=== PATIENT | male | born 1950 | race Caucasian/White ===

== ENCOUNTER 2018-10-25 11:17 | Emergency (ER) | payer MEDICARE ==
[~2018-10-25] VITALS: Ht 188 cm; Wt 120.5 kg
[~2018-10-25 11:17] MED LIST: DOXY100C43 PO; PRED10TA23 PO
[2018-10-25] MEDS ORDERED: methylPREDNISolone sod succ 125mg/2ml vial IV ONE (12:30)
[2018-10-25] MEDS ORDERED: ipratropium/albuterol 3ml nebule NEB ONE (12:30)
[2018-10-25 12:59] LABS: BASOPHILS % (AUTO) 0.4 % (0-1); EOSINOPHILS # (AUTO) 0.1 X10'3 (0-0.9); EOSINOPHILS % (AUTO) 1.4 % (0-6); HEMATOCRIT 40.5 % (42.0-52.0); HEMOGLOBIN 13.5 g/dl (14.0-17.9); LYMPHOCYTES # (AUTO) 1.9 X10'3 (1.1-4.8); LYMPHOCYTES % (AUTO) 21.5 % (21-51); MEAN CORPUSCULAR HGB CONC 33.3 g/dL (33.0-36.5); MEAN CORPUSCULAR VOLUME 81.2 FL (78-98); MEAN PLATELET VOLUME 8.5 FL (7.4-10.4); MONOCYTES % (AUTO) 11.2 % (2-12); NEUTROPHILS # (AUTO) 5.7 X10'3 (1.8-7.7); NEUTROPHILS % (AUTO) 65.5 % (42-75); PLATELET COUNT 175 X10'3 (140-440); RED BLOOD COUNT 4.99 X10'6 (4.70-6.10); WHITE BLOOD COUNT 8.6 X10'3 (4.5-11.0)
[2018-10-25 13:15] VITALS: BP 151/93
[2018-10-25 13:16] LABS: ALANINE AMINOTRANSFERASE 18 U/L (12-78); ALKALINE PHOSPHATASE 113 IU/L (46-116); ANION GAP 9 (8-16); ASPARTATE AMINO TRANSFERASE 10 U/L (10-37); BILIRUBIN,TOTAL 0.3 MG/DL (0.1-1.0); BLOOD UREA NITROGEN 15 MG/DL (7-18); BUN/CREATININE RATIO 15.3 (5.4-32.0); CALCIUM 8.5 MG/DL (8.5-10.1); CHLORIDE 108 MMOL/L (99-107); CREATININE 0.98 MG/DL (0.60-1.10); GLUCOSE 85 MG/DL (70-104); POTASSIUM 3.6 MMOL/L (3.5-5.1); SODIUM 147 MMOL/L (135-145); TOTAL CARBON DIOXIDE 30.3 MMOL/L (24-32); TOTAL PROTEIN 6.1 G/DL (6.4-8.2); eGFR 76 ML/MIN
== END 2018-10-25 13:37 | disposition home or self-care (01) ==
LOC: ER 11:17
DX: J44.1 Chronic obstructive pulmonary disease with (acute) exacerbation (principal); I25.10 Atherosclerotic heart disease of native coronary artery without angina pectoris; F17.200 Nicotine dependence, unspecified, uncomplicated; Z79.899 Other long term (current) drug therapy; Z59.0 Homelessness
CPT/HCPCS: 36415; 71045; 80053; 84484; 85025; 93005; 94640; 94760; 96374; 99284; J2930

== ENCOUNTER 2018-10-28 08:55 | Emergency (ER) | payer MEDICARE ==
[~2018-10-28] VITALS: Ht 188 cm; Wt 126.0 kg
[2018-10-28] MEDS ORDERED: ipratropium/albuterol 3ml nebule NEB ONE (09:00)
[2018-10-28] MEDS ORDERED: methylPREDNISolone sod succ 125mg/2ml vial IV ONE (09:00)
[2018-10-28 09:22] LABS: BASOPHILS # (AUTO) 0.1 X10'3 (0-0.2); BASOPHILS % (AUTO) 0.6 % (0-1); EOSINOPHILS # (AUTO) 0.2 X10'3 (0-0.9); EOSINOPHILS % (AUTO) 1.6 % (0-6); HEMATOCRIT 45.6 % (42.0-52.0); HEMOGLOBIN 14.8 g/dl (14.0-17.9); LYMPHOCYTES # (AUTO) 2.1 X10'3 (1.1-4.8); LYMPHOCYTES % (AUTO) 20.9 % (21-51); MEAN CORPUSCULAR HEMOGLOBIN 26.6 PG (27.0-31.0); MEAN CORPUSCULAR HGB CONC 32.4 g/dL (33.0-36.5); MEAN CORPUSCULAR VOLUME 82.1 FL (78-98); MEAN PLATELET VOLUME 8.6 FL (7.4-10.4); MONOCYTES % (AUTO) 10.1 % (2-12); NEUTROPHILS # (AUTO) 6.6 X10'3 (1.8-7.7); NEUTROPHILS % (AUTO) 66.8 % (42-75); PLATELET COUNT 167 X10'3 (140-440); RED BLOOD COUNT 5.55 X10'6 (4.70-6.10); RED CELL DISTRIBUTION WIDTH 18.4 % (11.5-14.5); WHITE BLOOD COUNT 9.8 X10'3 (4.5-11.0)
[2018-10-28 09:38] LABS: ALANINE AMINOTRANSFERASE 21 U/L (12-78); ALBUMIN 3.2 G/DL (3.4-5.0); ALBUMIN/GLOBULIN RATIO 0.9 (1.1-1.5); ALKALINE PHOSPHATASE 114 IU/L (46-116); ANION GAP 6 (8-16); ASPARTATE AMINO TRANSFERASE 16 U/L (10-37); BILIRUBIN,TOTAL 0.4 MG/DL (0.1-1.0); BLOOD UREA NITROGEN 16 MG/DL (7-18); BUN/CREATININE RATIO 16.7 (5.4-32.0); CALCIUM 8.5 MG/DL (8.5-10.1); CHLORIDE 106 MMOL/L (99-107); CREATININE 0.96 MG/DL (0.60-1.10); GLUCOSE 123 MG/DL (70-104); POTASSIUM 3.6 MMOL/L (3.5-5.1); SODIUM 143 MMOL/L (135-145); TOTAL CARBON DIOXIDE 31.3 MMOL/L (24-32); TOTAL PROTEIN 6.6 G/DL (6.4-8.2); eGFR 78 ML/MIN
[2018-10-28 09:48] LABS: INR 1.1 INR; PARTIAL THROMBOPLASTIN TIME 25 SECONDS (22-32)
[2018-10-28] MEDS ORDERED: ALBU8.5H8 IH (10:26)
[2018-10-28] MEDS ORDERED: PRED20TA PO (10:26)
[2018-10-28 10:42] VITALS: BP 183/88
== END 2018-10-28 10:44 | disposition home or self-care (01) ==
LOC: ER 08:56
DX: J44.1 Chronic obstructive pulmonary disease with (acute) exacerbation (principal); I25.10 Atherosclerotic heart disease of native coronary artery without angina pectoris; F17.200 Nicotine dependence, unspecified, uncomplicated; Z98.890 Other specified postprocedural states; Z79.2 Long term (current) use of antibiotics; Z79.899 Other long term (current) drug therapy; Z59.0 Homelessness
CPT/HCPCS: 36415; 71045; 80053; 83880; 84484; 85025; 85610; 85730; 93005; 94640; 94760; 96374; 99284; J2930

== ENCOUNTER 2018-10-28 23:49 | Emergency (ER) | payer MEDICARE ==
[~2018-10-28] VITALS: Ht 188 cm; Wt 120.0 kg
[~2018-10-28 23:49] MED LIST changes: +ALBU8.5H8 IH; +PRED20TA PO
[2018-10-29] MEDS ORDERED: ipratropium/albuterol 3ml nebule NEB ONE (00:55)
[2018-10-29 02:39] VITALS: BP 129/78
== END 2018-10-29 02:43 | disposition home or self-care (01) ==
LOC: ER 23:49
DX: J44.1 Chronic obstructive pulmonary disease with (acute) exacerbation (principal); I25.10 Atherosclerotic heart disease of native coronary artery without angina pectoris; Z95.1 Presence of aortocoronary bypass graft; Z56.0 Unemployment, unspecified; Z59.0 Homelessness
CPT/HCPCS: 93005; 94640; 94760; 99283

== ENCOUNTER 2018-11-21 03:04 | Emergency (ER) | payer MEDICARE ==
[~2018-11-21] VITALS: Ht 190.5 cm; Wt 122.7 kg
[~2018-11-21 03:04] MED LIST changes: -DOXY100C43 PO; -PRED20TA PO
--- NOTE | 2018-11-21 03:18 | NUR ---
Patient BIB EMS with complaints of SOB [id number].
[2018-11-21] MEDS ORDERED: dexamethasone 4mg tablet PO ONE (03:25)
[2018-11-21] MEDS ORDERED: nitroGLYCERIN 0.4mg/hour patch TD ONE (03:25)
[2018-11-21] MEDS ORDERED: aspirin 81mg tab.chew PO ONE (03:25)
[2018-11-21] MEDS ORDERED: ipratropium/albuterol 3ml nebule NEB ONE (03:25)
[2018-11-21] MEDS ORDERED: furosemide 40mg/4ml inj IV ONE (03:25)
[2018-11-21] MEDS ORDERED: carVEDilol 12.5mg tablet PO SCH (03:35)
[2018-11-21] MEDS ORDERED: carVEDilol 12.5mg tablet PO ONE (03:35)
[2018-11-21 03:45] LABS: BASOPHILS % (AUTO) 0.6 % (0-1); EOSINOPHILS # (AUTO) 0.2 X10'3 (0-0.9); EOSINOPHILS % (AUTO) 1.9 % (0-6); HEMATOCRIT 49.1 % (42.0-52.0); HEMOGLOBIN 16.1 g/dl (14.0-17.9); LYMPHOCYTES # (AUTO) 2.8 X10'3 (1.1-4.8); LYMPHOCYTES % (AUTO) 33.8 % (21-51); MEAN CORPUSCULAR HEMOGLOBIN 27.5 PG (27.0-31.0); MEAN CORPUSCULAR HGB CONC 32.9 g/dL (33.0-36.5); MEAN CORPUSCULAR VOLUME 83.7 FL (78-98); MEAN PLATELET VOLUME 8.6 FL (7.4-10.4); MONOCYTES # (AUTO) 0.8 X10'3 (0-0.9); MONOCYTES % (AUTO) 9.7 % (2-12); NEUTROPHILS # (AUTO) 4.5 X10'3 (1.8-7.7); PLATELET COUNT 185 X10'3 (140-440); RED BLOOD COUNT 5.87 X10'6 (4.70-6.10); RED CELL DISTRIBUTION WIDTH 19.5 % (11.5-14.5); WHITE BLOOD COUNT 8.2 X10'3 (4.5-11.0)
[2018-11-21 03:53] LABS: ALANINE AMINOTRANSFERASE 19 U/L (12-78); ALBUMIN 3.7 G/DL (3.4-5.0); ALBUMIN/GLOBULIN RATIO 0.9 (1.1-1.5); ALKALINE PHOSPHATASE 120 IU/L (46-116); ANION GAP 9 (8-16); ASPARTATE AMINO TRANSFERASE 12 U/L (10-37); BILIRUBIN,TOTAL 0.6 MG/DL (0.1-1.0); BLOOD UREA NITROGEN 14 MG/DL (7-18); BUN/CREATININE RATIO 15.7 (5.4-32.0); CALCIUM 9.1 MG/DL (8.5-10.1); CHLORIDE 105 MMOL/L (99-107); CREATININE 0.89 MG/DL (0.60-1.10); GLUCOSE 77 MG/DL (70-104); PARTIAL THROMBOPLASTIN TIME 27 SECONDS (22-32); POTASSIUM 3.8 MMOL/L (3.5-5.1); SODIUM 142 MMOL/L (135-145); TOTAL CARBON DIOXIDE 28.1 MMOL/L (24-32); TOTAL PROTEIN 7.6 G/DL (6.4-8.2); eGFR 85 ML/MIN
[2018-11-21 03:59] LABS: MAGNESIUM 1.8 MG/DL (1.5-2.4)
[2018-11-21] MEDS ORDERED: CARV-50 PO (04:15)
[2018-11-21] MEDS ORDERED: FURO-150 PO (04:15)
[2018-11-21] MEDS ORDERED: PRED20TA PO (04:15)
[2018-11-21] MEDS ORDERED: ALBU6.7H INH (04:15)
[2018-11-21 05:02] VITALS: BP 161/85
== END 2018-11-21 04:25 | disposition home or self-care (01) ==
LOC: ER 03:05
DX: J44.1 Chronic obstructive pulmonary disease with (acute) exacerbation (principal); I10 Essential (primary) hypertension; Z91.14 Patient's other noncompliance with medication regimen; I25.10 Atherosclerotic heart disease of native coronary artery without angina pectoris; Z59.0 Homelessness; Z56.0 Unemployment, unspecified; Z95.1 Presence of aortocoronary bypass graft
CPT/HCPCS: 36415; 71045; 80053; 83735; 83880; 84484; 85025; 85610; 85730; 93005; 94640; 94760; 96374; 99284; J1940; J8540

== ENCOUNTER 2018-12-08 08:36 | Emergency (ER) | payer MEDICARE ==
[~2018-12-08] VITALS: Ht 190.5 cm; Wt 122.0 kg
[~2018-12-08 08:36] MED LIST changes: +ALBU6.7H INH; -ALBU8.5H8 IH; +CARV-50 PO; +FURO-150 PO; -PRED10TA23 PO; +PRED20TA PO
[2018-12-08] MEDS ORDERED: dexamethasone 4mg/ml inj PO STA (08:57)
[2018-12-08] MEDS ORDERED: ipratropium/albuterol 3ml nebule NEB ONE (09:00)
[2018-12-08] MEDS ORDERED: dexamethasone 4mg tablet PO ONE (09:15)
[2018-12-08 09:42] LABS: BASOPHILS % (AUTO) 0.3 % (0-1); EOSINOPHILS # (AUTO) 0.1 X10'3 (0-0.9); EOSINOPHILS % (AUTO) 1.5 % (0-6); HEMOGLOBIN 15.1 g/dl (14.0-17.9); LYMPHOCYTES # (AUTO) 1.9 X10'3 (1.1-4.8); LYMPHOCYTES % (AUTO) 25.8 % (21-51); MEAN CORPUSCULAR HEMOGLOBIN 28.4 PG (27.0-31.0); MEAN CORPUSCULAR HGB CONC 32.9 g/dL (33.0-36.5); MEAN CORPUSCULAR VOLUME 86.2 FL (78-98); MEAN PLATELET VOLUME 9.1 FL (7.4-10.4); MONOCYTES # (AUTO) 0.6 X10'3 (0-0.9); MONOCYTES % (AUTO) 8.1 % (2-12); NEUTROPHILS # (AUTO) 4.7 X10'3 (1.8-7.7); NEUTROPHILS % (AUTO) 64.3 % (42-75); PLATELET COUNT 165 X10'3 (140-440); RED BLOOD COUNT 5.33 X10'6 (4.70-6.10); RED CELL DISTRIBUTION WIDTH 17.6 % (11.5-14.5); WHITE BLOOD COUNT 7.4 X10'3 (4.5-11.0)
[2018-12-08 10:06] LABS: ALANINE AMINOTRANSFERASE 14 U/L (12-78); ALBUMIN 2.8 G/DL (3.4-5.0); ALBUMIN/GLOBULIN RATIO 0.9 (1.1-1.5); ALKALINE PHOSPHATASE 89 IU/L (46-116); ANION GAP 4 (8-16); BILIRUBIN,TOTAL 0.8 MG/DL (0.1-1.0); BLOOD UREA NITROGEN 15 MG/DL (7-18); BUN/CREATININE RATIO 17.2 (5.4-32.0); CALCIUM 8.5 MG/DL (8.5-10.1); CHLORIDE 106 MMOL/L (99-107); CREATININE 0.87 MG/DL (0.60-1.10); GLUCOSE 125 MG/DL (70-104); POTASSIUM 3.9 MMOL/L (3.5-5.1); SODIUM 139 MMOL/L (135-145); TOTAL CARBON DIOXIDE 28.9 MMOL/L (24-32); TOTAL PROTEIN 5.8 G/DL (6.4-8.2); eGFR 88 ML/MIN
[2018-12-08 11:21] VITALS: BP 138/67
[2018-12-08 12:00] LABS: ASPARTATE AMINO TRANSFERASE 14 U/L (10-37)
[2018-12-12] MEDS ORDERED: ALBU8HFA PO (14:48)
== END 2018-12-08 12:28 | disposition home or self-care (01) ==
LOC: ER 08:36
DX: J44.1 Chronic obstructive pulmonary disease with (acute) exacerbation (principal); I25.10 Atherosclerotic heart disease of native coronary artery without angina pectoris; I10 Essential (primary) hypertension; F17.200 Nicotine dependence, unspecified, uncomplicated; Z95.1 Presence of aortocoronary bypass graft; Z59.0 Homelessness; Z56.0 Unemployment, unspecified; Z79.899 Other long term (current) drug therapy
CPT/HCPCS: 36415; 71045; 80053; 83880; 84484; 85025; 85610; 93005; 94640; 94760; 99284; J1100; J8540

== ENCOUNTER 2019-04-12 09:06 | Emergency (ER) | payer MEDICARE ==
[~2019-04-12] VITALS: Ht 190.5 cm; Wt 131.4 kg
[~2019-04-12 09:06] MED LIST changes: -ALBU6.7H INH; +ALBU6.7H9 INH; -PRED20TA PO
[2019-04-12 09:48] LABS: BASOPHILS # (AUTO) 0.1 X10'3 (0-0.2); BASOPHILS % (AUTO) 0.5 % (0-1); EOSINOPHILS # (AUTO) 0.2 X10'3 (0-0.9); HEMATOCRIT 51.7 % (42.0-52.0); HEMOGLOBIN 17.7 g/dl (14.0-17.9); LYMPHOCYTES # (AUTO) 2.5 X10'3 (1.1-4.8); LYMPHOCYTES % (AUTO) 22.2 % (21-51); MEAN CORPUSCULAR HEMOGLOBIN 31.2 PG (27.0-31.0); MEAN CORPUSCULAR HGB CONC 34.3 g/dL (33.0-36.5); MEAN CORPUSCULAR VOLUME 90.9 FL (78-98); MONOCYTES # (AUTO) 1.3 X10'3 (0-0.9); MONOCYTES % (AUTO) 11.3 % (2-12); NEUTROPHILS # (AUTO) 7.2 X10'3 (1.8-7.7); PLATELET COUNT 204 X10'3 (140-440); RED BLOOD COUNT 5.68 X10'6 (4.70-6.10); RED CELL DISTRIBUTION WIDTH 12.5 % (11.5-14.5); WHITE BLOOD COUNT 11.2 X10'3 (4.5-11.0)
[2019-04-12 10:02] LABS: PARTIAL THROMBOPLASTIN TIME 26 SECONDS (22-32)
[2019-04-12 10:05] LABS: ALANINE AMINOTRANSFERASE 12 U/L (12-78); ALBUMIN 3.7 G/DL (3.4-5.0); ALKALINE PHOSPHATASE 133 IU/L (46-116); ANION GAP 10 (8-16); ASPARTATE AMINO TRANSFERASE 16 U/L (10-37); BILIRUBIN,TOTAL 0.5 MG/DL (0.1-1.0); BLOOD UREA NITROGEN 13 MG/DL (7-18); BUN/CREATININE RATIO 14.1 (5.4-32.0); CALCIUM 9.5 MG/DL (8.5-10.1); CHLORIDE 102 MMOL/L (99-107); CREATININE 0.92 MG/DL (0.60-1.10); GLUCOSE 105 MG/DL (70-104); SODIUM 139 MMOL/L (135-145); TOTAL CARBON DIOXIDE 27.1 MMOL/L (24-32); TOTAL PROTEIN 7.4 G/DL (6.4-8.2); eGFR 82 ML/MIN
[2019-04-12] MEDS ORDERED: INHA1INH2 (10:18)
[2019-04-12] MEDS ORDERED: ipratropium/albuterol 3ml nebule NEB ONE (10:20)
[2019-04-12] MEDS ORDERED: ipratropium/albuterol 3ml nebule ONE (10:32)
[2019-04-12] MEDS ORDERED: LORazepam 1 MG tablet PO ONE (11:15)
[2019-04-12 11:29] VITALS: BP 117/65
== END 2019-04-12 11:30 | disposition home or self-care (01) ==
LOC: ER 09:07
DX: J44.1 Chronic obstructive pulmonary disease with (acute) exacerbation (principal); F41.9 Anxiety disorder, unspecified; I25.10 Atherosclerotic heart disease of native coronary artery without angina pectoris; I10 Essential (primary) hypertension; F17.200 Nicotine dependence, unspecified, uncomplicated; Z95.1 Presence of aortocoronary bypass graft; Z59.0 Homelessness; Z56.0 Unemployment, unspecified; Z79.899 Other long term (current) drug therapy
CPT/HCPCS: 36415; 71045; 80053; 84484; 85025; 85610; 85730; 93005; 94640; 94760; 99284

== ENCOUNTER 2019-05-14 10:17 | Emergency (ER) | payer MEDICARE ==
[~2019-05-14] VITALS: Ht 190.5 cm; Wt 131.4 kg
[~2019-05-14 10:17] MED LIST changes: +INHA1INH2
[2019-05-14 11:07] LABS: BASOPHILS # (AUTO) 0.1 X10'3 (0-0.2); BASOPHILS % (AUTO) 0.8 % (0-1); EOSINOPHILS # (AUTO) 0.1 X10'3 (0-0.9); EOSINOPHILS % (AUTO) 1.4 % (0-6); HEMOGLOBIN 16.6 g/dl (14.0-17.9); LYMPHOCYTES # (AUTO) 2.4 X10'3 (1.1-4.8); LYMPHOCYTES % (AUTO) 24.3 % (21-51); MEAN CORPUSCULAR HGB CONC 34.6 g/dL (33.0-36.5); MEAN CORPUSCULAR VOLUME 89.7 FL (78-98); MEAN PLATELET VOLUME 9.2 FL (7.4-10.4); MONOCYTES # (AUTO) 0.7 X10'3 (0-0.9); MONOCYTES % (AUTO) 6.9 % (2-12); NEUTROPHILS # (AUTO) 6.6 X10'3 (1.8-7.7); NEUTROPHILS % (AUTO) 66.6 % (42-75); PLATELET COUNT 175 X10'3 (140-440); RED BLOOD COUNT 5.35 X10'6 (4.70-6.10); RED CELL DISTRIBUTION WIDTH 13.2 % (11.5-14.5); WHITE BLOOD COUNT 9.9 X10'3 (4.5-11.0)
[2019-05-14 11:22] LABS: ALANINE AMINOTRANSFERASE 21 U/L (12-78); ALBUMIN 3.2 G/DL (3.4-5.0); ALKALINE PHOSPHATASE 111 IU/L (46-116); ANION GAP 5 (8-16); ASPARTATE AMINO TRANSFERASE 14 U/L (10-37); BILIRUBIN,TOTAL 0.3 MG/DL (0.1-1.0); BLOOD UREA NITROGEN 17 MG/DL (7-18); BUN/CREATININE RATIO 18.9 (5.4-32.0); CALCIUM 9.2 MG/DL (8.5-10.1); CHLORIDE 104 MMOL/L (99-107); GLUCOSE 119 MG/DL (70-104); POTASSIUM 4.4 MMOL/L (3.5-5.1); SODIUM 139 MMOL/L (135-145); TOTAL CARBON DIOXIDE 29.7 MMOL/L (24-32); TOTAL PROTEIN 6.4 G/DL (6.4-8.2); eGFR 84 ML/MIN
[2019-05-14] MEDS ORDERED: ipratropium/albuterol 3ml nebule NEB ONE (11:25)
[2019-05-14] MEDS ORDERED: LORazepam 1 MG tablet PO ONE (11:25)
[2019-05-14] MEDS ORDERED: prednisone 10mg tablet PO STA (12:15)
[2019-05-14] MEDS ORDERED: predniSONE 20 mg tablet PO STA (12:25)
--- NOTE | 2019-05-14 14:53 | NUR ---
Repeat troponin level collected by this nurse and sent to the lab with copy of order for 3 hour troponin.
[2019-05-14] MEDS ORDERED: PRED20TA PO (16:06)
[2019-05-14] MEDS ORDERED: AZIT250T83 PO (16:06)
[2019-05-14] MEDS ORDERED: azithromycin 250mg tablet PO ONE (16:20)
[2019-05-14 16:30] VITALS: BP 144/71
== END 2019-05-14 16:33 | disposition home or self-care (01) ==
LOC: ER 10:18
DX: J44.1 Chronic obstructive pulmonary disease with (acute) exacerbation (principal); F41.9 Anxiety disorder, unspecified; I25.10 Atherosclerotic heart disease of native coronary artery without angina pectoris; I50.9 Heart failure, unspecified; I11.0 Hypertensive heart disease with heart failure; F32.9 Major depressive disorder, single episode, unspecified; F17.200 Nicotine dependence, unspecified, uncomplicated; Z79.899 Other long term (current) drug therapy; Z79.2 Long term (current) use of antibiotics; Z95.1 Presence of aortocoronary bypass graft; Z59.0 Homelessness; Z56.0 Unemployment, unspecified
CPT/HCPCS: 36415; 71045; 80053; 83880; 84484; 85025; 93005; 94640; 94760; 99284; J7512

== ENCOUNTER 2019-06-09 11:41 | Inpatient (IN) | payer MEDICARE ==
[~2019-06-09] VITALS: Ht 182.9 cm; Wt 135.8 kg
[2019-06-09 12:46] LABS: BASOPHILS % (AUTO) 0.5 % (0-1); EOSINOPHILS # (AUTO) 0.1 X10'3 (0-0.9); EOSINOPHILS % (AUTO) 1.4 % (0-6); HEMATOCRIT 49.5 % (42.0-52.0); HEMOGLOBIN 17.1 g/dl (14.0-17.9); LYMPHOCYTES # (AUTO) 1.3 X10'3 (1.1-4.8); MEAN CORPUSCULAR HEMOGLOBIN 31.4 PG (27.0-31.0); MEAN CORPUSCULAR HGB CONC 34.5 g/dL (33.0-36.5); MEAN PLATELET VOLUME 9.2 FL (7.4-10.4); MONOCYTES # (AUTO) 0.9 X10'3 (0-0.9); MONOCYTES % (AUTO) 11.1 % (2-12); NEUTROPHILS # (AUTO) 5.7 X10'3 (1.8-7.7); PLATELET COUNT 169 X10'3 (140-440); RED BLOOD COUNT 5.45 X10'6 (4.70-6.10); RED CELL DISTRIBUTION WIDTH 14.3 % (11.5-14.5)
[2019-06-09 13:05] LABS: ALANINE AMINOTRANSFERASE 39 U/L (12-78); ALBUMIN 3.7 G/DL (3.4-5.0); ALBUMIN/GLOBULIN RATIO 1.1 (1.1-1.5); ALKALINE PHOSPHATASE 121 IU/L (46-116); ANION GAP 4 (8-16); ASPARTATE AMINO TRANSFERASE 23 U/L (10-37); BILIRUBIN,TOTAL 0.5 MG/DL (0.1-1.0); BLOOD UREA NITROGEN 19 MG/DL (7-18); CHLORIDE 103 MMOL/L (99-107); GLUCOSE 127 MG/DL (70-104); POTASSIUM 4.4 MMOL/L (3.5-5.1); SODIUM 140 MMOL/L (135-145); TOTAL CARBON DIOXIDE 32.8 MMOL/L (24-32); TOTAL PROTEIN 7.1 G/DL (6.4-8.2); eGFR 75 ML/MIN
[2019-06-09] MEDS ORDERED: ipratropium/albuterol 3ml nebule NEB ONE (13:10)
[2019-06-09] MEDS ORDERED: methylPREDNISolone sod succ 125mg/2ml vial IV ONE ×2 (13:10→15:15)
[2019-06-09] MEDS ORDERED: ATOR40TA71 PO (14:15)
[2019-06-09] MEDS ORDERED: FURO40TA4 PO (14:15)
[2019-06-09] MEDS ORDERED: TIOT18CA3 IH (14:15)
[2019-06-09] MEDS ORDERED: METO-395 PO (14:15)
[2019-06-09] MEDS ORDERED: FLUT1AER PO (14:15)
[2019-06-09] MEDS ORDERED: ASPI-611 PO (14:15)
[2019-06-09] MEDS ORDERED: ALBU8.5H8 INH (14:15)
[2019-06-09] MEDS ORDERED: LISI-604 PO (14:15)
--- NOTE | 2019-06-09 14:18 | NUR ---
DR FERNANDEZ AT BEDSIDE
[2019-06-09 14:21] LABS: ABG BASE EXCESS 2.5 mmol/L (-2.0-3.0); ABG HCO3 26.7 mmol/L (22.0-26.0); ABG OXYGEN SATURATION 94.2 % (95-98); ABG PCO2 (T) 39.8 mmHg (35.0-45.0); ABG PH (T) 7.444 (7.350-7.450); ABG PO2 (T) 68.4 mmHg (83-108); ALLEN'S TEST Positive; FCOHb 2.6 % (0.5-1.5); FLOW 2 L/min; FMetHb 0.2 % (0.3-1.12); FO2Hb 91.6 % (94-100); TOTAL HEMOGLOBIN 17.1 G/dl (14.0-17.9)
[2019-06-09] MEDS ORDERED: normal saline 1000ml 1,000 ML IV SCH (15:11)
[2019-06-09] MEDS ORDERED: potassium CL 10mEq/100ml bag 100 ML IV PRN ×2 (15:15)
[2019-06-09] MEDS ORDERED: morphine 2 MG/ML inj. syringe IV PRN (15:15)
[2019-06-09] MEDS ORDERED: magnesium Cl slow-release 64mg tablet PO PRN (15:15)
[2019-06-09] MEDS ORDERED: acetaminophen 325mg tablet PO PRN ×2 (15:15)
[2019-06-09] MEDS ORDERED: nicotine 14mg patch - 24hr TD SCH (15:15)
[2019-06-09] MEDS ORDERED: magnesium 2GM in 50ml NS 50 ML IV PRN (15:15)
[2019-06-09] MEDS ORDERED: CefTRIAXone 2gm/D5W 50ml 50 ML IV ONE (15:15)
[2019-06-09] MEDS ORDERED: potassium Cl 20 mEq SR tablet PO PRN ×2 (15:15)
[2019-06-09] MEDS ORDERED: magnesium 4gm in 100ml NS 100 ML IV PRN (15:15)
[2019-06-09] MEDS ORDERED: ondansetron/PF 4mg/2ml inj IV PRN (15:15)
[2019-06-09] MEDS: ipratropium 0.5 MG/2.5ML nebule IH SCH ×2 (16:07→19:45)
[2019-06-09] MEDS: albuterol 2.5 MG/3 ML nebule NEB SCH ×3 (16:07→23:54)
--- NOTE | 2019-06-09 17:19 | NUR ---
PATIENT STILL UNABLE TO VOID LAYING ON RIGHT SIDE
[2019-06-09 18:00] VITALS: BP 143/72
--- NOTE | 2019-06-09 18:26 | NUR ---
PATIENT REFUSED TO ATTEMPT TO URINATE FOR URINE COLLECTION
--- NOTE | 2019-06-09 18:33 | NUR ---
ATTEMPTED TO CALL REPORT, TIKI ENGLAND NOT ABLE TO BE FOUND
--- NOTE | 2019-06-09 18:45 | NUR ---
Patient in room PCU 3010. I have received report from ED RN and had the opportunity to ask questions and assume patient care.
--- NOTE | 2019-06-09 19:00 | NUR ---
Pt arrived via fr/ED in no acute distress. Amb to bed w/stand by assist. Gait is steady. Oriented to bed, room, surroundings, and POC. Exertional SOB noted.
[2019-06-09] MEDS: K and/or MAG REPLACEMENT MC SCH (20:00)
[2019-06-09] MEDS: docusate sod 100mg capsule PO SCH (20:00)
[2019-06-09] MEDS: metoprolol succinate 25mg (24-HOUR) SR. Tablet PO SCH (21:26)
[2019-06-09] MEDS: heparin, porcine 5000 units/ml vial SQ SCH (21:28)
[2019-06-09 22:00] VITALS: BP_SYST 129; BP_SYST 137; BP_SYST 97; BP_DIAS 48; BP_DIAS 71; BP_DIAS 77
[2019-06-09 22:11] LABS: URINE AMPHETAMINE SCREEN NEGATIVE (Neg); URINE BARBITUATE SCREEN NEGATIVE (Neg); URINE BENZODIAZEPINES SCREEN NEGATIVE (Neg); URINE CANNABINOID SCREEN NEGATIVE (Neg); URINE COCAINE SCREEN NEGATIVE (Neg); URINE METHADONE SCREEN NEGATIVE (Neg); URINE OPIATE SCREEN NEGATIVE (Neg); URINE PHENCYCLIDINE SCREEN NEGATIVE (Neg)
[2019-06-09] MEDS: HYDROcodone/acetaminophen 5mg/325mg tablet PO PRN (23:10)
[2019-06-10] VITALS (8 sets, daily range): BP systolic 106–157; BP diastolic 47–76
[2019-06-10] MEDS: ipratropium 0.5 MG/2.5ML nebule IH SCH ×5 (03:10→19:54)
[2019-06-10] MEDS: albuterol 2.5 MG/3 ML nebule NEB SCH ×5 (03:10→19:54)
[2019-06-10 05:37] LABS: BASOPHILS % (AUTO) 0 % (0-1); EOSINOPHILS % (AUTO) 0 % (0-6); HEMATOCRIT 47.8 % (42.0-52.0); HEMOGLOBIN 16.3 g/dl (14.0-17.9); LYMPHOCYTES # (AUTO) 0.8 X10'3 (1.1-4.8); LYMPHOCYTES % (AUTO) 9.2 % (21-51); MEAN CORPUSCULAR HEMOGLOBIN 31.2 PG (27.0-31.0); MEAN CORPUSCULAR VOLUME 91.9 FL (78-98); MEAN PLATELET VOLUME 9.3 FL (7.4-10.4); MONOCYTES # (AUTO) 0.3 X10'3 (0-0.9); MONOCYTES % (AUTO) 3.7 % (2-12); NEUTROPHILS # (AUTO) 7.3 X10'3 (1.8-7.7); NEUTROPHILS % (AUTO) 87.1 % (42-75); PLATELET COUNT 166 X10'3 (140-440); RED CELL DISTRIBUTION WIDTH 14.5 % (11.5-14.5); WHITE BLOOD COUNT 8.3 X10'3 (4.5-11.0)
[2019-06-10 06:01] LABS: ALANINE AMINOTRANSFERASE 34 U/L (12-78); ALBUMIN 3.2 G/DL (3.4-5.0); ALBUMIN/GLOBULIN RATIO 0.9 (1.1-1.5); ALKALINE PHOSPHATASE 107 IU/L (46-116); ANION GAP 8 (8-16); ASPARTATE AMINO TRANSFERASE 16 U/L (10-37); BILIRUBIN,TOTAL 0.4 MG/DL (0.1-1.0); BLOOD UREA NITROGEN 20 MG/DL (7-18); BUN/CREATININE RATIO 25.3 (5.4-32.0); CALCIUM 8.7 MG/DL (8.5-10.1); CHLORIDE 106 MMOL/L (99-107); CHOL/HDL RATIO 2.2 (0.00-4.99); CHOLESTEROL 124 MG/DL (0-200); CREATININE 0.79 MG/DL (0.60-1.10); GLUCOSE 149 MG/DL (70-104); HDL CHOLESTEROL 57 MG/DL (35-60); LDL CHOLESTEROL 59 MG/DL (50-100); MAGNESIUM 1.9 MG/DL (1.5-2.4); POTASSIUM 4.4 MMOL/L (3.5-5.1); SODIUM 140 MMOL/L (135-145); TOTAL CARBON DIOXIDE 26.5 MMOL/L (24-32); TOTAL PROTEIN 6.7 G/DL (6.4-8.2); TRIGLYCERIDES 33 MG/DL (20-135); eGFR > 90 ML/MIN
--- NOTE | 2019-06-10 06:55 | NUR ---
Patient in room PCU 3010. I have received report from Bella ENGLAND and had the opportunity to ask questions and assume patient care.
--- NOTE | 2019-06-10 07:35 | NUR ---
Problems reprioritized. Patient report given, questions answered & plan of care reviewed with Ronald ENGLAND.
[2019-06-10] MEDS: K and/or MAG REPLACEMENT MC SCH ×2 (08:00→20:00)
[2019-06-10] MEDS: lisinopril 5mg tablet PO SCH (08:13)
[2019-06-10] MEDS: docusate sod 100mg capsule PO SCH ×2 (08:13→20:18)
[2019-06-10] MEDS: aspirin 81mg tablet.DR PO SCH (08:13)
[2019-06-10] MEDS: metoprolol succinate 25mg (24-HOUR) SR. Tablet PO SCH ×2 (08:13→20:17)
[2019-06-10] MEDS: heparin, porcine 5000 units/ml vial SQ SCH ×2 (08:13→20:17)
[2019-06-10] MEDS: atorvastatin 20mg tablet PO SCH (08:13)
[2019-06-10] MEDS ORDERED: nicotine 14mg patch - 24hr TD SCH (16:00)
[2019-06-10] MEDS: LORazepam 0.5 MG tablet PO PRN ×2 (17:39→23:52)
--- NOTE | 2019-06-10 18:42 | NUR ---
Problems reprioritized. Patient report given, questions answered & plan of care reviewed with Bella ENGLAND.
--- NOTE | 2019-06-10 18:46 | NUR ---
Patient in room PCU 3010. I have received report from Ronald ENGLAND and had the opportunity to ask questions and assume patient care.
[2019-06-10] MEDS: HYDROcodone/acetaminophen 5mg/325mg tablet PO PRN (20:18)
--- NOTE | 2019-06-10 21:00 | NUR ---
Pt. noted to have and increase in exertional SOB w/mild SOB at rest. Appears anxious, O2/NC at 1L. O2 sat 97%. notified of change in resp status. BiPap ord and applied. Resp treatment admin.
[2019-06-10] MEDS: ipratropium/albuterol 3ml nebule NEB SCH (23:26)
[2019-06-10] MEDS: salt irrigation nasal spray 45 ML SPRAY NS PRN (23:30)
[2019-06-11 02:00] VITALS: BP 125/53
[2019-06-11] MEDS: ipratropium/albuterol 3ml nebule NEB SCH ×3 (03:00→11:46)
--- NOTE | 2019-06-11 06:10 | NUR ---
Patient in room PCU 3010. I have received report from SAMANTA Blanco and had the opportunity to ask questions and assume patient care.
--- NOTE | 2019-06-11 06:32 | NUR ---
Problems reprioritized. Patient report given, questions answered & plan of care reviewed with Grecia ENGLAND.
[2019-06-11 06:44] LABS: BASOPHILS % (AUTO) 0.4 % (0-1); EOSINOPHILS # (AUTO) 0.2 X10'3 (0-0.9); HEMATOCRIT 44.5 % (42.0-52.0); HEMOGLOBIN 15.2 g/dl (14.0-17.9); LYMPHOCYTES # (AUTO) 2.7 X10'3 (1.1-4.8); LYMPHOCYTES % (AUTO) 32.9 % (21-51); MEAN CORPUSCULAR HEMOGLOBIN 31.4 PG (27.0-31.0); MEAN CORPUSCULAR HGB CONC 34.1 g/dL (33.0-36.5); MEAN CORPUSCULAR VOLUME 92.3 FL (78-98); MEAN PLATELET VOLUME 9.4 FL (7.4-10.4); MONOCYTES # (AUTO) 0.9 X10'3 (0-0.9); MONOCYTES % (AUTO) 11.1 % (2-12); NEUTROPHILS # (AUTO) 4.4 X10'3 (1.8-7.7); NEUTROPHILS % (AUTO) 53.6 % (42-75); PLATELET COUNT 147 X10'3 (140-440); RED BLOOD COUNT 4.83 X10'6 (4.70-6.10); RED CELL DISTRIBUTION WIDTH 14.5 % (11.5-14.5); WHITE BLOOD COUNT 8.2 X10'3 (4.5-11.0)
[2019-06-11] MEDS: salt irrigation nasal spray 45 ML SPRAY NS PRN (06:46)
[2019-06-11 06:59] LABS: ALANINE AMINOTRANSFERASE 34 U/L (12-78); ALBUMIN 3.1 G/DL (3.4-5.0); ALBUMIN/GLOBULIN RATIO 1.1 (1.1-1.5); ALKALINE PHOSPHATASE 100 IU/L (46-116); ANION GAP 4 (8-16); ASPARTATE AMINO TRANSFERASE 21 U/L (10-37); BILIRUBIN,TOTAL 0.4 MG/DL (0.1-1.0); BLOOD UREA NITROGEN 25 MG/DL (7-18); BUN/CREATININE RATIO 29.8 (5.4-32.0); CALCIUM 8.6 MG/DL (8.5-10.1); CHLORIDE 106 MMOL/L (99-107); CREATININE 0.84 MG/DL (0.60-1.10); GLUCOSE 105 MG/DL (70-104); MAGNESIUM 1.9 MG/DL (1.5-2.4); POTASSIUM 4.4 MMOL/L (3.5-5.1); SODIUM 141 MMOL/L (135-145); eGFR > 90 ML/MIN
[2019-06-11 07:00] VITALS: BP 125/53
--- NOTE | 2019-06-11 07:48 | NUR ---
Page sent to Dr. Jaramillo regarding run of v tach. PAGER ID: [phone] MESSAGE: RE [phone] Sergey Nur: OSVALDO-Pt had 6 beat run of V-Tach this morning. Thanks, Grecia Mendez [phone]
[2019-06-11] MEDS: K and/or MAG REPLACEMENT MC SCH (08:00)
[2019-06-11] MEDS ORDERED: furosemide 40mg/4ml inj IV SCH (08:00)
[2019-06-11] MEDS ORDERED: methylPREDNISolone sod succ 125mg/2ml vial IV SCH (08:00)
[2019-06-11] MEDS: docusate sod 100mg capsule PO SCH (08:22)
[2019-06-11] MEDS: heparin, porcine 5000 units/ml vial SQ SCH (08:22)
[2019-06-11] MEDS: atorvastatin 20mg tablet PO SCH (08:22)
[2019-06-11] MEDS: lisinopril 5mg tablet PO SCH (08:22)
[2019-06-11] MEDS: aspirin 81mg tablet.DR PO SCH (08:22)
[2019-06-11] MEDS: metoprolol succinate 25mg (24-HOUR) SR. Tablet PO SCH (08:23)
--- NOTE | 2019-06-11 08:41 | NUR ---
Pt requests double portions; double proteins TIDWM sent as adequate correction given pt wt. Addendum: 06/11/19 at [address] Amended: Links added.
[2019-06-11] MEDS ORDERED: pneumococcal 23-VAL P-sac vacc 25 mcg/0.5ml vial IMVAC ONE (10:00)
[2019-06-11] MEDS ORDERED: PRED10TA23 PO (10:25)
--- NOTE | 2019-06-11 12:12 | NUR ---
Patient stable for discharge per MD. Patient given discharge instructions and education. New prescriptions called into [facility]. Tele monitor removed and returned to director television. PIV d/c'd, catheter intact. [employer] called for patient to be transported to [facility]. Patient transported off unit via wheelchair to [facility] to await cab ride.
[2019-07-11] MEDS ORDERED: APIX5TAB3 PO (16:21)
== END 2019-06-11 12:16 | disposition short-term general hospital (02) | DRG 192 ==
LOC: ER 11:41 → ED HOLD 15:21 → PCU 3S 19:25
PROVIDERS: ADMIT Internal Medicine; ATTEND Internal Medicine
PROC: 5A09357 Assistance with Respiratory Ventilation, Less than 24 Consecutive Hours, Continuous Positive Airway Pressure (ICD-10-PCS; principal; 2019-06-10)
PROC: 3E0234Z Introduction of Serum, Toxoid and Vaccine into Muscle, Percutaneous Approach (ICD-10-PCS; 2019-06-11)
DX: J44.1 Chronic obstructive pulmonary disease with (acute) exacerbation (principal); F17.210 Nicotine dependence, cigarettes, uncomplicated; F31.9 Bipolar disorder, unspecified; I11.0 Hypertensive heart disease with heart failure; R07.89 Other chest pain; I25.10 Atherosclerotic heart disease of native coronary artery without angina pectoris; I50.9 Heart failure, unspecified; Z59.9 Problem related to housing and economic circumstances, unspecified; Z95.1 Presence of aortocoronary bypass graft; Z59.0 Homelessness; Z23 Encounter for immunization; Z71.6 Tobacco abuse counseling
CPT/HCPCS: 36415; 36600; 70450; 71045; 80053; 80061; 80305; 82803; 83605; 83735; 83880; 84484; 85018; 85025; 87040; 87081; 87502; 87503; 90732; 93005; 93306; 94640; 94660; 94760; 96374; 97116; 97161; 99285; G0378; J0696; J1644; J1940; J2930

== ENCOUNTER 2019-06-13 13:02 | Inpatient (IN) | payer MEDICARE, OTHER ==
[~2019-06-13] VITALS: Ht 190.5 cm; Wt 180.0 kg
[~2019-06-13 13:02] MED LIST changes: -ALBU6.7H9 INH; +ALBU8.5H8 INH; +ASPI-611 PO; +ATOR40TA71 PO; -CARV-50 PO; +FLUT1AER PO; -FURO-150 PO; +FURO40TA4 PO; -INHA1INH2; +LISI-604 PO; +METO-395 PO; +PRED10TA23 PO; +TIOT18CA3 IH
[2019-06-13] MEDS ORDERED: ipratropium/albuterol 3ml nebule NEB ONE (13:25)
[2019-06-13] MEDS ORDERED: CefTRIAXone 2gm/D5W 50ml 50 ML IV ONE (13:25)
[2019-06-13] MEDS ORDERED: normal saline 1000ML IV soln IV ONE (13:25)
[2019-06-13] MEDS ORDERED: azithromycin/NS 500mg/250ml 250 ML IV ONE (13:25)
--- NOTE | 2019-06-13 13:33 | NUR ---
PT CAME IN FOR INCREASING SOB WAS IN ER FOR PNA ABOUT 2 DAYS AGO WAS GIVEN RX BUT UNABLE TO FILL IT WITH THE INCREASING SOB HE CAME BACK IN TO THE ER
[2019-06-13 14:02] LABS: EOSINOPHILS # (AUTO) 0.1 X10'3 (0-0.9); RED BLOOD COUNT 5.69 X10'6 (4.70-6.10); WHITE BLOOD COUNT 10.5 X10'3 (4.5-11.0)
[2019-06-13 14:04] LABS: BASOPHILS # (AUTO) 0.1 X10'3 (0-0.2); BASOPHILS % (AUTO) 0.6 % (0-1); EOSINOPHILS % (AUTO) 0.9 % (0-6); HEMATOCRIT 52.1 % (42.0-52.0); HEMOGLOBIN 17.9 g/dl (14.0-17.9); LYMPHOCYTES # (AUTO) 2.6 X10'3 (1.1-4.8); LYMPHOCYTES % (AUTO) 24.5 % (21-51); MEAN CORPUSCULAR HEMOGLOBIN 31.5 PG (27.0-31.0); MEAN CORPUSCULAR HGB CONC 34.3 g/dL (33.0-36.5); MEAN CORPUSCULAR VOLUME 91.7 FL (78-98); MEAN PLATELET VOLUME 9.2 FL (7.4-10.4); MONOCYTES # (AUTO) 0.8 X10'3 (0-0.9); MONOCYTES % (AUTO) 7.4 % (2-12); NEUTROPHILS % (AUTO) 66.6 % (42-75); PLATELET COUNT 200 X10'3 (140-440); RED CELL DISTRIBUTION WIDTH 14.6 % (11.5-14.5)
[2019-06-13 14:10] LABS: ALANINE AMINOTRANSFERASE 49 U/L (12-78); ALBUMIN 3.7 G/DL (3.4-5.0); ALKALINE PHOSPHATASE 115 IU/L (46-116); ANION GAP 6 (8-16); ASPARTATE AMINO TRANSFERASE 21 U/L (10-37); BILIRUBIN,TOTAL 0.6 MG/DL (0.1-1.0); BLOOD UREA NITROGEN 19 MG/DL (7-18); BUN/CREATININE RATIO 19.4 (5.4-32.0); CALCIUM 8.8 MG/DL (8.5-10.1); CHLORIDE 100 MMOL/L (99-107); CREATININE 0.98 MG/DL (0.60-1.10); GLUCOSE 183 MG/DL (70-104); SODIUM 138 MMOL/L (135-145); TOTAL CARBON DIOXIDE 32.2 MMOL/L (24-32); TOTAL PROTEIN 7.4 G/DL (6.4-8.2); eGFR 76 ML/MIN
--- NOTE | 2019-06-13 14:22 | NUR ---
STOPPED PT NS FLUID BOLUS PER VERBAL ORDER FROM VIVIENNE ALICEA, PT RECEIVED APPROX 600ML NS BOLUS, STARTED PT SECOND ABX PER ORDERS.
[2019-06-13 14:36] LABS: ABG BASE EXCESS 0.5 mmol/L (-2.0-3.0); ABG HCO3 24.3 mmol/L (22.0-26.0); ABG OXYGEN SATURATION 91.6 % (95-98); ABG PH (T) 7.435 (7.350-7.450); ABG PO2 (T) 62.4 mmHg (83-108); ALLEN'S TEST Positive; FCOHb 2.5 % (0.5-1.5); FMetHb 0.2 % (0.3-1.12); FO2Hb 89.1 % (94-100); RESPIRATORY RATE (OBSERVED) 26 b/min; TOTAL HEMOGLOBIN 17.3 G/dl (14.0-17.9)
[2019-06-13] MEDS ORDERED: aspirin 81mg tab.chew PO ONE (15:10)
[2019-06-13] MEDS ORDERED: enoxaparin 100mg/ml syringe SUBCUT ONE (15:10)
[2019-06-13] MEDS ORDERED: nitroGLYCERIN 0.4mg SUBLingual tab SL PRN (15:10)
[2019-06-13] MEDS ORDERED: iohexol 350MG/ML 100ml bottle IV ONE (15:26)
[2019-06-13] MEDS ORDERED: acetaminophen 325mg tablet PO PRN (15:50)
[2019-06-13] MEDS ORDERED: magnesium hydroxide 30ml (MOM) UD suspension PO PRN (15:50)
[2019-06-13] MEDS ORDERED: mag hydrox/Alum hydrox/simeth 30ml oral suspension PO PRN (15:50)
[2019-06-13] MEDS ORDERED: ondansetron/PF 4mg/2ml inj IV PRN (15:50)
[2019-06-13] MEDS ORDERED: morphine 2 MG/ML inj. syringe IV PRN (15:50)
--- NOTE | 2019-06-13 17:05 | NUR ---
Patient arrived on unit via wheel chair, ambulated to bed with assist with cane. Patient alert and oriented, able to communicate needs, cooperative with care. Will continue to monitor.
[2019-06-13 18:00] VITALS: BP 126/73
--- NOTE | 2019-06-13 18:29 | NUR ---
Problems reprioritized. Patient report given, questions answered & plan of care reviewed with SAMANTA Sosa.
--- NOTE | 2019-06-13 18:29 | NUR ---
Patient in room PCU 3028. I have received report from SAMANTA Paige and had the opportunity to ask questions and assume patient care.
[2019-06-13] MEDS: carVEDilol 3.125mg tablet PO SCH (19:33)
[2019-06-13] MEDS: ipratropium/albuterol 3ml nebule NEB SCH ×2 (19:34→23:24)
[2019-06-13] MEDS: methylPREDNISolone sod succ 125mg/2ml vial IV SCH (19:34)
--- NOTE | 2019-06-13 21:36 | NUR ---
Sergey Nur Room # 9158-B would like to have the CPAP machine now, please. Thank you MESSAGE ACCEPTED! The message has been submitted for processing.
[2019-06-13] MEDS: nicotine 14mg patch - 24hr TD SCH (21:54)
[2019-06-13] MEDS: morphine 2 MG/ML inj. syringe IV PRN (21:54)
[2019-06-13 22:00] VITALS: BP 139/66
[2019-06-14 02:00] VITALS: BP 136/59
[2019-06-14] MEDS: methylPREDNISolone sod succ 125mg/2ml vial IV SCH ×3 (02:15→22:53)
[2019-06-14 02:54] LABS: BASOPHILS % (AUTO) 0.2 % (0-1); EOSINOPHILS % (AUTO) 0.1 % (0-6); HEMATOCRIT 48.4 % (42.0-52.0); HEMOGLOBIN 16.7 g/dl (14.0-17.9); LYMPHOCYTES # (AUTO) 1.3 X10'3 (1.1-4.8); LYMPHOCYTES % (AUTO) 16.2 % (21-51); MEAN CORPUSCULAR HEMOGLOBIN 31.2 PG (27.0-31.0); MEAN CORPUSCULAR HGB CONC 34.4 g/dL (33.0-36.5); MEAN CORPUSCULAR VOLUME 90.6 FL (78-98); MEAN PLATELET VOLUME 8.7 FL (7.4-10.4); MONOCYTES # (AUTO) 0.1 X10'3 (0-0.9); MONOCYTES % (AUTO) 0.9 % (2-12); NEUTROPHILS # (AUTO) 6.8 X10'3 (1.8-7.7); NEUTROPHILS % (AUTO) 82.6 % (42-75); PLATELET COUNT 171 X10'3 (140-440); RED BLOOD COUNT 5.34 X10'6 (4.70-6.10); RED CELL DISTRIBUTION WIDTH 14.1 % (11.5-14.5); WHITE BLOOD COUNT 8.3 X10'3 (4.5-11.0)
[2019-06-14 03:08] LABS: ALBUMIN 3.1 G/DL (3.4-5.0); ANION GAP 6 (8-16); BLOOD UREA NITROGEN 19 MG/DL (7-18); BUN/CREATININE RATIO 22.4 (5.4-32.0); CALCIUM 8.7 MG/DL (8.5-10.1); CHLORIDE 104 MMOL/L (99-107); CREATININE 0.85 MG/DL (0.60-1.10); GLUCOSE 187 MG/DL (70-104); POTASSIUM 4.6 MMOL/L (3.5-5.1); SODIUM 138 MMOL/L (135-145); TOTAL CARBON DIOXIDE 28.4 MMOL/L (24-32); eGFR 90 ML/MIN
[2019-06-14] MEDS: ipratropium/albuterol 3ml nebule NEB SCH ×6 (03:28→23:14)
[2019-06-14 06:00] VITALS: BP 157/95
--- NOTE | 2019-06-14 06:29 | NUR ---
Problems reprioritized. Patient report given, questions answered & plan of care reviewed with SAMANTA Frederick. Patient stable at shift change
--- NOTE | 2019-06-14 06:31 | NUR ---
Patient in room PCU 3028. I have received report from Ian. SAMANTA and had the opportunity to ask questions and assume patient care.
[2019-06-14] MEDS ORDERED: atorvastatin 20mg tablet PO SCH (08:00)
[2019-06-14] MEDS: aspirin 81mg tablet.DR PO SCH (08:52)
[2019-06-14] MEDS: carVEDilol 3.125mg tablet PO SCH (08:52)
[2019-06-14] MEDS: nicotine 14mg patch - 24hr TD SCH (08:53)
[2019-06-14 11:00] VITALS: BP 121/44
[2019-06-14] MEDS: levoFLOXACIN 500mg tablet PO SCH (11:25)
[2019-06-14] MEDS ORDERED: albuterol 2.5 MG/3 ML nebule NEB PRN (14:35)
[2019-06-14 15:00] VITALS: BP 131/56
[2019-06-14 18:00] VITALS: BP 127/64
--- NOTE | 2019-06-14 18:00 | NUR ---
Problems reprioritized. Patient report given, questions answered & plan of care reviewed with Ian ENGLAND. Patient stable at time of transfer of care.
[2019-06-14] MEDS: albuterol 2.5 MG/3 ML nebule NEB SCH (19:17)
[2019-06-14 22:00] VITALS: BP 124/65
[2019-06-14] MEDS: lactobacillus rhamnosus 10,000 MMU CELLS/CAPSULE PO SCH (22:52)
[2019-06-14] MEDS: furosemide 40mg tablet PO SCH (22:52)
[2019-06-14] MEDS: morphine 2 MG/ML inj. syringe IV PRN (23:05)
[2019-06-15 02:00] VITALS: BP 122/68
[2019-06-15] MEDS: albuterol 2.5 MG/3 ML nebule NEB SCH ×2 (02:00→07:26)
[2019-06-15] MEDS: ipratropium/albuterol 3ml nebule NEB SCH (03:26)
[2019-06-15 05:26] LABS: ALBUMIN 3.1 G/DL (3.4-5.0); ANION GAP 2 (8-16); BLOOD UREA NITROGEN 25 MG/DL (7-18); BUN/CREATININE RATIO 27.2 (5.4-32.0); CALCIUM 8.7 MG/DL (8.5-10.1); CHLORIDE 105 MMOL/L (99-107); CREATININE 0.92 MG/DL (0.60-1.10); GLUCOSE 195 MG/DL (70-104); POTASSIUM 4.5 MMOL/L (3.5-5.1); SODIUM 137 MMOL/L (135-145); TOTAL CARBON DIOXIDE 29.7 MMOL/L (24-32); eGFR 82 ML/MIN
[2019-06-15 05:33] LABS: BASOPHILS % (AUTO) 0.1 % (0-1); EOSINOPHILS % (AUTO) 0 % (0-6); HEMATOCRIT 46.2 % (42.0-52.0); HEMOGLOBIN 15.8 g/dl (14.0-17.9); LYMPHOCYTES # (AUTO) 0.9 X10'3 (1.1-4.8); LYMPHOCYTES % (AUTO) 6.5 % (21-51); MEAN CORPUSCULAR HEMOGLOBIN 31.4 PG (27.0-31.0); MEAN CORPUSCULAR HGB CONC 34.2 g/dL (33.0-36.5); MEAN CORPUSCULAR VOLUME 91.7 FL (78-98); MONOCYTES # (AUTO) 0.3 X10'3 (0-0.9); MONOCYTES % (AUTO) 2.1 % (2-12); NEUTROPHILS # (AUTO) 13.2 X10'3 (1.8-7.7); NEUTROPHILS % (AUTO) 91.3 % (42-75); PLATELET COUNT 172 X10'3 (140-440); RED BLOOD COUNT 5.04 X10'6 (4.70-6.10); RED CELL DISTRIBUTION WIDTH 14.2 % (11.5-14.5); WHITE BLOOD COUNT 14.5 X10'3 (4.5-11.0)
[2019-06-15 06:00] VITALS: BP 127/68
--- NOTE | 2019-06-15 06:23 | NUR ---
Patient in room PCU 3028. I have received report from Ian ENGLAND and had the opportunity to ask questions and assume patient care.
[2019-06-15] MEDS ORDERED: non-formulary drug (Tiotropium Bromide (Spiriva) 1 CAP) IH SCH (08:00)
[2019-06-15] MEDS ORDERED: non-formulary drug (Aspirin (Aspir 81) 1 TAB) PO SCH (08:00)
[2019-06-15] MEDS ORDERED: atorvastatin 20mg tablet PO SCH (08:00)
[2019-06-15] MEDS ORDERED: budesonide 0.5mg/2ml UD nebule IH SCH (08:00)
[2019-06-15] MEDS ORDERED: metoprolol succinate 25mg (24-HOUR) SR. Tablet PO SCH (08:00)
[2019-06-15] MEDS ORDERED: lisinopril 5mg tablet PO SCH (08:00)
[2019-06-15] MEDS: nicotine 14mg patch - 24hr TD SCH (08:26)
[2019-06-15] MEDS: lactobacillus rhamnosus 10,000 MMU CELLS/CAPSULE PO SCH (08:26)
[2019-06-15] MEDS: furosemide 40mg tablet PO SCH (08:27)
[2019-06-15] MEDS: aspirin 81mg tablet.DR PO SCH (08:27)
[2019-06-15] MEDS: methylPREDNISolone sod succ 125mg/2ml vial IV SCH (08:27)
--- NOTE | 2019-06-15 09:34 | NUR ---
Page Dr. Antony PAGER ID: [phone] MESSAGE: Room 3028B Sergey Nur: Patient is up walking and feeling better. He does request consult with case management. I also noticed his WBC went up from 8.3 to 14.5, do you want to do anything regarding that? Thank you, Yeni ext [phone].
[2019-06-15 11:00] VITALS: BP 156/72
[2019-06-15] MEDS ORDERED: PRED20TA PO (11:32)
[2019-06-15] MEDS ORDERED: LEVO500T2 PO (11:32)
[2019-06-15] MEDS: levoFLOXACIN 500mg tablet PO SCH (11:43)
--- NOTE | 2019-06-15 14:30 | NUR ---
Patient stable for discharge per MD orders. All discharge instructions reviewed with patient and all questions answered. PIV and monitoring tech discontinued. New prescriptions called into patient's preferred pharmacy. All belongings collected and sent with patient. Patient left in [employer] cab. Patient wheeled down to lobby by PCT aide.
== END 2019-06-15 14:30 | disposition home or self-care (01) | DRG 280 ==
LOC: ER 13:03 → ED HOLD 15:49 → PCU 3S 17:03
PROVIDERS: ADMIT Family Medicine; ATTEND Family Medicine
PROC: 5A09357 Assistance with Respiratory Ventilation, Less than 24 Consecutive Hours, Continuous Positive Airway Pressure (ICD-10-PCS; principal; 2019-06-13)
PROC: 5A09357 Assistance with Respiratory Ventilation, Less than 24 Consecutive Hours, Continuous Positive Airway Pressure (ICD-10-PCS; 2019-06-14)
PROC: 5A09357 Assistance with Respiratory Ventilation, Less than 24 Consecutive Hours, Continuous Positive Airway Pressure (ICD-10-PCS; 2019-06-15)
DX: I21.A1 Myocardial infarction type 2 (principal); J96.21 Acute and chronic respiratory failure with hypoxia; J44.1 Chronic obstructive pulmonary disease with (acute) exacerbation; F17.210 Nicotine dependence, cigarettes, uncomplicated; G47.30 Sleep apnea, unspecified; I11.0 Hypertensive heart disease with heart failure; F32.9 Major depressive disorder, single episode, unspecified; I25.10 Atherosclerotic heart disease of native coronary artery without angina pectoris; I50.9 Heart failure, unspecified; Z95.1 Presence of aortocoronary bypass graft; Z79.899 Other long term (current) drug therapy; Z59.0 Homelessness
CPT/HCPCS: 36415; 36600; 71045; 71275; 80048; 80053; 82803; 83605; 83880; 84145; 84484; 85018; 85025; 87040; 87081; 87502; 87503; 93005; 93308; 94640; 94660; 94760; 96365; 96368; 99285; G0378; J0456; J0696; J1650; J2270; J2930; J7626; Q9967

== ENCOUNTER 2019-06-24 02:52 | Emergency (ER) | payer MEDICARE ==
[~2019-06-24] VITALS: Ht 190.5 cm; Wt 131.0 kg
[~2019-06-24 02:52] MED LIST changes: -PRED10TA23 PO; +PRED20TA PO
[2019-06-24 02:55] VITALS: BP 188/86
[2019-06-24] MEDS ORDERED: ipratropium/albuterol 3ml nebule NEB ONE (03:15)
[2019-06-24 03:28] LABS: BASOPHILS % (AUTO) 0.5 % (0-1); EOSINOPHILS # (AUTO) 0.2 X10'3 (0-0.9); EOSINOPHILS % (AUTO) 1.9 % (0-6); HEMATOCRIT 45.1 % (42.0-52.0); HEMOGLOBIN 15.5 g/dl (14.0-17.9); LYMPHOCYTES # (AUTO) 2.5 X10'3 (1.1-4.8); LYMPHOCYTES % (AUTO) 24.7 % (21-51); MEAN CORPUSCULAR HEMOGLOBIN 31.2 PG (27.0-31.0); MEAN CORPUSCULAR HGB CONC 34.4 g/dL (33.0-36.5); MEAN CORPUSCULAR VOLUME 90.7 FL (78-98); MEAN PLATELET VOLUME 8.6 FL (7.4-10.4); MONOCYTES # (AUTO) 0.8 X10'3 (0-0.9); MONOCYTES % (AUTO) 8.4 % (2-12); NEUTROPHILS # (AUTO) 6.5 X10'3 (1.8-7.7); NEUTROPHILS % (AUTO) 64.5 % (42-75); PLATELET COUNT 148 X10'3 (140-440); RED BLOOD COUNT 4.97 X10'6 (4.70-6.10); RED CELL DISTRIBUTION WIDTH 14.3 % (11.5-14.5)
--- NOTE | 2019-06-24 03:34 | NUR ---
Patient states mild to moderate relief after DuoNeb treatment. Patient also states that he concurrently smokes on a daily basis knowing that he has COPD and congestive heart failure.
[2019-06-24] MEDS ORDERED: furosemide 10 MG/1 ML 10ml inj IV ONE (03:45)
[2019-06-24 03:47] LABS: ALANINE AMINOTRANSFERASE 31 U/L (12-78); ALKALINE PHOSPHATASE 84 IU/L (46-116); ANION GAP 8 (8-16); ASPARTATE AMINO TRANSFERASE 14 U/L (10-37); BILIRUBIN,TOTAL 0.2 MG/DL (0.1-1.0); BLOOD UREA NITROGEN 18 MG/DL (7-18); BUN/CREATININE RATIO 21.7 (5.4-32.0); CALCIUM 8.8 MG/DL (8.5-10.1); CHLORIDE 108 MMOL/L (99-107); CREATININE 0.83 MG/DL (0.60-1.10); GLUCOSE 136 MG/DL (70-104); POTASSIUM 4.4 MMOL/L (3.5-5.1); SODIUM 143 MMOL/L (135-145); TOTAL CARBON DIOXIDE 26.9 MMOL/L (24-32); TOTAL PROTEIN 6.1 G/DL (6.4-8.2); eGFR > 90 ML/MIN
[2019-06-24 03:54] LABS: TROPONIN I < 0.04 NG/ML (0.0-0.05)
[2019-06-24] MEDS ORDERED: azithromycin 250mg tablet PO ONE (04:05)
[2019-06-24] MEDS ORDERED: methylPREDNISolone sod succ 125mg/2ml vial IV ONE (04:05)
[2019-06-24] MEDS ORDERED: albuterol 2.5 MG/3 ML nebule NEB ONE (04:10)
[2019-06-24] MEDS ORDERED: AZIT-63 PO (04:11)
[2019-06-24] MEDS ORDERED: PRED20TA PO (04:11)
== END 2019-06-24 04:34 | disposition home or self-care (01) ==
LOC: ER 02:53
DX: J44.1 Chronic obstructive pulmonary disease with (acute) exacerbation (principal); I11.0 Hypertensive heart disease with heart failure; I50.9 Heart failure, unspecified; I25.10 Atherosclerotic heart disease of native coronary artery without angina pectoris; Z95.1 Presence of aortocoronary bypass graft; Z59.0 Homelessness; Z56.0 Unemployment, unspecified; Z79.82 Long term (current) use of aspirin; Z79.899 Other long term (current) drug therapy
CPT/HCPCS: 36415; 71045; 80053; 83880; 84484; 85025; 87040; 93005; 94640; 96374; 96375; 99284; J1940; J2930; 94760

== ENCOUNTER 2019-07-01 01:40 | Emergency (ER) | payer MEDICARE ==
[~2019-07-01] VITALS: Ht 190.5 cm; Wt 131.4 kg
[~2019-07-01 01:40] MED LIST changes: +AZIT-63 PO
[2019-07-01] MEDS ORDERED: HYDROcodone/acetaminophen 10/325mg tab PO ONE (01:50)
[2019-07-01] MEDS ORDERED: ipratropium/albuterol 3ml nebule NEB ONE (01:50)
[2019-07-01 03:35] VITALS: BP 140/67
[2019-07-01] MEDS ORDERED: HYDR-3965 PO (03:40)
== END 2019-07-01 03:37 | disposition home or self-care (01) ==
LOC: ER 01:41
DX: R07.89 Other chest pain (principal); J44.9 Chronic obstructive pulmonary disease, unspecified; I48.91 Unspecified atrial fibrillation; I25.10 Atherosclerotic heart disease of native coronary artery without angina pectoris; I11.0 Hypertensive heart disease with heart failure; I50.9 Heart failure, unspecified; F17.200 Nicotine dependence, unspecified, uncomplicated; Z95.1 Presence of aortocoronary bypass graft; Z59.0 Homelessness; Z56.0 Unemployment, unspecified; Z79.82 Long term (current) use of aspirin; Z79.899 Other long term (current) drug therapy; Z79.2 Long term (current) use of antibiotics
CPT/HCPCS: 71045; 93005; 94640; 94760; 99283

== ENCOUNTER 2019-08-04 05:03 | Inpatient (IN) | payer MEDICARE, OTHER ==
[~2019-08-04] VITALS: Ht 190.5 cm; Wt 138.0 kg
[~2019-08-04 05:03] MED LIST changes: +APIX5TAB3 PO; -AZIT-63 PO; -PRED20TA PO
[2019-08-04] MEDS ORDERED: methylPREDNISolone sod succ 125mg/2ml vial IV ONE (05:10)
[2019-08-04] MEDS: albuterol 2.5 MG/3 ML nebule CONTNEB PRN ×2 (05:23→05:31)
[2019-08-04 06:13] LABS: BASOPHILS # (AUTO) 0.1 X10'3 (0-0.2); BASOPHILS % (AUTO) 0.6 % (0-1); EOSINOPHILS # (AUTO) 0.1 X10'3 (0-0.9); EOSINOPHILS % (AUTO) 0.7 % (0-6); HEMATOCRIT 46.1 % (42.0-52.0); HEMOGLOBIN 16.2 g/dl (14.0-17.9); LYMPHOCYTES % (AUTO) 17.4 % (21-51); MEAN CORPUSCULAR HEMOGLOBIN 32.6 PG (27.0-31.0); MEAN CORPUSCULAR HGB CONC 35.1 g/dL (33.0-36.5); MEAN CORPUSCULAR VOLUME 92.8 FL (78-98); MEAN PLATELET VOLUME 8.9 FL (7.4-10.4); MONOCYTES # (AUTO) 0.8 X10'3 (0-0.9); MONOCYTES % (AUTO) 6.9 % (2-12); NEUTROPHILS # (AUTO) 8.5 X10'3 (1.8-7.7); NEUTROPHILS % (AUTO) 74.4 % (42-75); PLATELET COUNT 158 X10'3 (140-440); RED BLOOD COUNT 4.97 X10'6 (4.70-6.10); RED CELL DISTRIBUTION WIDTH 12.9 % (11.5-14.5); WHITE BLOOD COUNT 11.4 X10'3 (4.5-11.0)
[2019-08-04 06:23] LABS: PARTIAL THROMBOPLASTIN TIME 27 SECONDS (22-32)
[2019-08-04 06:34] LABS: ALANINE AMINOTRANSFERASE 52 U/L (12-78); ALBUMIN 3.5 G/DL (3.4-5.0); ALBUMIN/GLOBULIN RATIO 1.1 (1.1-1.5); ALKALINE PHOSPHATASE 126 IU/L (46-116); ANION GAP 5 (8-16); ASPARTATE AMINO TRANSFERASE 30 U/L (10-37); BILIRUBIN,TOTAL 0.8 MG/DL (0.1-1.0); BLOOD UREA NITROGEN 10 MG/DL (7-18); BUN/CREATININE RATIO 11.5 (5.4-32.0); CALCIUM 8.6 MG/DL (8.5-10.1); CHLORIDE 104 MMOL/L (99-107); CREATININE 0.87 MG/DL (0.60-1.10); GLUCOSE 134 MG/DL (70-104); POTASSIUM 4.1 MMOL/L (3.5-5.1); SODIUM 141 MMOL/L (135-145); TOTAL CARBON DIOXIDE 31.9 MMOL/L (24-32); TOTAL PROTEIN 6.7 G/DL (6.4-8.2); eGFR 88 ML/MIN
[2019-08-04] MEDS ORDERED: albuterol 2.5 MG/3 ML nebule NEB ONE (07:15)
[2019-08-04] MEDS ORDERED: magnesium hydroxide 30ml (MOM) UD suspension PO PRN (07:50)
[2019-08-04] MEDS ORDERED: HYDROcodone/acetaminophen 5mg/325mg tablet PO PRN (07:50)
[2019-08-04] MEDS ORDERED: mag hydrox/Alum hydrox/simeth 30ml oral suspension PO PRN (07:50)
[2019-08-04] MEDS ORDERED: acetaminophen 325mg tablet PO PRN ×2 (07:50)
[2019-08-04] MEDS ORDERED: ondansetron/PF 4mg/2ml inj IV PRN (07:50)
[2019-08-04] MEDS ORDERED: morphine 2 MG/ML inj. syringe IV PRN (07:50)
[2019-08-04] MEDS ORDERED: metoprolol succinate 25mg (24-HOUR) SR. Tablet PO SCH (08:00)
[2019-08-04] MEDS ORDERED: lisinopril 10 MG tablet PO SCH (08:00)
[2019-08-04] MEDS ORDERED: albuterol 2.5 MG/3 ML nebule NEB PRN (08:10)
[2019-08-04] MEDS ORDERED: ipratropium 0.5 MG/2.5ML nebule IH SCH (08:40)
[2019-08-04] MEDS: atorvastatin 20mg tablet PO SCH (09:49)
[2019-08-04] MEDS: aspirin 81mg tablet.DR PO SCH (09:50)
[2019-08-04] MEDS: furosemide 40mg/4ml inj IV SCH ×2 (09:51→20:09)
[2019-08-04] MEDS: apixaban 5mg tablet PO SCH ×2 (10:04→20:10)
--- NOTE | 2019-08-04 10:40 | NUR ---
Received report from SAMANTA Boateng, patient arrived on unit, was able to ambulate to bed from [facility] using cane, some SOB observed. hooked back up to 1.5L NC, vital signs obtained, VSS except BP 177/101, will contact MD regarding BP. BLL, call light in reach, oriented patient to room, Will continue to monitor.
[2019-08-04 11:00] VITALS: BP 127/72
[2019-08-04] MEDS ORDERED: albuterol 2.5 MG/3 ML nebule NEB SCH (14:00)
[2019-08-04 15:00] VITALS: BP 158/58
[2019-08-04] MEDS: ipratropium/albuterol 3ml nebule IH SCH ×2 (15:41→20:56)
--- NOTE | 2019-08-04 15:46 | NUR ---
PAGER ID: [phone] MESSAGE: SAMANTA Lester, ext [phone], [phone], Liudmila, patient uses bipap at home to sleep, can I put in an order for one?
[2019-08-04] MEDS: levoFLOXACIN-Levaquin 750MG/D5 150 ML IV SCH (17:58)
[2019-08-04 18:00] VITALS: BP 114/78
--- NOTE | 2019-08-04 18:04 | NUR ---
Problems reprioritized. Patient report given, questions answered & plan of care reviewed with SAMANTA Blanco. Patient stable at shift change
--- NOTE | 2019-08-04 18:16 | NUR ---
Patient in room PCU 3018. I have received report from Tayler ENGLAND and had the opportunity to ask questions and assume patient care.
[2019-08-04] MEDS: HYDROcodone/acetaminophen 10/325mg tab PO PRN (20:10)
[2019-08-04] MEDS: metoprolol succinate 25mg (24-HOUR) SR. Tablet PO SCH (20:10)
[2019-08-04] MEDS: budesonide 0.5mg/2ml UD nebule IH SCH (20:56)
[2019-08-04] MEDS ORDERED: temazepam 15mg capsule PO PRN (21:30)
[2019-08-04 22:00] VITALS: BP 131/77
[2019-08-04] MEDS: morphine 2 MG/ML inj. syringe IV PRN (23:09)
[2019-08-04] MEDS: nystatin 15 GM powder TP SCH (23:21)
[2019-08-05 02:00] VITALS: BP 157/85
[2019-08-05] MEDS: ipratropium/albuterol 3ml nebule IH SCH ×4 (03:32→20:44)
[2019-08-05 06:00] VITALS: BP 148/89
--- NOTE | 2019-08-05 06:43 | NUR ---
Problems reprioritized. Patient report given, questions answered & plan of care reviewed with Luz RN.
--- NOTE | 2019-08-05 06:48 | NUR ---
Patient in room PCU 3018. I have received report from SAMANTA Blanco and had the opportunity to ask questions and assume patient care.
[2019-08-05 07:32] LABS: BASOPHILS # (AUTO) 0.1 X10'3 (0-0.2); BASOPHILS % (AUTO) 0.5 % (0-1); EOSINOPHILS % (AUTO) 0 % (0-6); HEMATOCRIT 47.5 % (42.0-52.0); HEMOGLOBIN 16.3 g/dl (14.0-17.9); LYMPHOCYTES # (AUTO) 2.2 X10'3 (1.1-4.8); LYMPHOCYTES % (AUTO) 11.8 % (21-51); MEAN CORPUSCULAR HGB CONC 34.2 g/dL (33.0-36.5); MEAN CORPUSCULAR VOLUME 93.6 FL (78-98); MEAN PLATELET VOLUME 9.2 FL (7.4-10.4); MONOCYTES # (AUTO) 1.4 X10'3 (0-0.9); MONOCYTES % (AUTO) 7.4 % (2-12); NEUTROPHILS # (AUTO) 15.1 X10'3 (1.8-7.7); NEUTROPHILS % (AUTO) 80.3 % (42-75); PLATELET COUNT 200 X10'3 (140-440); RED BLOOD COUNT 5.08 X10'6 (4.70-6.10); RED CELL DISTRIBUTION WIDTH 13.1 % (11.5-14.5); WHITE BLOOD COUNT 18.8 X10'3 (4.5-11.0)
[2019-08-05 07:38] LABS: ALBUMIN 3.4 G/DL (3.4-5.0); ANION GAP 2 (8-16); BLOOD UREA NITROGEN 20 MG/DL (7-18); BUN/CREATININE RATIO 22.2 (5.4-32.0); CALCIUM 8.7 MG/DL (8.5-10.1); CHLORIDE 100 MMOL/L (99-107); GLUCOSE 128 MG/DL (70-104); POTASSIUM 4.3 MMOL/L (3.5-5.1); SODIUM 137 MMOL/L (135-145); TOTAL CARBON DIOXIDE 35.3 MMOL/L (24-32); eGFR 84 ML/MIN
[2019-08-05] MEDS: levoFLOXACIN-Levaquin 750MG/D5 150 ML IV SCH (07:52)
[2019-08-05] MEDS: furosemide 40mg/4ml inj IV SCH ×2 (07:52→20:00)
[2019-08-05] MEDS: apixaban 5mg tablet PO SCH ×2 (07:52→20:02)
[2019-08-05] MEDS: atorvastatin 20mg tablet PO SCH (07:52)
[2019-08-05] MEDS: lisinopril 5mg tablet PO SCH (07:53)
[2019-08-05] MEDS: aspirin 81mg tablet.DR PO SCH (07:53)
[2019-08-05] MEDS: nystatin 15 GM powder TP SCH ×3 (07:53→21:00)
[2019-08-05] MEDS: metoprolol succinate 25mg (24-HOUR) SR. Tablet PO SCH ×2 (07:53→20:02)
[2019-08-05] MEDS: budesonide 0.5mg/2ml UD nebule IH SCH ×2 (08:40→20:44)
[2019-08-05 09:22] LABS: ALBUMIN 3.6 G/DL (3.4-5.0); BLOOD UREA NITROGEN 21 MG/DL (7-18); BUN/CREATININE RATIO 20.4 (5.4-32.0); CALCIUM 9.1 MG/DL (8.5-10.1); CHLORIDE 100 MMOL/L (99-107); CREATININE 1.03 MG/DL (0.60-1.10); GLUCOSE 274 MG/DL (70-104); TOTAL CARBON DIOXIDE 29.1 MMOL/L (24-32); eGFR 72 ML/MIN
[2019-08-05 09:25] LABS: ANION GAP 8 (8-16); POTASSIUM 4.2 MMOL/L (3.5-5.1); SODIUM 137 MMOL/L (135-145)
[2019-08-05 11:00] VITALS: BP 127/65
[2019-08-05] MEDS ORDERED: temazepam 15mg capsule PO PRN (11:35)
--- NOTE | 2019-08-05 12:40 | NUR ---
Sent to Dr Harley PAGER ID: [phone] MESSAGE: RE: Sergey Nur [id number]. Pt requesting double trays. HH diet. Please advise. -Luz [phone]
--- NOTE | 2019-08-05 15:23 | NUR ---
Patient in room PCU 3018. I have received report from SAMANTA Escobar and had the opportunity to ask questions and assume patient care. Patient stable at transfer of care.
--- NOTE | 2019-08-05 15:26 | NUR ---
Problems reprioritized. Patient report given, questions answered & plan of care reviewed with SAMANTA Watson.
[2019-08-05 18:00] VITALS: BP 118/57
--- NOTE | 2019-08-05 18:33 | NUR ---
Problems reprioritized. Patient report given, questions answered & plan of care reviewed with SAMANTA Blanco. Patient stable at transfer of care.
--- NOTE | 2019-08-05 18:50 | NUR ---
Patient in room PCU 3018. I have received report from Shirley ENGLAND and had the opportunity to ask questions and assume patient care.
[2019-08-05] MEDS: HYDROcodone/acetaminophen 10/325mg tab PO PRN (20:03)
[2019-08-05 22:00] VITALS: BP 114/77
[2019-08-05] MEDS: morphine 2 MG/ML inj. syringe IV PRN (23:33)
[2019-08-06] VITALS (7 sets, daily range): BP systolic 107–166; BP diastolic 59–88
[2019-08-06] MEDS: ipratropium/albuterol 3ml nebule IH SCH ×4 (03:37→20:24)
--- NOTE | 2019-08-06 06:31 | NUR ---
Problems reprioritized. Patient report given, questions answered & plan of care reviewed with Tayler ENGLAND.
--- NOTE | 2019-08-06 06:50 | NUR ---
Patient in room PCU 3018. I have received report from SAMANTA Blanco and had the opportunity to ask questions and assume patient care. Patient currently sleeping in bed, visible rise and fall of chest, bed locked and low, call light in reach, no acute distress, will continue to monitor.
[2019-08-06] MEDS: atorvastatin 20mg tablet PO SCH (07:32)
[2019-08-06] MEDS: apixaban 5mg tablet PO SCH ×2 (07:32→19:18)
[2019-08-06] MEDS: furosemide 40mg/4ml inj IV SCH ×2 (07:32→19:15)
[2019-08-06] MEDS: aspirin 81mg tablet.DR PO SCH (07:33)
[2019-08-06] MEDS: lisinopril 5mg tablet PO SCH (07:33)
[2019-08-06] MEDS: metoprolol succinate 25mg (24-HOUR) SR. Tablet PO SCH ×2 (07:33→19:18)
[2019-08-06] MEDS: levoFLOXACIN-Levaquin 750MG/D5 150 ML IV SCH (07:33)
[2019-08-06] MEDS: nystatin 15 GM powder TP SCH ×3 (07:33→20:22)
[2019-08-06] MEDS: budesonide 0.5mg/2ml UD nebule IH SCH ×2 (08:09→20:24)
[2019-08-06 08:26] LABS: BASOPHILS % (AUTO) 0.3 % (0-1); EOSINOPHILS # (AUTO) 0.2 X10'3 (0-0.9); EOSINOPHILS % (AUTO) 1.5 % (0-6); HEMATOCRIT 48.4 % (42.0-52.0); HEMOGLOBIN 16.4 g/dl (14.0-17.9); LYMPHOCYTES # (AUTO) 3.4 X10'3 (1.1-4.8); LYMPHOCYTES % (AUTO) 29.3 % (21-51); MEAN CORPUSCULAR HEMOGLOBIN 31.6 PG (27.0-31.0); MEAN CORPUSCULAR HGB CONC 33.9 g/dL (33.0-36.5); MEAN CORPUSCULAR VOLUME 93.2 FL (78-98); MEAN PLATELET VOLUME 9.4 FL (7.4-10.4); MONOCYTES # (AUTO) 0.9 X10'3 (0-0.9); MONOCYTES % (AUTO) 7.3 % (2-12); NEUTROPHILS # (AUTO) 7.2 X10'3 (1.8-7.7); NEUTROPHILS % (AUTO) 61.6 % (42-75); PLATELET COUNT 172 X10'3 (140-440); RED CELL DISTRIBUTION WIDTH 13.2 % (11.5-14.5); WHITE BLOOD COUNT 11.7 X10'3 (4.5-11.0)
[2019-08-06 08:41] LABS: ALBUMIN 3.2 G/DL (3.4-5.0); ANION GAP 6 (8-16); BLOOD UREA NITROGEN 24 MG/DL (7-18); BUN/CREATININE RATIO 27.6 (5.4-32.0); CALCIUM 8.5 MG/DL (8.5-10.1); CHLORIDE 103 MMOL/L (99-107); CREATININE 0.87 MG/DL (0.60-1.10); GLUCOSE 122 MG/DL (70-104); POTASSIUM 4.2 MMOL/L (3.5-5.1); SODIUM 139 MMOL/L (135-145); TOTAL CARBON DIOXIDE 30.5 MMOL/L (24-32); eGFR 88 ML/MIN
[2019-08-06] MEDS: magnesium hydroxide 30ml (MOM) UD suspension PO SCH ×2 (13:46→19:16)
--- NOTE | 2019-08-06 13:58 | NUR ---
PAGER ID: [phone] MESSAGE: SAMANTA Lester ,ext [phone], [phone], Liudmila, patient complaining he does not get enough food with meals, constantly asking for more milk and additional trays, can I order him double portions?
--- NOTE | 2019-08-06 14:39 | NUR ---
Patient frequently requesting milk and has had an excessive amount of water today as well, almost 4L. Educated patient on fluids, CHF and using lasix, patient verbalized understanding and says he will slow down his fluid intake. Patient also requesting double portions for his meals, paged Dr. Harley to request a change in diet order to allow for double portions.
--- NOTE | 2019-08-06 18:08 | NUR ---
Problems reprioritized. Patient report given, questions answered & plan of care reviewed with SAMANTA Vega.
--- NOTE | 2019-08-06 18:20 | NUR ---
Patient in room PCU 3018. I have received report from Tayler ENGLAND and had the opportunity to ask questions and assume patient care.
--- NOTE | 2019-08-06 18:43 | NUR ---
Patient refused vitals at this time.
--- NOTE | 2019-08-06 19:10 | NUR ---
Patient agreeable to getting his vitals taken at this time so that he can get his blood pressure medications.
[2019-08-06] MEDS: docusate sod 100mg capsule PO SCH (19:17)
[2019-08-06] MEDS: HYDROcodone/acetaminophen 10/325mg tab PO PRN (19:23)
[2019-08-06] MEDS ORDERED: Melatonin 3mg tablet PO PRN (20:05)
[2019-08-06] MEDS: morphine 2 MG/ML inj. syringe IV PRN (20:31)
[2019-08-06] MEDS ORDERED: mirtazapine 15mg tablet PO SCH (21:00)
[2019-08-07 02:00] VITALS: BP 136/77
[2019-08-07] MEDS: ipratropium/albuterol 3ml nebule IH SCH ×2 (03:25→08:28)
[2019-08-07 06:00] VITALS: BP_SYST 125; BP_SYST 156; BP_DIAS 74; BP_DIAS 85
--- NOTE | 2019-08-07 06:07 | NUR ---
Problems reprioritized. Patient report given, questions answered & plan of care reviewed with Tayler ENGLAND.
[2019-08-07 06:32] LABS: BASOPHILS % (AUTO) 0.4 % (0-1); EOSINOPHILS # (AUTO) 0.3 X10'3 (0-0.9); EOSINOPHILS % (AUTO) 3.1 % (0-6); HEMATOCRIT 45.1 % (42.0-52.0); HEMOGLOBIN 15.5 g/dl (14.0-17.9); LYMPHOCYTES # (AUTO) 3.1 X10'3 (1.1-4.8); LYMPHOCYTES % (AUTO) 34.3 % (21-51); MEAN CORPUSCULAR HEMOGLOBIN 32.3 PG (27.0-31.0); MEAN CORPUSCULAR HGB CONC 34.4 g/dL (33.0-36.5); MEAN CORPUSCULAR VOLUME 94.1 FL (78-98); MEAN PLATELET VOLUME 9.1 FL (7.4-10.4); MONOCYTES # (AUTO) 0.8 X10'3 (0-0.9); NEUTROPHILS # (AUTO) 4.9 X10'3 (1.8-7.7); NEUTROPHILS % (AUTO) 53.2 % (42-75); PLATELET COUNT 158 X10'3 (140-440); RED CELL DISTRIBUTION WIDTH 13.1 % (11.5-14.5); WHITE BLOOD COUNT 9.1 X10'3 (4.5-11.0)
[2019-08-07 06:49] LABS: ALBUMIN 2.9 G/DL (3.4-5.0); ANION GAP 3 (8-16); BLOOD UREA NITROGEN 24 MG/DL (7-18); BUN/CREATININE RATIO 26.4 (5.4-32.0); CALCIUM 8.9 MG/DL (8.5-10.1); CHLORIDE 106 MMOL/L (99-107); CREATININE 0.91 MG/DL (0.60-1.10); GLUCOSE 118 MG/DL (70-104); POTASSIUM 4.3 MMOL/L (3.5-5.1); SODIUM 142 MMOL/L (135-145); TOTAL CARBON DIOXIDE 33.2 MMOL/L (24-32); eGFR 83 ML/MIN
--- NOTE | 2019-08-07 06:53 | NUR ---
Patient in room PCU 3018. I have received report from SAMANTA Vega and had the opportunity to ask questions and assume patient care.
[2019-08-07 08:00] VITALS: BP_SYST 125; BP_SYST 156; BP_SYST 157; BP_DIAS 74; BP_DIAS 84; BP_DIAS 85
[2019-08-07] MEDS: magnesium hydroxide 30ml (MOM) UD suspension PO SCH (08:00)
[2019-08-07] MEDS: budesonide 0.5mg/2ml UD nebule IH SCH (08:27)
[2019-08-07] MEDS: levoFLOXACIN-Levaquin 750MG/D5 150 ML IV SCH (08:44)
[2019-08-07] MEDS: atorvastatin 20mg tablet PO SCH (08:44)
[2019-08-07] MEDS: aspirin 81mg tablet.DR PO SCH (08:44)
[2019-08-07] MEDS: docusate sod 100mg capsule PO SCH (08:45)
[2019-08-07] MEDS: nystatin 15 GM powder TP SCH (08:45)
[2019-08-07] MEDS: furosemide 40mg/4ml inj IV SCH (08:45)
[2019-08-07] MEDS: apixaban 5mg tablet PO SCH (08:45)
[2019-08-07] MEDS: metoprolol succinate 25mg (24-HOUR) SR. Tablet PO SCH (08:45)
[2019-08-07] MEDS: lisinopril 5mg tablet PO SCH (08:45)
[2019-08-07 15:00] VITALS: BP 123/75
--- NOTE | 2019-08-07 15:35 | NUR ---
Patient stable for discharge per MD orders. All discharge instructions were reviewed with patient, all questions were answered. PIV discontinued, cannula intact. Tele monitor discontinued, telephone sales agent notified. All belongings were collected and sent with patient. Cab was called, wheeled to the lobby via RN. Addendum: 08/07/19 at 1606 by Tayler Polk RN Patient's home medications were retrieved from pharmacy and handed to the patient before discharge.
[2019-08-09] MEDS ORDERED: ACET-1008 PO (17:07)
== END 2019-08-07 15:35 | disposition home or self-care (01) | DRG 292 ==
LOC: ER 05:03 → ED HOLD 07:50 → PCU 3S 10:20
PROVIDERS: ADMIT Internal Medicine; ATTEND Internal Medicine
PROC: 5A09357 Assistance with Respiratory Ventilation, Less than 24 Consecutive Hours, Continuous Positive Airway Pressure (ICD-10-PCS; principal; 2019-08-04)
PROC: 5A09357 Assistance with Respiratory Ventilation, Less than 24 Consecutive Hours, Continuous Positive Airway Pressure (ICD-10-PCS; 2019-08-05)
PROC: 5A09357 Assistance with Respiratory Ventilation, Less than 24 Consecutive Hours, Continuous Positive Airway Pressure (ICD-10-PCS; 2019-08-06)
PROC: 5A09357 Assistance with Respiratory Ventilation, Less than 24 Consecutive Hours, Continuous Positive Airway Pressure (ICD-10-PCS; 2019-08-07)
DX: I11.0 Hypertensive heart disease with heart failure (principal); J96.11 Chronic respiratory failure with hypoxia; L03.119 Cellulitis of unspecified part of limb; J44.1 Chronic obstructive pulmonary disease with (acute) exacerbation; J20.9 Acute bronchitis, unspecified; I50.813 Acute on chronic right heart failure; I27.81 Cor pulmonale (chronic); E78.5 Hyperlipidemia, unspecified; G47.30 Sleep apnea, unspecified; I48.0 Paroxysmal atrial fibrillation; G62.9 Polyneuropathy, unspecified; I25.10 Atherosclerotic heart disease of native coronary artery without angina pectoris; I25.2 Old myocardial infarction; Z79.01 Long term (current) use of anticoagulants; Z79.82 Long term (current) use of aspirin; Z79.899 Other long term (current) drug therapy; Z87.891 Personal history of nicotine dependence; Z95.1 Presence of aortocoronary bypass graft; Z99.81 Dependence on supplemental oxygen
CPT/HCPCS: 36415; 71045; 80048; 80053; 83880; 84484; 85025; 85610; 85730; 87081; 93005; 94640; 94660; 94760; 96374; 97116; 97161; 97530; 99285; G0378; J1940; J1956; J2270; J2930; J7626

== ENCOUNTER 2019-08-14 20:23 | Emergency (ER) | payer MEDICARE ==
[~2019-08-14] VITALS: Ht 190.5 cm; Wt 138.2 kg
[~2019-08-14 20:23] MED LIST changes: +ACET-1008 PO; +LEVO500T2 PO; +NITR0.4T51 SL
[2019-08-14 21:16] LABS: BASOPHILS # (AUTO) 0.1 X10'3 (0-0.2); EOSINOPHILS # (AUTO) 0.2 X10'3 (0-0.9); HEMATOCRIT 45.3 % (42.0-52.0); MONOCYTES # (AUTO) 0.5 X10'3 (0-0.9); NEUTROPHILS # (AUTO) 4.7 X10'3 (1.8-7.7); WHITE BLOOD COUNT 8.5 X10'3 (4.5-11.0)
[2019-08-14 21:18] LABS: BASOPHILS % (AUTO) 1.2 % (0-1); LYMPHOCYTES % (AUTO) 35.2 % (21-51); MEAN CORPUSCULAR HEMOGLOBIN 32.9 PG (27.0-31.0); MEAN CORPUSCULAR HGB CONC 35.3 g/dL (33.0-36.5); MEAN CORPUSCULAR VOLUME 93.2 FL (78-98); MEAN PLATELET VOLUME 8.2 FL (7.4-10.4); MONOCYTES % (AUTO) 5.9 % (2-12); NEUTROPHILS % (AUTO) 55.7 % (42-75); PLATELET COUNT 175 X10'3 (140-440); RED BLOOD COUNT 4.86 X10'6 (4.70-6.10); RED CELL DISTRIBUTION WIDTH 12.9 % (11.5-14.5)
[2019-08-14 21:24] LABS: PARTIAL THROMBOPLASTIN TIME 26 SECONDS (22-32)
[2019-08-14 21:27] LABS: ALANINE AMINOTRANSFERASE 82 U/L (12-78); ALBUMIN 3.4 G/DL (3.4-5.0); ALKALINE PHOSPHATASE 98 IU/L (46-116); ANION GAP 8 (8-16); ASPARTATE AMINO TRANSFERASE 34 U/L (10-37); BILIRUBIN,TOTAL 0.4 MG/DL (0.1-1.0); BLOOD UREA NITROGEN 9 MG/DL (7-18); CALCIUM 8.7 MG/DL (8.5-10.1); CHLORIDE 106 MMOL/L (99-107); CREATININE 0.69 MG/DL (0.60-1.10); GLUCOSE 135 MG/DL (70-104); POTASSIUM 4.3 MMOL/L (3.5-5.1); SODIUM 141 MMOL/L (135-145); TOTAL CARBON DIOXIDE 27.4 MMOL/L (24-32); TOTAL PROTEIN 6.7 G/DL (6.4-8.2); eGFR > 90 ML/MIN
[2019-08-14 23:13] VITALS: BP 140/90
[2019-08-14] MEDS ORDERED: furosemide 10 MG/1 ML 10ml inj IV ONE (23:25)
[2019-08-14] MEDS ORDERED: ipratropium/albuterol 3ml nebule NEB ONE (23:30)
[2019-08-15] MEDS ORDERED: methylPREDNISolone sod succ 125mg/2ml vial IV ONE (00:15)
[2019-08-15] MEDS ORDERED: PRED20TA PO (00:33)
[2019-08-15] MEDS ORDERED: ONDA4TAB12 PO (00:34)
[2019-08-15] MEDS ORDERED: ipratropium/albuterol 3ml nebule NEB ONE (01:45)
== END 2019-08-15 02:19 | disposition home or self-care (01) ==
LOC: ER 20:23
DX: J44.1 Chronic obstructive pulmonary disease with (acute) exacerbation (principal); I48.91 Unspecified atrial fibrillation; I25.10 Atherosclerotic heart disease of native coronary artery without angina pectoris; I11.0 Hypertensive heart disease with heart failure; I50.9 Heart failure, unspecified; F17.210 Nicotine dependence, cigarettes, uncomplicated; F31.9 Bipolar disorder, unspecified; Z95.1 Presence of aortocoronary bypass graft; Z59.0 Homelessness; Z56.0 Unemployment, unspecified; Z79.899 Other long term (current) drug therapy
CPT/HCPCS: 36415; 71045; 80053; 83880; 84484; 85025; 85610; 85730; 87502; 87503; 93005; 94640; 96374; 96375; 99285; J1940; J2930; 94760; 99284

== ENCOUNTER 2019-08-23 06:41 | Emergency (ER) | payer MEDICARE ==
[~2019-08-23] VITALS: Ht 190.5 cm; Wt 145.0 kg
[~2019-08-23 06:41] MED LIST changes: -LEVO500T2 PO; +ONDA4TAB12 PO; +PRED20TA PO
[2019-08-23] MEDS ORDERED: furosemide 10 MG/1 ML 10ml inj IV ONE (07:25)
[2019-08-23 08:15] LABS: BASOPHILS % (AUTO) 0.3 % (0-1); EOSINOPHILS # (AUTO) 0.1 X10'3 (0-0.9); EOSINOPHILS % (AUTO) 1.6 % (0-6); HEMATOCRIT 44.4 % (42.0-52.0); HEMOGLOBIN 15.1 g/dl (14.0-17.9); LYMPHOCYTES # (AUTO) 1.7 X10'3 (1.1-4.8); LYMPHOCYTES % (AUTO) 18.6 % (21-51); MEAN CORPUSCULAR HEMOGLOBIN 32.2 PG (27.0-31.0); MEAN CORPUSCULAR VOLUME 94.8 FL (78-98); MEAN PLATELET VOLUME 8.6 FL (7.4-10.4); MONOCYTES # (AUTO) 0.6 X10'3 (0-0.9); MONOCYTES % (AUTO) 6.3 % (2-12); NEUTROPHILS # (AUTO) 6.7 X10'3 (1.8-7.7); NEUTROPHILS % (AUTO) 73.2 % (42-75); PLATELET COUNT 175 X10'3 (140-440); RED BLOOD COUNT 4.68 X10'6 (4.70-6.10); RED CELL DISTRIBUTION WIDTH 13.1 % (11.5-14.5); WHITE BLOOD COUNT 9.1 X10'3 (4.5-11.0)
[2019-08-23 08:44] LABS: ALANINE AMINOTRANSFERASE 28 U/L (12-78); ALBUMIN 3.1 G/DL (3.4-5.0); ALKALINE PHOSPHATASE 90 IU/L (46-116); ANION GAP 6 (8-16); ASPARTATE AMINO TRANSFERASE 16 U/L (10-37); BILIRUBIN,TOTAL 0.6 MG/DL (0.1-1.0); BLOOD UREA NITROGEN 7 MG/DL (7-18); BUN/CREATININE RATIO 8.6 (5.4-32.0); CALCIUM 8.9 MG/DL (8.5-10.1); CHLORIDE 106 MMOL/L (99-107); CREATININE 0.81 MG/DL (0.60-1.10); GLUCOSE 108 MG/DL (70-104); POTASSIUM 4.3 MMOL/L (3.5-5.1); SODIUM 141 MMOL/L (135-145); TOTAL CARBON DIOXIDE 28.7 MMOL/L (24-32); TOTAL PROTEIN 6.2 G/DL (6.4-8.2); eGFR > 90 ML/MIN
[2019-08-23] MEDS ORDERED: ZOLP10TA PO (12:54)
--- NOTE | 2019-08-23 13:45 | NUR ---
pt states that the issue that he is having with his medications is a ride to pick them up and someone to pay for them, he was offered a cab ride to pharmacy, but states that he has no cruz, he states that he has enough medication to make it throught the week and will picker box operator his medications then, when he has money for meds, he was given a cab ride home, dc'd PIV, cannula intact,, ambulated out of ed with steady gait
[2019-08-23 13:49] VITALS: BP 185/97
== END 2019-08-23 13:52 | disposition home or self-care (01) ==
LOC: ER 06:41
DX: R07.89 Other chest pain (principal); G47.00 Insomnia, unspecified; I48.91 Unspecified atrial fibrillation; I25.10 Atherosclerotic heart disease of native coronary artery without angina pectoris; I50.9 Heart failure, unspecified; I11.0 Hypertensive heart disease with heart failure; J44.9 Chronic obstructive pulmonary disease, unspecified; F31.9 Bipolar disorder, unspecified; Z95.1 Presence of aortocoronary bypass graft; Z59.0 Homelessness; Z56.0 Unemployment, unspecified; Z79.82 Long term (current) use of aspirin; Z79.01 Long term (current) use of anticoagulants; Z79.899 Other long term (current) drug therapy
CPT/HCPCS: 36415; 71045; 80053; 83880; 84484; 85025; 93005; 96374; 99285; J1940

== ENCOUNTER 2019-08-28 17:46 | Emergency (ER) | payer MEDICARE ==
[~2019-08-28] VITALS: Ht 190.5 cm; Wt 127.3 kg
[~2019-08-28 17:46] MED LIST changes: +ZOLP10TA PO
[2019-08-28] MEDS ORDERED: normal saline 1000ML IV soln IVB ONE (19:10)
[2019-08-28 20:04] LABS: BASOPHILS # (AUTO) 0.1 X10'3 (0-0.2); BASOPHILS % (AUTO) 0.9 % (0-1); EOSINOPHILS # (AUTO) 0.1 X10'3 (0-0.9); EOSINOPHILS % (AUTO) 1.2 % (0-6); HEMATOCRIT 43.2 % (42.0-52.0); HEMOGLOBIN 14.9 g/dl (14.0-17.9); LYMPHOCYTES # (AUTO) 2.8 X10'3 (1.1-4.8); LYMPHOCYTES % (AUTO) 29.6 % (21-51); MEAN CORPUSCULAR HEMOGLOBIN 32.3 PG (27.0-31.0); MEAN CORPUSCULAR HGB CONC 34.4 g/dL (33.0-36.5); MEAN CORPUSCULAR VOLUME 93.8 FL (78-98); MEAN PLATELET VOLUME 8.5 FL (7.4-10.4); MONOCYTES # (AUTO) 0.8 X10'3 (0-0.9); MONOCYTES % (AUTO) 8.8 % (2-12); NEUTROPHILS # (AUTO) 5.7 X10'3 (1.8-7.7); NEUTROPHILS % (AUTO) 59.5 % (42-75); PLATELET COUNT 197 X10'3 (140-440); RED BLOOD COUNT 4.61 X10'6 (4.70-6.10); RED CELL DISTRIBUTION WIDTH 12.9 % (11.5-14.5); WHITE BLOOD COUNT 9.6 X10'3 (4.5-11.0)
[2019-08-28 20:13] LABS: PARTIAL THROMBOPLASTIN TIME 27 SECONDS (22-32)
[2019-08-28 20:14] LABS: ALANINE AMINOTRANSFERASE 19 U/L (12-78); ALBUMIN 3.2 G/DL (3.4-5.0); ALKALINE PHOSPHATASE 92 IU/L (46-116); ANION GAP 8 (8-16); ASPARTATE AMINO TRANSFERASE 34 U/L (10-37); BILIRUBIN,TOTAL 0.6 MG/DL (0.1-1.0); BLOOD UREA NITROGEN 14 MG/DL (7-18); BUN/CREATININE RATIO 10.9 (5.4-32.0); CALCIUM 8.9 MG/DL (8.5-10.1); CHLORIDE 104 MMOL/L (99-107); CREATININE 1.28 MG/DL (0.60-1.10); GLUCOSE 97 MG/DL (70-104); POTASSIUM 3.5 MMOL/L (3.5-5.1); SODIUM 139 MMOL/L (135-145); TOTAL CARBON DIOXIDE 26.6 MMOL/L (24-32); TOTAL PROTEIN 6.3 G/DL (6.4-8.2); eGFR 56 ML/MIN
[2019-08-28 20:16] LABS: AMMONIA < 10 UMOL/L (11-32)
[2019-08-28 20:18] LABS: LACTIC SEPSIS 2.5 MMOL/L (0.4-2.0); TROPONIN I 0.05 NG/ML (0.0-0.05)
[2019-08-28 20:53] LABS: CLARITY,URINE CLEAR (Clear); COLOR,URINE YELLOW (Yellow); GLUCOSE, URINE NEGATIVE (Neg); KETONES,URINE NEGATIVE (Neg); LEUKOCYTE ESTERASE ,URINE NEGATIVE (Neg); NITRITES, URINE NEGATIVE (Neg); OCCULT BLOOD,URINE NEGATIVE (Neg); PH,URINE 5.5 (4.8-8.0); PROTEIN,URINE NEGATIVE (Neg); UROBILINOGEN,URINE 0.2 E.U/dL (0.2-1.0)
[2019-08-28 20:54] LABS: UA COLLECTION TYPE URINAL
[2019-08-28 21:04] LABS: URINE AMPHETAMINE SCREEN NEGATIVE (Neg); URINE BARBITUATE SCREEN NEGATIVE (Neg); URINE BENZODIAZEPINES SCREEN NEGATIVE (Neg); URINE CANNABINOID SCREEN NEGATIVE (Neg); URINE COCAINE SCREEN NEGATIVE (Neg); URINE METHADONE SCREEN NEGATIVE (Neg); URINE OPIATE SCREEN NEGATIVE (Neg); URINE PHENCYCLIDINE SCREEN NEGATIVE (Neg)
[2019-08-28 21:17] VITALS: BP 132/69
== END 2019-08-28 21:20 | disposition home or self-care (01) ==
LOC: ER 17:47
DX: S40.022A Contusion of left upper arm, initial encounter (principal); R53.1 Weakness; I48.91 Unspecified atrial fibrillation; Z91.81 History of falling; I25.10 Atherosclerotic heart disease of native coronary artery without angina pectoris; I50.9 Heart failure, unspecified; I11.0 Hypertensive heart disease with heart failure; J44.9 Chronic obstructive pulmonary disease, unspecified; F31.9 Bipolar disorder, unspecified; Z95.1 Presence of aortocoronary bypass graft; Z59.0 Homelessness; Z56.0 Unemployment, unspecified; Z79.01 Long term (current) use of anticoagulants; Z79.82 Long term (current) use of aspirin; Z79.899 Other long term (current) drug therapy; W19.XXXA Unspecified fall, initial encounter; Y93.E1 Activity, personal bathing and showering; Y92.89 Other specified places as the place of occurrence of the external cause; Y99.8 Other external cause status
CPT/HCPCS: 36415; 70450; 71045; 73090; 80053; 80305; 80320; 81003; 82140; 83605; 84484; 85025; 85610; 85730; 87040; 93005; 99285; J7030

== ENCOUNTER 2020-01-03 15:15 | Emergency (ER) | payer MEDICARE ==
[~2020-01-03] VITALS: Ht 190.5 cm; Wt 124.0 kg
[~2020-01-03 15:15] MED LIST changes: -NITR0.4T51 SL; -PRED20TA PO
[2020-01-03 15:44] VITALS: BP 143/72
== END 2020-01-03 16:49 | disposition home or self-care (01) ==
LOC: ER 15:15
DX: Z13.9 Encounter for screening, unspecified (principal); R21 Rash and other nonspecific skin eruption; I48.91 Unspecified atrial fibrillation; I25.10 Atherosclerotic heart disease of native coronary artery without angina pectoris; I11.0 Hypertensive heart disease with heart failure; I50.9 Heart failure, unspecified; J44.9 Chronic obstructive pulmonary disease, unspecified; F31.9 Bipolar disorder, unspecified; Z98.890 Other specified postprocedural states; Z56.0 Unemployment, unspecified; Z59.0 Homelessness; Z79.82 Long term (current) use of aspirin; Z79.899 Other long term (current) drug therapy
CPT/HCPCS: 99284

== ENCOUNTER 2020-02-16 14:35 | Observation (INO) | payer MEDICARE ==
[~2020-02-16] VITALS: Ht 190.5 cm; Wt 128.5 kg
[~2020-02-16 14:35] MED LIST changes: -ACET-1008 PO; -ALBU8.5H8 INH; +AMIO200T61 PO; -ASPI-611 PO; +ATOR20TA66 PO; -ATOR40TA71 PO; -FLUT1AER PO; +GABA300C PO; +LISI-600 PO; -LISI-604 PO; -METO-395 PO; -ONDA4TAB12 PO; -TIOT18CA3 IH; -ZOLP10TA PO
[2020-02-16 15:20] LABS: BASOPHILS % (AUTO) 0.7 % (0-1); EOSINOPHILS # (AUTO) 0.1 X10'3 (0-0.9); HEMATOCRIT 43.6 % (42.0-52.0); HEMOGLOBIN 14.7 g/dl (14.0-17.9); LYMPHOCYTES # (AUTO) 1.6 X10'3 (1.1-4.8); LYMPHOCYTES % (AUTO) 24.6 % (21-51); MEAN CORPUSCULAR HEMOGLOBIN 33.1 PG (27.0-31.0); MEAN CORPUSCULAR HGB CONC 33.7 g/dL (33.0-36.5); MEAN CORPUSCULAR VOLUME 98.1 FL (78-98); MEAN PLATELET VOLUME 8.8 FL (7.4-10.4); MONOCYTES # (AUTO) 0.6 X10'3 (0-0.9); MONOCYTES % (AUTO) 8.5 % (2-12); NEUTROPHILS # (AUTO) 4.3 X10'3 (1.8-7.7); NEUTROPHILS % (AUTO) 65.2 % (42-75); PLATELET COUNT 146 X10'3 (140-440); RED BLOOD COUNT 4.44 X10'6 (4.70-6.10); RED CELL DISTRIBUTION WIDTH 12.5 % (11.5-14.5); WHITE BLOOD COUNT 6.6 X10'3 (4.5-11.0)
[2020-02-16 15:35] LABS: ALANINE AMINOTRANSFERASE 15 U/L (12-78); ALBUMIN 3.6 G/DL (3.4-5.0); ALBUMIN/GLOBULIN RATIO 1.2 (1.1-1.5); ALKALINE PHOSPHATASE 68 IU/L (46-116); ANION GAP 6 (8-16); ASPARTATE AMINO TRANSFERASE 13 U/L (10-37); BILIRUBIN,TOTAL 0.5 MG/DL (0.1-1.0); BLOOD UREA NITROGEN 12 MG/DL (7-18); BUN/CREATININE RATIO 11.7 (5.4-32.0); CALCIUM 8.9 MG/DL (8.5-10.1); CHLORIDE 104 MMOL/L (99-107); CREATININE 1.03 MG/DL (0.60-1.10); GLUCOSE 81 MG/DL (70-104); POTASSIUM 4.3 MMOL/L (3.5-5.1); SODIUM 140 MMOL/L (135-145); TOTAL CARBON DIOXIDE 29.6 MMOL/L (24-32); TOTAL PROTEIN 6.7 G/DL (6.4-8.2); eGFR 72 ML/MIN
--- NOTE | 2020-02-16 16:22 | NUR ---
Dr. Gallo at bedside.
[2020-02-16 16:56] LABS: CLARITY,URINE CLEAR (Clear); COLOR,URINE STRAW (Yellow); GLUCOSE, URINE NEGATIVE (Neg); KETONES,URINE NEGATIVE (Neg); LEUKOCYTE ESTERASE ,URINE NEGATIVE (Neg); NITRITES, URINE NEGATIVE (Neg); OCCULT BLOOD,URINE NEGATIVE (Neg); PROTEIN,URINE NEGATIVE (Neg)
[2020-02-16 16:57] LABS: UA COLLECTION TYPE CLN CATCH MIDSTREAM
--- NOTE | 2020-02-16 17:47 | NUR ---
WHEN PT STOOD FOR GAIT CHRISTY HE REPORTED HE FELT DIZZY AND UNABLE TO WALK AT THIS TIME. HR 57. DR SHAY NOTIFIED.
[2020-02-16] MEDS ORDERED: LISI10TA4 PO (17:54)
[2020-02-16] MEDS ORDERED: ACET-1008 PO (17:54)
[2020-02-16] MEDS ORDERED: TIOT18CA3 IH (17:54)
[2020-02-16] MEDS ORDERED: FLUT1AER IH (17:54)
[2020-02-16] MEDS ORDERED: NITR0.4T51 SL (17:54)
[2020-02-16] MEDS ORDERED: CHLO25CA10 PO (17:54)
[2020-02-16] MEDS ORDERED: AMIO200T62 PO (17:54)
[2020-02-16] MEDS ORDERED: QUET200T30 PO (17:54)
[2020-02-16] MEDS ORDERED: BUDE0.256 NEB (17:54)
[2020-02-16] MEDS ORDERED: ASPI-611 PO (17:54)
[2020-02-16] MEDS ORDERED: ATOR40TA PO (17:54)
[2020-02-16] MEDS ORDERED: IPRA4AER IH (17:54)
[2020-02-16] MEDS ORDERED: APIX5TAB3 PO (17:54)
[2020-02-16] MEDS ORDERED: HYDR-3686 PO (17:54)
[2020-02-16] MEDS ORDERED: TIOT4MIS3 IH (17:54)
[2020-02-16] MEDS ORDERED: FURO40TA4 PO (17:54)
[2020-02-16] MEDS ORDERED: CLON0.2T37 PO (17:54)
[2020-02-16] MEDS ORDERED: GABA-530 PO (17:54)
[2020-02-16] MEDS ORDERED: KETO120S5 TP (17:54)
[2020-02-16] MEDS ORDERED: ALBU8.5H8 IH (17:54)
[2020-02-16] MEDS ORDERED: ACAM333T8 PO (17:54)
[2020-02-16] MEDS ORDERED: FURO-150 PO (17:54)
[2020-02-16] MEDS ORDERED: potassium Cl 20 mEq SR tablet PO PRN ×2 (18:10)
[2020-02-16] MEDS ORDERED: potassium CL 10mEq/100ml bag 100 ML IV PRN ×2 (18:10)
[2020-02-16] MEDS ORDERED: magnesium 2GM in 50ml NS 50 ML IV PRN (18:10)
[2020-02-16] MEDS ORDERED: magnesium Cl slow-release 64mg tablet PO PRN (18:10)
[2020-02-16] MEDS ORDERED: magnesium 4gm in 100ml NS 100 ML IV PRN (18:10)
[2020-02-16 19:30] VITALS: BP 129/40
--- NOTE | 2020-02-16 19:30 | NUR ---
Patient in room PCU 3023. I have received report from Elke ENGLAND by telephone from ER and had the opportunity to ask questions and assume patient care. Patient came up to unit, mild dizziness but able to transfer from wheel chair to bed with no issues with cane.
[2020-02-16 20:00] VITALS: BP_SYST 146; BP_SYST 155; BP_SYST 163; BP_DIAS 61; BP_DIAS 66; BP_DIAS 68
[2020-02-16] MEDS: K and/or MAG REPLACEMENT MC SCH (20:00)
[2020-02-16] MEDS ORDERED: quetiapine 100mg tablet PO SCH (21:00)
[2020-02-16] MEDS ORDERED: cloNIDine 0.1 mg tablet PO PRN (21:40)
[2020-02-16] MEDS ORDERED: albuterol 2.5 MG/3 ML nebule NEB PRN (21:40)
[2020-02-16] MEDS ORDERED: nitroGLYCERIN 0.4mg SUBLingual tab SL PRN (21:40)
[2020-02-16] MEDS ORDERED: non-formulary drug (Ipratropium/Albuterol Sulfate (Combivent Respimat Inhal Spray) 2 PUFFS IH PRN (21:40)
[2020-02-16] MEDS ORDERED: acetaminophen 325mg tablet PO PRN (21:40)
[2020-02-16 22:00] VITALS: BP 146/68
--- NOTE | 2020-02-16 22:55 | NUR ---
Patient able to ambulated with cane independently. Patient was able to walk across the room and enter the bathroom and use its facilities by himself without much dizziness. Also was able to walk back to bed, however only started to feel dizzy while standing still as the blood pressure was being taken. Will continue to monitor patient.
[2020-02-17 02:00] VITALS: BP 106/55
[2020-02-17] MEDS: ipratropium/albuterol 3ml nebule IH SCH ×3 (02:24→16:12)
--- NOTE | 2020-02-17 03:00 | NUR ---
Noncompliance patient has refused EKGs tonight. Patient refused to be poked for lab draws. Patient is waiting to be discharged.
[2020-02-17 03:12] LABS: BASOPHILS # (AUTO) 0.1 X10'3 (0-0.2); EOSINOPHILS # (AUTO) 0.1 X10'3 (0-0.9); HEMATOCRIT 42.4 % (42.0-52.0); HEMOGLOBIN 14.3 g/dl (14.0-17.9); LYMPHOCYTES # (AUTO) 2.3 X10'3 (1.1-4.8); LYMPHOCYTES % (AUTO) 39.7 % (21-51); MEAN CORPUSCULAR HEMOGLOBIN 33.1 PG (27.0-31.0); MEAN CORPUSCULAR HGB CONC 33.8 g/dL (33.0-36.5); MEAN PLATELET VOLUME 8.7 FL (7.4-10.4); MONOCYTES # (AUTO) 0.5 X10'3 (0-0.9); MONOCYTES % (AUTO) 8.9 % (2-12); NEUTROPHILS # (AUTO) 2.8 X10'3 (1.8-7.7); NEUTROPHILS % (AUTO) 48.4 % (42-75); PLATELET COUNT 137 X10'3 (140-440); RED BLOOD COUNT 4.33 X10'6 (4.70-6.10); RED CELL DISTRIBUTION WIDTH 12.4 % (11.5-14.5); WHITE BLOOD COUNT 5.8 X10'3 (4.5-11.0)
[2020-02-17 03:30] LABS: ALBUMIN 2.9 G/DL (3.4-5.0); ANION GAP 5 (8-16); BLOOD UREA NITROGEN 18 MG/DL (7-18); BUN/CREATININE RATIO 16.2 (5.4-32.0); CALCIUM 8.7 MG/DL (8.5-10.1); CHLORIDE 107 MMOL/L (99-107); CREATININE 1.11 MG/DL (0.60-1.10); GLUCOSE 107 MG/DL (70-104); MAGNESIUM 1.9 MG/DL (1.5-2.4); POTASSIUM 4.1 MMOL/L (3.5-5.1); SODIUM 142 MMOL/L (135-145); TOTAL CARBON DIOXIDE 29.8 MMOL/L (24-32); eGFR 66 ML/MIN
[2020-02-17 06:00] VITALS: BP 118/53
--- NOTE | 2020-02-17 06:00 | NUR ---
Patient in room PCU 3023. I have received report from Erika ENGLAND and had the opportunity to ask questions and assume patient care.
--- NOTE | 2020-02-17 06:37 | NUR ---
Problems reprioritized. Patient report given, questions answered & plan of care reviewed with Gt ENGLAND.
[2020-02-17 08:00] VITALS: BP_SYST 109; BP_SYST 121; BP_SYST 136; BP_DIAS 61; BP_DIAS 63; BP_DIAS 90
[2020-02-17] MEDS ORDERED: gabapentin 300mg capsule PO SCH (08:00)
[2020-02-17] MEDS ORDERED: apixaban 5mg tablet PO SCH (08:00)
[2020-02-17] MEDS ORDERED: lisinopril 10 MG tablet PO SCH (08:00)
[2020-02-17] MEDS ORDERED: ketoconazole (Nizoral) shampoo TP SCH (08:00)
[2020-02-17] MEDS ORDERED: atorvastatin 20mg tablet PO SCH (08:00)
[2020-02-17] MEDS: K and/or MAG REPLACEMENT MC SCH (08:00)
[2020-02-17] MEDS ORDERED: furosemide 40mg tablet PO SCH (08:00)
[2020-02-17] MEDS ORDERED: non-formulary drug (Fluticasone/Vilanterol (Breo Ellipta 100-25 Mcg INH) 1 PUFF) IH SCH (08:00)
[2020-02-17] MEDS ORDERED: chlordiazePOXIDE 25mg capsule PO SCH (08:00)
[2020-02-17] MEDS ORDERED: acamprosate DR 333mg Tablet PO SCH (08:00)
[2020-02-17] MEDS ORDERED: non-formulary drug (Tiotropium Br/Olodaterol HCl (Stiolto Respimat Inhal Spray) 2 PUFFS) IH SCH (08:00)
[2020-02-17] MEDS ORDERED: budesonide 0.5mg/2ml UD nebule IH SCH (08:00)
[2020-02-17] MEDS ORDERED: non-formulary drug (Tiotropium Bromide (Spiriva) 1 CAP) IH SCH (08:00)
[2020-02-17] MEDS ORDERED: aspirin 81mg tab.chew PO SCH (08:30)
[2020-02-17 11:00] VITALS: BP 121/63
--- NOTE | 2020-02-17 14:35 | NUR ---
PAGER ID: [phone] MESSAGE: [id number] Tommy Nur MRI has resulted. No acute infarct. Correlation with mastoiditis. US carotid preliminary result only. Just FYI. Rivera [phone]
--- NOTE | 2020-02-17 16:52 | NUR ---
PAGER ID: [phone] MESSAGE: PLEASE CALL JOSSELIN HEBERT REGARDING D/C OF [id number] TOM. THANKS #[phone]
--- NOTE | 2020-02-17 17:41 | NUR ---
Per MD orders patient stable for discharge home. No new prescriptions to call in to pharmacy. Discharge instructions reviewed with patient at bedside. All questions answered to patient satisfaction. PIV discontinued, cannula intact. Tele monitoring discontinued. All belongings sent with patient. Transferred to tax via wheelchair accompanied by aide.
== END 2020-02-17 17:32 | disposition home or self-care (01) ==
LOC: ER 14:36 → ED HOLD 18:06 → PCU 3S 19:37
PROVIDERS: ADMIT Internal Medicine; ATTEND Internal Medicine
DX: R42 Dizziness and giddiness (principal); R06.02 Shortness of breath; I48.91 Unspecified atrial fibrillation; J44.9 Chronic obstructive pulmonary disease, unspecified; I11.0 Hypertensive heart disease with heart failure; I50.9 Heart failure, unspecified; E78.5 Hyperlipidemia, unspecified; I25.10 Atherosclerotic heart disease of native coronary artery without angina pectoris; F31.9 Bipolar disorder, unspecified; R00.1 Bradycardia, unspecified; R26.81 Unsteadiness on feet; Z95.1 Presence of aortocoronary bypass graft; Z79.82 Long term (current) use of aspirin; Z79.01 Long term (current) use of anticoagulants; Z79.51 Long term (current) use of inhaled steroids; Z79.899 Other long term (current) drug therapy
CPT/HCPCS: 36415; 70551; 71045; 80048; 80053; 81003; 82948; 83735; 83880; 84484; 85025; 87081; 93005; 93880; 94640; 94760; 97112; 97162; 97530; 99285; G0378; J7626

== ENCOUNTER 2020-07-15 17:07 | Inpatient (IN) | payer MEDICARE ==
[~2020-07-15] VITALS: Ht 190.5 cm; Wt 132.0 kg
[~2020-07-15 17:07] MED LIST changes: +ACAM333T8 PO; +ACET-1008 PO; +ALBU8.5H8 IH; -AMIO200T61 PO; +AMIO200T62 PO; +ASPI-611 PO; -ATOR20TA66 PO; +ATOR40TA PO; +BUDE0.256 NEB; +FLUT1AER IH; +FURO-150 PO; +GABA-530 PO; -GABA300C PO; +IPRA4AER IH; +KETO120S5 TP; -LISI-600 PO; +LISI10TA4 PO; +NITR0.4T51 SL; +QUET200T30 PO; +TIOT18CA3 IH; +TIOT4MIS3 IH
[2020-07-15 17:59] LABS: BASOPHILS # (AUTO) 0.1 X10'3 (0-0.2); BASOPHILS % (AUTO) 0.7 % (0-1); EOSINOPHILS # (AUTO) 0.2 X10'3 (0-0.9); EOSINOPHILS % (AUTO) 2.4 % (0-6); HEMATOCRIT 45.7 % (42.0-52.0); HEMOGLOBIN 15.6 g/dl (14.0-17.9); LYMPHOCYTES # (AUTO) 2.1 X10'3 (1.1-4.8); MEAN CORPUSCULAR HEMOGLOBIN 33.3 PG (27.0-31.0); MEAN CORPUSCULAR VOLUME 97.8 FL (78-98); MEAN PLATELET VOLUME 8.6 FL (7.4-10.4); MONOCYTES # (AUTO) 0.7 X10'3 (0-0.9); MONOCYTES % (AUTO) 8.4 % (2-12); NEUTROPHILS # (AUTO) 5.6 X10'3 (1.8-7.7); NEUTROPHILS % (AUTO) 64.5 % (42-75); PLATELET COUNT 191 X10'3 (140-440); RED BLOOD COUNT 4.67 X10'6 (4.70-6.10); RED CELL DISTRIBUTION WIDTH 13.5 % (11.5-14.5); WHITE BLOOD COUNT 8.7 X10'3 (4.5-11.0)
[2020-07-15 18:01] LABS: ALANINE AMINOTRANSFERASE 19 U/L (12-78); ALBUMIN 3.7 G/DL (3.4-5.0); ALBUMIN/GLOBULIN RATIO 1.1 (1.1-1.5); ALKALINE PHOSPHATASE 88 IU/L (46-116); ANION GAP 5 (8-16); ASPARTATE AMINO TRANSFERASE 10 U/L (10-37); BILIRUBIN,TOTAL 0.3 MG/DL (0.1-1.0); BLOOD UREA NITROGEN 14 MG/DL (7-18); BUN/CREATININE RATIO 15.6 (5.4-32.0); CALCIUM 9.1 MG/DL (8.5-10.1); CHLORIDE 107 MMOL/L (99-107); GLUCOSE 86 MG/DL (70-104); POTASSIUM 4.1 MMOL/L (3.5-5.1); SODIUM 142 MMOL/L (135-145); TOTAL CARBON DIOXIDE 30.1 MMOL/L (24-32); TOTAL PROTEIN 7.1 G/DL (6.4-8.2); eGFR 84 ML/MIN
[2020-07-15] MEDS ORDERED: HYDROcodone/acetaminophen 5mg/325mg tablet PO PRN (19:45)
[2020-07-15] MEDS ORDERED: HYDROcodone/acetaminophen 10/325mg tab PO PRN (19:45)
[2020-07-15] MEDS ORDERED: magnesium Cl slow-release 64mg tablet PO PRN (19:45)
[2020-07-15] MEDS ORDERED: bisacodyl 10mg suppository rectal RC PRN (19:45)
[2020-07-15] MEDS ORDERED: potassium Cl 20 mEq SR tablet PO PRN ×2 (19:45)
[2020-07-15] MEDS ORDERED: potassium Cl 40MEQ/1/2NS 520ml 520 ML IV PRN ×2 (19:45)
[2020-07-15] MEDS ORDERED: normal saline 1000ml 1,000 ML IV SCH (19:45)
[2020-07-15] MEDS ORDERED: ondansetron/PF 4mg/2ml inj IV PRN (19:45)
[2020-07-15] MEDS ORDERED: mag hydrox/Alum hydrox/simeth 30ml oral suspension PO PRN (19:45)
[2020-07-15] MEDS ORDERED: magnesium hydroxide 30ml (MOM) UD suspension PO PRN (19:45)
[2020-07-15] MEDS ORDERED: aminophylline 250mg/10ml inj. IV PRN (19:45)
[2020-07-15] MEDS ORDERED: acetaminophen 325mg tablet PO PRN ×2 (19:45)
[2020-07-15] MEDS ORDERED: metoprolol tartrate 1mg/ml inj IV PRN (19:45)
[2020-07-15] MEDS ORDERED: magnesium 4gm in 100ml NS 100 ML IV PRN (19:45)
[2020-07-15] MEDS ORDERED: morphine 2 MG/ML inj. syringe IV PRN ×2 (19:45)
[2020-07-15] MEDS ORDERED: magnesium 2GM in 50ml NS 50 ML IV PRN (19:45)
[2020-07-15] MEDS ORDERED: nitroGLYCERIN 0.4mg SUBLingual tab SL PRN (19:45)
[2020-07-15] MEDS ORDERED: regadenoson 0.4mg/5ml syringe IV PRN (19:50)
[2020-07-15] MEDS: K and/or MAG REPLACEMENT MC SCH (20:00)
[2020-07-15] MEDS ORDERED: ALBUTEROL INHALER 1 PUFF/90 MCG INHALER IH PRN (20:00)
[2020-07-15] MEDS ORDERED: ipratropium/albuterol 3ml nebule NEB PRN (20:00)
[2020-07-15] MEDS ORDERED: albuterol 2.5 MG/3 ML nebule NEB PRN (20:22)
[2020-07-15] MEDS: apixaban 5mg tablet PO SCH (20:27)
[2020-07-15] MEDS: lisinopril 10 MG tablet PO SCH (20:28)
[2020-07-15] MEDS: quetiapine 100mg tablet PO SCH (20:30)
[2020-07-15] MEDS: ipratropium/albuterol 3ml nebule NEB SCH (21:00)
[2020-07-15] MEDS ORDERED: temazepam 15mg capsule PO PRN (21:00)
--- NOTE | 2020-07-15 22:23 | NUR ---
GAVE PT SANDWICH, JUICE AND ICE CREAM. PT RESTING COMFORTABLY
[2020-07-16] VITALS (15 sets, daily range): BP systolic 88–189; BP diastolic 44–65
--- NOTE | 2020-07-16 | NUR ---
PT REFUSES TO TAKE OFF CLOTHES SO 2 RN SKIN CHECK WAS NOT DONE.
[2020-07-16] MEDS: ipratropium/albuterol 3ml nebule NEB SCH ×4 (02:55→20:12)
--- NOTE | 2020-07-16 06:31 | NUR ---
Problems reprioritized. Patient report given, questions answered & plan of care reviewed with Jenna. Addendum: 07/16/20 at 0632 by Dean Young RN Amended: Links added.
--- NOTE | 2020-07-16 06:33 | NUR ---
Patient in room PCU 3012. I have received report from robert woodall and had the opportunity to ask questions and assume patient care.
[2020-07-16 07:56] LABS: BASOPHILS # (AUTO) 0.1 X10'3 (0-0.2); BASOPHILS % (AUTO) 0.8 % (0-1); EOSINOPHILS # (AUTO) 0.3 X10'3 (0-0.9); EOSINOPHILS % (AUTO) 3.3 % (0-6); HEMATOCRIT 43.2 % (42.0-52.0); HEMOGLOBIN 14.7 g/dl (14.0-17.9); LYMPHOCYTES # (AUTO) 2.3 X10'3 (1.1-4.8); LYMPHOCYTES % (AUTO) 25.3 % (21-51); MEAN CORPUSCULAR HEMOGLOBIN 33.6 PG (27.0-31.0); MEAN CORPUSCULAR HGB CONC 34.1 g/dL (33.0-36.5); MEAN CORPUSCULAR VOLUME 98.4 FL (78-98); MEAN PLATELET VOLUME 8.9 FL (7.4-10.4); MONOCYTES # (AUTO) 0.9 X10'3 (0-0.9); MONOCYTES % (AUTO) 10.6 % (2-12); NEUTROPHILS # (AUTO) 5.3 X10'3 (1.8-7.7); PLATELET COUNT 164 X10'3 (140-440); RED BLOOD COUNT 4.39 X10'6 (4.70-6.10); RED CELL DISTRIBUTION WIDTH 13.6 % (11.5-14.5); WHITE BLOOD COUNT 8.9 X10'3 (4.5-11.0)
[2020-07-16] MEDS: amiodarone 200mg tablet PO SCH (08:00)
[2020-07-16] MEDS: gabapentin 300mg capsule PO SCH (08:00)
[2020-07-16] MEDS: furosemide 40mg/4ml inj IV SCH ×2 (08:00→20:00)
[2020-07-16] MEDS: atorvastatin 20mg tablet PO SCH (08:00)
[2020-07-16] MEDS: K and/or MAG REPLACEMENT MC SCH ×2 (08:00→20:00)
[2020-07-16] MEDS ORDERED: non-formulary drug (Tiotropium Bromide (Spiriva) 1 CAP) IH SCH (08:00)
[2020-07-16] MEDS: apixaban 5mg tablet PO SCH ×2 (08:00→20:17)
[2020-07-16] MEDS: lisinopril 10 MG tablet PO SCH ×2 (08:00→20:28)
[2020-07-16] MEDS: aspirin 81mg tab.chew PO SCH (08:00)
[2020-07-16] MEDS: budesonide 0.5mg/2ml UD nebule IH SCH ×2 (08:01→20:11)
[2020-07-16 08:13] LABS: ALANINE AMINOTRANSFERASE 17 U/L (12-78); ALKALINE PHOSPHATASE 73 IU/L (46-116); ANION GAP 5 (8-16); ASPARTATE AMINO TRANSFERASE 17 U/L (10-37); BILIRUBIN,TOTAL 0.4 MG/DL (0.1-1.0); BLOOD UREA NITROGEN 12 MG/DL (7-18); BUN/CREATININE RATIO 13.6 (5.4-32.0); CALCIUM 8.6 MG/DL (8.5-10.1); CHLORIDE 109 MMOL/L (99-107); CHOL/HDL RATIO 2.4 (0.00-4.99); CHOLESTEROL 135 MG/DL (0-200); CREATININE 0.88 MG/DL (0.60-1.10); GLUCOSE 88 MG/DL (70-104); HDL CHOLESTEROL 56 MG/DL (35-60); LDL CHOLESTEROL 76 MG/DL (50-100); SODIUM 144 MMOL/L (135-145); TOTAL CARBON DIOXIDE 29.6 MMOL/L (24-32); TOTAL PROTEIN 5.9 G/DL (6.4-8.2); TRIGLYCERIDES 58 MG/DL (20-135); eGFR 86 ML/MIN
[2020-07-16] MEDS ORDERED: ondansetron 4mg rapidly disintigrating tab PO PRN (12:00)
--- NOTE | 2020-07-16 16:01 | NUR ---
PAGED DR GRAY RE: PAGER ID: [phone] MESSAGE: MELINA SANTOS. CXR FROM ER- Subtle posterior and lateral right 5th rib fracture, acute versus chronic correlate clinically. JUST WANT YOU TO BE AWARE THAT PT HAS POSS RIB FX. PCU DAMIAN 6028
--- NOTE | 2020-07-16 18:34 | NUR ---
Problems reprioritized. Patient report given, questions answered & plan of care reviewed with SANTANA ENGLAND.
--- NOTE | 2020-07-16 18:35 | NUR ---
Patient in room [place] [id number]. I have received report from Twyla and had the opportunity to ask questions and assume patient care. Addendum: 07/16/20 at 1836 by Reena Puga RN Patient in room [place] [address]. I have received report from SAMANTA West and had the opportunity to ask questions and assume patient care.
[2020-07-16] MEDS: quetiapine 100mg tablet PO SCH (20:17)
[2020-07-17] MEDS: ipratropium/albuterol 3ml nebule NEB SCH (02:49)
[2020-07-17 06:19] LABS: BASOPHILS % (AUTO) 0.3 % (0-1); EOSINOPHILS # (AUTO) 0.2 X10'3 (0-0.9); EOSINOPHILS % (AUTO) 2.5 % (0-6); HEMATOCRIT 42.2 % (42.0-52.0); HEMOGLOBIN 14.4 g/dl (14.0-17.9); LYMPHOCYTES # (AUTO) 1.7 X10'3 (1.1-4.8); LYMPHOCYTES % (AUTO) 21.7 % (21-51); MEAN CORPUSCULAR HEMOGLOBIN 33.2 PG (27.0-31.0); MEAN CORPUSCULAR VOLUME 97.5 FL (78-98); MEAN PLATELET VOLUME 8.8 FL (7.4-10.4); MONOCYTES # (AUTO) 0.8 X10'3 (0-0.9); MONOCYTES % (AUTO) 9.9 % (2-12); NEUTROPHILS # (AUTO) 5.3 X10'3 (1.8-7.7); NEUTROPHILS % (AUTO) 65.6 % (42-75); PLATELET COUNT 162 X10'3 (140-440); RED BLOOD COUNT 4.32 X10'6 (4.70-6.10); RED CELL DISTRIBUTION WIDTH 13.4 % (11.5-14.5)
--- NOTE | 2020-07-17 06:32 | NUR ---
Problems reprioritized. Patient report given, questions answered & plan of care reviewed with SAMANTA Olvera.
[2020-07-17 06:48] LABS: ALANINE AMINOTRANSFERASE 16 U/L (12-78); ALBUMIN 2.9 G/DL (3.4-5.0); ALKALINE PHOSPHATASE 73 IU/L (46-116); ANION GAP 7 (8-16); ASPARTATE AMINO TRANSFERASE 7 U/L (10-37); BILIRUBIN,TOTAL 0.3 MG/DL (0.1-1.0); BLOOD UREA NITROGEN 19 MG/DL (7-18); BUN/CREATININE RATIO 21.1 (5.4-32.0); CALCIUM 8.7 MG/DL (8.5-10.1); CHLORIDE 108 MMOL/L (99-107); GLUCOSE 106 MG/DL (70-104); POTASSIUM 4.3 MMOL/L (3.5-5.1); SODIUM 142 MMOL/L (135-145); TOTAL CARBON DIOXIDE 26.6 MMOL/L (24-32); TOTAL PROTEIN 5.9 G/DL (6.4-8.2); eGFR 84 ML/MIN
[2020-07-17 07:00] VITALS: BP 143/64
--- NOTE | 2020-07-17 07:03 | NUR ---
Patient in room PCU 3012. I have received report from Reena ENGLAND and had the opportunity to ask questions and assume patient care.
[2020-07-17] MEDS: budesonide 0.5mg/2ml UD nebule IH SCH (07:27)
[2020-07-17] MEDS: K and/or MAG REPLACEMENT MC SCH (08:00)
[2020-07-17] MEDS: apixaban 5mg tablet PO SCH (08:36)
[2020-07-17] MEDS: amiodarone 200mg tablet PO SCH (08:36)
[2020-07-17] MEDS: furosemide 40mg/4ml inj IV SCH (08:36)
[2020-07-17] MEDS: atorvastatin 20mg tablet PO SCH (08:36)
[2020-07-17] MEDS: aspirin 81mg tab.chew PO SCH (08:36)
[2020-07-17] MEDS: gabapentin 300mg capsule PO SCH (08:37)
[2020-07-17] MEDS: lisinopril 10 MG tablet PO SCH (08:38)
--- NOTE | 2020-07-17 08:42 | NUR ---
Received TC from patient requesting double portions. Pt currently on a heart healthy diet documented with 100% PO intake. D/w dietary to send double eggs WB and double meat BIDLD for satiety. Will continue to follow. Addendum: 07/17/20 at [address] Amended: Links added.
[2020-07-17 11:00] VITALS: BP 170/65
[2020-07-17] MEDS ORDERED: nystatin 15 GM powder TP SCH (13:00)
[2020-07-17] MEDS ORDERED: PANT-47 PO (14:01)
[2020-07-17] MEDS ORDERED: NITR0.4T51 SL (14:04)
--- NOTE | 2020-07-17 14:27 | NUR ---
Patient discharge instructions reviewed with patient by Resource RN Grecia. Patient verbalized understanding. Resource nurse DC'd patients IV and Tele monitor. Patient was taken to vehicle where uncle Humberto was here to pick him up. Patient stated he had all his belongings.
[2020-07-18] MEDS ORDERED: pantoprazole 40mg Tablet.DR PO SCH (11:00)
== END 2020-07-17 15:31 | disposition home or self-care (01) | DRG 302 ==
LOC: ER 17:08 → ED HOLD 19:41 → PCU 3S 23:40 → OBSVTOIN 07-17 09:25
PROVIDERS: ADMIT Family Medicine; ATTEND Family Medicine
PROC: 4A02XM4 Measurement of Cardiac Total Activity, External Approach (ICD-10-PCS; principal; 2020-07-16)
PROC: 3E073KZ Introduction of Other Diagnostic Substance into Coronary Artery, Percutaneous Approach (ICD-10-PCS; 2020-07-16)
PROC: 5A09357 Assistance with Respiratory Ventilation, Less than 24 Consecutive Hours, Continuous Positive Airway Pressure (ICD-10-PCS; 2020-07-17)
DX: I25.119 Atherosclerotic heart disease of native coronary artery with unspecified angina pectoris (principal); I50.43 Acute on chronic combined systolic (congestive) and diastolic (congestive) heart failure; M84.48XA Pathological fracture, other site, initial encounter for fracture; E78.5 Hyperlipidemia, unspecified; F31.9 Bipolar disorder, unspecified; G47.33 Obstructive sleep apnea (adult) (pediatric); F17.210 Nicotine dependence, cigarettes, uncomplicated; I11.0 Hypertensive heart disease with heart failure; I48.91 Unspecified atrial fibrillation; R14.0 Abdominal distension (gaseous); R55 Syncope and collapse; J44.9 Chronic obstructive pulmonary disease, unspecified; Z79.01 Long term (current) use of anticoagulants; Z79.51 Long term (current) use of inhaled steroids; Z79.82 Long term (current) use of aspirin; Z79.899 Other long term (current) drug therapy; Z95.1 Presence of aortocoronary bypass graft; Z59.0 Homelessness; Z71.6 Tobacco abuse counseling
CPT/HCPCS: 36415; 71045; 76700; 78452; 80053; 80061; 83735; 83880; 84484; 85025; 87081; 93005; 93017; 93306; 94640; 94660; 94760; A9500; G0378; J0280; J1940; J2785; J7626

== ENCOUNTER 2020-08-20 17:48 | Emergency (ER) | payer MEDICARE ==
[~2020-08-20] VITALS: Ht 190.5 cm; Wt 128.0 kg
[~2020-08-20 17:48] MED LIST changes: -ACAM333T8 PO; -KETO120S5 TP; +LISI10TA27 PO; -LISI10TA4 PO; -NITR0.4T51 SL; +PANT-47 PO
[2020-08-20] MEDS ORDERED: furosemide 10 MG/1 ML 10ml inj IV ONE (18:00)
[2020-08-20 18:15] LABS: BASOPHILS # (AUTO) 0.1 X10'3 (0-0.2); BASOPHILS % (AUTO) 0.8 % (0-1); EOSINOPHILS # (AUTO) 0.1 X10'3 (0-0.9); EOSINOPHILS % (AUTO) 1.5 % (0-6); HEMATOCRIT 44.4 % (42.0-52.0); HEMOGLOBIN 15.1 g/dl (14.0-17.9); LYMPHOCYTES # (AUTO) 2.2 X10'3 (1.1-4.8); LYMPHOCYTES % (AUTO) 25.5 % (21-51); MEAN CORPUSCULAR HEMOGLOBIN 33.1 PG (27.0-31.0); MEAN CORPUSCULAR VOLUME 97.4 FL (78-98); MEAN PLATELET VOLUME 8.5 FL (7.4-10.4); MONOCYTES # (AUTO) 0.6 X10'3 (0-0.9); MONOCYTES % (AUTO) 7.1 % (2-12); NEUTROPHILS # (AUTO) 5.6 X10'3 (1.8-7.7); NEUTROPHILS % (AUTO) 65.1 % (42-75); PLATELET COUNT 184 X10'3 (140-440); RED BLOOD COUNT 4.55 X10'6 (4.70-6.10); RED CELL DISTRIBUTION WIDTH 12.6 % (11.5-14.5); WHITE BLOOD COUNT 8.6 X10'3 (4.5-11.0)
[2020-08-20 18:31] LABS: ALANINE AMINOTRANSFERASE 16 U/L (12-78); ALBUMIN 3.6 G/DL (3.4-5.0); ALBUMIN/GLOBULIN RATIO 1.1 (1.1-1.5); ALKALINE PHOSPHATASE 100 IU/L (46-116); ANION GAP 7 (8-16); ASPARTATE AMINO TRANSFERASE 10 U/L (10-37); BILIRUBIN,TOTAL 0.4 MG/DL (0.1-1.0); BLOOD UREA NITROGEN 14 MG/DL (7-18); CALCIUM 9.1 MG/DL (8.5-10.1); CHLORIDE 104 MMOL/L (99-107); GLUCOSE 127 MG/DL (70-104); POTASSIUM 3.8 MMOL/L (3.5-5.1); SODIUM 138 MMOL/L (135-145); TOTAL CARBON DIOXIDE 26.8 MMOL/L (24-32); TOTAL PROTEIN 6.9 G/DL (6.4-8.2); eGFR 74 ML/MIN
[2020-08-20 18:37] LABS: MAGNESIUM 1.8 MG/DL (1.5-2.4)
[2020-08-20] MEDS ORDERED: ipratropium/albuterol 3ml nebule NEB ONE (20:30)
--- NOTE | 2020-08-20 20:53 | NUR ---
RT at bedside for svn tx as ordered.
[2020-08-20] MEDS ORDERED: PRED20TA PO (20:55)
[2020-08-20 21:06] VITALS: BP 124/72
== END 2020-08-20 21:08 | disposition home or self-care (01) ==
LOC: ER 17:49
DX: J44.1 Chronic obstructive pulmonary disease with (acute) exacerbation (principal); R07.89 Other chest pain; R06.00 Dyspnea, unspecified; R06.02 Shortness of breath; I48.91 Unspecified atrial fibrillation; I25.10 Atherosclerotic heart disease of native coronary artery without angina pectoris; I11.0 Hypertensive heart disease with heart failure; I50.9 Heart failure, unspecified; F31.9 Bipolar disorder, unspecified; Z98.890 Other specified postprocedural states; Z59.0 Homelessness; Z56.0 Unemployment, unspecified; Z79.82 Long term (current) use of aspirin; Z79.899 Other long term (current) drug therapy
CPT/HCPCS: 36415; 71045; 80053; 83735; 83880; 84484; 85025; 93005; 94640; 96374; 99285; J1940

== ENCOUNTER 2020-09-10 16:46 | Emergency (ER) | payer MEDICARE ==
[~2020-09-10] VITALS: Ht 190.5 cm; Wt 125.0 kg
[2020-09-10 17:28] LABS: BASOPHILS # (AUTO) 0.1 X10'3 (0-0.2); BASOPHILS % (AUTO) 0.7 % (0-1); EOSINOPHILS # (AUTO) 0.1 X10'3 (0-0.9); EOSINOPHILS % (AUTO) 1.3 % (0-6); HEMATOCRIT 47.7 % (42.0-52.0); HEMOGLOBIN 16.1 g/dl (14.0-17.9); LYMPHOCYTES # (AUTO) 1.5 X10'3 (1.1-4.8); MEAN CORPUSCULAR HEMOGLOBIN 33.2 PG (27.0-31.0); MEAN CORPUSCULAR HGB CONC 33.7 g/dL (33.0-36.5); MEAN CORPUSCULAR VOLUME 98.4 FL (78-98); MEAN PLATELET VOLUME 8.8 FL (7.4-10.4); MONOCYTES # (AUTO) 0.7 X10'3 (0-0.9); MONOCYTES % (AUTO) 7.9 % (2-12); NEUTROPHILS # (AUTO) 6.6 X10'3 (1.8-7.7); NEUTROPHILS % (AUTO) 73.1 % (42-75); PLATELET COUNT 184 X10'3 (140-440); RED BLOOD COUNT 4.85 X10'6 (4.70-6.10); RED CELL DISTRIBUTION WIDTH 12.7 % (11.5-14.5)
[2020-09-10 17:36] LABS: ALANINE AMINOTRANSFERASE 17 U/L (12-78); ALBUMIN 3.7 G/DL (3.4-5.0); ALKALINE PHOSPHATASE 108 IU/L (46-116); ANION GAP 9 (8-16); ASPARTATE AMINO TRANSFERASE 8 U/L (10-37); BILIRUBIN,TOTAL 0.4 MG/DL (0.1-1.0); BLOOD UREA NITROGEN 12 MG/DL (7-18); BUN/CREATININE RATIO 13.2 (5.4-32.0); CALCIUM 9.4 MG/DL (8.5-10.1); CHLORIDE 106 MMOL/L (99-107); CREATININE 0.91 MG/DL (0.60-1.10); GLUCOSE 95 MG/DL (70-104); POTASSIUM 3.9 MMOL/L (3.5-5.1); SODIUM 142 MMOL/L (135-145); TOTAL CARBON DIOXIDE 26.9 MMOL/L (24-32); TOTAL PROTEIN 7.3 G/DL (6.4-8.2); eGFR 83 ML/MIN
--- NOTE | 2020-09-10 18:28 | NUR ---
Pt resting in bed, no cp at this time, states slight sob. Dr. Schreiber advised no admission criteria met currently. To ambulate to tolerance and possible discharge.
--- NOTE | 2020-09-10 19:11 | NUR ---
Pt gait tested by radha Drake. Pt states he is unable to ambulate due to weakness at this time. Pt also states numbness and pain on left arm and radiating down to hand that comes and goes over last month.
[2020-09-10 20:06] VITALS: BP 179/93
== END 2020-09-10 20:10 | disposition home or self-care (01) ==
LOC: ER 16:47
DX: I10 Essential (primary) hypertension (principal); R42 Dizziness and giddiness; R06.02 Shortness of breath; R07.89 Other chest pain; I48.91 Unspecified atrial fibrillation; I25.10 Atherosclerotic heart disease of native coronary artery without angina pectoris; I11.0 Hypertensive heart disease with heart failure; I50.9 Heart failure, unspecified; J44.9 Chronic obstructive pulmonary disease, unspecified; F31.9 Bipolar disorder, unspecified; Z98.890 Other specified postprocedural states; Z56.0 Unemployment, unspecified; Z59.0 Homelessness; Z79.82 Long term (current) use of aspirin; Z79.899 Other long term (current) drug therapy
CPT/HCPCS: 36415; 71045; 80053; 83880; 84484; 85025; 93005; 99285

== ENCOUNTER 2020-10-29 20:06 | Emergency (ER) | payer MEDICARE ==
[~2020-10-29] VITALS: Ht 190.5 cm; Wt 113.6 kg
[2020-10-29 20:35] LABS: ALANINE AMINOTRANSFERASE 15 U/L (12-78); ALBUMIN 3.6 G/DL (3.4-5.0); ALBUMIN/GLOBULIN RATIO 1.2 (1.1-1.5); ALKALINE PHOSPHATASE 92 IU/L (46-116); ANION GAP 9 (8-16); ASPARTATE AMINO TRANSFERASE 18 U/L (10-37); BILIRUBIN,TOTAL 0.4 MG/DL (0.1-1.0); BLOOD UREA NITROGEN 20 MG/DL (7-18); BUN/CREATININE RATIO 21.5 (5.4-32.0); CALCIUM 8.9 MG/DL (8.5-10.1); CHLORIDE 108 MMOL/L (99-107); CREATININE 0.93 MG/DL (0.60-1.10); GLUCOSE 105 MG/DL (70-104); POTASSIUM 3.9 MMOL/L (3.5-5.1); SODIUM 144 MMOL/L (135-145); TOTAL CARBON DIOXIDE 26.8 MMOL/L (24-32); TOTAL PROTEIN 6.6 G/DL (6.4-8.2); eGFR 81 ML/MIN
--- NOTE | 2020-10-29 20:37 | NUR ---
pt to room, assumed care
[2020-10-29 20:39] LABS: BASOPHILS # (AUTO) 0.1 X10'3 (0-0.2); BASOPHILS % (AUTO) 0.6 % (0-1); EOSINOPHILS # (AUTO) 0.1 X10'3 (0-0.9); EOSINOPHILS % (AUTO) 1.2 % (0-6); HEMATOCRIT 45.3 % (42.0-52.0); HEMOGLOBIN 15.5 g/dl (14.0-17.9); LYMPHOCYTES # (AUTO) 2.5 X10'3 (1.1-4.8); LYMPHOCYTES % (AUTO) 23.8 % (21-51); MEAN CORPUSCULAR HEMOGLOBIN 33.3 PG (27.0-31.0); MEAN CORPUSCULAR HGB CONC 34.2 g/dL (33.0-36.5); MEAN CORPUSCULAR VOLUME 97.3 FL (78-98); MONOCYTES # (AUTO) 0.9 X10'3 (0-0.9); NEUTROPHILS # (AUTO) 6.7 X10'3 (1.8-7.7); NEUTROPHILS % (AUTO) 65.4 % (42-75); PLATELET COUNT 176 X10'3 (140-440); RED BLOOD COUNT 4.66 X10'6 (4.70-6.10); RED CELL DISTRIBUTION WIDTH 12.9 % (11.5-14.5); WHITE BLOOD COUNT 10.3 X10'3 (4.5-11.0)
[2020-10-30 00:10] VITALS: BP 133/68
== END 2020-10-30 00:12 | disposition home or self-care (01) ==
LOC: ER 20:07
DX: R07.89 Other chest pain (principal); R06.02 Shortness of breath; R42 Dizziness and giddiness; I48.91 Unspecified atrial fibrillation; I25.10 Atherosclerotic heart disease of native coronary artery without angina pectoris; I11.0 Hypertensive heart disease with heart failure; I50.9 Heart failure, unspecified; J44.9 Chronic obstructive pulmonary disease, unspecified; F31.9 Bipolar disorder, unspecified; Z98.890 Other specified postprocedural states; Z56.0 Unemployment, unspecified; Z59.0 Homelessness; Z79.82 Long term (current) use of aspirin; Z79.899 Other long term (current) drug therapy
CPT/HCPCS: 36415; 71045; 80053; 83880; 84484; 85025; 93005; 99285

== ENCOUNTER 2020-11-02 19:54 | Emergency (ER) | payer MEDICARE ==
[~2020-11-02] VITALS: Ht 190.5 cm; Wt 118.0 kg
[2020-11-02 20:43] LABS: BASOPHILS % (AUTO) 0.4 % (0-1); EOSINOPHILS # (AUTO) 0.2 X10'3 (0-0.9); EOSINOPHILS % (AUTO) 2.3 % (0-6); HEMATOCRIT 43.8 % (42.0-52.0); HEMOGLOBIN 15.2 g/dl (14.0-17.9); LYMPHOCYTES % (AUTO) 20.6 % (21-51); MEAN CORPUSCULAR HEMOGLOBIN 33.7 PG (27.0-31.0); MEAN CORPUSCULAR HGB CONC 34.8 g/dL (33.0-36.5); MEAN PLATELET VOLUME 8.9 FL (7.4-10.4); MONOCYTES # (AUTO) 0.9 X10'3 (0-0.9); MONOCYTES % (AUTO) 9.3 % (2-12); NEUTROPHILS # (AUTO) 6.4 X10'3 (1.8-7.7); NEUTROPHILS % (AUTO) 67.4 % (42-75); PLATELET COUNT 163 X10'3 (140-440); RED BLOOD COUNT 4.52 X10'6 (4.70-6.10); RED CELL DISTRIBUTION WIDTH 12.7 % (11.5-14.5); WHITE BLOOD COUNT 9.5 X10'3 (4.5-11.0)
[2020-11-02 20:58] LABS: ALANINE AMINOTRANSFERASE 17 U/L (12-78); ALBUMIN 3.4 G/DL (3.4-5.0); ALBUMIN/GLOBULIN RATIO 1.1 (1.1-1.5); ALKALINE PHOSPHATASE 98 IU/L (46-116); ANION GAP 6 (8-16); ASPARTATE AMINO TRANSFERASE 10 U/L (10-37); BILIRUBIN,TOTAL 0.4 MG/DL (0.1-1.0); BLOOD UREA NITROGEN 15 MG/DL (7-18); CALCIUM 8.8 MG/DL (8.5-10.1); CHLORIDE 107 MMOL/L (99-107); CREATININE 0.88 MG/DL (0.60-1.10); GLUCOSE 138 MG/DL (70-104); POTASSIUM 3.6 MMOL/L (3.5-5.1); SODIUM 140 MMOL/L (135-145); TOTAL CARBON DIOXIDE 26.9 MMOL/L (24-32); TOTAL PROTEIN 6.5 G/DL (6.4-8.2); eGFR 86 ML/MIN
--- NOTE | 2020-11-02 21:00 | NUR ---
PT IS RESTING QUIETLY ON GURTERRY, NAD
[2020-11-02] MEDS ORDERED: ketorolac trometh. 30mg/ml inj. IV ONE (21:30)
--- NOTE | 2020-11-02 21:43 | NUR ---
PT AMB WITH STEADY GAIT TO RESTROOM, NO DIZZINESS/LIGHTHEADEDNESS
[2020-11-02 22:03] VITALS: BP 150/78
== END 2020-11-02 22:06 | disposition home or self-care (01) ==
LOC: ER 19:55
DX: I11.0 Hypertensive heart disease with heart failure (principal); I50.9 Heart failure, unspecified; R07.89 Other chest pain; I25.10 Atherosclerotic heart disease of native coronary artery without angina pectoris; F31.9 Bipolar disorder, unspecified; F17.210 Nicotine dependence, cigarettes, uncomplicated; I48.91 Unspecified atrial fibrillation; Z95.1 Presence of aortocoronary bypass graft; Z59.0 Homelessness; Z56.0 Unemployment, unspecified; Z79.899 Other long term (current) drug therapy
CPT/HCPCS: 36415; 71045; 80053; 83880; 84484; 85025; 93005; 96374; 99285; J1885

== ENCOUNTER 2020-11-18 19:39 | Emergency (ER) | payer MEDICARE ==
[~2020-11-18] VITALS: Ht 190.5 cm; Wt 118.0 kg
[2020-11-18 20:00] LABS: BASOPHILS # (AUTO) 0.1 X10'3 (0-0.2); BASOPHILS % (AUTO) 1.1 % (0-1); EOSINOPHILS # (AUTO) 0.3 X10'3 (0-0.9); EOSINOPHILS % (AUTO) 3.3 % (0-6); HEMATOCRIT 41.5 % (42.0-52.0); HEMOGLOBIN 14.1 g/dl (14.0-17.9); LYMPHOCYTES # (AUTO) 1.9 X10'3 (1.1-4.8); LYMPHOCYTES % (AUTO) 22.7 % (21-51); MEAN CORPUSCULAR HEMOGLOBIN 33.2 PG (27.0-31.0); MEAN CORPUSCULAR VOLUME 97.6 FL (78-98); MEAN PLATELET VOLUME 8.6 FL (7.4-10.4); MONOCYTES # (AUTO) 0.8 X10'3 (0-0.9); MONOCYTES % (AUTO) 9.1 % (2-12); NEUTROPHILS # (AUTO) 5.4 X10'3 (1.8-7.7); NEUTROPHILS % (AUTO) 63.8 % (42-75); PLATELET COUNT 212 X10'3 (140-440); RED BLOOD COUNT 4.25 X10'6 (4.70-6.10); RED CELL DISTRIBUTION WIDTH 12.6 % (11.5-14.5); WHITE BLOOD COUNT 8.5 X10'3 (4.5-11.0)
[2020-11-18 20:17] LABS: ALANINE AMINOTRANSFERASE 23 U/L (12-78); ALBUMIN 3.1 G/DL (3.4-5.0); ALBUMIN/GLOBULIN RATIO 0.9 (1.1-1.5); ALKALINE PHOSPHATASE 80 IU/L (46-116); ANION GAP 8 (8-16); ASPARTATE AMINO TRANSFERASE 12 U/L (10-37); BILIRUBIN,TOTAL 0.4 MG/DL (0.1-1.0); BLOOD UREA NITROGEN 15 MG/DL (7-18); CHLORIDE 109 MMOL/L (99-107); CREATININE 0.94 MG/DL (0.60-1.10); GLUCOSE 102 MG/DL (70-104); POTASSIUM 3.8 MMOL/L (3.5-5.1); SODIUM 146 MMOL/L (135-145); TOTAL CARBON DIOXIDE 28.8 MMOL/L (24-32); TOTAL PROTEIN 6.6 G/DL (6.4-8.2); eGFR 80 ML/MIN
[2020-11-18 21:42] VITALS: BP 167/70
== END 2020-11-18 22:00 | disposition home or self-care (01) ==
LOC: ER 19:40
DX: R07.89 Other chest pain (principal); I25.10 Atherosclerotic heart disease of native coronary artery without angina pectoris; I48.91 Unspecified atrial fibrillation; I50.9 Heart failure, unspecified; I11.0 Hypertensive heart disease with heart failure; J44.9 Chronic obstructive pulmonary disease, unspecified; F17.200 Nicotine dependence, unspecified, uncomplicated; Z56.0 Unemployment, unspecified; Z59.0 Homelessness; Z79.82 Long term (current) use of aspirin; Z79.899 Other long term (current) drug therapy
CPT/HCPCS: 36415; 71045; 80053; 83880; 84484; 85025; 93005; 99285

== ENCOUNTER 2020-11-23 20:30 | Emergency (ER) | payer MEDICARE ==
[~2020-11-23] VITALS: Ht 190.5 cm; Wt 145.0 kg
[2020-11-23] MEDS ORDERED: aspirin 81mg tab.chew PO ONE (20:45)
[2020-11-23 21:21] LABS: BASOPHILS # (AUTO) 0.1 X10'3 (0-0.2); BASOPHILS % (AUTO) 0.6 % (0-1); EOSINOPHILS # (AUTO) 0.2 X10'3 (0-0.9); EOSINOPHILS % (AUTO) 2.8 % (0-6); HEMATOCRIT 43.3 % (42.0-52.0); HEMOGLOBIN 14.6 g/dl (14.0-17.9); LYMPHOCYTES # (AUTO) 1.8 X10'3 (1.1-4.8); LYMPHOCYTES % (AUTO) 21.4 % (21-51); MEAN CORPUSCULAR HEMOGLOBIN 32.6 PG (27.0-31.0); MEAN CORPUSCULAR HGB CONC 33.8 g/dL (33.0-36.5); MEAN CORPUSCULAR VOLUME 96.6 FL (78-98); MEAN PLATELET VOLUME 9.5 FL (7.4-10.4); MONOCYTES # (AUTO) 0.7 X10'3 (0-0.9); MONOCYTES % (AUTO) 9.1 % (2-12); NEUTROPHILS # (AUTO) 5.4 X10'3 (1.8-7.7); NEUTROPHILS % (AUTO) 66.1 % (42-75); PLATELET COUNT 196 X10'3 (140-440); RED BLOOD COUNT 4.49 X10'6 (4.70-6.10); RED CELL DISTRIBUTION WIDTH 12.7 % (11.5-14.5); WHITE BLOOD COUNT 8.2 X10'3 (4.5-11.0)
[2020-11-23 21:30] LABS: ALANINE AMINOTRANSFERASE 21 U/L (12-78); ALBUMIN 3.2 G/DL (3.4-5.0); ALBUMIN/GLOBULIN RATIO 1.1 (1.1-1.5); ALKALINE PHOSPHATASE 79 IU/L (46-116); ANION GAP 6 (8-16); ASPARTATE AMINO TRANSFERASE 9 U/L (10-37); BILIRUBIN,TOTAL 0.2 MG/DL (0.1-1.0); BLOOD UREA NITROGEN 17 MG/DL (7-18); BUN/CREATININE RATIO 17.2 (5.4-32.0); CALCIUM 8.9 MG/DL (8.5-10.1); CHLORIDE 110 MMOL/L (99-107); CREATININE 0.99 MG/DL (0.60-1.10); GLUCOSE 135 MG/DL (70-104); POTASSIUM 3.8 MMOL/L (3.5-5.1); SODIUM 145 MMOL/L (135-145); TOTAL PROTEIN 6.2 G/DL (6.4-8.2); eGFR 75 ML/MIN
[2020-11-23] MEDS ORDERED: nitroGLYCERIN 0.4mg SUBLingual tab SL PRN (21:30)
[2020-11-23 21:38] LABS: MAGNESIUM 2.1 MG/DL (1.5-2.4)
[2020-11-24 01:54] VITALS: BP 180/93
== END 2020-11-24 01:55 | disposition home or self-care (01) ==
LOC: ER 20:31
DX: R07.89 Other chest pain (principal); R61 Generalized hyperhidrosis; R05 Cough; I50.9 Heart failure, unspecified; I11.0 Hypertensive heart disease with heart failure; J44.9 Chronic obstructive pulmonary disease, unspecified; I48.91 Unspecified atrial fibrillation; I25.10 Atherosclerotic heart disease of native coronary artery without angina pectoris; I25.2 Old myocardial infarction; F17.200 Nicotine dependence, unspecified, uncomplicated; Z95.1 Presence of aortocoronary bypass graft; Z56.0 Unemployment, unspecified; Z59.0 Homelessness; Z79.01 Long term (current) use of anticoagulants
CPT/HCPCS: 36415; 71045; 80053; 83735; 83880; 84484; 85025; 93005; 99285

== ENCOUNTER 2020-11-24 16:40 | Emergency (ER) | payer MEDICARE ==
[~2020-11-24] VITALS: Ht 190.5 cm; Wt 122.7 kg
[2020-11-24 16:45] VITALS: BP 171/79
[2020-11-24 17:36] LABS: BASOPHILS % (AUTO) 0.4 % (0-1); EOSINOPHILS # (AUTO) 0.2 X10'3 (0-0.9); EOSINOPHILS % (AUTO) 2.2 % (0-6); HEMATOCRIT 42.5 % (42.0-52.0); HEMOGLOBIN 14.2 g/dl (14.0-17.9); LYMPHOCYTES # (AUTO) 1.5 X10'3 (1.1-4.8); LYMPHOCYTES % (AUTO) 19.8 % (21-51); MEAN CORPUSCULAR HEMOGLOBIN 32.7 PG (27.0-31.0); MEAN CORPUSCULAR HGB CONC 33.5 g/dL (33.0-36.5); MEAN CORPUSCULAR VOLUME 97.5 FL (78-98); MEAN PLATELET VOLUME 8.8 FL (7.4-10.4); MONOCYTES # (AUTO) 0.6 X10'3 (0-0.9); MONOCYTES % (AUTO) 7.4 % (2-12); NEUTROPHILS # (AUTO) 5.5 X10'3 (1.8-7.7); NEUTROPHILS % (AUTO) 70.2 % (42-75); PLATELET COUNT 173 X10'3 (140-440); RED BLOOD COUNT 4.36 X10'6 (4.70-6.10); RED CELL DISTRIBUTION WIDTH 12.6 % (11.5-14.5); WHITE BLOOD COUNT 7.8 X10'3 (4.5-11.0)
[2020-11-24 17:50] LABS: ALANINE AMINOTRANSFERASE 20 U/L (12-78); ALBUMIN 3.2 G/DL (3.4-5.0); ALBUMIN/GLOBULIN RATIO 1.1 (1.1-1.5); ALKALINE PHOSPHATASE 77 IU/L (46-116); ANION GAP 6 (8-16); ASPARTATE AMINO TRANSFERASE 12 U/L (10-37); BILIRUBIN,TOTAL 0.3 MG/DL (0.1-1.0); BLOOD UREA NITROGEN 14 MG/DL (7-18); BUN/CREATININE RATIO 14.6 (5.4-32.0); CALCIUM 8.2 MG/DL (8.5-10.1); CHLORIDE 107 MMOL/L (99-107); CREATININE 0.96 MG/DL (0.60-1.10); GLUCOSE 92 MG/DL (70-104); POTASSIUM 3.5 MMOL/L (3.5-5.1); SODIUM 142 MMOL/L (135-145); TOTAL PROTEIN 6.2 G/DL (6.4-8.2); eGFR 78 ML/MIN
== END 2020-11-24 18:52 | disposition home or self-care (01) ==
LOC: ER 16:40
DX: R07.89 Other chest pain (principal); I25.2 Old myocardial infarction; I11.0 Hypertensive heart disease with heart failure; I50.9 Heart failure, unspecified; F17.200 Nicotine dependence, unspecified, uncomplicated; I48.91 Unspecified atrial fibrillation; I25.10 Atherosclerotic heart disease of native coronary artery without angina pectoris; J44.9 Chronic obstructive pulmonary disease, unspecified; Z95.1 Presence of aortocoronary bypass graft; Z79.01 Long term (current) use of anticoagulants; Z79.82 Long term (current) use of aspirin; Z79.899 Other long term (current) drug therapy; Z56.0 Unemployment, unspecified; Z59.0 Homelessness
CPT/HCPCS: 36415; 71045; 80053; 83880; 84484; 85025; 93005; 99285

== ENCOUNTER 2020-11-26 17:46 | Emergency (ER) | payer MEDICARE ==
[~2020-11-26] VITALS: Ht 190.5 cm; Wt 122.7 kg
[2020-11-26 18:24] LABS: BASOPHILS % (AUTO) 0.4 % (0-1); EOSINOPHILS # (AUTO) 0.3 X10'3 (0-0.9); EOSINOPHILS % (AUTO) 3.2 % (0-6); HEMATOCRIT 44.5 % (42.0-52.0); LYMPHOCYTES # (AUTO) 1.6 X10'3 (1.1-4.8); LYMPHOCYTES % (AUTO) 16.9 % (21-51); MEAN CORPUSCULAR HEMOGLOBIN 32.7 PG (27.0-31.0); MEAN CORPUSCULAR HGB CONC 33.6 g/dL (33.0-36.5); MEAN CORPUSCULAR VOLUME 97.4 FL (78-98); MEAN PLATELET VOLUME 8.7 FL (7.4-10.4); MONOCYTES # (AUTO) 0.7 X10'3 (0-0.9); MONOCYTES % (AUTO) 6.8 % (2-12); NEUTROPHILS % (AUTO) 72.7 % (42-75); PLATELET COUNT 190 X10'3 (140-440); RED BLOOD COUNT 4.57 X10'6 (4.70-6.10); RED CELL DISTRIBUTION WIDTH 12.7 % (11.5-14.5); WHITE BLOOD COUNT 9.7 X10'3 (4.5-11.0)
[2020-11-26 18:39] LABS: ALANINE AMINOTRANSFERASE 19 U/L (12-78); ALBUMIN 3.2 G/DL (3.4-5.0); ALKALINE PHOSPHATASE 81 IU/L (46-116); ANION GAP 7 (8-16); ASPARTATE AMINO TRANSFERASE 13 U/L (10-37); BILIRUBIN,TOTAL 0.5 MG/DL (0.1-1.0); BLOOD UREA NITROGEN 17 MG/DL (7-18); BUN/CREATININE RATIO 16.7 (5.4-32.0); CALCIUM 8.7 MG/DL (8.5-10.1); CHLORIDE 106 MMOL/L (99-107); CREATININE 1.02 MG/DL (0.60-1.10); GLUCOSE 125 MG/DL (70-104); SODIUM 143 MMOL/L (135-145); TOTAL CARBON DIOXIDE 29.6 MMOL/L (24-32); TOTAL PROTEIN 6.3 G/DL (6.4-8.2); eGFR 72 ML/MIN
[2020-11-26 19:29] VITALS: BP 119/56
[2020-11-30] MEDS ORDERED: THIA50TA10 PO (13:02)
== END 2020-11-26 19:30 | disposition home or self-care (01) ==
LOC: ER 17:46
DX: G89.29 Other chronic pain (principal); R07.89 Other chest pain; I25.10 Atherosclerotic heart disease of native coronary artery without angina pectoris; I50.9 Heart failure, unspecified; I11.0 Hypertensive heart disease with heart failure; I25.2 Old myocardial infarction; J44.9 Chronic obstructive pulmonary disease, unspecified; F17.200 Nicotine dependence, unspecified, uncomplicated; Z95.1 Presence of aortocoronary bypass graft; Z79.82 Long term (current) use of aspirin; Z79.899 Other long term (current) drug therapy; Z56.0 Unemployment, unspecified; Z59.0 Homelessness
CPT/HCPCS: 36415; 80053; 83880; 84484; 85025; 93005; 99284

== ENCOUNTER 2020-12-06 12:57 | Emergency (ER) | payer MEDICARE ==
[~2020-12-06] VITALS: Ht 190.5 cm; Wt 122.7 kg
[~2020-12-06 12:57] MED LIST changes: -ACET-1008 PO; -BUDE0.256 NEB; +BUDE10.22 INH; +CEFD300C3 PO; -FLUT1AER IH; -FURO-150 PO; -IPRA4AER IH; +ISOS30TA84 PO; +LACT1CAP26 PO; -PANT-47 PO; +PRED10TA23 PO; -QUET200T30 PO; +THIA50TA10 PO; -TIOT18CA3 IH; -TIOT4MIS3 IH
[2020-12-06 13:55] LABS: BASOPHILS % (AUTO) 0.3 % (0-1); EOSINOPHILS # (AUTO) 0.2 X10'3 (0-0.9); EOSINOPHILS % (AUTO) 1.4 % (0-6); HEMATOCRIT 43.7 % (42.0-52.0); LYMPHOCYTES # (AUTO) 2.2 X10'3 (1.1-4.8); MEAN CORPUSCULAR HEMOGLOBIN 32.8 PG (27.0-31.0); MEAN CORPUSCULAR HGB CONC 34.4 g/dL (33.0-36.5); MEAN CORPUSCULAR VOLUME 95.4 FL (78-98); MONOCYTES # (AUTO) 1.4 X10'3 (0-0.9); NEUTROPHILS # (AUTO) 9.9 X10'3 (1.8-7.7); NEUTROPHILS % (AUTO) 72.3 % (42-75); PLATELET COUNT 195 X10'3 (140-440); RED BLOOD COUNT 4.58 X10'6 (4.70-6.10); WHITE BLOOD COUNT 13.7 X10'3 (4.5-11.0)
[2020-12-06 14:11] LABS: ALANINE AMINOTRANSFERASE 47 U/L (12-78); ALBUMIN/GLOBULIN RATIO 0.9 (1.1-1.5); ALKALINE PHOSPHATASE 76 IU/L (46-116); ANION GAP 8 (8-16); ASPARTATE AMINO TRANSFERASE 18 U/L (10-37); BILIRUBIN,TOTAL 0.6 MG/DL (0.1-1.0); BLOOD UREA NITROGEN 25 MG/DL (7-18); BUN/CREATININE RATIO 25.3 (5.4-32.0); CALCIUM 8.3 MG/DL (8.5-10.1); CHLORIDE 101 MMOL/L (99-107); CREATININE 0.99 MG/DL (0.60-1.10); GLUCOSE 123 MG/DL (70-104); POTASSIUM 3.8 MMOL/L (3.5-5.1); SODIUM 137 MMOL/L (135-145); TOTAL CARBON DIOXIDE 27.6 MMOL/L (24-32); TOTAL PROTEIN 6.2 G/DL (6.4-8.2); eGFR 75 ML/MIN
[2020-12-06] MEDS ORDERED: METH4TAB81 PO (14:38)
[2020-12-06] MEDS ORDERED: AMOX-580 PO (14:38)
[2020-12-06 17:42] VITALS: BP 134/73
== END 2020-12-06 17:44 | disposition home or self-care (01) ==
LOC: ER 12:57
DX: J44.1 Chronic obstructive pulmonary disease with (acute) exacerbation (principal); R07.89 Other chest pain; R05 Cough; I48.91 Unspecified atrial fibrillation; I11.0 Hypertensive heart disease with heart failure; I50.9 Heart failure, unspecified; I25.10 Atherosclerotic heart disease of native coronary artery without angina pectoris; I25.2 Old myocardial infarction; F31.9 Bipolar disorder, unspecified; Z98.890 Other specified postprocedural states; Z56.0 Unemployment, unspecified; Z59.0 Homelessness; Z79.2 Long term (current) use of antibiotics; Z79.899 Other long term (current) drug therapy
CPT/HCPCS: 36415; 71045; 80053; 83880; 84484; 85025; 93005; 99285

== ENCOUNTER 2020-12-08 10:56 | Inpatient (IN) | payer MEDICARE ==
[~2020-12-08] VITALS: Ht 190.5 cm; Wt 122.7 kg
[~2020-12-08 10:56] MED LIST changes: +AMOX-580 PO; +METH4TAB81 PO
[2020-12-08 14:13] LABS: TROPONIN I < 0.04 NG/ML (0.0-0.05)
[2020-12-08 15:20] LABS: BASOPHILS % (AUTO) 0.3 % (0-1); EOSINOPHILS # (AUTO) 0.3 X10'3 (0-0.9); EOSINOPHILS % (AUTO) 1.8 % (0-6); HEMATOCRIT 43.4 % (42.0-52.0); HEMOGLOBIN 14.7 g/dl (14.0-17.9); LYMPHOCYTES # (AUTO) 2.9 X10'3 (1.1-4.8); LYMPHOCYTES % (AUTO) 19.4 % (21-51); MEAN CORPUSCULAR HEMOGLOBIN 32.6 PG (27.0-31.0); MEAN CORPUSCULAR HGB CONC 33.9 g/dL (33.0-36.5); MEAN CORPUSCULAR VOLUME 96.2 FL (78-98); MEAN PLATELET VOLUME 9.1 FL (7.4-10.4); MONOCYTES # (AUTO) 1.5 X10'3 (0-0.9); MONOCYTES % (AUTO) 9.8 % (2-12); NEUTROPHILS # (AUTO) 10.3 X10'3 (1.8-7.7); NEUTROPHILS % (AUTO) 68.7 % (42-75); PLATELET COUNT 201 X10'3 (140-440); RED BLOOD COUNT 4.51 X10'6 (4.70-6.10); RED CELL DISTRIBUTION WIDTH 13.2 % (11.5-14.5)
[2020-12-08 15:38] LABS: ALANINE AMINOTRANSFERASE 41 U/L (12-78); ALBUMIN/GLOBULIN RATIO 0.9 (1.1-1.5); ALKALINE PHOSPHATASE 72 IU/L (46-116); ANION GAP 9 (8-16); ASPARTATE AMINO TRANSFERASE 18 U/L (10-37); BILIRUBIN,TOTAL 0.4 MG/DL (0.1-1.0); BLOOD UREA NITROGEN 18 MG/DL (7-18); BUN/CREATININE RATIO 19.1 (5.4-32.0); CALCIUM 8.1 MG/DL (8.5-10.1); CHLORIDE 105 MMOL/L (99-107); CREATININE 0.94 MG/DL (0.60-1.10); GLUCOSE 100 MG/DL (70-104); MAGNESIUM 1.9 MG/DL (1.5-2.4); POTASSIUM 3.9 MMOL/L (3.5-5.1); SODIUM 139 MMOL/L (135-145); TOTAL CARBON DIOXIDE 24.8 MMOL/L (24-32); TOTAL PROTEIN 6.3 G/DL (6.4-8.2); eGFR 80 ML/MIN
[2020-12-08] MEDS ORDERED: HYDROcodone/acetaminophen 10/325mg tab PO PRN (16:45)
[2020-12-08] MEDS ORDERED: magnesium hydroxide 30ml (MOM) UD suspension PO PRN (16:45)
[2020-12-08] MEDS ORDERED: ondansetron/PF 4mg/2ml inj IV PRN (16:45)
[2020-12-08] MEDS ORDERED: morphine 2 MG/ML inj. syringe IV PRN ×2 (16:45)
[2020-12-08] MEDS ORDERED: nitroGLYCERIN 0.4mg SUBLingual tab SL PRN (16:45)
[2020-12-08] MEDS ORDERED: mag hydrox/Alum hydrox/simeth 30ml oral suspension PO PRN (16:45)
[2020-12-08] MEDS ORDERED: acetaminophen 325mg tablet PO PRN ×2 (16:45)
[2020-12-08] MEDS ORDERED: HYDROcodone/acetaminophen 5mg/325mg tablet PO PRN (16:45)
--- NOTE | 2020-12-08 16:50 | NUR ---
NIXON ROSADO IN ROOM EXPLAINING TO PATIENT THAT HE IS GOING TO BE HOSPITALIZED AND THAT HE CAN NOT EAT OR DRINK AT THIS TIME
[2020-12-08] MEDS ORDERED: BUDE10.22 INH (17:12)
[2020-12-08] MEDS ORDERED: FURO20TA4 PO (17:12)
[2020-12-08] MEDS ORDERED: albuterol 2.5 MG/3 ML nebule NEB PRN (18:00)
--- NOTE | 2020-12-08 19:13 | NUR ---
Pt received his dinner meal. Denies pain post iv morphine
[2020-12-08 19:48] VITALS: BP 119/55
[2020-12-08] MEDS: amiodarone 200mg tablet PO SCH (20:28)
[2020-12-08] MEDS: furosemide 20MG tablet PO SCH (20:28)
[2020-12-08] MEDS: gabapentin 300mg capsule PO SCH (20:28)
[2020-12-08] MEDS: lisinopril 10 MG tablet PO SCH (20:29)
[2020-12-08 22:00] VITALS: BP 110/70
[2020-12-09 02:00] VITALS: BP 144/87
[2020-12-09 06:00] VITALS: BP 121/60
--- NOTE | 2020-12-09 06:00 | NUR ---
Problems reprioritized. Patient report given, questions answered & plan of care reviewed with EMRE ENGLAND.
--- NOTE | 2020-12-09 06:20 | NUR ---
Patient in room MED 307. I have received report from talisha dixon and had the opportunity to ask questions and assume patient care.
[2020-12-09] MEDS ORDERED: atorvastatin 20mg tablet PO SCH (08:00)
[2020-12-09] MEDS: amiodarone 200mg tablet PO SCH ×2 (09:32→20:46)
[2020-12-09] MEDS: thiamine 100mg tablet PO SCH (09:32)
[2020-12-09] MEDS: furosemide 40mg tablet PO SCH (09:33)
[2020-12-09] MEDS: aspirin 81mg tablet.DR PO SCH (09:33)
[2020-12-09] MEDS: gabapentin 300mg capsule PO SCH ×2 (09:34→20:45)
[2020-12-09] MEDS: lisinopril 10 MG tablet PO SCH ×2 (09:34→20:45)
[2020-12-09 11:00] VITALS: BP 105/57
[2020-12-09] MEDS ORDERED: isosorbide mononitrate 30mg tab.SR.24H PO ONE (12:30)
[2020-12-09] MEDS ORDERED: ondansetron 4mg rapidly disintigrating tab PO PRN (14:35)
[2020-12-09 15:00] VITALS: BP 129/66
[2020-12-09 18:00] VITALS: BP 129/59
--- NOTE | 2020-12-09 18:00 | NUR ---
Problems reprioritized. Patient report given, questions answered & plan of care reviewed with diegorn.
--- NOTE | 2020-12-09 18:53 | NUR ---
Patient in room MED 307. I have received report from Anitra ENGLAND and had the opportunity to ask questions and assume patient care.
[2020-12-09] MEDS: furosemide 20MG tablet PO SCH (20:45)
[2020-12-09 22:00] VITALS: BP 115/54
[2020-12-10] MEDS ORDERED: temazepam 15mg capsule PO ONE (01:50)
--- NOTE | 2020-12-10 01:50 | NUR ---
notified dr guerra and asked for something for sleep for pt. ordered temazepam 15 mg
[2020-12-10 02:00] VITALS: BP 111/51
[2020-12-10 06:00] VITALS: BP 136/67
--- NOTE | 2020-12-10 06:08 | NUR ---
Problems reprioritized. Patient report given, questions answered & plan of care reviewed with Anitra ENGLAND.
--- NOTE | 2020-12-10 06:20 | NUR ---
Patient in room MED 307. I have received report from talisha cortez and had the opportunity to ask questions and assume patient care.
[2020-12-10] MEDS ORDERED: isosorbide mononitrate 30mg tab.SR.24H PO SCH (08:55)
[2020-12-10] MEDS: lisinopril 10 MG tablet PO SCH (09:25)
[2020-12-10] MEDS: furosemide 40mg tablet PO SCH (09:25)
[2020-12-10] MEDS: aspirin 81mg tablet.DR PO SCH (09:26)
[2020-12-10] MEDS: thiamine 100mg tablet PO SCH (09:26)
[2020-12-10] MEDS ORDERED: ISOS30TA84 PO (09:43)
[2020-12-10] MEDS: amiodarone 200mg tablet PO SCH (09:45)
[2020-12-10] MEDS: gabapentin 300mg capsule PO SCH (09:47)
[2020-12-10 11:00] VITALS: BP 128/79
--- NOTE | 2020-12-10 16:00 | NUR ---
reviewed all discharge instructions , provided pt meds stored in pharmacy, sl dc'd from [facility], site clear. Contacted uncle kamala , unable to picker operator, arranged for hospital paid cab ride with [facility] cab back to [facility] pt insisited on being taken down to lobby to wait for cab, security systems integrator aware, pt dc'd with all belongings,uncle kamala aware of prescription to be picked up.
[2020-12-11] MEDS ORDERED: amiodarone 200mg tablet PO SCH (08:00)
== END 2020-12-10 16:00 | disposition home or self-care (01) | DRG 303 ==
LOC: ER 10:57 → ED HOLD 16:44 → MED 3N 19:40 → OBSVTOIN 12-09 11:00
PROVIDERS: ADMIT Internal Medicine; ATTEND Internal Medicine
DX: I25.119 Atherosclerotic heart disease of native coronary artery with unspecified angina pectoris (principal); E78.5 Hyperlipidemia, unspecified; F17.210 Nicotine dependence, cigarettes, uncomplicated; F31.9 Bipolar disorder, unspecified; F41.9 Anxiety disorder, unspecified; G47.33 Obstructive sleep apnea (adult) (pediatric); I11.0 Hypertensive heart disease with heart failure; I48.0 Paroxysmal atrial fibrillation; I50.9 Heart failure, unspecified; R19.7 Diarrhea, unspecified; J44.9 Chronic obstructive pulmonary disease, unspecified; K21.9 Gastro-esophageal reflux disease without esophagitis; I25.2 Old myocardial infarction; Z79.01 Long term (current) use of anticoagulants; Z79.82 Long term (current) use of aspirin; Z79.899 Other long term (current) drug therapy; Z91.19 Patient's noncompliance with other medical treatment and regimen; Z95.1 Presence of aortocoronary bypass graft; Z59.0 Homelessness
CPT/HCPCS: 36415; 71045; 80053; 83735; 83880; 84484; 85025; 87081; 93005; 94760; 99285; G0378; J2270

== ENCOUNTER 2020-12-13 12:28 | Emergency (ER) | payer MEDICARE ==
[~2020-12-13] VITALS: Ht 182.9 cm; Wt 122.7 kg
[~2020-12-13 12:28] MED LIST changes: -AMOX-580 PO; -CEFD300C3 PO; +FURO20TA4 PO; -LACT1CAP26 PO; -METH4TAB81 PO; -PRED10TA23 PO
[2020-12-13 12:55] LABS: BASOPHILS # (AUTO) 0.1 X10'3 (0-0.2); BASOPHILS % (AUTO) 0.4 % (0-1); EOSINOPHILS # (AUTO) 0.1 X10'3 (0-0.9); EOSINOPHILS % (AUTO) 0.3 % (0-6); HEMATOCRIT 41.6 % (42.0-52.0); HEMOGLOBIN 14.2 g/dl (14.0-17.9); LYMPHOCYTES # (AUTO) 1.9 X10'3 (1.1-4.8); LYMPHOCYTES % (AUTO) 10.8 % (21-51); MEAN CORPUSCULAR HEMOGLOBIN 32.8 PG (27.0-31.0); MEAN CORPUSCULAR HGB CONC 34.1 g/dL (33.0-36.5); MEAN PLATELET VOLUME 8.2 FL (7.4-10.4); MONOCYTES # (AUTO) 1.1 X10'3 (0-0.9); MONOCYTES % (AUTO) 6.4 % (2-12); NEUTROPHILS # (AUTO) 14.4 X10'3 (1.8-7.7); NEUTROPHILS % (AUTO) 82.1 % (42-75); PLATELET COUNT 197 X10'3 (140-440); RED BLOOD COUNT 4.33 X10'6 (4.70-6.10); RED CELL DISTRIBUTION WIDTH 13.1 % (11.5-14.5); WHITE BLOOD COUNT 17.5 X10'3 (4.5-11.0)
[2020-12-13 13:07] LABS: ALANINE AMINOTRANSFERASE 26 U/L (12-78); ALKALINE PHOSPHATASE 69 IU/L (46-116); ANION GAP 4 (8-16); ASPARTATE AMINO TRANSFERASE 14 U/L (10-37); BILIRUBIN,TOTAL 0.5 MG/DL (0.1-1.0); BLOOD UREA NITROGEN 23 MG/DL (7-18); BUN/CREATININE RATIO 21.3 (5.4-32.0); CALCIUM 8.1 MG/DL (8.5-10.1); CHLORIDE 99 MMOL/L (99-107); CREATININE 1.08 MG/DL (0.60-1.10); GLUCOSE 178 MG/DL (70-104); POTASSIUM 3.7 MMOL/L (3.5-5.1); SODIUM 133 MMOL/L (135-145); TOTAL CARBON DIOXIDE 29.6 MMOL/L (24-32); TOTAL PROTEIN 5.9 G/DL (6.4-8.2); eGFR 68 ML/MIN
[2020-12-13 14:07] VITALS: BP 107/75
== END 2020-12-13 16:32 | disposition home or self-care (01) ==
LOC: ER 12:28
DX: R07.89 Other chest pain (principal); R10.10 Upper abdominal pain, unspecified; I25.10 Atherosclerotic heart disease of native coronary artery without angina pectoris; I11.0 Hypertensive heart disease with heart failure; I50.9 Heart failure, unspecified; I48.91 Unspecified atrial fibrillation; I25.2 Old myocardial infarction; J44.9 Chronic obstructive pulmonary disease, unspecified; F31.9 Bipolar disorder, unspecified; Z95.1 Presence of aortocoronary bypass graft; Z98.61 Coronary angioplasty status; Z59.0 Homelessness; Z56.0 Unemployment, unspecified; Z79.82 Long term (current) use of aspirin; Z79.01 Long term (current) use of anticoagulants; Z79.899 Other long term (current) drug therapy
CPT/HCPCS: 36415; 71045; 74176; 80053; 83880; 84145; 84484; 85025; 93005; 99285

== ENCOUNTER 2020-12-14 11:58 | Emergency (ER) | payer MEDICARE ==
[~2020-12-14] VITALS: Ht 165.1 cm; Wt 120.5 kg
[2020-12-14 12:02] VITALS: BP 136/64
[2020-12-14] MEDS ORDERED: ketorolac trometh. 30mg/ml inj. IM ONE (12:35)
[2020-12-14] MEDS ORDERED: acetaminophen 325mg tablet PO ONE (12:35)
--- NOTE | 2020-12-14 13:12 | NUR ---
provider at bedside to talk with pt, pt has been given milk, juliana crackers and bus ticket to go home, pt is refusing to leave, he would also like lunch and taxi ride, charge nurse aware
--- NOTE | 2020-12-14 13:19 | NUR ---
pt was able to contact friend for a ride home
== END 2020-12-14 13:24 | disposition home or self-care (01) ==
LOC: ER 11:58
DX: G89.29 Other chronic pain (principal); R07.89 Other chest pain; R20.0 Anesthesia of skin; I48.91 Unspecified atrial fibrillation; I25.10 Atherosclerotic heart disease of native coronary artery without angina pectoris; I50.9 Heart failure, unspecified; I11.0 Hypertensive heart disease with heart failure; I25.2 Old myocardial infarction; J44.9 Chronic obstructive pulmonary disease, unspecified; Z95.1 Presence of aortocoronary bypass graft; Z56.0 Unemployment, unspecified; Z59.0 Homelessness; Z79.82 Long term (current) use of aspirin; Z79.899 Other long term (current) drug therapy
CPT/HCPCS: 96372; 99283; J1885; 93005

== ENCOUNTER 2020-12-16 15:45 | Emergency (ER) | payer MEDICARE ==
[~2020-12-16] VITALS: Ht 190.5 cm; Wt 120.5 kg
[2020-12-16 16:20] VITALS: BP 134/65
[2020-12-16 16:45] LABS: BASOPHILS # (AUTO) 0.1 X10'3 (0-0.2); BASOPHILS % (AUTO) 0.6 % (0-1); EOSINOPHILS # (AUTO) 0.1 X10'3 (0-0.9); EOSINOPHILS % (AUTO) 0.6 % (0-6); HEMATOCRIT 42.9 % (42.0-52.0); HEMOGLOBIN 14.7 g/dl (14.0-17.9); LYMPHOCYTES # (AUTO) 1.8 X10'3 (1.1-4.8); LYMPHOCYTES % (AUTO) 15.2 % (21-51); MEAN CORPUSCULAR HEMOGLOBIN 32.7 PG (27.0-31.0); MEAN CORPUSCULAR HGB CONC 34.4 g/dL (33.0-36.5); MEAN CORPUSCULAR VOLUME 95.1 FL (78-98); MEAN PLATELET VOLUME 8.1 FL (7.4-10.4); MONOCYTES % (AUTO) 8.3 % (2-12); NEUTROPHILS # (AUTO) 8.9 X10'3 (1.8-7.7); NEUTROPHILS % (AUTO) 75.3 % (42-75); PLATELET COUNT 196 X10'3 (140-440); RED BLOOD COUNT 4.51 X10'6 (4.70-6.10); RED CELL DISTRIBUTION WIDTH 12.8 % (11.5-14.5); WHITE BLOOD COUNT 11.7 X10'3 (4.5-11.0)
[2020-12-16 17:00] LABS: ALANINE AMINOTRANSFERASE 26 U/L (12-78); ALBUMIN 3.3 G/DL (3.4-5.0); ALKALINE PHOSPHATASE 79 IU/L (46-116); ANION GAP 8 (8-16); ASPARTATE AMINO TRANSFERASE 12 U/L (10-37); BILIRUBIN,TOTAL 0.8 MG/DL (0.1-1.0); BLOOD UREA NITROGEN 13 MG/DL (7-18); BUN/CREATININE RATIO 13.7 (5.4-32.0); CALCIUM 8.4 MG/DL (8.5-10.1); CHLORIDE 99 MMOL/L (99-107); CREATININE 0.95 MG/DL (0.60-1.10); GLUCOSE 159 MG/DL (70-104); POTASSIUM 3.2 MMOL/L (3.5-5.1); SODIUM 135 MMOL/L (135-145); TOTAL CARBON DIOXIDE 28.3 MMOL/L (24-32); TOTAL PROTEIN 6.5 G/DL (6.4-8.2); eGFR 79 ML/MIN
[2020-12-16] MEDS ORDERED: ibuprofen tablet 400 MG TABLET PO ONE (18:45)
== END 2020-12-16 19:31 | disposition home or self-care (01) ==
LOC: ER 15:46
DX: R07.89 Other chest pain (principal); R06.02 Shortness of breath; I48.91 Unspecified atrial fibrillation; I25.10 Atherosclerotic heart disease of native coronary artery without angina pectoris; I50.9 Heart failure, unspecified; I11.0 Hypertensive heart disease with heart failure; I25.2 Old myocardial infarction; J44.9 Chronic obstructive pulmonary disease, unspecified; Z95.1 Presence of aortocoronary bypass graft; F17.210 Nicotine dependence, cigarettes, uncomplicated; Z56.0 Unemployment, unspecified; Z59.0 Homelessness; Z79.82 Long term (current) use of aspirin; Z79.899 Other long term (current) drug therapy
CPT/HCPCS: 36415; 71045; 80053; 83880; 84484; 85025; 93005; 99285

== ENCOUNTER 2020-12-30 17:22 | Emergency (ER) | payer MEDICARE ==
[~2020-12-30] VITALS: Ht 190.5 cm; Wt 120.5 kg
[2020-12-30 18:56] LABS: ALANINE AMINOTRANSFERASE 25 U/L (12-78); ALBUMIN 3.3 G/DL (3.4-5.0); ALBUMIN/GLOBULIN RATIO 0.9 (1.1-1.5); ALKALINE PHOSPHATASE 78 IU/L (46-116); ANION GAP 9 (8-16); ASPARTATE AMINO TRANSFERASE 12 U/L (10-37); BILIRUBIN,TOTAL 0.5 MG/DL (0.1-1.0); BLOOD UREA NITROGEN 21 MG/DL (7-18); BUN/CREATININE RATIO 20.8 (5.4-32.0); CALCIUM 8.6 MG/DL (8.5-10.1); CHLORIDE 104 MMOL/L (99-107); CREATININE 1.01 MG/DL (0.60-1.10); GLUCOSE 90 MG/DL (70-104); POTASSIUM 3.9 MMOL/L (3.5-5.1); SODIUM 140 MMOL/L (135-145); TOTAL CARBON DIOXIDE 27.1 MMOL/L (24-32); TOTAL PROTEIN 6.9 G/DL (6.4-8.2); eGFR 73 ML/MIN
[2020-12-30 19:02] LABS: BASOPHILS % (AUTO) 0.5 % (0-1); EOSINOPHILS # (AUTO) 0.3 X10'3 (0-0.9); EOSINOPHILS % (AUTO) 4.2 % (0-6); HEMATOCRIT 40.9 % (42.0-52.0); LYMPHOCYTES # (AUTO) 1.7 X10'3 (1.1-4.8); LYMPHOCYTES % (AUTO) 20.5 % (21-51); MEAN CORPUSCULAR HEMOGLOBIN 32.5 PG (27.0-31.0); MEAN CORPUSCULAR HGB CONC 34.2 g/dL (33.0-36.5); MEAN CORPUSCULAR VOLUME 94.9 FL (78-98); MEAN PLATELET VOLUME 8.3 FL (7.4-10.4); MONOCYTES # (AUTO) 0.7 X10'3 (0-0.9); MONOCYTES % (AUTO) 8.2 % (2-12); NEUTROPHILS # (AUTO) 5.6 X10'3 (1.8-7.7); NEUTROPHILS % (AUTO) 66.6 % (42-75); PLATELET COUNT 246 X10'3 (140-440); RED BLOOD COUNT 4.31 X10'6 (4.70-6.10); WHITE BLOOD COUNT 8.4 X10'3 (4.5-11.0)
[2020-12-30 21:40] LABS: ETHANOL < 0.010 GM/DL (0.0-0.010)
[2020-12-30] MEDS ORDERED: ISOS30TA84 PO (21:53)
[2020-12-30] MEDS ORDERED: CARV3.12 PO (22:04)
[2020-12-30] MEDS ORDERED: CLOP75TA15 PO (22:04)
[2020-12-30] MEDS ORDERED: AMLO2.5T21 PO (22:04)
[2020-12-30] MEDS ORDERED: albuterol 2.5 MG/3 ML nebule NEB PRN (22:20)
--- NOTE | 2020-12-30 22:38 | NUR ---
The patient moved to bed 27. He that he feels suicidal with a plan to get hit by a care or jump off a bridge "or whatever" He reports that 6 months [place] and is currently unhappy about his current living situation. He states that he lives at a board and care called "[facility]" He also reports he has a payee. His son and daughter live in the [facility]. He reports decreased sleep and increased anxiety. He reports he is having command auditory hallucinations telling him to kill himself. He is irritable. He also reports his moods are unstable. He reports increased anxiety. He is somewhat rude and entitled. He has been having frequent ER visits. He is currently on a 1799 for being a danger to himself
[2020-12-30] MEDS ORDERED: olanzapine 10mg tablet PO ONE (23:00)
--- NOTE | 2020-12-30 23:53 | NUR ---
The patient is sitting on the side of his bed making frequent requests. He is rude and condescending.
--- NOTE | 2020-12-31 02:54 | NUR ---
The patient appears to be sleeping
--- NOTE | 2020-12-31 03:29 | NUR ---
The patient appears to be sleeping
--- NOTE | 2020-12-31 05:02 | NUR ---
The patient appears to be sleeping
[2020-12-31 06:40] LABS: URINE AMPHETAMINE SCREEN NEGATIVE (Neg); URINE BARBITUATE SCREEN NEGATIVE (Neg); URINE BENZODIAZEPINES SCREEN NEGATIVE (Neg); URINE CANNABINOID SCREEN NEGATIVE (Neg); URINE COCAINE SCREEN NEGATIVE (Neg); URINE METHADONE SCREEN NEGATIVE (Neg); URINE OPIATE SCREEN NEGATIVE (Neg); URINE PHENCYCLIDINE SCREEN NEGATIVE (Neg)
--- NOTE | 2020-12-31 07:00 | NUR ---
Received pt asleep in bed. Pt resting peacefully without complaints.
[2020-12-31] MEDS: amLODIPine 2.5mg tablet PO SCH (08:00)
--- NOTE | 2020-12-31 08:31 | NUR ---
PACKET FAXED TO [facility]
[2020-12-31] MEDS: thiamine 100mg tablet PO SCH (08:59)
[2020-12-31] MEDS: lisinopril 10 MG tablet PO SCH ×2 (08:59→20:23)
[2020-12-31] MEDS: aspirin 81mg tablet.DR PO SCH (08:59)
[2020-12-31] MEDS: amiodarone 200mg tablet PO SCH ×2 (09:00→20:17)
[2020-12-31] MEDS: clopidogrel 75mg tablet PO SCH (09:00)
[2020-12-31] MEDS: apixaban 5mg tablet PO SCH ×2 (09:00→20:18)
[2020-12-31] MEDS: atorvastatin 20mg tablet PO SCH (09:00)
[2020-12-31] MEDS: furosemide 40mg tablet PO SCH (09:00)
[2020-12-31] MEDS: carVEDilol 3.125mg tablet PO SCH ×2 (09:00→20:25)
[2020-12-31] MEDS: gabapentin 300mg capsule PO SCH ×2 (09:00→20:17)
--- NOTE | 2020-12-31 09:00 | NUR ---
Pt remained asleep right up until now when this RN awoke pt to take his medications. Pt cooperative.
[2020-12-31] MEDS: isosorbide mononitrate 30mg tab.SR.24H PO SCH (09:04)
[2020-12-31] MEDS: budesonide 0.5mg/2ml UD nebule IH SCH ×2 (09:10→21:42)
[2020-12-31] MEDS: albuterol 2.5 MG/3 ML nebule NEB SCH ×4 (09:10→21:42)
--- NOTE | 2020-12-31 11:00 | NUR ---
Pt cooperative with [facility] assessment and he is being placed on a 5150. Pt is cranky and hesitant to change into hospital scrubs.
--- NOTE | 2020-12-31 13:00 | NUR ---
Pt finally changed into hospital scrubs just now awaiting his lunch. Pt seems to push the limits and be generally negative and uncooperative.
--- NOTE | 2020-12-31 15:00 | NUR ---
After lunch, pt has been more compliant. Pt has been sleeping for the past hour without complaints.
--- NOTE | 2020-12-31 17:00 | NUR ---
Pt sleeping without complaints or signs of distress.
--- NOTE | 2020-12-31 18:59 | NUR ---
Patient sitting on the side of his bed finishing his tray. Says he's doing fine, no problems. Denies being suicidal.
[2020-12-31] MEDS ORDERED: OLANZapine 5mg rapidly disint. tablet PO ONE (20:40)
--- NOTE | 2020-12-31 20:44 | NUR ---
Patient sitting on the side of his bed. He was cooperative with HS medications. Denies needs.
[2020-12-31] MEDS ORDERED: furosemide 20MG tablet PO SCH (21:00)
--- NOTE | 2020-12-31 21:59 | NUR ---
Patient just completed breathing tx. Preparing for sleep. No distress noted.
--- NOTE | 2020-12-31 23:22 | NUR ---
Patient appears to be sleeping. Breathing is even and unlabored. No s/s of distress.
--- NOTE | 2021-01-01 01:17 | NUR ---
The patient is currentl sleeping. He can be heard snoring. Breathing is even.
[2021-01-01] MEDS: albuterol 2.5 MG/3 ML nebule NEB SCH ×2 (03:00→09:02)
--- NOTE | 2021-01-01 03:35 | NUR ---
Patient appears to be asleep. Resp. equal and unkabored. No signs of distress.
--- NOTE | 2021-01-01 04:53 | NUR ---
Patient asleep in the supine position. resp. equal and unlabored. No s/s of distress.
[2021-01-01 06:01] VITALS: BP 131/81
[2021-01-01] MEDS: isosorbide mononitrate 30mg tab.SR.24H PO SCH (08:23)
[2021-01-01] MEDS: amiodarone 200mg tablet PO SCH (08:23)
[2021-01-01] MEDS: atorvastatin 20mg tablet PO SCH (08:23)
[2021-01-01] MEDS: carVEDilol 3.125mg tablet PO SCH (08:24)
[2021-01-01] MEDS: furosemide 40mg tablet PO SCH (08:24)
[2021-01-01] MEDS: gabapentin 300mg capsule PO SCH (08:24)
[2021-01-01] MEDS: apixaban 5mg tablet PO SCH (08:24)
[2021-01-01] MEDS: lisinopril 10 MG tablet PO SCH (08:25)
[2021-01-01] MEDS: thiamine 100mg tablet PO SCH (08:26)
[2021-01-01] MEDS: clopidogrel 75mg tablet PO SCH (08:26)
[2021-01-01] MEDS: amLODIPine 2.5mg tablet PO SCH (08:27)
[2021-01-01] MEDS: aspirin 81mg tablet.DR PO SCH (08:35)
[2021-01-01] MEDS: budesonide 0.5mg/2ml UD nebule IH SCH (09:02)
== END 2021-01-01 11:01 ==
LOC: ER 17:23
DX: R07.89 Other chest pain (principal); R06.02 Shortness of breath; R53.1 Weakness; R45.851 Suicidal ideations; I48.91 Unspecified atrial fibrillation; I25.10 Atherosclerotic heart disease of native coronary artery without angina pectoris; I11.0 Hypertensive heart disease with heart failure; I50.9 Heart failure, unspecified; F31.9 Bipolar disorder, unspecified; I25.2 Old myocardial infarction; J44.9 Chronic obstructive pulmonary disease, unspecified; F41.9 Anxiety disorder, unspecified; Z79.82 Long term (current) use of aspirin; Z79.899 Other long term (current) drug therapy; Z95.5 Presence of coronary angioplasty implant and graft; Z56.0 Unemployment, unspecified; Z59.0 Homelessness
CPT/HCPCS: 36415; 71045; 80053; 80305; 80320; 83880; 84484; 85025; 87635; 93005; 94640; 94760; 99285; C9803; J7626

== ENCOUNTER 2020-12-31 14:32 | Inpatient (IN) | payer MEDICARE ==
[~2020-12-31] VITALS: Ht 190.5 cm; Wt 132.5 kg
[~2020-12-31 14:32] MED LIST changes: +ALBU8.5H17 IH; -ALBU8.5H8 IH; +AMLO2.5T21 PO; +CARV3.12 PO; +CLOP75TA15 PO
[2021-01-01] MEDS ORDERED: acetaminophen 325mg tablet PO PRN (11:40)
[2021-01-01] MEDS ORDERED: mag hydrox/Alum hydrox/simeth 30ml oral suspension PO PRN (11:40)
[2021-01-01] MEDS ORDERED: traZODone 50mg tablet PO PRN (11:40)
[2021-01-01] MEDS ORDERED: magnesium hydroxide 30ml (MOM) UD suspension PO PRN (11:40)
[2021-01-01] MEDS ORDERED: LORazepam 1 MG tablet PO PRN (11:40)
[2021-01-01] MEDS ORDERED: loperamide 2mg capsule PO PRN (11:40)
[2021-01-01 11:43] VITALS: BP 133/66
[2021-01-01] MEDS: acetaminophen 325mg tablet PO PRN (12:11)
[2021-01-01] MEDS ORDERED: albuterol 2.5 MG/3 ML nebule NEB PRN (12:20)
[2021-01-01] MEDS ORDERED: NICOTINE POLACRILEX 2 MG LOZENGE BC PRN (13:20)
--- NOTE | 2021-01-01 15:16 | NUR ---
Admission Note: Pt. admitted to the unit at 1100 in a w/c from ER Overflow accompanied by Ask Ziggy and security. Safety check completed and belongings inventoried by Vitaliy Bo. Pt. was admitted on a 5150 for DTS. He was originally brought to the ER by EMS with c/o chest pain. Pt. has a hx of longstanding atypical chest pain with an extensive cardiac history. He also reported SOB and weakness, and uses a cane at home. Pt. was given a walker to use while in the hospital for safety precautions. Pt. had an EKG completed and ordered Troponins were negative. Pt. is followed by the title search manager Dr. Aranda. While at the hospital, pt. reported S/I with a plan to jump in front of a car or off a bridge. He also endorsed a previous S/A in [place] several years ago. When questioned by this commercial real estate underwriter regarding the cause for his current S/I, pt. was unable to articulate this, but did admit that he does not have a good support system and lack of resources. Pt. is currently living at a fpc called [facility], but he reports he does not like it there. Pt. also admits to command A/V/AMEZCUA at times which tell him to hurt himself. Pt. is a high suicide risk according to the [place] Suicide Risk Assessment, however he is able to contract for safety on the unit. This was endorsed to Dr. Aranda who ordered 15min safety checks. Pt. reports he uses a Cpap at home, but did not bring it in with him. Dr. Aranda gave orders for Cpap at with 5cm of pressure. Pt. ambulates independently with FWW, fall precautions are in place. PRN Tylenol administered for generalized pain and Ativan for anxiety with effectiveness.
[2021-01-01 17:00] VITALS: BP 143/72
[2021-01-01] MEDS: furosemide 20MG tablet PO SCH (17:07)
[2021-01-01 20:00] VITALS: BP 138/58
[2021-01-01] MEDS: budesonide 0.5mg/2ml UD nebule IH SCH (20:26)
[2021-01-01] MEDS: albuterol 2.5 MG/3 ML nebule NEB SCH (20:26)
[2021-01-01] MEDS ORDERED: furosemide 20MG tablet PO SCH (21:00)
[2021-01-01] MEDS: gabapentin 300mg capsule PO SCH (21:29)
[2021-01-01] MEDS: amiodarone 200mg tablet PO SCH (21:30)
[2021-01-01] MEDS: lisinopril 10 MG tablet PO SCH (21:30)
[2021-01-01] MEDS: zolpidem 5mg tablet PO PRN (21:30)
[2021-01-01] MEDS: carVEDilol 3.125mg tablet PO SCH (21:31)
[2021-01-01] MEDS: apixaban 5mg tablet PO SCH (21:31)
[2021-01-01] MEDS: nystatin 15 GM powder TP SCH (21:31)
[2021-01-02] MEDS: albuterol 2.5 MG/3 ML nebule NEB SCH ×4 (01:59→20:00)
--- NOTE | 2021-01-02 04:06 | NUR ---
Nursing Progress Note: Legal hold: Involuntary, DTS, 5150 Report received from SAMANTA Ralph with use of SBAR: Why are they here: Pt. transferred to [facility] from [facility] escorted on unit with security and unit staff. Pt. refused to allow staff to assess his penis. Pt. reportedly ripped out his urinary catheter while at [facility] and c/o pain and injury to meatus as well as some pink coloration at start of urinary stream. During interview, when this RN asked about the reason for his admission pt. stated, I dont know. Pt. then eventually began to answer this RNs questions, stating, Why do you need to know this. Pt. states, What it says on the 5150 is not true, Im here because I was cutting my arm and my care worker was concerned about me. I was at the gas station because I took some meth and was just running. Pt. states, I was just so angry. I just had the knife I dont understand anything. Its hard for me because I have autism. Cant pay bills, I can read. I dont understand anything about this world. I was also treating my older sister really bad, so I feel bad about that. She was trying to prevent me from doing meth and that made me mad. 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 Meth just helps me get my minds off my problem and how corrupt our society is. Pt. reports SA at 23 by hanging because he felt alone. Pt. reports it was only to get attention. Denies SI/HI, AV/H. Pt. reports he lives at a jail. Assessment What has happened this shift: Patient is observed watching television with peers following shift change. Patient ate dinner and partook of snacks. Patient is well oriented, he speaks in a quiet voice. Patient tells this health underwriter he is depressed, he feels he can't pay his bills, had S/I without a plan earlier, he denies same this shift. Patient states he has command hallucinations, "it's a male voice that comes and goes, the voice tells me to hurt myself." The patient is focused on food. He presents as linear. Patient speaks of growing up in [place], he discussed many people he knew and places around [place]. Patient tells this health underwriter that "I feel suicidal in a round about way." Patient is cooperative. Ambien was given for sleep. S/I, H/I: Endorses S/I, "In a round a bout sort of way." No plan. A/VH: Denies any visual. Patient states occasional command hallucinations to hurt himself. Sleep: Will tally at 0500 hours. ADL's: Independent, uses a walker. Group attendance: No group on police shift commander. Were meds taken: Yes, patient is medication compliant. Any med S/E: None observed or reported. Mental Status Exam Appearance: Clean and well dressed. Eye contact: Good. Behavior: Anxious but cooperative. Speech: Clear, regular rate, rhythm, and tone. Mood: Depressed but cooperative. Affect: Congruent with mood. Thought process: Linear. Thought Content: Depressed about his life, no money to pay bills. Cognition: Alert and oriented X4. Insight: Poor. Judgment: Poor.. Interventions PRN's used: Ambien. Therapeutic interventions: 1:1 assessment, therapeutic conversation, active listening, medication administration/education/monitoring, provided a safe and therapeutic environment, behavior monitoring and intervention as needed; provided reassurance and positive reinforcement, Q 15 minute safety checks. Restraints/seclusion/emergency medication: N/A Justification of Continued Inpatient Treatment: Patient does not have a good safety plan for discharge at this time. We are still titrating medications to an effective dose while maintaining a therapeutic environment to prevent decompensation and readmission.
[2021-01-02] MEDS: nicotine 7mg patch - 24hr TD SCH (07:56)
[2021-01-02] MEDS: carVEDilol 3.125mg tablet PO SCH ×2 (08:00→21:02)
[2021-01-02] MEDS: budesonide 0.5mg/2ml UD nebule IH SCH ×2 (08:00→20:00)
[2021-01-02] MEDS ORDERED: clopidogrel 75mg tablet PO SCH (08:00)
[2021-01-02] MEDS: furosemide 40mg tablet PO SCH (08:00)
[2021-01-02] MEDS: amLODIPine 2.5mg tablet PO SCH (08:00)
[2021-01-02] MEDS: nystatin 15 GM powder TP SCH ×3 (08:00→21:07)
[2021-01-02] MEDS: lisinopril 10 MG tablet PO SCH ×2 (08:00→21:05)
[2021-01-02 08:03] LABS: CHOL/HDL RATIO 2.3 (0.00-4.99); CHOLESTEROL 125 MG/DL (0-200); HDL CHOLESTEROL 54 MG/DL (35-60); LDL CHOLESTEROL 60 MG/DL (50-100); TRIGLYCERIDES 49 MG/DL (20-135)
[2021-01-02 08:20] VITALS: BP 93/60
[2021-01-02] MEDS: thiamine 100mg tablet PO SCH (08:28)
[2021-01-02] MEDS: gabapentin 300mg capsule PO SCH ×2 (08:29→21:12)
[2021-01-02] MEDS: ESCITALOPRAM OXALATE 5 MG TABLET PO SCH (08:29)
[2021-01-02] MEDS: aspirin 81mg tablet.DR PO SCH (08:29)
[2021-01-02] MEDS: atorvastatin 20mg tablet PO SCH (08:29)
[2021-01-02] MEDS: apixaban 5mg tablet PO SCH ×2 (08:29→21:07)
[2021-01-02] MEDS: acetaminophen 325mg tablet PO PRN (08:30)
[2021-01-02] MEDS: amiodarone 200mg tablet PO SCH ×2 (08:30→21:03)
--- NOTE | 2021-01-02 11:29 | NUR ---
Tatiana Chris (ph# [phone]), fish housekeeper at [facility] where Sergey resides, called to provide information. She reported Sergey can return to [facility]. She reported he will be in a new room when he returns. She reported he was dissatisfied with his previous room prior to admission. She reported Sergey had very poor hygiene recently. She reported he has a probate conservator, Siddharth Nur (ph# [phone]). KYLE Barry
--- NOTE | 2021-01-02 14:54 | NUR ---
Pt. attended group today. We talked about Boundaries and talked about our [place] of Trust, who we let in and who we keep out. Pt. did not engage in the discussion but stayed in the group and listened to his peers. MAISHA SteinW
--- NOTE | 2021-01-02 14:57 | NUR ---
PSYCHOSOCIAL ASSESSMENT Pt. is a 70 year old single white male who reported that he moved back to [place] from [place], [place] two years ago. Pt was brought to the ER for chest pain. While there he was placed on a 1799 after reporting that he wanted to jump off a bridge or in front of a car and a 5150 was written for DTS. Today, he reported he was tricked into coming back to [place] by his uncle who reported he would help care for him. His uncle, Humberto Nur is his conservator in Probate court. Pt reported he is unhappy with this arrangement now as he is not happy with his current living situation with [facility]. He alleged that his uncle may be using his funds for himself. He also reported that he would like to contest the conservatorship now. He expressed awareness that he knows he needs to go to court himself to get this changed but gave many excuses for why he cant get to the court. Pt continued to endorse depression, feeling sad with thoughts of worthlessness most days and reported that he doesnt want to live in this situation where he has no control over his life. He stated, I want control over my own well-being. He talked about wanting to go back to [place] but doesnt see how that will ever be possible now. This Sewing Inspector spoke with Tatiana, his hospital housekeeper who reported that he struggles with hygiene, he wont change clothes or take showers for days at a time. He struggles with ADLs and tends to want others to things for him. She recounted how they took him to the store to buy new clothes and he got overcome with emotion while shopping and started crying when he couldnt find appropriate clothing to wear. Then he took the money and bought everyone at the [facility] gifts instead of buying what he needed for himself. She reported he has poor decision making capacity as well. Pt refused to give the phone number for Humberto, his Conservator reporting he does not want him to be contacted. DISCHARGE PLAN: The plan is for him to go back to the [facility] once he has been medically cleared. He appears to be open to this since his room will be moved. He also talks about wanting to go back to [place], [place]. Debbi Pate LCSW
--- NOTE | 2021-01-02 15:00 | NUR ---
Nursing Progress Note: Legal hold: 5150 Client on involuntary status for DTS Report received from nurse Gwen ENGLAND with use of SBAR Why are they here: Pt. was admitted on a 5150 for DTS. He was originally brought to the ER by EMS with c/o chest pain. Pt. has a hx of longstanding atypical chest pain with an extensive cardiac history. He also reported SOB and weakness, and uses a cane at home. Pt. was given a walker to use while in the hospital for safety precautions. Pt. had an EKG completed and ordered Troponins were negative. Pt. is followed by the call center supervisor Dr. Aranda. While at the hospital, pt. reported S/I with a plan to jump in front of a car or off a bridge. He also endorsed a previous S/A in [place] several years ago. When questioned by this telegraphic typewriter operator regarding the cause for his current S/I, pt. was unable to articulate this, but did admit that he does not have a good support system and lack of resources. Pt. is currently living at a [facility]cf[facility] called [facility], but he reports he does not like it there. Pt. also admits to command A/V/AMEZCUA at times which tell him to hurt himself. Assessment What has happened this shift: Pt was up before breakfast watching TV in the Rec room. Pt wished to wait and take his medications after breakfast. Pt was cooperative with meds after breakfast. Held Coreg, Lasix, Norvasc, and Lisinopril for decreased BP of 93/60. Pt was started on Lexapro. Pt was given PRN Tylenol 650 mg at 0830 for c/o 6/10 general pain with good effect. Pt is still depressed. When asked about SI, pt stated, "always." Pt states he has lots of plans but will not elaborate on them. When asked about voices, pt replied that he has several, states they tell him to kill himself. Pt contracts for safety here. Pt denies HI and VH. Pt requests extra food and spends most of his time in the rec room watching TV. Pt ambulates steadily with FWW, no unsafe behaviors noted. S/I, H/I: +SI, denies HI. A/VH: +CAH, denies VH. Sleep: Pt slept 7.5 hours last night per noc shift report. ADL's: Independent, ambulates with FWW. Group attendance: Yes Were meds taken: Yes Any med S/E; None noted or reported Mental Status Exam Appearance: Tall, heavy set older gentleman with greying brown hair dressed in black pants and a green scrub top. Eye contact: Good Behavior: Cooperative, watches TV in the rec room. Speech: clear, audible, normal rate & rhythm. Mood: Depressed Affect: Blunted Thought process: Linear Thought Content: Hopeless Cognition: A/O X 4 Insight: Fair Judgment: Fair Interventions PRN's used: Tylenol Therapeutic interventions: 1:1 assessment, establishment of rapport, therapeutic communication, active listening, medication administration/education/monitoring, encouragement to attend groups, behavior monitoring and intervention as needed; distraction, redirection ,provided encouragement and positive reinforcement, Q 15 minute safety checks. Restraints/seclusion/emergency medication: None Justification of Continued Inpatient Treatment: Pt needs crisis interruption with medication adjustment and monitoring in a safe and therapeutic environment to prevent harm to self until stable.
[2021-01-02] MEDS: furosemide 20MG tablet PO SCH (15:16)
[2021-01-02 20:24] VITALS: BP 156/59
[2021-01-02] MEDS: zolpidem 5mg tablet PO PRN (21:02)
--- NOTE | 2021-01-03 01:19 | NUR ---
Nursing Progress Note: Legal hold: Involuntary, DTS, 5150 Report received from Bipin RN, with use of SBAR: Why are they here: Pt. transferred to [facility] from [facility] escorted on unit with security and unit staff. Pt. refused to allow staff to assess his penis. Pt. reportedly ripped out his urinary catheter while at [facility] and c/o pain and injury to meatus as well as some pink coloration at start of urinary stream. During interview, when this RN asked about the reason for his admission pt. stated, I dont know. Pt. then eventually began to answer this RNs questions, stating, Why do you need to know this. Pt. states, What it says on the 5150 is not true, Im here because I was cutting my arm and my care worker was concerned about me. I was at the gas station because I took some meth and was just running. Pt. states, I was just so angry. I just had the knife I dont understand anything. Its hard for me because I have autism. Cant pay bills, I can read. I dont understand anything about this world. I was also treating my older sister really bad, so I feel bad about that. She was trying to prevent me from doing meth and that made me mad. 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 Meth just helps me get my minds off my problem and how corrupt our society is. Pt. reports SA at 23 by hanging because he felt alone. Pt. reports it was only to get attention. Denies SI/HI, AV/H. Pt. reports he lives at a long-term. Assessment What has happened this shift: Patient was out of room following shift change. He socialized with peers and seemed to enjoy watching television throughout the evening. Patient ate dinner and partook of snacks. Patient states he still hers voices telling him to hurt himself. Patient requested a medication review prior to taking night medications. This was done to patient satisfaction, he then complied with medication consumption. S/I, H/I: Endorses S/I, no plan. A/VH: Command hallucinations to hurt himself. Sleep: Will tally at 0500 hours. ADL's: Independent, uses a walker. Group attendance: No group on construction technician. Were meds taken: Yes, patient is medication compliant. Any med S/E: None observed or reported. Mental Status Exam Appearance: Clean and well dressed. Eye contact: Good. Behavior: Anxious but cooperative. Speech: Clear, regular rate, rhythm, and tone. Mood: Depressed but cooperative. Affect: Congruent with mood. Thought process: Linear. Thought Content: Depressed about his life, no money to pay bills. Cognition: Alert and oriented X4. Insight: Poor. Judgment: Poor.. Interventions PRN's used: Harveyien. Therapeutic interventions: 1:1 assessment, therapeutic conversation, active listening, medication administration/education/monitoring, provided a safe and therapeutic environment, behavior monitoring and intervention as needed; provided reassurance and positive reinforcement, Q 15 minute safety checks. Restraints/seclusion/emergency medication: N/A Justification of Continued Inpatient Treatment: Patient does not have a good safety plan for discharge at this time. We are still titrating medications to an effective dose while maintaining a therapeutic environment to prevent decompensation and readmission.
[2021-01-03] MEDS: albuterol 2.5 MG/3 ML nebule NEB SCH ×4 (01:40→21:15)
[2021-01-03 08:00] VITALS: BP 144/73
[2021-01-03] MEDS: lisinopril 10 MG tablet PO SCH ×2 (08:13→21:49)
[2021-01-03] MEDS: amiodarone 200mg tablet PO SCH ×2 (08:13→21:46)
[2021-01-03] MEDS: gabapentin 300mg capsule PO SCH ×2 (08:13→21:46)
[2021-01-03] MEDS: furosemide 40mg tablet PO SCH (08:13)
[2021-01-03] MEDS: ESCITALOPRAM OXALATE 5 MG TABLET PO SCH (08:13)
[2021-01-03] MEDS: carVEDilol 3.125mg tablet PO SCH ×2 (08:13→20:00)
[2021-01-03] MEDS: apixaban 5mg tablet PO SCH ×2 (08:13→21:46)
[2021-01-03] MEDS: aspirin 81mg tablet.DR PO SCH (08:13)
[2021-01-03] MEDS: amLODIPine 2.5mg tablet PO SCH (08:13)
[2021-01-03] MEDS: thiamine 100mg tablet PO SCH (08:13)
[2021-01-03] MEDS: atorvastatin 20mg tablet PO SCH (08:14)
[2021-01-03] MEDS: acetaminophen 325mg tablet PO PRN (08:15)
[2021-01-03] MEDS: nicotine 7mg patch - 24hr TD SCH (08:22)
[2021-01-03] MEDS: nystatin 15 GM powder TP SCH ×3 (08:32→21:50)
[2021-01-03] MEDS: budesonide 0.5mg/2ml UD nebule IH SCH ×2 (08:56→21:15)
--- NOTE | 2021-01-03 13:39 | NUR ---
Nursing Progress Note: Legal hold: 5150 Client on involuntary status for DTS Report received from nurse Haile ENGLAND with use of SBAR Why are they here: Pt. was admitted on a 5150 for DTS. He was originally brought to the ER by EMS with c/o chest pain. Pt. has a hx of longstanding atypical chest pain with an extensive cardiac history. He also reported SOB and weakness, and uses a cane at home. Pt. was given a walker to use while in the hospital for safety precautions. Pt. had an EKG completed and ordered Troponins were negative. Pt. is followed by the [facility] ascp consultant Dr. Aranda. While at the hospital, pt. reported S/I with a plan to jump in front of a car or off a bridge. He also endorsed a previous S/A in [place] several years ago. When questioned by this documentation writer regarding the cause for his current S/I, pt. was unable to articulate this, but did admit that he does not have a good support system and lack of resources. Pt. is currently living at a m[facility] called [facility], but he reports he does not like it there. Pt. also admits to command A/V/AMEZCUA at times which tell him to hurt himself. Assessment What has happened this shift: Pt was up before breakfast watching TV in the rec room. Pt was cooperative with his meds after breakfast. Pt reports that he is "so so" and about the same as yesterday. Pt continues to c/o depression and endorse SI with no stated specific plan. When asked if pt was hearing voices he replied,"Oh yeah" with some emphasis. Pt reports that voices tell him to kill himself. No unsafe behaviors noted. Candice CHAVEZ just reported that the subcontracts manager from [facility] called and notified us that the patient had bed bugs in his room there. EVS has been notified. S/I, H/I: +SI, denies HI. A/VH: +CAH, denies VH. Sleep: Pt slept 7 hours last night per noc shift report. ADL's: Independent, ambulates with FWW. Group attendance: No Were meds taken: Yes Any med S/E; None noted or reported Mental Status Exam Appearance: Tall, heavy set older gentleman with greying brown hair dressed in black pants, a green scrub top. Eye contact: Good Behavior: Cooperative, watches TV in the rec room. Speech: clear, audible, normal rate & rhythm. Mood: Depressed Affect: Blunted Thought process: Linear Thought Content: Hopeless Cognition: A/O X 4 Insight: Fair Judgment: Fair Interventions PRN's used: Tylenol Therapeutic interventions: 1:1 assessment, establishment of rapport, therapeutic communication, active listening, medication administration/education/monitoring, encouragement to attend groups, behavior monitoring and intervention as needed; distraction, redirection ,provided encouragement and positive reinforcement, Q 15 minute safety checks. Restraints/seclusion/emergency medication: None Justification of Continued Inpatient Treatment: Pt needs crisis interruption with medication adjustment and monitoring in a safe and therapeutic environment to prevent harm to self until stable.
--- NOTE | 2021-01-03 13:44 | NUR ---
DISCHARGE PLANNING NOTE: This Lead Injection Mold Technician spoke with Tatiana, Pts warehouseman at the [facility]. She reported that she will be moving Pt. (per his request) to a different room and this new room will be ready for him WednesdayJanuary 06. If he wishes to come back they are happy to have him come back there. Debbi Pate LCSW
[2021-01-03] MEDS: furosemide 20MG tablet PO SCH (16:19)
[2021-01-03 19:38] VITALS: BP 139/56
[2021-01-03] MEDS: zolpidem 5mg tablet PO PRN (21:47)
--- NOTE | 2021-01-04 02:20 | NUR ---
Nursing Progress Note: Legal hold: 5150 Client on involuntary status for DTS Report received from nurse Haile ENGLAND with use of SBAR Why are they here: Pt. was admitted on a 5150 for DTS. He was originally brought to the ER by EMS with c/o chest pain. Pt. has a hx of longstanding atypical chest pain with an extensive cardiac history. He also reported SOB and weakness, and uses a cane at home. Pt. was given a walker to use while in the hospital for safety precautions. Pt. had an EKG completed and ordered Troponins were negative. Pt. is followed by the miter sawyer Dr. Aranda. While at the hospital, pt. reported S/I with a plan to jump in front of a car or off a bridge. He also endorsed a previous S/A in [place] several years ago. When questioned by this newspaper writer regarding the cause for his current S/I, pt. was unable to articulate this, but did admit that he does not have a good support system and lack of resources. Pt. is currently living at a long-term called [facility], but he reports he does not like it there. Pt. also admits to command A/V/AMEZCUA at times which tell him to hurt himself. Assessment What has happened this shift: Pt was up before breakfast watching TV in the rec room. Patient is observed watching television following shift change. Patient gets argumentative with tech staff over where his belongings are, etc. He is demanding at times. Patient presented with needy behavior. When asking for things that were not immediately available, such as laundry that is still in the dryer, the patient engages in staff splitting, asking someone else the same request. This newspaper writer interviewed the patient in his room. He complains of multiple things he thinks he should have right away. The patient tells this newspaper writer that he is feeling suicidal at times, he does not have a plan. He describes command audible hallucinations, "but now they are just in the background." Gradually the patient went to sleep and rested. S/I, H/I: +SI, denies HI. A/VH: Audible, no visual. See above note. Sleep: Pt slept 7 hours last night per noc shift report. ADL's: Independent, ambulates with FWW. Group attendance: No group on nights. Were meds taken: Yes, medication compliant. Any med S/E; None noted or reported. Mental Status Exam Appearance: Angry looking older male. Eye contact: Good. Behavior: Defiant, labile, staff splitting behavior. Speech: WNL. Mood: Depressed Affect: Blunted Thought process: Linear. Thought Content: Meeting ones own needs. Cognition: A/O X 4. Insight: Fair. Judgment: Fair. Interventions PRN's used: Joshua Therapeutic interventions: 1:1 assessment, establishment of rapport, therapeutic communication, active listening, medication administration/education/monitoring, encouragement to attend groups, behavior monitoring and intervention as needed; distraction, redirection ,provided encouragement and positive reinforcement, Q 15 minute safety checks. Restraints/seclusion/emergency medication: None Justification of Continued Inpatient Treatment: Pt needs crisis interruption with medication adjustment and monitoring in a safe and therapeutic environment to prevent harm to self until stable.
[2021-01-04] MEDS: albuterol 2.5 MG/3 ML nebule NEB SCH ×4 (03:10→20:55)
[2021-01-04] MEDS: gabapentin 300mg capsule PO SCH ×2 (07:57→20:43)
[2021-01-04] MEDS: aspirin 81mg tablet.DR PO SCH (07:57)
[2021-01-04] MEDS: atorvastatin 20mg tablet PO SCH (07:57)
[2021-01-04] MEDS: ESCITALOPRAM OXALATE 5 MG TABLET PO SCH (07:58)
[2021-01-04] MEDS: thiamine 100mg tablet PO SCH (07:58)
[2021-01-04] MEDS: furosemide 40mg tablet PO SCH (07:59)
[2021-01-04] MEDS: apixaban 5mg tablet PO SCH ×2 (07:59→20:43)
[2021-01-04] MEDS: carVEDilol 3.125mg tablet PO SCH ×2 (08:00→20:43)
[2021-01-04] MEDS: lisinopril 10 MG tablet PO SCH ×2 (08:00→20:44)
--- NOTE | 2021-01-04 08:00 | NUR ---
Pt HR today 58, when rechecked was 52 manually. HR has consistently been 60 the past few days. Coreg held this am per paramenter protocol for HR. MD Jack notified.
[2021-01-04] MEDS: amLODIPine 2.5mg tablet PO SCH (08:01)
[2021-01-04] MEDS: amiodarone 200mg tablet PO SCH ×2 (08:01→20:42)
[2021-01-04] MEDS: nicotine 7mg patch - 24hr TD SCH (08:05)
[2021-01-04] MEDS: nystatin 15 GM powder TP SCH ×3 (08:35→21:58)
[2021-01-04] MEDS: budesonide 0.5mg/2ml UD nebule IH SCH ×2 (09:29→20:55)
[2021-01-04] MEDS ORDERED: risperiDONE 0.5mg tablet PO ONE (11:20)
[2021-01-04] MEDS ORDERED: sertraline 50mg tablet PO ONE (11:20)
[2021-01-04] MEDS ORDERED: sertraline 25mg tablet PO SCH (11:34)
[2021-01-04] MEDS: furosemide 20MG tablet PO SCH (16:10)
--- NOTE | 2021-01-04 17:17 | NUR ---
Nursing Progress Note: Legal hold: 5150 Client on involuntary status for DTS Report received from SAMANTA Leone with use of SBAR Why are they here: Pt. was admitted on a 5150 for DTS. He was originally brought to the ER by EMS with c/o chest pain. Pt. has a hx of longstanding atypical chest pain with an extensive cardiac history. He also reported SOB and weakness, and uses a cane at home. Pt. was given a walker to use while in the hospital for safety precautions. Pt. had an EKG completed and ordered Troponins were negative. Pt. is followed by the staff educator Dr. Aranda. While at the hospital, pt. reported S/I with a plan to jump in front of a car or off a bridge. He also endorsed a previous S/A in [place] several years ago. When questioned by this sign writer letterer or painter regarding the cause for his current S/I, pt. was unable to articulate this, but did admit that he does not have a good support system and lack of resources. Pt. is currently living at a detention called [facility], but he reports he does not like it there. Pt. also admits to command A/V/AMEZCUA at times which tell him to hurt himself. Assessment What has happened this shift: Pt attended breakfast and took medications. He was fixated on wanting his clothes and belongings back and this is the only thing he would talk about when RN tried assessment. He states These things are expensive and you will owe me if I dont get them back. RN tried reassurance and therapeutic listening but he would then ask someone else the same thing. He sat in the TV room most of the day. He took medications and was quiet. S/I, H/I: Pt did not respond to question. A/VH: Pt did not respond to question. Sleep: No naps today ADL's: Independent, needs encouragement. Ambulates with walker Group attendance: No group Were meds taken: Yes Any med S/E; None noted Mental Status Exam Appearance: Wearing dirty unit scrubs. Disheveled. Eye contact: Direct Behavior: Irritable, withdrawn. Speech: WNL. Mood: Guarded Affect: Blunted Thought process: Circumstantial Thought Content: His clothes and belongings. Finances. Cognition: Alert Insight: Fair. Judgment: Fair. Interventions PRN's used: None Therapeutic interventions: 1:1 assessment, establishment of rapport, therapeutic communication, active listening, medication administration/education/monitoring, encouragement to attend groups, behavior monitoring and intervention as needed; distraction, redirection ,provided encouragement and positive reinforcement, Q 15 minute safety checks. Restraints/seclusion/emergency medication: None Justification of Continued Inpatient Treatment: Pt needs crisis interruption with medication adjustment and monitoring in a safe and therapeutic environment to prevent harm to self until stable.
[2021-01-04 19:18] VITALS: BP 121/64
[2021-01-04] MEDS: risperiDONE 0.5mg tablet PO SCH (20:43)
[2021-01-04] MEDS: zolpidem 5mg tablet PO PRN (20:54)
--- NOTE | 2021-01-05 01:59 | NUR ---
Nursing Progress Note: Legal hold: 5150 Client on involuntary status for DTS Report received from SAMANTA Voss with use of SBAR Why are they here: Pt. was admitted on a 5150 for DTS. He was originally brought to the ER by EMS with c/o chest pain. Pt. has a hx of longstanding atypical chest pain with an extensive cardiac history. He also reported SOB and weakness, and uses a cane at home. Pt. was given a walker to use while in the hospital for safety precautions. Pt. had an EKG completed and ordered Troponins were negative. Pt. is followed by the draw string knotter Dr. Aranda. While at the hospital, pt. reported S/I with a plan to jump in front of a car or off a bridge. He also endorsed a previous S/A in [place] several years ago. When questioned by this contract writer regarding the cause for his current S/I, pt. was unable to articulate this, but did admit that he does not have a good support system and lack of resources. Pt. is currently living at a [facility] called [facility], but he reports he does not like it there. Pt. also admits to command A/V/AMEZCUA at times which tell him to hurt himself. Assessment What has happened this shift: Pt in Rec room watching TV at start of shift. Pt is irritable immediately asked about clothing. Dayshift had left the clothes on Pt's bed. Pt reports "lots of bad thoughts in my head." Did not provide details. He Reports SI when asked about plans he would only say "I have lots of plans" Pt up on unit watched TV came to group room for snack. Not observed interacting with other pts. Minimal interaction with staff. RT gave pt nebulizer treatments and set up BiPap. Pt assisted at HS to put BiPap on. S/I, H/I: Pt reports SI reports "I have lots of plans" A/VH: denies Sleep: asleep at this time ADL's: Independent, needs encouragement. Ambulates with walker Group attendance: No group Were meds taken: Yes Any med S/E; None noted Mental Status Exam Appearance: Wearing unit scrubs. Eye contact: Direct Behavior: Irritable, withdrawn. Speech: WNL. Mood: Guarded Affect: Blunted Thought process: Circumstantial Thought Content: His clothes and belongings. Finances. Cognition: Alert Insight: Fair. Judgment: Fair. Interventions PRN's used: None Therapeutic interventions: 1:1 assessment, establishment of rapport, therapeutic communication, active listening, medication administration/education/monitoring, encouragement to attend groups, behavior monitoring and intervention as needed; distraction, redirection ,provided encouragement and positive reinforcement, Q 15 minute safety checks. Restraints/seclusion/emergency medication: None Justification of Continued Inpatient Treatment: Pt needs crisis interruption with medication adjustment and monitoring in a safe and therapeutic environment to prevent harm to self until stable.
[2021-01-05] MEDS: albuterol 2.5 MG/3 ML nebule NEB SCH ×4 (03:24→21:13)
[2021-01-05 07:27] VITALS: BP 119/65
[2021-01-05] MEDS: aspirin 81mg tablet.DR PO SCH (08:17)
[2021-01-05] MEDS: thiamine 100mg tablet PO SCH (08:17)
[2021-01-05] MEDS: sertraline 25mg tablet PO SCH (08:17)
[2021-01-05] MEDS: risperiDONE 0.5mg tablet PO SCH ×2 (08:17→20:25)
[2021-01-05] MEDS: amiodarone 200mg tablet PO SCH ×2 (08:18→20:29)
[2021-01-05] MEDS: atorvastatin 20mg tablet PO SCH (08:18)
[2021-01-05] MEDS: furosemide 40mg tablet PO SCH (08:18)
[2021-01-05] MEDS: gabapentin 300mg capsule PO SCH ×2 (08:19→20:26)
[2021-01-05] MEDS: amLODIPine 2.5mg tablet PO SCH (08:19)
[2021-01-05] MEDS: apixaban 5mg tablet PO SCH ×2 (08:19→20:26)
[2021-01-05] MEDS: carVEDilol 3.125mg tablet PO SCH ×2 (08:20→20:26)
[2021-01-05] MEDS: lisinopril 10 MG tablet PO SCH ×2 (08:20→20:28)
[2021-01-05] MEDS: nicotine 7mg patch - 24hr TD SCH (08:21)
[2021-01-05] MEDS: nystatin 15 GM powder TP SCH ×3 (08:32→21:00)
--- NOTE | 2021-01-05 09:12 | NUR ---
Initial: Pt admit DX SI and AH per MD note. PO 100% avg regular diet meeting needs. LBM 12/31; RD d/w RN regarding routine bowel care if MD agreeable given 5 days constipation. Will continue to monitor. Rec: 1. continue regular diet 2. routine bowel care; 5 days constipation 3. weekly wts Addendum: 01/05/21 at [address] Amended: Links added.
[2021-01-05] MEDS: budesonide 0.5mg/2ml UD nebule IH SCH ×2 (10:13→21:13)
[2021-01-05 16:23] VITALS: BP 118/52
[2021-01-05] MEDS: furosemide 20MG tablet PO SCH (16:31)
--- NOTE | 2021-01-05 17:13 | NUR ---
Nursing Progress Note: TIFFANIE Legal hold: Voluntary for DTS Report received from TRINIDAD Leone with use of SBAR Why are they here: Pt. was admitted on a 5150 for DTS. He was originally brought to the ER by EMS with c/o chest pain. Pt. has a hx of longstanding atypical chest pain with an extensive cardiac history. He also reported SOB and weakness, and uses a cane at home. Pt. was given a walker to use while in the hospital for safety precautions. Pt. had an EKG completed and ordered Troponin were negative. Pt. is followed by the student education specialist Dr. Aranda. While at the hospital, pt. reported S/I with a plan to jump in front of a car or off a bridge. He also endorsed a previous S/A in [place] several years ago. When questioned by this fiction and nonfiction writer prose regarding the cause for his current S/I, pt. was unable to articulate this, but did admit that he does not have a good support system and lack of resources. Pt. is currently living at a alf called [facility], but he reports he does not like it there. Pt. also admits to command A/V/AMEZCUA at times which tell him to hurt himself. Assessment What has happened this shift: Received patient sleeping at shift change, no distress noted. Pt woke on his own and came to breakfast. Pt was compliant with medications and care. Pt endorses suicidal thoughts I want to end my life. There is nothing to live for. Molder Pipe Covering asked if he had control pt stated I dont know any more if I do or not. Pt reports AH sometimes. Pt kept to himself most of the day watching T.V. Pt showered. No behaviors or delusional statements made. S/I, H/I: See note above. A/VH: AH sometimes. Sleep: 7.25 hours per sleep assessment. No naps today ADL's: Independent. Showered. Ambulates with FWW Group attendance: No scheduled group. Were meds taken: Yes, without issue. Any med S/E; None reported or observed. Mental Status Exam Appearance: Disheveled until shower. Dressed in green unit scrubs. Eye contact: Good Behavior: Quiet and withdrawn. Speech: Audible, soft. Mood: Guarded/depressed Affect: Blunted Thought process: Circumstantial Thought Content: Cognition: Alert Insight: Fair. Judgment: Fair. Interventions PRN's used: None Therapeutic interventions: 1:1 assessment, establishment of rapport, therapeutic communication, active listening, medication administration/education/monitoring, encouragement to attend groups, behavior monitoring and intervention as needed; distraction, redirection , provided encouragement and positive reinforcement, Q 15 minute safety checks. Restraints/seclusion/emergency medication: None Justification of Continued Inpatient Treatment: Pt needs crisis interruption with medication adjustment and monitoring in a safe and therapeutic environment to prevent harm to self until stable.
[2021-01-05 19:25] VITALS: BP 111/50
[2021-01-05] MEDS: zolpidem 5mg tablet PO PRN (20:26)
--- NOTE | 2021-01-06 00:55 | NUR ---
Nursing Progress Note: Legal hold: 5150 Client on involuntary status for DTS Report received from SAMANTA Voss with use of SBAR Why are they here: Pt. was admitted on a 5150 for DTS. He was originally brought to the ER by EMS with c/o chest pain. Pt. has a hx of longstanding atypical chest pain with an extensive cardiac history. He also reported SOB and weakness, and uses a cane at home. Pt. was given a walker to use while in the hospital for safety precautions. Pt. had an EKG completed and ordered Troponins were negative. Pt. is followed by the frontend engineer Dr. Aranda. While at the hospital, pt. reported S/I with a plan to jump in front of a car or off a bridge. He also endorsed a previous S/A in [place] several years ago. When questioned by this health underwriter regarding the cause for his current S/I, pt. was unable to articulate this, but did admit that he does not have a good support system and lack of resources. Pt. is currently living at a [facility] called [facility], but he reports he does not like it there. Pt. also admits to command A/V/AMEZCUA at times which tell him to hurt himself. Assessment What has happened this shift: Pt in Rec room watching TV at start of shift. Pt pleasant and cooperative. Pt states his suicidal thoughts are increasing. Pt still only will say "I have lots of plans" when asked if he has a suicide plan. Pt up on unit watched TV came to group room for snack. Not observed interacting with other pts. Minimal interaction with staff. RT gave pt nebulizer treatments and set up BiPap. S/I, H/I: Pt reports SI reports "I have lots of plans" A/VH: denies Sleep: asleep at this time ADL's: Independent, needs encouragement. Ambulates with walker Group attendance: No group Were meds taken: Yes Any med S/E; None noted Mental Status Exam Appearance: Wearing unit scrubs. Eye contact: Direct Behavior: Irritable, withdrawn. Speech: WNL. Mood: Guarded Affect: Blunted Thought process: Circumstantial Thought Content: His clothes and belongings. Finances. Cognition: Alert Insight: Fair. Judgment: Fair. Interventions PRN's used: None Therapeutic interventions: 1:1 assessment, establishment of rapport, therapeutic communication, active listening, medication administration/education/monitoring, encouragement to attend groups, behavior monitoring and intervention as needed; distraction, redirection ,provided encouragement and positive reinforcement, Q 15 minute safety checks. Restraints/seclusion/emergency medication: None Justification of Continued Inpatient Treatment: Pt needs crisis interruption with medication adjustment and monitoring in a safe and therapeutic environment to prevent harm to self until stable.
[2021-01-06] MEDS: albuterol 2.5 MG/3 ML nebule NEB SCH ×4 (02:27→20:22)
[2021-01-06] MEDS: nystatin 15 GM powder TP SCH ×3 (07:20→21:30)
[2021-01-06] MEDS: nicotine 7mg patch - 24hr TD SCH (07:20)
[2021-01-06] MEDS: gabapentin 300mg capsule PO SCH ×2 (07:27→20:24)
[2021-01-06] MEDS: risperiDONE 0.5mg tablet PO SCH (07:27)
[2021-01-06] MEDS: atorvastatin 20mg tablet PO SCH (07:27)
[2021-01-06] MEDS: sertraline 25mg tablet PO SCH (07:27)
[2021-01-06] MEDS: apixaban 5mg tablet PO SCH ×2 (07:27→20:24)
[2021-01-06] MEDS: thiamine 100mg tablet PO SCH (07:27)
[2021-01-06] MEDS: aspirin 81mg tablet.DR PO SCH (07:27)
[2021-01-06] MEDS: amiodarone 200mg tablet PO SCH ×2 (07:28→20:24)
[2021-01-06] MEDS: lisinopril 10 MG tablet PO SCH ×2 (07:29→20:23)
[2021-01-06] MEDS: furosemide 40mg tablet PO SCH (07:29)
[2021-01-06 07:30] VITALS: BP 104/58
[2021-01-06] MEDS: carVEDilol 3.125mg tablet PO SCH ×2 (07:33→20:23)
[2021-01-06] MEDS: amLODIPine 2.5mg tablet PO SCH (07:34)
[2021-01-06 08:00] VITALS: BP 106/55
[2021-01-06] MEDS: budesonide 0.5mg/2ml UD nebule IH SCH ×2 (08:56→20:22)
--- NOTE | 2021-01-06 14:32 | NUR ---
Nursing Progress Note: TIFFANIE Legal hold: Voluntary for DTS Report received from SAMANTA Ha with use of SBAR Why are they here: Pt. was admitted on a 5150 for DTS. He was originally brought to the ER by EMS with c/o chest pain. Pt. has a hx of longstanding atypical chest pain with an extensive cardiac history. He also reported SOB and weakness, and uses a cane at home. Pt. was given a walker to use while in the hospital for safety precautions. Pt. had an EKG completed and ordered Troponins were negative. Pt. is followed by the film recordist Dr. Aranda. While at the hospital, pt. reported S/I with a plan to jump in front of a car or off a bridge. He also endorsed a previous S/A in [place] several years ago. When questioned by this advertising copy writer regarding the cause for his current S/I, pt. was unable to articulate this, but did admit that he does not have a good support system and lack of resources. Pt. is currently living at a [facility] called [facility], but he reports he does not like it there. Pt. also admits to command A/V/AMEZCUA at times which tell him to hurt himself. Assessment What has happened this shift: Received patient sleeping at shift change, no distress noted. Pt woke on his own and came to breakfast. Pt was compliant with medications and care. Pt continues to endorse suicidal thoughts with no specific plan I have several plans. Pt sits in the T.V room and presents as depressed r/t I am still having bad suicidal thoughts. Reports anhedonia nothing to live for. When asked about children pt said he doesnt talk to them much. Pt attended group, but didnt talk much about it, but observed talking to a peer later in the day. Held pts Norvasc and Cardivolol r/t low pulse and BP. S/I, H/I: See note above. A/VH: AH sometimes. Sleep: 6.25 hours per sleep assessment. No naps today ADL's: Independent. Ambulates with FWW. Nystatin powder applied. Group attendance: Yes. Were meds taken: Yes, without issue. Held Norvasc and Cardivolol r/t low pulse and BP. Any med S/E; None reported or observed. Mental Status Exam Appearance: Disheveled, clean Dressed in green unit scrubs and rubber soled shoes. Scruffy gilbert. Eye contact: Good Behavior: Quiet and withdrawn. Speech: Audible, soft. Mood: Guarded/depressed Affect: Blunted Thought process: Depressed. Thought Content: Cognition: Alert Insight: Fair. Judgment: Fair. Interventions PRN's used: None Therapeutic interventions: 1:1 assessment, establishment of rapport, therapeutic communication, active listening, medication administration/education/monitoring, encouragement to attend groups, behavior monitoring and intervention as needed; distraction, redirection , provided encouragement and positive reinforcement, Q 15 minute safety checks. Restraints/seclusion/emergency medication: None Justification of Continued Inpatient Treatment: Patient is tolerating medications, but continues to report sadness, depression, SI and audio hallucination. Patients medications will be titrated to effective dose and requires a safe and therapeutic milieu. Addendum: 01/06/21 at 1532 by Alyse Cruz RN Pt opened up to pt and began talking about wanting to back to [place]. Pt states he used to be at a [employer] that "took care" of him. 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 Pt said his "social security and stimulus checks were taken away" when he moved to [place], but unable to give detail. Store Standards Associate found out that pt has a trust that handles his finances.
--- NOTE | 2021-01-06 14:47 | NUR ---
Pt. attended group today. Todays group was about the difference between Growth Mindset vs. Fixed Mindset. We learned about the differences and then discussed what aspect of developing a growth mindset they wanted to work on. Pt. was alert and oriented X 4. His thought content and thought process were WNL. His mood appears depressive with a congruent affect. He doesn't volunteer much in the group unless asked a direct question. He has a calm and compliant demeanor and appears to enjoy listening to his peers. He did report that he struggles with having a grown mindset and isn't sure how to develop one at this point. Debbi Pate, BEER MAKER
[2021-01-06 16:10] VITALS: BP 114/48
[2021-01-06] MEDS: furosemide 20MG tablet PO SCH (16:15)
[2021-01-06 19:52] VITALS: BP 126/50
[2021-01-06] MEDS: risperiDONE 2mg tablet PO SCH (20:23)
[2021-01-06] MEDS: LORazepam 1 MG tablet PO PRN (21:28)
[2021-01-06] MEDS: zolpidem 5mg tablet PO PRN (21:29)
--- NOTE | 2021-01-07 00:35 | NUR ---
Nursing Progress Note: Legal hold: 5150 Client on involuntary status for DTS Report received from SAMANTA Phillips with use of SBAR Why are they here: Pt. was admitted on a 5150 for DTS. He was originally brought to the ER by EMS with c/o chest pain. Pt. has a hx of longstanding atypical chest pain with an extensive cardiac history. He also reported SOB and weakness, and uses a cane at home. Pt. was given a walker to use while in the hospital for safety precautions. Pt. had an EKG completed and ordered Troponins were negative. Pt. is followed by the cardroom attendant Dr. Aranda. While at the hospital, pt. reported S/I with a plan to jump in front of a car or off a bridge. He also endorsed a previous S/A in [place] several years ago. When questioned by this manual writer regarding the cause for his current S/I, pt. was unable to articulate this, but did admit that he does not have a good support system and lack of resources. Pt. is currently living at a correction called [facility], but he reports he does not like it there. Pt. also admits to command A/V/AMEZCUA at times which tell him to hurt himself. Assessment What has happened this shift: Pt in Rec room watching TV at start of shift. Pt pleasant and cooperative. Pt states his suicidal thoughts remain. Pt still only will say "I have lots of plans" when asked if he has a suicide plan. Pt has multiple repeated minor requests. For example he asked at least three times starting at 6:30 to have the television station changed at 7. At 7 he declined to have itt changed and wanted it done at 8. Pt up on unit watched TV came to group room for snack. Not observed interacting with other pts. Minimal interaction with staff. RT gave pt nebulizer treatments and set up BiPap. Pt very concerned about Discharge plan. He repeated several times he will not go back to the facility he came from. He shared a brochure about an independent living facility he might possibly go to. He also mentioned he might get a bus ticket back to [place] where he has a place he could stay. S/I, H/I: Pt reports SI reports "I have lots of plans" A/VH: denies Sleep: asleep at this time ADL's: Independent, needs encouragement. Ambulates with walker Group attendance: No group Were meds taken: Yes Any med S/E; None noted Mental Status Exam Appearance: Wearing unit scrubs. Eye contact: Direct Behavior: Irritable, withdrawn. Speech: WNL. Mood: Guarded Affect: Blunted Thought process: Circumstantial Thought Content: His clothes and belongings. Finances. Cognition: Alert Insight: Fair. Judgment: Fair. Interventions PRN's used: None Therapeutic interventions: 1:1 assessment, establishment of rapport, therapeutic communication, active listening, medication administration/education/monitoring, encouragement to attend groups, behavior monitoring and intervention as needed; distraction, redirection ,provided encouragement and positive reinforcement, Q 15 minute safety checks. Restraints/seclusion/emergency medication: None Justification of Continued Inpatient Treatment: Pt needs crisis interruption with medication adjustment and monitoring in a safe and therapeutic environment to prevent harm to self until stable.
[2021-01-07] MEDS: albuterol 2.5 MG/3 ML nebule NEB SCH ×4 (01:52→20:23)
[2021-01-07] MEDS: thiamine 100mg tablet PO SCH (07:57)
[2021-01-07] MEDS: furosemide 40mg tablet PO SCH (07:57)
[2021-01-07 07:59] VITALS: BP 116/54
[2021-01-07] MEDS: apixaban 5mg tablet PO SCH ×2 (07:59→20:43)
[2021-01-07] MEDS: amiodarone 200mg tablet PO SCH ×2 (07:59→20:41)
[2021-01-07] MEDS: carVEDilol 3.125mg tablet PO SCH ×2 (08:00→20:43)
[2021-01-07] MEDS: lisinopril 10 MG tablet PO SCH ×2 (08:00→20:42)
[2021-01-07] MEDS: amLODIPine 2.5mg tablet PO SCH (08:01)
[2021-01-07] MEDS: atorvastatin 20mg tablet PO SCH (08:02)
[2021-01-07] MEDS: gabapentin 300mg capsule PO SCH ×2 (08:02→20:41)
[2021-01-07] MEDS: sertraline 25mg tablet PO SCH (08:02)
[2021-01-07] MEDS: risperiDONE 0.5mg tablet PO SCH (08:03)
[2021-01-07] MEDS: aspirin 81mg tablet.DR PO SCH (08:03)
[2021-01-07] MEDS: nystatin 15 GM powder TP SCH ×3 (08:04→21:08)
[2021-01-07] MEDS: nicotine 7mg patch - 24hr TD SCH (08:08)
[2021-01-07] MEDS: budesonide 0.5mg/2ml UD nebule IH SCH ×2 (08:37→20:23)
--- NOTE | 2021-01-07 13:45 | NUR ---
Nursing Progress Note: Legal hold: Voluntary for DTS Report received from SAMANTA Hidalgo with use of SBAR Why are they here: Pt. was admitted on a 5150 for DTS. He was originally brought to the ER by EMS with c/o chest pain. Pt. has a hx of longstanding atypical chest pain with an extensive cardiac history. He also reported SOB and weakness, and uses a cane at home. Pt. was given a walker to use while in the hospital for safety precautions. Pt. had an EKG completed and ordered Troponins were negative. Pt. is followed by the head of human resources Dr. Aranda. While at the hospital, pt. reported S/I with a plan to jump in front of a car or off a bridge. He also endorsed a previous S/A in [place] several years ago. When questioned by this sba underwriter regarding the cause for his current S/I, pt. was unable to articulate this, but did admit that he does not have a good support system and lack of resources. Pt. is currently living at a care home called [facility], but he reports he does not like it there. Pt. also admits to command A/V/AMEZCUA at times which tell him to hurt himself. Assessment What has happened this shift: Patient sleeping at change of shift and up for breakfast. If patient isn't eating, he is in the Rec Room watching T.V. Patient takes his medication as prescribed. RN spoke with patient in the Rec Room when he was in there by himself. RN asked patient if he was still suicidal. "Of course I'm suicidal. I want to kill my self! RN asked about a plan. Patient said I'm going to run into traffic or jump off a bridge. Then immediately after he told RN his plan, RN asked patient what is he going to do when he gets discharged from here. "I'm moving to [place]. RN asked patient how he was going to get there and does he have the money to buy a ticket for himself. Patient stated "someone does." Patient appeared agitated RN asked patient these questions. Patient told RN to go talk to the "lady" which he means the social work job titles. Patient has been on a regular diet and Dr. Chaudhary gave an ordered for double protein. Patient had no problems today and does not appear to be in any distress. Held pts Carvedilol due to pulse of 60 and gave the Norvasc. S/I, H/I: See note above. A/VH: AH sometimes Sleep: No naps during the day although RN observed patient falling asleep while watching T.V. ADL's: Independent. Ambulates with FWW Group attendance: No Were meds taken: Yes Any med S/E; None reported or observed Mental Status Exam Appearance: Disheveled, wearing green unit scrubs. Jauregui is scruffy looking. Eye contact: Good Behavior: Isolates/watches T.V. Speech: Normal Mood: Guarded Affect: Flat Thought process: Linear Thought Content: Having needs met and moving to [place] Cognition: Alert Insight: Fair. Judgment: Fair. Interventions PRN's used: None Therapeutic interventions: 1:1 assessment, establishment of rapport, therapeutic communication, active listening, medication administration/education/monitoring, encouragement to attend groups, behavior monitoring and intervention as needed; distraction, redirection , provided encouragement and positive reinforcement, Q 15 minute safety checks. Restraints/seclusion/emergency medication: None Justification of Continued Inpatient Treatment: Patient is tolerating medications, but continues to report sadness, depression, SI and audio hallucination. Patients medications will be titrated to effective dose and requires a safe and therapeutic milieu.
--- NOTE | 2021-01-07 14:21 | NUR ---
Pt. attended group today. The topic today was identifying the triggers, signs and symptoms of an upcoming episode/event so that Pts. can learn to apply coping skills before they get to a bad place with their symptoms. We also discussed what they were hoping for in the future. Pt. engaged in the discussion when asked. His thought content was WNL and appropriate to the topic at hand. His mood was depressive with a flat affect. He appeared to listen to his peers. When it came to what he was hopeful for he reported he was hopeful he could go back to [place]. His demeanor is calm and compliant but he tends to fixate on his desire to get back to [place]. Debbi Pate, LAND TITLE EXAMINER
--- NOTE | 2021-01-07 14:25 | NUR ---
CASE MANAGEMENT Spoke with Tatiana at [facility]. She reported that his room will be available for him starting tomorrow. She had to heat treat the room he is going into because of bed bugs. Pt. is unsure if he wants to return there and has agreed to meet with Rere Perry tomorrow at 11am to discuss other housing options in [place] as well. He does understand that he may have to go back to his current housing while he and Rere work on getting him somewhere else to live. Debbi Pate, INDUSTRIAL BOILERMAKER
[2021-01-07] MEDS: furosemide 20MG tablet PO SCH (16:45)
[2021-01-07 19:14] VITALS: BP 127/59
[2021-01-07] MEDS: LORazepam 1 MG tablet PO PRN (20:41)
[2021-01-07] MEDS: risperiDONE 2mg tablet PO SCH (20:41)
[2021-01-07] MEDS: zolpidem 5mg tablet PO PRN (20:43)
[2021-01-08] MEDS: albuterol 2.5 MG/3 ML nebule NEB SCH ×4 (02:56→21:13)
--- NOTE | 2021-01-08 04:47 | NUR ---
Nursing Progress Note: Legal hold: Voluntary for DTS Report received from SAMANTA Hidalgo with use of SBAR Why are they here: Pt. was admitted on a 5150 for DTS. He was originally brought to the ER by EMS with c/o chest pain. Pt. has a hx of longstanding atypical chest pain with an extensive cardiac history. He also reported SOB and weakness, and uses a cane at home. Pt. was given a walker to use while in the hospital for safety precautions. Pt. had an EKG completed and ordered Troponins were negative. Pt. is followed by the braille and talking books clerk Dr. Aranda. While at the hospital, pt. reported S/I with a plan to jump in front of a car or off a bridge. He also endorsed a previous S/A in [place] several years ago. When questioned by this journalists and other writers regarding the cause for his current S/I, pt. was unable to articulate this, but did admit that he does not have a good support system and lack of resources. Pt. is currently living at a jail called [facility], but he reports he does not like it there. Pt. also admits to command A/V/AMEZCUA at times which tell him to hurt himself. Assessment What has happened this shift: Pt was in group room at change of shift. Moved to Rec room to watch tv and sat in there during RT treatment. RT left stating she would return to do his cpap. Pt is irritable and demanding. States "what do you think when asked about SI. Pt asked multiple times for his meds while I was assisting other aptients. When it was patients turn he state "You better have something for sleep and anxiety in there." Pt then demanded that his cpap machine be placed in his room. Pts cpap was placed in his room and went to bed. Pt came out of his room because RT had not returned quick enough. Paged RT and explained to pt she had been paged. He asked to stay in the rec room while he waited and he was allowed to do this, but then stood in the hallway staring at PCT and grumbling to himself about the TV. Pt then returned to his room as RT had a arrived. S/I, H/I: passive s/i, denies h/i A/VH: AH sometimes Sleep: see sleep hours ADL's: Independent. Ambulates with FWW Group attendance: No Were meds taken: Yes Any med S/E; None reported or observed Mental Status Exam Appearance: Disheveled, wearing green unit scrubs. Jauregui is scruffy looking. Eye contact: Good Behavior: Isolates/watches T.V. Speech: Normal Mood: Guarded Affect: Flat Thought process: Linear Thought Content: Having needs met Cognition: Alert Insight: Fair. Judgment: Fair. Interventions PRN's used: giovany womack Therapeutic interventions: 1:1 assessment, establishment of rapport, therapeutic communication, active listening, medication administration/education/monitoring, encouragement to attend groups, behavior monitoring and intervention as needed; distraction, redirection , provided encouragement and positive reinforcement, Q 15 minute safety checks. Restraints/seclusion/emergency medication: None Justification of Continued Inpatient Treatment: Patient is tolerating medications, but continues to report sadness, depression, SI and audio hallucination. Patients medications will be titrated to effective dose and requires a safe and therapeutic milieu.
[2021-01-08] MEDS: LORazepam 1 MG tablet PO PRN (07:53)
[2021-01-08 07:54] VITALS: BP 90/63
[2021-01-08] MEDS: acetaminophen 325mg tablet PO PRN (07:58)
[2021-01-08] MEDS: budesonide 0.5mg/2ml UD nebule IH SCH ×2 (08:36→21:13)
[2021-01-08 09:00] VITALS: BP 120/60
[2021-01-08] MEDS: thiamine 100mg tablet PO SCH (09:06)
[2021-01-08] MEDS: amiodarone 200mg tablet PO SCH ×2 (09:06→21:30)
[2021-01-08] MEDS: sertraline 25mg tablet PO SCH (09:06)
[2021-01-08] MEDS: nicotine 7mg patch - 24hr TD SCH (09:07)
[2021-01-08] MEDS: apixaban 5mg tablet PO SCH ×2 (09:07→21:30)
[2021-01-08] MEDS: furosemide 40mg tablet PO SCH (09:08)
[2021-01-08] MEDS: gabapentin 300mg capsule PO SCH ×2 (09:08→21:31)
[2021-01-08] MEDS: aspirin 81mg tablet.DR PO SCH (09:08)
[2021-01-08] MEDS: risperiDONE 0.5mg tablet PO SCH (09:08)
[2021-01-08] MEDS: atorvastatin 20mg tablet PO SCH (09:09)
[2021-01-08] MEDS: carVEDilol 3.125mg tablet PO SCH ×2 (09:10→20:00)
[2021-01-08] MEDS: amLODIPine 2.5mg tablet PO SCH (09:10)
[2021-01-08] MEDS: lisinopril 10 MG tablet PO SCH ×2 (09:10→21:33)
[2021-01-08] MEDS: nystatin 15 GM powder TP SCH ×3 (09:12→21:00)
[2021-01-08] MEDS: furosemide 20MG tablet PO SCH (16:23)
--- NOTE | 2021-01-08 17:29 | NUR ---
Nursing Progress Note: Legal hold: Voluntary Client on voluntary for DTS Report received from nurse with use of SBAR: SAMANTA Hidalgo Why are they here: Pt. was admitted on a 5150 for DTS. He was originally brought to the ER by EMS with c/o chest pain. Pt. has a hx of longstanding atypical chest pain with an extensive cardiac history. He also reported SOB and weakness, and uses a cane at home. Pt. was given a walker to use while in the hospital for safety precautions. Pt. had an EKG completed and ordered Troponins were negative. Pt. is followed by the dev technical mgr Dr. Aranda. While at the hospital, pt. reported S/I with a plan to jump in front of a car or off a bridge. He also endorsed a previous S/A in [place] several years ago. When questioned by this typewriter aligner regarding the cause for his current S/I, pt. was unable to articulate this, but did admit that he does not have a good support system and lack of resources. Pt. is currently living at a residential called [facility], but he reports he does not like it there. Pt. also admits to command A/V/AMEZCUA at times which tell him to hurt himself. Assessment What has happened this shift: Received pt. sleeping in bed at the beginning of the shift, Cpap in place (this was later removed from room for safety precautions). Pt. awoke and attended breakfast in the Group Room, afterwards he sat up in the Recreation Room watching TV by himself. 1:1 completed, pt. presets as cooperative, anxious, and guarded. His speech is somewhat gruff and guarded at times, however given time pt. will open up and respond to questions appropriately. Pt. continues to report ongoing S/I with a plan to jump off a bridge or in front of a car. Also some H/I towards random others without any plan. When questioned regarding A/V/AMEZCUA, pt. reports command A/AMEZCUA that tell him to hurt himself. Also V/AMEZCUA of relatives. He endorses increased anxiety r/t these thoughts and PRN Ativan administered with effectiveness. Pt. also reports generalized body pain and PRN Tylenol administered, he continues to walk with use of a FWW. Pt. was able to shower independently this shift, however required assistance from staff in order to clip his finger and toe nails. Pt. remained up throughout the day watching TV in the Recreation Room, he remains somewhat withdrawn from others. S/I, H/I: Pt. reports ongoing S/I with a plan to jump off a bridge or in front of a car. Also some H/I towards random others. A/VH: Pt. reports command A/AMEZCUA that tell him to hurt himself. Also V/AMEZCUA of relatives. Sleep: Sleep hours are 7, pt. reported he slept well ADL's: Pt. reports minimal assistance to completed ADLs, uses FWW Group attendance: No Were meds taken: Yes Any med S/E None Mental Status Exam Appearance: Somewhat disheveled, however pt. did shower today Eye contact: Good Behavior: Cooperative, anxious, and guarded Speech: Somewhat gruff and guarded at times Mood: Guarded, however pleasant Affect: Constricted Thought process: Linear Thought Content: Ongoing depression and anxiety Cognition: A&O X4 Insight: Fair Judgment: Fair Interventions PRN's used: Ativan and Tylenol Therapeutic interventions: Introduced self and established rapport, maintained a safe and supportive environment, ensured contract for safety, provided clear and simple instructions, provided needed assistance with ADLs, and maintained Q 15min safety checks. Restraints/seclusion/emergency medication: N/a Justification of Continued Inpatient Treatment: Per Dr. Chaney, pt. continues to require a safe and supportive environment, and does not have a safe discharge available at this time.
[2021-01-08 19:49] VITALS: BP 110/61
[2021-01-08] MEDS: zolpidem 5mg tablet PO PRN (21:30)
[2021-01-08] MEDS: risperiDONE 2mg tablet PO SCH (21:33)
--- NOTE | 2021-01-09 00:38 | NUR ---
Nursing Progress Note: Legal hold: VOL for DTS Report received from SAMANTA Vanessa with use of SBAR Why are they here: Pt. was admitted on a 5150 for DTS. He was originally brought to the ER by EMS with c/o chest pain. Pt. has a hx of longstanding atypical chest pain with an extensive cardiac history. He also reported SOB and weakness, and uses a cane at home. Pt. was given a walker to use while in the hospital for safety precautions. Pt. had an EKG completed and ordered Troponins were negative. Pt. is followed by the braid pattern setter Dr. Aranda. While at the hospital, pt. reported S/I with a plan to jump in front of a car or off a bridge. He also endorsed a previous S/A in [place] several years ago. When questioned by this technical report writer regarding the cause for his current S/I, pt. was unable to articulate this, but did admit that he does not have a good support system and lack of resources. [place] [facility], but he reports he does not like it there. Pt. also admits to command A/V/AMEZCUA at times which tell him to hurt himself. Assessment What has happened this shift: Pt in group room most of shift, watching TV. He is not observed to be interacting with other patients. During assessment, pt endorses SI/AH/VH stating it is the same as when he was first admitted. Pt states he doesnt have any specific trigger for feeling this way; when RN inquired about his living situation and how he doesnt like it, pt stated that has nothing to do with his suicidal feelings. Pt remained fixated on TV during most of conversation. He stated everyone knows why I am here, I want to watch this movie. Pt able to apply CPAP without assistance, although machine was set up by RN and RT. S/I, H/I: + SI with plan to off bridge or in front of a car, Denies HI A/VH: + AH (command telling him to hurt himself) and +VH ( relatives) Sleep: See Sleep Assessment, Pt sleeps with CPAP ADL's: Independent, Ambulates with FWW Group attendance: N/A Were meds taken: Yes, Held Coreg due to HR at 60 Any med S/E; None reported or observed Mental Status Exam Appearance: Disheveled, wearing green unit scrubs. Eye contact: Fair Behavior: Isolates to self and watches T.V. Speech: Normal Mood: Depressed, Pt presents as guarded Affect: Flat Thought process: Linear Thought Content: Having needs met Cognition: Intact Insight: Fair Judgment: Fair Interventions PRN's used: Joshua Therapeutic interventions: 1:1 assessment, establishment of rapport, therapeutic communication, active listening, medication administration/education/monitoring, encouragement to attend groups, behavior monitoring and intervention as needed; distraction, redirection , provided encouragement and positive reinforcement, Q 15 minute safety checks. Restraints/seclusion/emergency medication: None Justification of Continued Inpatient Treatment: Patient is tolerating medications, but continues to report sadness, depression, SI and auditory/visual hallucinations. Patients medications will be titrated to effective dose and requires a safe and therapeutic milieu.
[2021-01-09] MEDS: albuterol 2.5 MG/3 ML nebule NEB SCH ×4 (02:24→21:39)
[2021-01-09 08:00] VITALS: BP 114/55
[2021-01-09] MEDS: budesonide 0.5mg/2ml UD nebule IH SCH ×2 (08:54→21:40)
[2021-01-09] MEDS: sertraline 25mg tablet PO SCH (08:57)
[2021-01-09] MEDS: gabapentin 300mg capsule PO SCH ×2 (08:57→21:24)
[2021-01-09] MEDS: thiamine 100mg tablet PO SCH (08:57)
[2021-01-09] MEDS: aspirin 81mg tablet.DR PO SCH (08:57)
[2021-01-09] MEDS: risperiDONE 0.5mg tablet PO SCH (08:57)
[2021-01-09] MEDS: amiodarone 200mg tablet PO SCH ×2 (08:58→21:24)
[2021-01-09] MEDS: apixaban 5mg tablet PO SCH ×2 (08:58→21:24)
[2021-01-09] MEDS: atorvastatin 20mg tablet PO SCH (08:58)
[2021-01-09] MEDS: carVEDilol 3.125mg tablet PO SCH ×2 (08:59→20:00)
[2021-01-09] MEDS: amLODIPine 2.5mg tablet PO SCH (08:59)
[2021-01-09 09:00] VITALS: BP 120/60
[2021-01-09] MEDS: nicotine 7mg patch - 24hr TD SCH (09:00)
[2021-01-09] MEDS: lisinopril 10 MG tablet PO SCH ×2 (09:00→20:00)
[2021-01-09] MEDS: furosemide 40mg tablet PO SCH (09:00)
[2021-01-09] MEDS: acetaminophen 325mg tablet PO PRN (09:01)
[2021-01-09] MEDS: nystatin 15 GM powder TP SCH ×3 (09:02→21:31)
[2021-01-09] MEDS: LORazepam 1 MG tablet PO PRN (09:03)
[2021-01-09] MEDS: clopidogrel 75mg tablet PO SCH (13:21)
[2021-01-09 16:50] VITALS: BP 134/60
[2021-01-09] MEDS: furosemide 20MG tablet PO SCH (16:54)
--- NOTE | 2021-01-09 17:08 | NUR ---
Nursing Progress Note: Legal hold: Voluntary Client on voluntary for DTS Report received from nurse with use of SBAR: SAMANTA Aguillon Why are they here: Pt. was admitted on a 5150 for DTS. He was originally brought to the ER by EMS with c/o chest pain. Pt. has a hx of longstanding atypical chest pain with an extensive cardiac history. He also reported SOB and weakness, and uses a cane at home. Pt. was given a walker to use while in the hospital for safety precautions. Pt. had an EKG completed and ordered Troponins were negative. Pt. is followed by the veterinary assistant Dr. Aranda. While at the hospital, pt. reported S/I with a plan to jump in front of a car or off a bridge. He also endorsed a previous S/A in [place] several years ago. When questioned by this grant writer regarding the cause for his current S/I, pt. was unable to articulate this, but did admit that he does not have a good support system and lack of resources. [place] called [facility], but he reports he does not like it there. Pt. also admits to command A/V/AMEZCUA at times which tell him to hurt himself. Assessment What has happened this shift: Received pt. sleeping in bed at the beginning of the shift, Cpap in place (this was later removed from room for safety precautions). Pt. again awoke independently and attended breakfast in the Group Room, afterwards he sat up in the Recreation Room watching TV. 1:1 completed, pt. continues to present as guarded with conversation and responds mostly to closed-ended questions, however does exhibit some brightening. He continues to report ongoing S/I with a plan to jump off a bridge or in front of a car and command A/AMEZCUA. Pt. also continues to report ongoing V/AMEZCUA of relatives. Pt. then questions this grant writer in a somewhat distressed manner, "Why am I feeling this way?" However, before this grant writer was able to discuss pt's feelings with him further, he changed the subject and began making multiple requests (ex. extra food, beverages, and having the TV channel changed). Pt. remains fixated on his desire to return to [place] where he used to live. Pt. continues to report generalized body pain and PRN Tylenol administered with effectiveness. He was also administered PRN Ativan for anxiety with effectiveness. Pt. did attend group this shift with encouragement from staff, and remained up throughout the day watching TV and interacting appropriately with others. However, pt. did continue to make multiple requests from staff during the day. Pt. appears not to have some difficulty with redirection or being given information that is not in his favor. Will continue to monitor. S/I, H/I: Pt. reports ongoing S/I with a plan to jump off a bridge or in front of a car. He denies H/I this shift. A/VH: Pt. reports command A/AMEZCUA that tell him to hurt himself. Also V/AMEZCUA of relatives. Sleep: Sleep hours are 8.3, pt. reported he slept well ADL's: Pt. reports minimal assistance to completed ADLs, uses FWW Group attendance: Yes Were meds taken: Yes Any med S/E None Mental Status Exam Appearance: Neat and appropriately dressed, shaved today Eye contact: Good Behavior: Cooperative, anxious, and guarded Speech: Somewhat gruff and guarded at times. Answers closed-ended questions only Mood: Guarded, however makes multiple requests from staff Affect: Constricted with brightening Thought process: Linear Thought Content: Ongoing depression and anxiety with a perseveration on not returning to his former living situation Cognition: A&O X4 Insight: Fair Judgment: Fair Interventions PRN's used: Ativan and Tylenol Therapeutic interventions: Maintained a safe and supportive environment, ensured contract for safety, provided clear and simple instructions, provided needed assistance with ADLs, encouraged participation on the unit, and maintained Q 15min safety checks. Restraints/seclusion/emergency medication: N/a Justification of Continued Inpatient Treatment: Per Dr. Chaney, pt. continues to require a safe and supportive environment, and does not have a safe discharge available at this time.
[2021-01-09 19:00] VITALS: BP 111/37
[2021-01-09 20:33] VITALS: BP 108/40
[2021-01-09 21:00] VITALS: BP 105/38
[2021-01-09] MEDS: risperiDONE 2mg tablet PO SCH (21:24)
[2021-01-09] MEDS: zolpidem 5mg tablet PO PRN (21:48)
[2021-01-10] MEDS: albuterol 2.5 MG/3 ML nebule NEB SCH ×4 (03:31→21:16)
--- NOTE | 2021-01-10 05:20 | NUR ---
Nursing Progress Note: Legal hold: Voluntary Client on voluntary for DTS Report received from nurse with use of SBAR: SAMANTA Be Why are they here: Pt. was admitted on a 5150 for DTS. He was originally brought to the ER by EMS with c/o chest pain. Pt. has a hx of longstanding atypical chest pain with an extensive cardiac history. He also reported SOB and weakness, and uses a cane at home. Pt. was given a walker to use while in the hospital for safety precautions. Pt. had an EKG completed and ordered Troponins were negative. Pt. is followed by the collar padder blindstitch Dr. Aranda. While at the hospital, pt. reported S/I with a plan to jump in front of a car or off a bridge. He also endorsed a previous S/A in [place] several years ago. When questioned by this typewriter ribbon winder regarding the cause for his current S/I, pt. was unable to articulate this, but did admit that he does not have a good support system and lack of resources. Pt. is currently living at a [facility] called [facility], but he reports he does not like it there. Pt. also admits to command A/V/AMEZCUA at times which tell him to hurt himself. Assessment What has happened this shift: Pt spent most of shift watching TV. He is observed to engage with one peer, because she was initiating conversation with him. He makes multiple requests and repeats requests to multiple staff even when told the answer. He continues to endorse SI, AH, VH, and depression. Pt is dismissive when discussing his mental health and turns the conversation to snacks or other requests on the unit, like having staff look for clothes for him. Pt's diastolic pressures were low this evening even with repeated checks, and review of vitals shows a sharp decrease from previous entries; systolic and HR were borderline. Hospitalist contacted via pager and phone multiple times but no call back received. Discussed effects of lisinopril and Coreg with the pharmacist who stated both, especially Coreg, have a significant effect on diastolic pressure. Both medications held this evening to err on the side of caution since unable to collaborate with . S/I, H/I: +SI with a plan to jump off a bridge or in front of a car, Denies HI A/VH: +AH (command to hurt self), + VH ( relatives) Sleep: See sleep hours ADL's: Pt. reports minimal assistance to completed ADLs, uses FWW Group attendance: N/A Were meds taken: Yes, but 2 BP meds held Any med S/E None observed nor reported Mental Status Exam Appearance: Clean wearing personal clothing Eye contact: Good Behavior: Cooperative, watching tv, and guarded regarding mh questions Speech: Clear Mood: Guarded, however makes multiple requests from staff Affect: Blunted Thought process: Linear Thought Content: Ongoing depression and AH/VH with a perseveration on not returning to his former living situation Cognition: A&O X4 Insight: Fair Judgment: Fair Interventions PRN's used: Ativan and Tylenol Therapeutic interventions: Maintained a safe and supportive environment, ensured contract for safety, provided clear and simple instructions, provided needed assistance with ADLs, encouraged participation on the unit, and maintained Q 15min safety checks. Restraints/seclusion/emergency medication: N/a Justification of Continued Inpatient Treatment: Per Dr. Chaney, pt. continues to require a safe and supportive environment, and does not have a safe discharge available at this time.
[2021-01-10 07:22] VITALS: BP 107/50
[2021-01-10] MEDS: budesonide 0.5mg/2ml UD nebule IH SCH ×2 (08:36→21:16)
[2021-01-10 09:00] VITALS: BP 120/60
[2021-01-10] MEDS: clopidogrel 75mg tablet PO SCH (09:11)
[2021-01-10] MEDS: amiodarone 200mg tablet PO SCH ×2 (09:11→21:26)
[2021-01-10] MEDS: apixaban 5mg tablet PO SCH ×2 (09:11→21:26)
[2021-01-10] MEDS: sertraline 25mg tablet PO SCH (09:12)
[2021-01-10] MEDS: furosemide 40mg tablet PO SCH (09:12)
[2021-01-10] MEDS: thiamine 100mg tablet PO SCH (09:12)
[2021-01-10] MEDS: amLODIPine 2.5mg tablet PO SCH (09:12)
[2021-01-10] MEDS: gabapentin 300mg capsule PO SCH ×2 (09:12→21:26)
[2021-01-10] MEDS: carVEDilol 3.125mg tablet PO SCH ×2 (09:12→20:00)
[2021-01-10] MEDS: atorvastatin 20mg tablet PO SCH (09:13)
[2021-01-10] MEDS: nystatin 15 GM powder TP SCH ×3 (09:13→21:34)
[2021-01-10] MEDS: lisinopril 10 MG tablet PO SCH ×2 (09:13→20:00)
[2021-01-10] MEDS: risperiDONE 0.5mg tablet PO SCH (09:13)
[2021-01-10] MEDS: nicotine 7mg patch - 24hr TD SCH (09:14)
[2021-01-10] MEDS: LORazepam 1 MG tablet PO PRN (09:17)
[2021-01-10] MEDS: acetaminophen 325mg tablet PO PRN (09:18)
--- NOTE | 2021-01-10 13:22 | NUR ---
Pt attended group today. Today we talked about the definition or resiliency, the ways to build resiliency and how to bounce back. We also discussed having Hope and where their hope levels were today. Pt. was quiet throughout most of the group. When he did speak up he was fixated upon his discharge plan and what he was going to do. He reported he doesn't want to go back to the place he is living now and perseverated on how he is not happy with his life. When asked what ways he could be powerful to take steps forward to change thing, he tended to share about at all the ways he couldn't do what was suggested by this Water Quality Control Engineer or anyone else in the group. There was no delusional content in his thought content, his thought process was linear. He appears to feel pretty powerless in his situation. He was alert and oriented X 4. His demeanor is calm. His mood is anxious/depressive with a congruent affect. Debbi Pate LCSW Addendum: 01/10/21 at 1327 by Debbi Pate This note is for yesterday's group 01/09/21.
--- NOTE | 2021-01-10 13:27 | NUR ---
Pt. attended group today. We talked about hearing voices and read an article about coping strategies. We discussed what coping strategies they had success with in the past. Pt was engaged in the group. He reported that he doesn't hear voices but listened to his peers and read along with the article. He stayed for the Namshi game. He appeared to be in less anxious mood today then yesterday. He was able to join in on the fun in the Namshi game and appeared to be enjoying himself. He was alert and oriented X 4. His thought content and thought process was WNL. Debbi Pate LCSW
--- NOTE | 2021-01-10 15:04 | NUR ---
DISCHARGE NOTE Spoke to Tatiana at [facility] today. There is a room available for him there. His CPAP is there and she is concerned that it may have bed bugs in it since it was in his room that did have bed bugs. This Chief Supply Chain Officer called the [employer] [facility] to let them know of Tatiana's concerns and in order for discharge he needs a replacement CPAP machine. They are going to send out a Barrel Plater on Wednesday to check the CPAP machine at [facility], and then figure out what they can do about it. Met with Pt. who is still reporting he does not want to go back to [facility]. We discussed that Rere Perry will continue to work with him with housing options once he discharges. At this time she has not found a suitable housing option for him. We discussed that if he doesn't want to go to [facility] he could go to a motel for awhile since he has funds but that means he has to contact his Conservator to access his monies. He was open to this plan. Let him know that these plans need to get in place by next week. This Chief Supply Chain Officer asked him to work on a plan this weekend with his Conservator. Debbi Pate LCSW
[2021-01-10] MEDS: furosemide 20MG tablet PO SCH (16:00)
[2021-01-10 16:46] VITALS: BP 95/48
--- NOTE | 2021-01-10 16:55 | NUR ---
Nursing Progress Note: Legal hold: Voluntary Client on voluntary for DTS Report received from nurse with use of SBAR: Colleen Ellsworth RN Why are they here: Pt. was admitted on a 5150 for DTS. He was originally brought to the ER by EMS with c/o chest pain. Pt. has a hx of longstanding atypical chest pain with an extensive cardiac history. He also reported SOB and weakness, and uses a cane at home. Pt. was given a walker to use while in the hospital for safety precautions. Pt. had an EKG completed and ordered Troponins were negative. Pt. is followed by the day habilitation supervisor Dr. Aranda. While at the hospital, pt. reported S/I with a plan to jump in front of a car or off a bridge. He also endorsed a previous S/A in [place] several years ago. When questioned by this fha underwriter regarding the cause for his current S/I, pt. was unable to articulate this, but did admit that he does not have a good support system and lack of resources. Pt. is currently living at a skilled nursing called [facility], but he reports he does not like it there. Pt. also admits to command A/V/AMEZCUA at times which tell him to hurt himself. Assessment What has happened this shift: Received pt. sleeping in bed at the beginning of the shift, Cpap in place (this was later removed from room for safety precautions). Pt. awoke and independently attended breakfast in the Group Room, afterwards he sat up in the Recreation Room watching TV as is his routine. 1:1 completed, pt. continues to present with guarded speech and makes multiple requests from this fha underwriter (food, channel changes, and clothes) during the interview. Pt. continues to report ongoing S/I with a plan to jump off a bridge or in front of a car, command A/AMEZCUA, and ongoing V/AMEZCUA of decreased relatives. However, he does admit his A/V/AMEZCUA have improved, and states, "It's mainly just my thoughts of S/I." PRN Ativan administered with effectiveness. Pt. continues to perseverate on his displeasure with having to return to his present living facility. During the shift, he questions a tech multiple times stating, "If I keep saying I'm having S/I and hallucinations they can't make me leave here right?" This was endorsed to Dr. Chaney and pt's director of social services. Pt. remained up throughout the day watching TV, and was observed to be interacting appropriately with others. S/I, H/I: Pt. reports ongoing S/I with a plan to jump off a bridge or in front of a car. Denies H/I this shift A/VH: Pt. reports command A/AMEZCUA that tell him to hurt himself. Also V/AMEZCUA of relatives. Sleep: Pt. reports restless sleep, however continues to use Cpap with effectiveness ADL's: Pt. reports minimal assistance to completed ADLs, uses FWW Group attendance: Yes Were meds taken: Yes Any med S/E None Mental Status Exam Appearance: Neat and appropriately dressed Eye contact: Good Behavior: Cooperative, anxious, and guarded Speech: Somewhat gruff and guarded at times Mood: Guarded and demanding at times, however pleasant Affect: Blunted Thought process: Linear Thought Content: Ongoing depression and anxiety Cognition: A&O X4 Insight: Fair Judgment: Fair Interventions PRN's used: Ativan and Tylenol Therapeutic interventions: Maintained a safe and supportive environment, ensured contract for safety, provided clear and simple instructions, provided needed assistance with ADLs, encouraged participation on the unit, and maintained Q 15min safety checks. Restraints/seclusion/emergency medication: N/a Justification of Continued Inpatient Treatment: Per Dr. Chaney, pt. continues to require a safe and supportive environment, and does not have a safe discharge available at this time. Addendum: 01/10/21 at 1715 by Rasheeda Diez RN Held pt's 1600 Lasix r/t decreased BP, endorsed to Dr. Shiv MD.
[2021-01-10 20:00] VITALS: BP 121/53
[2021-01-10] MEDS: zolpidem 5mg tablet PO PRN (21:26)
[2021-01-10] MEDS: risperiDONE 2mg tablet PO SCH (21:28)
--- NOTE | 2021-01-11 02:24 | NUR ---
Nursing Progress Note: Legal hold: Voluntary Client on voluntary for DTS Report received from nurse with use of SBAR: SAMANTA Be Why are they here: Pt. was admitted on a 5150 for DTS. He was originally brought to the ER by EMS with c/o chest pain. Pt. has a hx of longstanding atypical chest pain with an extensive cardiac history. He also reported SOB and weakness, and uses a cane at home. Pt. was given a walker to use while in the hospital for safety precautions. Pt. had an EKG completed and ordered Troponins were negative. Pt. is followed by the slab miller operator Dr. Aranda. While at the hospital, pt. reported S/I with a plan to jump in front of a car or off a bridge. He also endorsed a previous S/A in [place] several years ago. When questioned by this financial writer regarding the cause for his current S/I, pt. was unable to articulate this, but did admit that he does not have a good support system and lack of resources. Pt. is currently living at a long-term called [facility], but he reports he does not like it there. Pt. also admits to command A/V/AMEZCUA at times which tell him to hurt himself. Assessment What has happened this shift: Pt spent most of shift watching TV. He is observed to engage with one peer, because she was initiating conversation with him. Pt continues to endorse SI/AH/VH stating that they have not lessened. Pt cannot describe what the voices sound like and is very vague about describing the relatives. He states "It's the same. It's just not going away." Pt does not want to go back to [facility] and wants the to find him a different residence "She's doing that Wednesday". This does not align with the note. Pt is compliant with medications and wears a CPAP in the evening. S/I, H/I: +SI with a plan to jump off a bridge or in front of a car, Denies HI A/VH: +AH (command to hurt self), + VH ( relatives) Sleep: See sleep hours ADL's: Pt. reports minimal assistance to completed ADLs, uses FWW Group attendance: N/A Were meds taken: Yes, but BP meds held Any med S/E None observed nor reported Mental Status Exam Appearance: Clean wearing personal clothing Eye contact: Good Behavior: Cooperative, watching tv, attended snack Speech: Clear Mood: "Fine", Pt presents as guarded and dismissive about mental health questions Affect: Blunted Thought process: Linear Thought Content: Ongoing depression and AH/VH with a perseveration on not returning to his former living situation Cognition: A&O X4 Insight: Fair Judgment: Fair Interventions PRN's used: Joshua Therapeutic interventions: Maintained a safe and supportive environment, ensured contract for safety, provided clear and simple instructions, provided needed assistance with ADLs, encouraged participation on the unit, and maintained Q 15min safety checks. Restraints/seclusion/emergency medication: N/a Justification of Continued Inpatient Treatment: Per Dr. Chaney, pt. continues to require a safe and supportive environment, and does not have a safe discharge available at this time.
[2021-01-11] MEDS: albuterol 2.5 MG/3 ML nebule NEB SCH ×4 (03:11→21:03)
[2021-01-11 08:00] VITALS: BP 88/49
[2021-01-11] MEDS: nystatin 15 GM powder TP SCH ×3 (08:00→21:00)
[2021-01-11] MEDS: amiodarone 200mg tablet PO SCH ×2 (08:23→20:48)
[2021-01-11] MEDS: sertraline 50mg tablet PO SCH (08:24)
[2021-01-11] MEDS: risperiDONE 2mg tablet PO SCH ×2 (08:24→20:48)
[2021-01-11] MEDS: clopidogrel 75mg tablet PO SCH (08:24)
[2021-01-11] MEDS: apixaban 5mg tablet PO SCH ×2 (08:24→20:47)
[2021-01-11] MEDS: thiamine 100mg tablet PO SCH (08:24)
[2021-01-11] MEDS: atorvastatin 20mg tablet PO SCH (08:24)
[2021-01-11] MEDS: gabapentin 300mg capsule PO SCH ×2 (08:25→20:47)
[2021-01-11] MEDS: nicotine 7mg patch - 24hr TD SCH (08:30)
[2021-01-11] MEDS: budesonide 0.5mg/2ml UD nebule IH SCH ×2 (09:43→21:03)
[2021-01-11] MEDS: furosemide 40mg tablet PO SCH (10:47)
[2021-01-11] MEDS: amLODIPine 2.5mg tablet PO SCH (10:48)
[2021-01-11] MEDS: lisinopril 10 MG tablet PO SCH ×2 (10:48→20:49)
[2021-01-11] MEDS: carVEDilol 3.125mg tablet PO SCH ×2 (10:48→20:48)
[2021-01-11] MEDS: LORazepam 1 MG tablet PO PRN ×2 (11:19→20:48)
[2021-01-11] MEDS: acetaminophen 325mg tablet PO PRN (11:22)
[2021-01-11] MEDS: furosemide 20MG tablet PO SCH (16:09)
--- NOTE | 2021-01-11 17:21 | NUR ---
Nursing Progress Note: Legal hold: Voluntary Client on voluntary for DTS Report received from nurse with use of SBAR: Colleen Ellsworth RN Why are they here: Pt. was admitted on a 5150 for DTS. He was originally brought to the ER by EMS with c/o chest pain. Pt. has a hx of longstanding atypical chest pain with an extensive cardiac history. He also reported SOB and weakness, and uses a cane at home. Pt. was given a walker to use while in the hospital for safety precautions. Pt. had an EKG completed and ordered Troponins were negative. Pt. is followed by the proofing machine operator Dr. Aranda. While at the hospital, pt. reported S/I with a plan to jump in front of a car or off a bridge. He also endorsed a previous S/A in [place] several years ago. When questioned by this telegraphic typewriter mechanic regarding the cause for his current S/I, pt. was unable to articulate this, but did admit that he does not have a good support system and lack of resources. Pt. is currently living at a fdc called [facility], but he reports he does not like it there. Pt. also admits to command A/V/AMEZCUA at times which tell him to hurt himself. Assessment What has happened this shift: RN received pt. asleep in bed, pt. awoke for breakfast and took all medications. Pt.s BP medications initially held due to c/o of dizziness and decreased BP. At mid morning pt.s BP medications given as pt.s dizziness subsided and BP increased to 147/70 with HR of 71. Pt. stayed in community room after breakfast and watched TV. Pt. observed socializing with peers. Pt. then watched TV in Rec Room. 1:1 done in Rec Room. Pt. reports SI with plan to jump off of a bridge or jump in front of a car. Pt. given Ativan 1mg po due to anxiety. Pt. observed watching TV in Rec room most of the day and napping in his room intermittently. S/I, H/I: +SI with a plan to jump off a bridge or in front of a car, Denies HI A/VH: Denies Sleep: 6.5 hrs reported on NOC shift and pt. napped intermittently during the day. ADL's: Pt. reports minimal assistance to completed ADLs, uses FWW Group attendance: N/A Were meds taken: Yes Any med S/E: denies Mental Status Exam Appearance: Clean wearing personal clothing Eye contact: Good Behavior: Cooperative, watching tv, napping. Speech: Clear Mood: Depressed Affect: Blunted Thought process: Linear Thought Content: Circumstantial Cognition: A&O X4 Insight: Fair Judgment: Fair Interventions PRN's used: Ativan 1mg po x1 Therapeutic interventions: Maintained a safe and supportive environment, ensured contract for safety, provided clear and simple instructions, provided needed assistance with ADLs, encouraged participation on the unit, and maintained Q 15min safety checks. Restraints/seclusion/emergency medication: N/a Justification of Continued Inpatient Treatment: Per Dr. Chaney, pt. continues to require a safe and supportive environment, and does not have a safe discharge available at this time.
[2021-01-11 20:00] VITALS: BP 120/53
[2021-01-11] MEDS: zolpidem 5mg tablet PO PRN (20:47)
[2021-01-12] MEDS: albuterol 2.5 MG/3 ML nebule NEB SCH ×4 (03:01→21:04)
--- NOTE | 2021-01-12 05:09 | NUR ---
Nursing Progress Note: Legal hold: Voluntary Client on voluntary for DTS Report received from Haile Hernandez RN, with use of SBAR. Why are they here: Pt. was admitted on a 5150 for DTS. He was originally brought to the ER by EMS with c/o chest pain. Pt. has a hx of longstanding atypical chest pain with an extensive cardiac history. He also reported SOB and weakness, and uses a cane at home. Pt. was given a walker to use while in the hospital for safety precautions. Pt. had an EKG completed and ordered Troponins were negative. Pt. is followed by the computer customer support specialist Dr. Aranda. While at the hospital, pt. reported S/I with a plan to jump in front of a car or off a bridge. He also endorsed a previous S/A in [place] several years ago. When questioned by this database report writer regarding the cause for his current S/I, pt. was unable to articulate this, but did admit that he does not have a good support system and lack of resources. Pt. is currently living at a nursing home called [facility], but he reports he does not like it there. Pt. also admits to command A/V/AMEZCUA at times which tell him to hurt himself. Assessment What has happened this shift: Patient is well oriented, he is focused on watching television in the recreation room following shift. He continues to staff split. Patient continues to complain of depression and suicidal ideation. Patient denies homicidal ideation. He states he has a plan to jump off a bridge. He exhibits no motivation and is focused on meeting his own needs. Patient is somewhat demanding, eg; "I'm not going to take my medications until my CPAP is set up." S/I, H/I: Plans to jump of a bridge. Denies homicidal ideation. A/VH: Denies. Sleep: See sleep hours. ADL's: WNL. Group attendance: No group. Were meds taken: Yes, medication compliant. Any med S/E: Denies. Mental Status Exam Appearance: Eye contact: Good. Behavior: Not engaging in his care. Speech: WNL. Mood: Depressed. Affect: Flat. Thought process: Linear. Thought Content: Circumstantial. Cognition: A&O X4. Insight: Fair. Judgment: Fair. Interventions PRN's used: Ambien and Ativan. Therapeutic interventions: Maintained a safe and supportive environment, ensured contract for safety, provided clear and simple instructions, provided needed assistance with ADLs, encouraged participation on the unit, and maintained Q 15min safety checks. Restraints/seclusion/emergency medication: N/A Justification of Continued Inpatient Treatment: Per Dr. Chaney, pt. continues to require a safe and supportive environment, and does not have a safe discharge available at this time.
[2021-01-12 08:00] VITALS: BP 105/55
[2021-01-12] MEDS: risperiDONE 2mg tablet PO SCH ×2 (08:43→21:48)
[2021-01-12] MEDS: atorvastatin 20mg tablet PO SCH (08:44)
[2021-01-12] MEDS: sertraline 50mg tablet PO SCH (08:44)
[2021-01-12] MEDS: apixaban 5mg tablet PO SCH ×2 (08:44→21:50)
[2021-01-12] MEDS: nicotine 7mg patch - 24hr TD SCH (08:44)
[2021-01-12] MEDS: thiamine 100mg tablet PO SCH (08:44)
[2021-01-12] MEDS: clopidogrel 75mg tablet PO SCH (08:44)
[2021-01-12] MEDS: gabapentin 300mg capsule PO SCH ×2 (08:44→21:46)
[2021-01-12] MEDS: amLODIPine 2.5mg tablet PO SCH (08:45)
[2021-01-12] MEDS: amiodarone 200mg tablet PO SCH ×2 (08:45→21:47)
[2021-01-12] MEDS: carVEDilol 3.125mg tablet PO SCH ×2 (08:45→21:50)
[2021-01-12] MEDS: furosemide 40mg tablet PO SCH (08:46)
[2021-01-12] MEDS: nystatin 15 GM powder TP SCH ×3 (08:46→21:49)
[2021-01-12] MEDS: lisinopril 10 MG tablet PO SCH ×2 (08:46→21:49)
--- NOTE | 2021-01-12 08:55 | NUR ---
Reassessment: Pt PO ~100% avg regular diet meeting needs. LBM 01/10. No nutrition intervention at this time. Will continue to monitor. Rec: 1. continue regular diet 2. routine bowel care 3. weekly wts Addendum: 01/12/21 at [address] Amended: Links added.
[2021-01-12] MEDS: budesonide 0.5mg/2ml UD nebule IH SCH ×2 (09:35→21:04)
--- NOTE | 2021-01-12 15:07 | NUR ---
Nursing Progress Note: Legal hold: Voluntary Client on voluntary for DTS Report received from nurse with use of SBAR: Colleen Ellsworth RN Why are they here: Pt. was admitted on a 5150 for DTS. He was originally brought to the ER by EMS with c/o chest pain. Pt. has a hx of longstanding atypical chest pain with an extensive cardiac history. He also reported SOB and weakness, and uses a cane at home. Pt. was given a walker to use while in the hospital for safety precautions. Pt. had an EKG completed and ordered Troponins were negative. Pt. is followed by the dye colorist dyer Dr. Aranda. While at the hospital, pt. reported S/I with a plan to jump in front of a car or off a bridge. He also endorsed a previous S/A in [place] several years ago. When questioned by this flex o writer operator regarding the cause for his current S/I, pt. was unable to articulate this, but did admit that he does not have a good support system and lack of resources. Pt. is currently living at a skilled nursing called [facility], but he reports he does not like it there. Pt. also admits to command A/V/AMEZCUA at times which tell him to hurt himself. Assessment What has happened this shift: Received pt. sleeping in bed at the beginning of the shift, Cpap in place (this was later removed from room for safety precautions). Pt. awoke and attended breakfast in the Group Room, afterwards he sat up in the Recreation Room watching TV as is his routine. Attempted to complete 1:1, however pt. continues to present as guarded and is dismissive during conversation and makes poor eye contact (mostly focused on the TV). When this flex o writer operator attempted to question flex o writer operator regarding MH s/s, he states in a dismissive manner, "Everything is still the same." He then changes the subject and begins making requests regarding immediate things he would like to have done for him. When further questioned by this flex o writer operator regarding any plans for discharge, pt. reported bluntly that he does not know. Pt. remained up throughout the day watching TV as is his routine, and was observed to be interacting appropriately with others. S/I, H/I: Pt. reports ongoing S/I with a plan to jump off a bridge or in front of a car. Denies H/I A/VH: Pt. continues to report command A/AMEZCUA that tell him to hurt himself. Also V/AMEZCUA of relatives. Sleep: Recorded sleep hours are 5, pt. continues to use Cpap with effectiveness ADL's: Pt. reports minimal assistance to completed ADLs, uses FWW Group attendance: N/A, however pt. did go out on the patio with others Were meds taken: Yes Any med S/E None Mental Status Exam Appearance: Neat and appropriately dressed Eye contact: Poor to fair, focused on the TV Behavior: Cooperative and guarded Speech: Somewhat gruff and guarded Mood: Guarded and demanding at times, however pleasant Affect: Blunted Thought process: Linear Thought Content: S/I r/t discharge plan still having some ambiguities Cognition: A&O X4 Insight: Fair Judgment: Fair Interventions PRN's used: None Therapeutic interventions: Maintained a safe and supportive environment, ensured contract for safety, provided clear and simple instructions, encouraged participation on the unit and independent performance of ADLs, and maintained Q 15min safety checks. Restraints/seclusion/emergency medication: N/A Justification of Continued Inpatient Treatment: Per Dr. Chaney, pt. continues to require a safe and supportive environment. Addendum: 01/12/21 at 1631 by Rasheeda Diez RN In the afternoon, it was noted that pt. has swelling in left arm and hand and is c/o pain 4/10 at area. Area is somewhat warm to the touch. V/S obtained and WNL, and PRN Tylenol administered. Pt. has a hx of A-fib, CAD, CHF, HTN, and CHF. Per Dr. Chaney, there is a concern for possible blood clots. This was endorsed to Dr. Vincent who will order an ultrasound of the area.
[2021-01-12 15:55] VITALS: BP 123/60
[2021-01-12] MEDS: acetaminophen 325mg tablet PO PRN (16:05)
[2021-01-12] MEDS: furosemide 20MG tablet PO SCH (16:05)
[2021-01-12 19:58] VITALS: BP 94/64
--- NOTE | 2021-01-12 21:34 | NUR ---
Dr. Jiang came to unit said the ultrasound was negative for thrombosis.
[2021-01-12] MEDS: zolpidem 5mg tablet PO PRN (21:46)
[2021-01-12] MEDS: cephalexin 500mg capsule PO SCH (21:53)
[2021-01-13] MEDS ORDERED: cephalexin 500mg capsule PO SCH
[2021-01-13] MEDS: albuterol 2.5 MG/3 ML nebule NEB SCH ×4 (02:42→21:13)
--- NOTE | 2021-01-13 03:27 | NUR ---
Nursing Progress Note: Legal hold: Voluntary Client on voluntary for DTS Report received from nurse with use of SBAR: SAMANTA Be Why are they here: Pt. was admitted on a 5150 for DTS. He was originally brought to the ER by EMS with c/o chest pain. Pt. has a hx of longstanding atypical chest pain with an extensive cardiac history. He also reported SOB and weakness, and uses a cane at home. Pt. was given a walker to use while in the hospital for safety precautions. Pt. had an EKG completed and ordered Troponins were negative. Pt. is followed by the etl analyst developer Dr. Aranda. While at the hospital, pt. reported S/I with a plan to jump in front of a car or off a bridge. He also endorsed a previous S/A in [place] several years ago. When questioned by this grant writer regarding the cause for his current S/I, pt. was unable to articulate this, but did admit that he does not have a good support system and lack of resources. Pt. is currently living at a long-term called [facility], but he reports he does not like it there. Pt. also admits to command A/V/AMEZCUA at times which tell him to hurt himself. Assessment What has happened this shift: Pt sitting in rec room watching TV at start of shift. Pt talked about wanting to go to [facility] at discharge. He also talked about wanting to go to [place] at discharge. Pt was talkative and friendly with other pts in the Rec room. He was pleasant and cooperative with care. Pt was concerned about results of vascular ultrasound. Dr. Jiang was called and looked at the image said it was negative for thrombus. S/I, H/I: Pt. reports ongoing S/I Denies H/I A/VH: Pt. continues to report command A/AMECZUA that tell him to hurt himself. Also V/AMEZCUA of relatives. Sleep: asleep at this time ADL's: Independent ADLs, uses FWW Group attendance: N/A, Were meds taken: Yes Any med S/E None Mental Status Exam Appearance: Neat and appropriately dressed Eye contact: Good Behavior: Cooperative Speech: Somewhat gruff and guarded Mood: Pleasant but demanding at times, Affect: Appropriate Thought process: Linear Thought Content: discharge plan Cognition: A&O X4 Insight: Fair Judgment: Fair Interventions PRN's used: Joshua Therapeutic interventions: Maintained a safe and supportive environment, ensured contract for safety, provided clear and simple instructions, encouraged participation on the unit and independent performance of ADLs, and maintained Q 15min safety checks. Restraints/seclusion/emergency medication: N/A Justification of Continued Inpatient Treatment: Per Dr. Chaney, pt. continues to require a safe and supportive environment.
[2021-01-13] MEDS: budesonide 0.5mg/2ml UD nebule IH SCH ×2 (08:14→21:13)
[2021-01-13 08:35] VITALS: BP 115/52
[2021-01-13] MEDS: atorvastatin 20mg tablet PO SCH (08:49)
[2021-01-13] MEDS: furosemide 40mg tablet PO SCH (08:49)
[2021-01-13] MEDS: apixaban 5mg tablet PO SCH ×2 (08:49→21:19)
[2021-01-13] MEDS: amiodarone 200mg tablet PO SCH ×2 (08:49→21:21)
[2021-01-13] MEDS: thiamine 100mg tablet PO SCH (08:49)
[2021-01-13 08:50] VITALS: BP 105/55
[2021-01-13] MEDS: carVEDilol 3.125mg tablet PO SCH ×2 (08:50→21:20)
[2021-01-13] MEDS: gabapentin 300mg capsule PO SCH ×2 (08:50→21:22)
[2021-01-13] MEDS: risperiDONE 2mg tablet PO SCH ×2 (08:50→21:20)
[2021-01-13] MEDS: LORazepam 1 MG tablet PO PRN ×2 (08:50→21:49)
[2021-01-13] MEDS: sertraline 50mg tablet PO SCH (08:50)
[2021-01-13] MEDS: lisinopril 10 MG tablet PO SCH ×2 (08:50→21:20)
[2021-01-13] MEDS: cephalexin 500mg capsule PO SCH ×3 (08:50→21:21)
[2021-01-13] MEDS: nystatin 15 GM powder TP SCH ×3 (08:51→21:00)
[2021-01-13] MEDS: clopidogrel 75mg tablet PO SCH (08:51)
[2021-01-13] MEDS: amLODIPine 2.5mg tablet PO SCH (08:51)
[2021-01-13] MEDS: nicotine 7mg patch - 24hr TD SCH (08:51)
[2021-01-13] MEDS: acetaminophen 325mg tablet PO PRN (08:52)
--- NOTE | 2021-01-13 13:59 | NUR ---
We talked about Boundaries, the different kinds and how to communicate our boundaries to others. We read through a Personal Bill of Rights sheet, and they each discussed with rights they most identified with in order for them to develop their own bill of rights. Pt.engaged in the discussion when asked. Otherwise he was quiet but listened to his peers and this Accounts Payable Payroll Coordinator. He was alert and oriented X 4. His thought content and thought process was WNL. He reported that he resonated with "Having the right to say what he wanted". When this Accounts Payable Payroll Coordinator asked him to expand on this, he stated, "you know". This Accounts Payable Payroll Coordinator assured him that I didn't know and he reported that he wants to be able to say where he wants to go after discharge. This Write validated him that he does have the right to speak his mind. His demeanor was calm and compliant. Debbi Pate LCSW
--- NOTE | 2021-01-13 14:55 | NUR ---
Nursing Progress Note: Legal hold: Voluntary Client on voluntary for DTS Report received from nurse with use of SBAR: SAMANTA Casas Why are they here: Pt. was admitted on a 5150 for DTS. He was originally brought to the ER by EMS with c/o chest pain. Pt. has a hx of longstanding atypical chest pain with an extensive cardiac history. He also reported SOB and weakness, and uses a cane at home. Pt. was given a walker to use while in the hospital for safety precautions. Pt. had an EKG completed and ordered Troponins were negative. Pt. is followed by the cream buyer Dr. Aranda. While at the hospital, pt. reported S/I with a plan to jump in front of a car or off a bridge. He also endorsed a previous S/A in [place] several years ago. When questioned by this loan underwriter regarding the cause for his current S/I, pt. was unable to articulate this, but did admit that he does not have a good support system and lack of resources. Pt. is currently living at a intermediate called [facility], but he reports he does not like it there. Pt. also admits to command A/V/AMEZCUA at times which tell him to hurt himself. Assessment What has happened this shift: Received pt. sleeping in bed at the beginning of the shift, Cpap in place (this was later removed from room for safety precautions). Pt. awoke and attended breakfast in the Group Room, afterwards he sat up in the Recreation Room watching TV as is his routine. 1:1 completed, pt. continues to report ongoing S/I with a plan to jump off a bridge or in front of a car. He questions this loan underwriter, "Why am I still feeling this way?" PRN Ativan administered with effectiveness, and endorsed to Dr. Chaney. Pt. then changes the subject, and begins making requests regarding immediate things he would like to have done for him (coffee, shower, shaving). Pt. can be intrusive at times and will question multiple staff member hoping for different answers, redirection and boundaries were given with effectiveness. Pt. was able to shower independently and attended group, he remained up throughout the day watching TV as is his routine. Pt. continues to have minimal swelling to his left arm, however denies any pain at area and no increased redness or warmth noted. Ultrasound results show no s/s of thrombosis. Dr. Harley evaluated area and reports no concerns at this time, just continue to monitor area. No new orders obtained at this time, will endorse to Noc shift. Pt. continues on Keflex 500mg TID, and is tolerating well. S/I, H/I: Pt. reports ongoing S/I with a plan to jump off a bridge or in front of a car. Denies H/I A/VH: Pt. continues to report command A/AMEZCUA that tell him to hurt himself. Also V/AMEZCUA of relatives. Sleep: Recorded sleep hours are 6.75, pt. continues to use Cpap with effectiveness ADL's: Pt. reports minimal assistance to completed ADLs, uses FWW Group attendance: Yes Any med S/E None Mental Status Exam Appearance: Neat and appropriately dressed, pt. showered today Eye contact: Fair, remains focused on the TV Behavior: Cooperative and guarded Speech: Somewhat gruff and guarded Mood: Guarded and demanding at times, however pleasant Affect: Blunted Thought process: Linear Thought Content: S/I r/t discharge plan still having some ambiguities Cognition: A&O X4 Insight: Fair Judgment: Fair Interventions PRN's used: Ativan and Tylenol Therapeutic interventions: Maintained a safe and supportive environment, ensured contract for safety, provided clear and simple instructions, encouraged participation on the unit and independent performance of ADLs, provided redirection and boundaries as needed, and maintained Q 15min safety checks. Restraints/seclusion/emergency medication: N/A Justification of Continued Inpatient Treatment: Per Dr. Chaney, pt. continues to require a safe and supportive environment while SW is working on finding him placement.
[2021-01-13 16:20] VITALS: BP 120/60
[2021-01-13] MEDS: furosemide 20MG tablet PO SCH (16:24)
[2021-01-13 20:33] VITALS: BP 98/54
[2021-01-13] MEDS: zolpidem 5mg tablet PO PRN (21:20)
--- NOTE | 2021-01-14 01:59 | NUR ---
Nursing Progress Note: Legal hold: Voluntary Client on voluntary for DTS Report received from nurse with use of SBAR: SAMANTA Be Why are they here: Pt. was admitted on a 5150 for DTS. He was originally brought to the ER by EMS with c/o chest pain. Pt. has a hx of longstanding atypical chest pain with an extensive cardiac history. He also reported SOB and weakness, and uses a cane at home. Pt. was given a walker to use while in the hospital for safety precautions. Pt. had an EKG completed and ordered Troponins were negative. Pt. is followed by the counter clerk Dr. Aranda. While at the hospital, pt. reported S/I with a plan to jump in front of a car or off a bridge. He also endorsed a previous S/A in [place] several years ago. When questioned by this database report writer regarding the cause for his current S/I, pt. was unable to articulate this, but did admit that he does not have a good support system and lack of resources. Pt. is currently living at a retirement called [facility], but he reports he does not like it there. Pt. also admits to command A/V/AMEZCUA at times which tell him to hurt himself. Assessment What has happened this shift: Received pt. Sitting in rec room at the beginning of the shift. 1:1 completed, pt. continues to report ongoing S/I with a plan to jump off a bridge or in front of a car. Pt was med compliant . Cpap set up in pt room at bed time. S/I, H/I: Pt. reports ongoing S/I with a plan to jump off a bridge or in front of a car. Denies H/I A/VH: Pt. continues to report command A/AMEZCUA that tell him to hurt himself. Also V/AMEZCUA of relatives. Sleep: See sleep hrs. ADL's: Pt. reports minimal assistance to completed ADLs, uses FWW Group attendance: Yes Any med S/E None Mental Status Exam Appearance: Neat and appropriately dressed, pt. showered today Eye contact: Fair, remains focused on the TV Behavior: Cooperative and guarded Speech: Somewhat gruff and guarded Mood: Guarded and demanding at times, however pleasant Affect: Blunted Thought process: Linear Thought Content: S/I r/t discharge plan still having some ambiguities Cognition: A&O X4 Insight: Fair Judgment: Fair Interventions PRN's used: Ativan and Tylenol Therapeutic interventions: Maintained a safe and supportive environment, ensured contract for safety, provided clear and simple instructions, encouraged participation on the unit and independent performance of ADLs, provided redirection and boundaries as needed, and maintained Q 15min safety checks. Restraints/seclusion/emergency medication: N/A Justification of Continued Inpatient Treatment: Per Dr. Chaney, pt. continues to require a safe and supportive environment while SW is working on finding him placement.
[2021-01-14] MEDS: albuterol 2.5 MG/3 ML nebule NEB SCH ×4 (02:16→20:36)
[2021-01-14] MEDS: nicotine 7mg patch - 24hr TD SCH (08:27)
[2021-01-14] MEDS: gabapentin 300mg capsule PO SCH ×2 (08:27→21:35)
[2021-01-14] MEDS: cephalexin 500mg capsule PO SCH ×3 (08:27→21:35)
[2021-01-14] MEDS: lisinopril 10 MG tablet PO SCH ×2 (08:28→20:00)
[2021-01-14] MEDS: risperiDONE 2mg tablet PO SCH ×2 (08:28→21:35)
[2021-01-14] MEDS: amiodarone 200mg tablet PO SCH ×2 (08:28→21:36)
[2021-01-14] MEDS: clopidogrel 75mg tablet PO SCH (08:29)
[2021-01-14] MEDS: amLODIPine 2.5mg tablet PO SCH (08:29)
[2021-01-14] MEDS: furosemide 40mg tablet PO SCH (08:29)
[2021-01-14] MEDS: carVEDilol 3.125mg tablet PO SCH ×2 (08:29→20:00)
[2021-01-14] MEDS: apixaban 5mg tablet PO SCH ×2 (08:29→21:36)
[2021-01-14] MEDS: thiamine 100mg tablet PO SCH (08:29)
[2021-01-14] MEDS: atorvastatin 20mg tablet PO SCH (08:29)
[2021-01-14] MEDS: sertraline 50mg tablet PO SCH (08:29)
[2021-01-14 08:30] VITALS: BP 105/65
[2021-01-14] MEDS: nystatin 15 GM powder TP SCH ×3 (08:30→21:36)
[2021-01-14] MEDS: budesonide 0.5mg/2ml UD nebule IH SCH ×2 (08:45→20:37)
[2021-01-14] MEDS: LORazepam 1 MG tablet PO PRN (09:03)
--- NOTE | 2021-01-14 14:47 | NUR ---
Keflex 500mg TID order did not indicate a stop date. Confirmed with Dr. Chaney to complete a 10 day dose of antibiotic.
--- NOTE | 2021-01-14 15:20 | NUR ---
Pt. attended group today. We talked about how to recognize when you are in a Co-dependent relationship. They also did a worksheet where they had to fill out their Strengths and Qualities about themselves in order to focus on what they do well or what they like about themselves. Pt. was relatively quiet today in group but he did share in group about what he feels his strengths are. He feels he is loyal. He was alert and oriented X 4. His thought content and thought process was WNL. He appeared to be enjoying socializing and talked a lot with his peer who was sitting at the table with him. He explained that they have been playing chess together. His mood appeared good with a full range of affect. MAISHA SteinW
--- NOTE | 2021-01-14 15:42 | NUR ---
Nursing Progress Note: MELINA Legal hold: Voluntary Client on voluntary for DTS Report received from nurse with use of SBAR: TRINIDAD Hidalgo. Why are they here: Pt. was admitted on a 5150 for DTS. He was originally brought to the ER by EMS with c/o chest pain. Pt. has a hx of longstanding atypical chest pain with an extensive cardiac history. He also reported SOB and weakness, and uses a cane at home. Pt. was given a walker to use while in the hospital for safety precautions. Pt. had an EKG completed and ordered Troponins were negative. Pt. is followed by the courtesy clerk Dr. Aranda. While at the hospital, pt. reported S/I with a plan to jump in front of a car or off a bridge. He also endorsed a previous S/A in [place] several years ago. When questioned by this song writer regarding the cause for his current S/I, pt. was unable to articulate this, but did admit that he does not have a good support system and lack of resources. Pt. is currently living at a shelter called [email or web address], but he reports he does not like it there. Pt. also admits to command A/V/AMEZCUA at times which tell him to hurt himself. Assessment What has happened this shift: Received patient sleeping at shift change. Noted Cpap appropriately in place and not distress noted. Pt woke and ambulated to breakfast with FWW. Pt remained in community room and played a game of chess with a peer, no agitation or anxiety noted. Pt was compliant with care and medication. Pt was noted watching T.V in rec room, came out to RN and said I am having really bad suicidal thoughts. Pt requested PRN Ativan. Pt did not appear to be anxious and RN encouraged coping skills then administered Ativan. Pt remained out of his room most of the day watching T.V as is his daily routine. Affect seems brighter than previous shifts. S/I, H/I: Pt. reports ongoing S/I with a plan to jump off a bridge or in front of a car. Denies H/I A/VH: Reports A/H better today. Sleep: 6.25 hours per sleep assessment. Cpap at HS. ADL's: Independent. Uses FWW. Group attendance: Yes Any med S/E None reported or observed. Mental Status Exam Appearance: Neat and appropriately dressed, pt. showered today Eye contact: Fair, remains focused on the TV Behavior: Cooperative and guarded Speech: Clear, normal rate/rhythm. Mood: Guarded and demanding at times, however pleasant Affect: Blunted Thought process: Linear Thought Content: S/I r/t discharge. Cognition: A&O X4 Insight: Fair Judgment: Fair Interventions PRN's used: Ativan Therapeutic interventions: Maintained a safe and supportive environment, ensured contract for safety, provided clear and simple instructions, encouraged participation on the unit and independent performance of ADLs, provided redirection and boundaries as needed, and maintained Q 15min safety checks. Restraints/seclusion/emergency medication: N/A Justification of Continued Inpatient Treatment: Per Dr. Chaney, pt. continues to require a safe and supportive environment while SW is working on finding him placement.
[2021-01-14 16:49] VITALS: BP 106/58
[2021-01-14] MEDS: furosemide 20MG tablet PO SCH (16:57)
[2021-01-14] MEDS ORDERED: COR3.125T PO (18:36)
[2021-01-14] MEDS ORDERED: RISP3TAB63 PO (18:36)
[2021-01-14] MEDS ORDERED: LACT1CAP26 PO (18:36)
[2021-01-14] MEDS ORDERED: CEPH-585 PO (18:36)
[2021-01-14] MEDS ORDERED: ATI1T PO (18:36)
[2021-01-14] MEDS ORDERED: ZOLP5TAB8 PO (18:36)
[2021-01-14] MEDS ORDERED: FURO40TA4 PO (18:36)
[2021-01-14] MEDS ORDERED: ATOR40TA71 PO (18:36)
[2021-01-14] MEDS ORDERED: thiamine tablet PO (18:36)
[2021-01-14] MEDS ORDERED: AMIO200T67 PO (18:36)
[2021-01-14] MEDS ORDERED: NICO-630 TD (18:36)
[2021-01-14] MEDS ORDERED: NYSPWD TP (18:36)
[2021-01-14] MEDS ORDERED: APIX5TAB3 PO (18:36)
[2021-01-14] MEDS ORDERED: CLOP75TA34 PO (18:36)
[2021-01-14] MEDS ORDERED: SERT-433 PO (18:36)
[2021-01-14] MEDS ORDERED: BUDE10.22 INH (18:36)
[2021-01-14] MEDS ORDERED: ALBU8.5H17 IH (18:36)
[2021-01-14] MEDS ORDERED: AMLO2.5T5 PO (18:36)
[2021-01-14] MEDS ORDERED: gabapentin capsule PO (18:36)
[2021-01-14] MEDS ORDERED: NICO-668 BC (18:36)
[2021-01-14] MEDS ORDERED: LISI10TA27 PO (18:36)
[2021-01-14 20:32] VITALS: BP 107/55
[2021-01-14 21:10] VITALS: BP 100/58
[2021-01-14] MEDS: lactobacillus rhamnosus 10,000 MMU CELLS/CAPSULE PO SCH (21:34)
[2021-01-14] MEDS: zolpidem 5mg tablet PO PRN (21:35)
[2021-01-15] MEDS: albuterol 2.5 MG/3 ML nebule NEB SCH ×2 (02:45→09:03)
--- NOTE | 2021-01-15 03:34 | NUR ---
Nursing Progress Note: Legal hold: Voluntary Client on voluntary for DTS Report received from nurse with use of SBAR: TRINIDAD Be. Why are they here: Pt. was admitted on a 5150 for DTS. He was originally brought to the ER by EMS with c/o chest pain. Pt. has a hx of longstanding atypical chest pain with an extensive cardiac history. He also reported SOB and weakness, and uses a cane at home. Pt. was given a walker to use while in the hospital for safety precautions. Pt. had an EKG completed and ordered Troponins were negative. Pt. is followed by the natural fabricator Dr. Aranda. While at the hospital, pt. reported S/I with a plan to jump in front of a car or off a bridge. He also endorsed a previous S/A in [place] several years ago. When questioned by this telegraphic typewriter operator regarding the cause for his current S/I, pt. was unable to articulate this, but did admit that he does not have a good support system and lack of resources. Pt. is currently living at a longterm called [facility], but he reports he does not like it there. Pt. also admits to command A/V/AMEZCUA at times which tell him to hurt himself. Assessment What has happened this shift: Pt spends all shift watching TV and conversing with a fellow patient until bed time. He endorses SI, AH and VH but his affect is brighter than previous shifts. Pt states I wont go home if I have SI. I told Dr. Chaney that I was experiencing suicidal thoughts. So, I hope he understands that. Pt is observed to laugh and conversations with pt and RN are linear. When asked about discharge plans pt states They are working on it because I dont want [facility] anymore. Groin rash cleaned and dried and new Nystatin powder applied. Pt coreg and Lisinopril were held this evening due to low SBP and HR. S/I, H/I: +SI with a plan to jump off a bridge or in front of a car. A/VH: +AH and + VH, unable to clarify whether improvement or not and state the voices tell him to harm himself. He states they are better, I guess. Pt is not observed to be responding to IS. Sleep: See Sleep Assessment ADL's: Independent. Uses FWW. Group attendance: N/A Any med S/E None reported or observed. Mental Status Exam Appearance: Neat and appropriately dressed Eye contact: Fair, remains focused on the TV Behavior: Cooperative and guarded Speech: Clear, normal rate/rhythm. Mood: Guarded and demanding at times, however pleasant Affect: Blunted with more frequent appropriate brightening Thought process: Linear Thought Content: SI r/t discharging Cognition: A&O X4 Insight: Fair Judgment: Fair to good Interventions PRN's used: None Therapeutic interventions: Maintained a safe and supportive environment, ensured contract for safety, provided clear and simple instructions, encouraged participation on the unit and independent performance of ADLs, provided redirection and boundaries as needed, and maintained Q 15min safety checks. Restraints/seclusion/emergency medication: N/A Justification of Continued Inpatient Treatment: Per Dr. Chaney, pt. continues to require a safe and supportive environment while SW is working on finding him placement.
[2021-01-15 07:30] VITALS: BP 121/57
[2021-01-15] MEDS: lactobacillus rhamnosus 10,000 MMU CELLS/CAPSULE PO SCH (08:40)
[2021-01-15] MEDS: risperiDONE 2mg tablet PO SCH (08:41)
[2021-01-15] MEDS: thiamine 100mg tablet PO SCH (08:41)
[2021-01-15] MEDS: cephalexin 500mg capsule PO SCH (08:41)
[2021-01-15] MEDS: apixaban 5mg tablet PO SCH (08:41)
[2021-01-15] MEDS: carVEDilol 3.125mg tablet PO SCH (08:41)
[2021-01-15] MEDS: furosemide 40mg tablet PO SCH (08:41)
[2021-01-15 08:42] VITALS: BP_SYST 121
[2021-01-15] MEDS: amiodarone 200mg tablet PO SCH (08:42)
[2021-01-15] MEDS: atorvastatin 20mg tablet PO SCH (08:42)
[2021-01-15] MEDS: clopidogrel 75mg tablet PO SCH (08:42)
[2021-01-15] MEDS: gabapentin 300mg capsule PO SCH (08:42)
[2021-01-15] MEDS: lisinopril 10 MG tablet PO SCH (08:42)
[2021-01-15] MEDS: sertraline 50mg tablet PO SCH (08:42)
[2021-01-15] MEDS: amLODIPine 2.5mg tablet PO SCH (08:42)
[2021-01-15] MEDS: acetaminophen 325mg tablet PO PRN (08:43)
[2021-01-15] MEDS: nicotine 7mg patch - 24hr TD SCH (08:48)
[2021-01-15] MEDS: budesonide 0.5mg/2ml UD nebule IH SCH (09:02)
[2021-01-15] MEDS: nystatin 15 GM powder TP SCH (09:13)
--- NOTE | 2021-01-15 11:22 | NUR ---
DISCHARGE NOTE: Pt was discharged at 1120. He ambulated off the unit accompanied by PCT. Pt's conservator Humberto picked him up and will transport him to his accountant clerk appointment with Dr Aranda today at 1300, he then will take him to a [employer]. Pt's prescriptions were called into [facility] on [address]. All belongings pt had on the unit returned to pt. Pt was stopping down the assistant front office manager in the lobby to get the belongings that were being held in the safe down there.
== END 2021-01-15 11:20 | disposition home or self-care (01) | DRG 885 ==
LOC: ADULT MH 01-01 11:07
PROVIDERS: ADMIT Psychiatry & Neurology Psychiatry; ATTEND Psychiatry & Neurology Psychiatry
PROC: 5A09357 Assistance with Respiratory Ventilation, Less than 24 Consecutive Hours, Continuous Positive Airway Pressure (ICD-10-PCS; principal; 2021-01-02)
PROC: 5A09357 Assistance with Respiratory Ventilation, Less than 24 Consecutive Hours, Continuous Positive Airway Pressure (ICD-10-PCS; 2021-01-03)
PROC: 5A09357 Assistance with Respiratory Ventilation, Less than 24 Consecutive Hours, Continuous Positive Airway Pressure (ICD-10-PCS; 2021-01-04)
PROC: 5A09357 Assistance with Respiratory Ventilation, Less than 24 Consecutive Hours, Continuous Positive Airway Pressure (ICD-10-PCS; 2021-01-05)
PROC: 5A09357 Assistance with Respiratory Ventilation, Less than 24 Consecutive Hours, Continuous Positive Airway Pressure (ICD-10-PCS; 2021-01-06)
PROC: 5A09357 Assistance with Respiratory Ventilation, Less than 24 Consecutive Hours, Continuous Positive Airway Pressure (ICD-10-PCS; 2021-01-07)
PROC: 5A09357 Assistance with Respiratory Ventilation, Less than 24 Consecutive Hours, Continuous Positive Airway Pressure (ICD-10-PCS; 2021-01-08)
PROC: 5A09357 Assistance with Respiratory Ventilation, Less than 24 Consecutive Hours, Continuous Positive Airway Pressure (ICD-10-PCS; 2021-01-09)
PROC: 5A09357 Assistance with Respiratory Ventilation, Less than 24 Consecutive Hours, Continuous Positive Airway Pressure (ICD-10-PCS; 2021-01-10)
PROC: 5A09357 Assistance with Respiratory Ventilation, Less than 24 Consecutive Hours, Continuous Positive Airway Pressure (ICD-10-PCS; 2021-01-11)
PROC: 5A09357 Assistance with Respiratory Ventilation, Less than 24 Consecutive Hours, Continuous Positive Airway Pressure (ICD-10-PCS; 2021-01-12)
PROC: 5A09357 Assistance with Respiratory Ventilation, Less than 24 Consecutive Hours, Continuous Positive Airway Pressure (ICD-10-PCS; 2021-01-13)
PROC: 5A09357 Assistance with Respiratory Ventilation, Less than 24 Consecutive Hours, Continuous Positive Airway Pressure (ICD-10-PCS; 2021-01-14)
PROC: 5A09357 Assistance with Respiratory Ventilation, Less than 24 Consecutive Hours, Continuous Positive Airway Pressure (ICD-10-PCS; 2021-01-15)
DX: F33.3 Major depressive disorder, recurrent, severe with psychotic symptoms (principal); R45.851 Suicidal ideations; E78.5 Hyperlipidemia, unspecified; F17.210 Nicotine dependence, cigarettes, uncomplicated; G47.33 Obstructive sleep apnea (adult) (pediatric); I11.0 Hypertensive heart disease with heart failure; E66.9 Obesity, unspecified; I25.10 Atherosclerotic heart disease of native coronary artery without angina pectoris; I48.0 Paroxysmal atrial fibrillation; I50.9 Heart failure, unspecified; J44.9 Chronic obstructive pulmonary disease, unspecified; Z95.1 Presence of aortocoronary bypass graft; Z68.36 Body mass index [BMI] 36.0-36.9, adult; Z79.02 Long term (current) use of antithrombotics/antiplatelets; Z71.6 Tobacco abuse counseling
CPT/HCPCS: 36415; 71045; 80053; 80061; 80305; 80320; 83036; 83880; 84484; 85025; 87081; 87635; 93005; 93971; 94640; 94660; 94760; C9803; J7626

== ENCOUNTER 2021-02-02 18:20 | Emergency (ER) | payer MEDICARE ==
[~2021-02-02] VITALS: Ht 190.5 cm; Wt 125.0 kg
[~2021-02-02 18:20] MED LIST changes: -AMIO200T62 PO; +AMIO200T67 PO; -AMLO2.5T21 PO; +AMLO2.5T5 PO; -ASPI-611 PO; +ATI1T PO; -ATOR40TA PO; +ATOR40TA71 PO; -CARV3.12 PO; +CEPH-585 PO; +CLOP75TA34 PO; +COR3.125T PO; -GABA-530 PO; -ISOS30TA84 PO; +LACT1CAP26 PO; +NICO-630 TD; +NICO-668 BC; +NYSPWD TP; +RISP3TAB63 PO; +SERT-433 PO; -THIA50TA10 PO; +ZOLP5TAB8 PO; +gabapentin capsule PO; +thiamine tablet PO
[2021-02-02 20:07] VITALS: BP 161/72
[2021-02-03 07:07] LABS: BASOPHILS # (AUTO) 0.1 X10'3 (0-0.2); BASOPHILS % (AUTO) 0.7 % (0-1); EOSINOPHILS # (AUTO) 0.2 X10'3 (0-0.9); EOSINOPHILS % (AUTO) 2.5 % (0-6); HEMATOCRIT 42.3 % (42.0-52.0); LYMPHOCYTES # (AUTO) 1.4 X10'3 (1.1-4.8); LYMPHOCYTES % (AUTO) 15.7 % (21-51); MEAN CORPUSCULAR HEMOGLOBIN 32.3 PG (27.0-31.0); MEAN CORPUSCULAR HGB CONC 33.1 g/dL (33.0-36.5); MEAN CORPUSCULAR VOLUME 97.7 FL (78-98); MEAN PLATELET VOLUME 8.5 FL (7.4-10.4); MONOCYTES # (AUTO) 1.2 X10'3 (0-0.9); MONOCYTES % (AUTO) 13.5 % (2-12); NEUTROPHILS # (AUTO) 6.2 X10'3 (1.8-7.7); NEUTROPHILS % (AUTO) 67.6 % (42-75); PLATELET COUNT 189 X10'3 (140-440); RED BLOOD COUNT 4.33 X10'6 (4.70-6.10); WHITE BLOOD COUNT 9.1 X10'3 (4.5-11.0)
--- NOTE | 2021-02-03 07:24 | NUR ---
URINE STRAW IN COLOR, 800CC FRO SOSA CATH
[2021-02-03 07:29] LABS: ALBUMIN 3.4 G/DL (3.4-5.0); ANION GAP 9 (8-16); BLOOD UREA NITROGEN 20 MG/DL (7-18); CALCIUM 8.2 MG/DL (8.5-10.1); CHLORIDE 109 MMOL/L (99-107); CREATININE 0.87 MG/DL (0.60-1.10); GLUCOSE 112 MG/DL (70-104); POTASSIUM 3.8 MMOL/L (3.5-5.1); SODIUM 144 MMOL/L (135-145); TROPONIN I < 0.04 NG/ML (0.0-0.05); eGFR 87 ML/MIN
== END 2021-02-03 08:21 | disposition home or self-care (01) ==
LOC: ER 18:21
DX: R60.9 Edema, unspecified (principal); M79.604 Pain in right leg; M79.605 Pain in left leg; M54.2 Cervicalgia; R26.89 Other abnormalities of gait and mobility; R53.1 Weakness; I48.91 Unspecified atrial fibrillation; I25.10 Atherosclerotic heart disease of native coronary artery without angina pectoris; I11.0 Hypertensive heart disease with heart failure; I50.9 Heart failure, unspecified; I25.2 Old myocardial infarction; J44.9 Chronic obstructive pulmonary disease, unspecified; Z95.5 Presence of coronary angioplasty implant and graft; Z79.01 Long term (current) use of anticoagulants; Z56.0 Unemployment, unspecified; Z59.0 Homelessness; Z79.899 Other long term (current) drug therapy; Z79.2 Long term (current) use of antibiotics
CPT/HCPCS: 36415; 80048; 83880; 84484; 85025; 93005; 99284

== ENCOUNTER 2021-02-10 23:40 | Emergency (ER) | payer MEDICARE ==
[~2021-02-10] VITALS: Ht 190.5 cm; Wt 131.8 kg
[2021-02-11 00:20] VITALS: BP 166/87
[2021-02-11] MEDS ORDERED: FURO-150 PO (00:47)
[2021-02-11] MEDS ORDERED: POTA10TA36 PO (00:47)
[2021-02-11] MEDS ORDERED: CEPH-585 PO (00:47)
== END 2021-02-11 02:58 | disposition home or self-care (01) ==
LOC: ER 23:40
DX: L02.416 Cutaneous abscess of left lower limb (principal); L02.415 Cutaneous abscess of right lower limb; L03.116 Cellulitis of left lower limb; L03.115 Cellulitis of right lower limb; R60.9 Edema, unspecified; Z76.0 Encounter for issue of repeat prescription; I11.0 Hypertensive heart disease with heart failure; I50.9 Heart failure, unspecified; I48.91 Unspecified atrial fibrillation; I25.10 Atherosclerotic heart disease of native coronary artery without angina pectoris; I25.2 Old myocardial infarction; J44.9 Chronic obstructive pulmonary disease, unspecified; Z95.5 Presence of coronary angioplasty implant and graft; Z56.0 Unemployment, unspecified; Z59.0 Homelessness
CPT/HCPCS: 99283

== ENCOUNTER 2021-03-17 19:55 | Emergency (ER) | payer MEDICARE ==
[~2021-03-17] VITALS: Ht 190.5 cm; Wt 136.4 kg
[~2021-03-17 19:55] MED LIST changes: -ALBU8.5H17 IH; +ALBU8HFA IH; +AMIO200T61 PO; -AMIO200T67 PO; +AMOX-422 PO; -ATI1T PO; -ATOR40TA71 PO; +ATOR40TA72 PO; +CARV3.122 PO; -CEPH-585 PO; -CLOP75TA15 PO; -CLOP75TA34 PO; -COR3.125T PO; +FURO80TA3 PO; -LACT1CAP26 PO; +LORA-269 PO; -NICO-630 TD; -NICO-668 BC; +POTA10TA PO; -SERT-433 PO; +SERT-434 PO; -gabapentin capsule PO; -thiamine tablet PO
--- NOTE | 2021-03-17 20:21 | NUR ---
DR PATEL AWARE OF PT'S LOW BP
[2021-03-17 20:25] LABS: BASOPHILS % (AUTO) 0.3 % (0-1); HEMOGLOBIN 12.7 g/dl (14.0-17.9); RED CELL DISTRIBUTION WIDTH 14.7 % (11.5-14.5)
[2021-03-17] MEDS ORDERED: normal saline 1000ML IV soln IV ONE (20:25)
[2021-03-17 20:27] LABS: EOSINOPHILS # (AUTO) 0.3 X10'3 (0-0.9); EOSINOPHILS % (AUTO) 2.3 % (0-6); HEMATOCRIT 38.8 % (42.0-52.0); LYMPHOCYTES # (AUTO) 1.4 X10'3 (1.1-4.8); LYMPHOCYTES % (AUTO) 9.5 % (21-51); MEAN CORPUSCULAR HEMOGLOBIN 29.9 PG (27.0-31.0); MEAN CORPUSCULAR HGB CONC 32.8 g/dL (33.0-36.5); MEAN CORPUSCULAR VOLUME 91.4 FL (78-98); MEAN PLATELET VOLUME 8.2 FL (7.4-10.4); MONOCYTES # (AUTO) 1.8 X10'3 (0-0.9); MONOCYTES % (AUTO) 12.3 % (2-12); NEUTROPHILS # (AUTO) 11.3 X10'3 (1.8-7.7); NEUTROPHILS % (AUTO) 75.6 % (42-75); PLATELET COUNT 209 X10'3 (140-440); RED BLOOD COUNT 4.25 X10'6 (4.70-6.10)
[2021-03-17 20:40] LABS: ALANINE AMINOTRANSFERASE 49 U/L (12-78); ALBUMIN 2.8 G/DL (3.4-5.0); ALBUMIN/GLOBULIN RATIO 0.8 (1.1-1.5); ALKALINE PHOSPHATASE 88 IU/L (46-116); ANION GAP 7 (8-16); ASPARTATE AMINO TRANSFERASE 11 U/L (10-37); BILIRUBIN,TOTAL 0.4 MG/DL (0.1-1.0); BLOOD UREA NITROGEN 39 MG/DL (7-18); BUN/CREATININE RATIO 28.3 (5.4-32.0); CALCIUM 8.4 MG/DL (8.5-10.1); CHLORIDE 102 MMOL/L (99-107); CREATININE 1.38 MG/DL (0.60-1.10); GLUCOSE 146 MG/DL (70-104); POTASSIUM 3.5 MMOL/L (3.5-5.1); SODIUM 141 MMOL/L (135-145); TOTAL CARBON DIOXIDE 32.5 MMOL/L (24-32); TOTAL PROTEIN 6.5 G/DL (6.4-8.2); eGFR 51 ML/MIN
[2021-03-17 21:24] LABS: ETHANOL < 0.010 GM/DL (0.0-0.010)
[2021-03-17] MEDS ORDERED: amox tr/potassium clavulanate 875/125mg TAB PO ONE (21:30)
--- NOTE | 2021-03-17 21:40 | NUR ---
PT ON SECOND LITER OF FLUIDS. HE DOES NOT WANT TO URINATE. HE REFUSED A STRAIGHT CATHETER. HE REPORTED HE WILL ATTEMPT TO PROVIDE A URINE SAMPLE IN 15 MINUTES
--- NOTE | 2021-03-17 22:15 | NUR ---
Put pt on RA per Dr. Garcia.
--- NOTE | 2021-03-17 22:39 | NUR ---
Placed pt back on 4L NC per Dr. Garcia.
--- NOTE | 2021-03-17 23:03 | NUR ---
PT NOW PROVIDED URINE SAMPLE
[2021-03-17 23:38] LABS: URINE AMPHETAMINE SCREEN NEGATIVE (Neg); URINE BARBITUATE SCREEN NEGATIVE (Neg); URINE BENZODIAZEPINES SCREEN NEGATIVE (Neg); URINE CANNABINOID SCREEN NEGATIVE (Neg); URINE COCAINE SCREEN NEGATIVE (Neg); URINE METHADONE SCREEN NEGATIVE (Neg); URINE OPIATE SCREEN NEGATIVE (Neg); URINE PHENCYCLIDINE SCREEN NEGATIVE (Neg)
[2021-03-17 23:49] LABS: CLARITY,URINE CLEAR (Clear); COLOR,URINE Yellow (Yellow); UA COLLECTION TYPE CLN CATCH MIDSTREAM
[2021-03-17 23:50] LABS: GLUCOSE, URINE Negative (Neg); KETONES,URINE TRACE mg/dl (Neg); LEUKOCYTE ESTERASE ,URINE NEGATIVE (Neg); NITRITES, URINE NEGATIVE (Neg); OCCULT BLOOD,URINE NEGATIVE (Neg); PROTEIN,URINE Negative (Neg); UROBILINOGEN,URINE 0.2 E.U/dL (0.2-1.0)
[2021-03-18 02:17] VITALS: BP 103/64
--- NOTE | 2021-03-18 02:17 | NUR ---
CALLED [facility], ETA [phone]
[2021-03-19] MEDS ORDERED: NO HOME MEDS (03:28)
== END 2021-03-18 02:11 | disposition home or self-care (01) ==
LOC: ER 19:56
DX: S20.212A Contusion of left front wall of thorax, initial encounter (principal); E86.0 Dehydration; R42 Dizziness and giddiness; I48.91 Unspecified atrial fibrillation; I25.2 Old myocardial infarction; I11.0 Hypertensive heart disease with heart failure; I50.9 Heart failure, unspecified; F17.200 Nicotine dependence, unspecified, uncomplicated; I25.10 Atherosclerotic heart disease of native coronary artery without angina pectoris; J44.9 Chronic obstructive pulmonary disease, unspecified; Z95.5 Presence of coronary angioplasty implant and graft; Z56.0 Unemployment, unspecified; Z79.2 Long term (current) use of antibiotics; Z79.899 Other long term (current) drug therapy; W05.0XXA Fall from non-moving wheelchair, initial encounter; Z91.81 History of falling; Y93.89 Activity, other specified; Y92.89 Other specified places as the place of occurrence of the external cause; Y99.8 Other external cause status
CPT/HCPCS: 96360; 99285; J7030; 36415; 71045; 80053; 80305; 80320; 81003; 83605; 83735; 83880; 84145; 84484; 85025; 87040; 93005

== ENCOUNTER 2021-03-19 01:05 | Inpatient (IN) | payer MEDICARE ==
[~2021-03-19] VITALS: Ht 190.5 cm; Wt 136.4 kg
[2021-03-19] MEDS ORDERED: iohexol 300mg/ml 100ml inj. ONE (01:35)
--- NOTE | 2021-03-19 01:47 | NUR ---
bed bath was given
[2021-03-19 01:52] LABS: BASOPHILS % (AUTO) 0.3 % (0-1); EOSINOPHILS # (AUTO) 0.5 X10'3 (0-0.9); HEMATOCRIT 40.4 % (42.0-52.0); HEMOGLOBIN 13.2 g/dl (14.0-17.9); LYMPHOCYTES # (AUTO) 1.5 X10'3 (1.1-4.8); LYMPHOCYTES % (AUTO) 12.1 % (21-51); MEAN CORPUSCULAR HEMOGLOBIN 29.4 PG (27.0-31.0); MEAN CORPUSCULAR HGB CONC 32.7 g/dL (33.0-36.5); MEAN CORPUSCULAR VOLUME 90.1 FL (78-98); MEAN PLATELET VOLUME 7.9 FL (7.4-10.4); MONOCYTES # (AUTO) 1.3 X10'3 (0-0.9); NEUTROPHILS # (AUTO) 9.3 X10'3 (1.8-7.7); NEUTROPHILS % (AUTO) 73.6 % (42-75); PLATELET COUNT 200 X10'3 (140-440); RED BLOOD COUNT 4.49 X10'6 (4.70-6.10); RED CELL DISTRIBUTION WIDTH 14.8 % (11.5-14.5); WHITE BLOOD COUNT 12.6 X10'3 (4.5-11.0)
[2021-03-19 02:15] LABS: ALANINE AMINOTRANSFERASE 50 U/L (12-78); ALBUMIN 2.8 G/DL (3.4-5.0); ALBUMIN/GLOBULIN RATIO 0.7 (1.1-1.5); ALKALINE PHOSPHATASE 97 IU/L (46-116); ANION GAP 5 (8-16); ASPARTATE AMINO TRANSFERASE 15 U/L (10-37); BILIRUBIN,DIRECT 0.2 MG/DL (0-0.3); BILIRUBIN,TOTAL 0.5 MG/DL (0.1-1.0); BLOOD UREA NITROGEN 21 MG/DL (7-18); BUN/CREATININE RATIO 26.9 (5.4-32.0); CALCIUM 8.5 MG/DL (8.5-10.1); CHLORIDE 103 MMOL/L (99-107); CREATININE 0.78 MG/DL (0.60-1.10); GLUCOSE 116 MG/DL (70-104); LIPASE < 50 U/L (73-393); POTASSIUM 3.9 MMOL/L (3.5-5.1); SODIUM 139 MMOL/L (135-145); TOTAL CARBON DIOXIDE 30.6 MMOL/L (24-32); TOTAL PROTEIN 6.6 G/DL (6.4-8.2); TROPONIN I < 0.04 NG/ML (0.0-0.05); eGFR > 90 ML/MIN
[2021-03-19] MEDS ORDERED: piperacillin/tazo 4.5gm/100ml 100 ML IV ONE (02:24)
[2021-03-19] MEDS ORDERED: NO HOME MEDS (03:28)
--- NOTE | 2021-03-19 03:28 | NUR ---
hes sitting EOB and requested a pain med, made aware
[2021-03-19] MEDS ORDERED: acetaminophen 325mg tablet PO ONE (03:35)
[2021-03-19] MEDS ORDERED: acetaminophen 325mg tablet PO PRN (04:05)
[2021-03-19] MEDS ORDERED: potassium Cl 40MEQ/1/2NS 520ml 520 ML IV PRN ×2 (04:05)
[2021-03-19] MEDS ORDERED: mag hydrox/Alum hydrox/simeth 30ml oral suspension PO PRN (04:05)
[2021-03-19] MEDS ORDERED: potassium Cl 20 mEq SR tablet PO PRN ×2 (04:05)
[2021-03-19] MEDS ORDERED: ondansetron/PF 4mg/2ml inj IV PRN (04:05)
[2021-03-19] MEDS ORDERED: magnesium hydroxide 30ml (MOM) UD suspension PO PRN (04:05)
[2021-03-19 04:22] LABS: ETHANOL < 0.010 GM/DL (0.0-0.010)
[2021-03-19] MEDS ORDERED: albuterol 2.5 MG/3 ML nebule NEB PRN (04:25)
[2021-03-19] MEDS: K and/or MAG REPLACEMENT MC SCH ×2 (07:53→19:51)
[2021-03-19] MEDS: docusate sod 100mg capsule PO SCH ×2 (08:00→19:46)
[2021-03-19] MEDS: heparin, porcine 5000 units/ml vial SQ SCH ×2 (08:00→19:48)
[2021-03-19] MEDS: CefTRIAXone/D5W-Rocephin 1gm 50 ML IV SCH (10:21)
--- NOTE | 2021-03-19 10:35 | NUR ---
PT. MAGDALENA TOLD HIS NURSE THAT HE WANTED TO TALK TO THE CHARGE NURSE. WHEN I ENTERED THE ROOM. PT. WAS SITTING ON THE SIDE OF HIS BED. PT. TOLD ME THAT HE HAD A $ 600 CHAIN THAT WAS MISSING. HE STATED IT WAS TAKEN OFF FOR A CT SCAN LAST NIGHT AND NOT RETURNED... HE SAID THAT HE HAD BEEN DOWN HERE ALL NIGHT AND WANTED A BED UPSTAIRS..... PT. STATES HE DOES NOT THINK THE NURSES ARE GIVING HIM THE "SERVICES" THAT HE WANTS..... I CALLED SECURITY AND ASKED THE PT. IF WE COULD GO THROUGH HIS BELONGING TO FIND THE CHAIN.. HE SAID YES. SECURITY AND MYSELF WENT THROUGH THE PT'S BELONGING. A SILVER COLORED CHAIN FELL FROM HIS CLOTHING ONTO THE FLOOR. THERE WAS ALSO A SILVER COLORED CROSS WITH SOME GOLD COLOR ON THE FRONT OF THE CROSS. CHAIN AND CROSS HANDED TO THE PT.... I EXPLAINED TO HIM THAT HE WAS ADMITED AND WE WERE WAITING FOR DISCHARGES UP STAIRS BEFORE WE COULD MOVE HIM UP.. I EXPLAINED TO THE PT. THAT KINDNESS WORKS BOTH DIRECTIONS. THE ER WAS NOT BUILT TO HOUSE ADMIT PT'S AND WE DID NOT HAVE ACCESS TO A KITCHEN OR SNACKS IN THE ER. I TOLD HIM THAT HE SEEMED TO BE PRETTY CRANKY AND THAT WE WOULD ARE VERY BEST TO FILL HIS REQUEST WITH IN REASON AND GET HIM UPSTAIRS SOON HUMANLY POSSIBLE
--- NOTE | 2021-03-19 18:50 | NUR ---
attempt to call rpt [phone]
--- NOTE | 2021-03-19 18:56 | NUR ---
Report called to Prudence RN; VSS upon transfer; explained plan for pt and noncompliance with wearing O2; pt in NAD upon transfer; no tele ordered
[2021-03-19] MEDS: HYDROcodone/acetaminophen 5mg/325mg tablet PO PRN (19:44)
[2021-03-19] MEDS: lactobacillus rhamnosus 10,000 MMU CELLS/CAPSULE PO SCH (19:45)
--- NOTE | 2021-03-19 19:57 | NUR ---
Patient in room ISABELLA 354. I have received report from Laney ENGLAND in ER and had the opportunity to ask questions and assume patient care. Patient in room resting and complaining of pain on the left side from a fall sustained at home. Pain medications administered per MD order. Will continue to monitor.
[2021-03-19 20:00] VITALS: BP 150/82
[2021-03-19 23:20] VITALS: BP 143/76
[2021-03-20] MEDS: HYDROcodone/acetaminophen 5mg/325mg tablet PO PRN ×3 (00:01→09:16)
--- NOTE | 2021-03-20 04:44 | NUR ---
Student documentation: I have reviewed and agree with all interventions, assessments performed and documented by Sherry guerrero.
--- NOTE | 2021-03-20 05:34 | NUR ---
Patient refused to have a MRSA nasal swab
--- NOTE | 2021-03-20 06:26 | NUR ---
Problems reprioritized. Patient report given, questions answered & plan of care reviewed with CANDY ENGLAND.
--- NOTE | 2021-03-20 06:37 | NUR ---
Patient in room ISABELLA 354. I have received report from SAMANTA Giron and had the opportunity to ask questions and assume patient care.
[2021-03-20 06:59] LABS: BASOPHILS # (AUTO) 0.1 X10'3 (0-0.2); BASOPHILS % (AUTO) 0.5 % (0-1); EOSINOPHILS # (AUTO) 0.5 X10'3 (0-0.9); EOSINOPHILS % (AUTO) 4.9 % (0-6); HEMATOCRIT 39.3 % (42.0-52.0); HEMOGLOBIN 12.5 g/dl (14.0-17.9); LYMPHOCYTES # (AUTO) 1.4 X10'3 (1.1-4.8); LYMPHOCYTES % (AUTO) 13.4 % (21-51); MEAN CORPUSCULAR HEMOGLOBIN 29.3 PG (27.0-31.0); MEAN CORPUSCULAR HGB CONC 31.9 g/dL (33.0-36.5); MEAN CORPUSCULAR VOLUME 91.8 FL (78-98); MEAN PLATELET VOLUME 8.6 FL (7.4-10.4); NEUTROPHILS # (AUTO) 7.3 X10'3 (1.8-7.7); NEUTROPHILS % (AUTO) 71.2 % (42-75); PLATELET COUNT 202 X10'3 (140-440); RED BLOOD COUNT 4.28 X10'6 (4.70-6.10); RED CELL DISTRIBUTION WIDTH 14.9 % (11.5-14.5); WHITE BLOOD COUNT 10.3 X10'3 (4.5-11.0)
[2021-03-20 07:00] VITALS: BP 140/60
[2021-03-20 07:18] LABS: ALANINE AMINOTRANSFERASE 39 U/L (12-78); ALBUMIN 2.8 G/DL (3.4-5.0); ALBUMIN/GLOBULIN RATIO 0.8 (1.1-1.5); ALKALINE PHOSPHATASE 98 IU/L (46-116); ANION GAP 8 (8-16); ASPARTATE AMINO TRANSFERASE 10 U/L (10-37); BILIRUBIN,TOTAL 0.3 MG/DL (0.1-1.0); BLOOD UREA NITROGEN 22 MG/DL (7-18); BUN/CREATININE RATIO 29.7 (5.4-32.0); CALCIUM 8.8 MG/DL (8.5-10.1); CHLORIDE 100 MMOL/L (99-107); CREATININE 0.74 MG/DL (0.60-1.10); GLUCOSE 147 MG/DL (70-104); POTASSIUM 3.8 MMOL/L (3.5-5.1); SODIUM 137 MMOL/L (135-145); TOTAL CARBON DIOXIDE 28.7 MMOL/L (24-32); TOTAL PROTEIN 6.5 G/DL (6.4-8.2); eGFR > 90 ML/MIN
[2021-03-20] MEDS: CefTRIAXone/D5W-Rocephin 1gm 50 ML IV SCH (09:14)
[2021-03-20] MEDS: heparin, porcine 5000 units/ml vial SQ SCH (09:14)
[2021-03-20] MEDS: docusate sod 100mg capsule PO SCH (09:14)
[2021-03-20] MEDS: lactobacillus rhamnosus 10,000 MMU CELLS/CAPSULE PO SCH (09:14)
[2021-03-20] MEDS ORDERED: HYDR-3965 PO (10:53)
[2021-03-20 11:00] VITALS: BP 145/74
[2021-03-20] MEDS ORDERED: AMLO5TAB16 PO (12:10)
[2021-03-20] MEDS ORDERED: ALBU8HFA PO (12:33)
[2021-03-20] MEDS ORDERED: AMIO200T61 PO (12:34)
[2021-03-20] MEDS ORDERED: ATOR40TA PO (12:36)
[2021-03-20] MEDS ORDERED: APIX5TAB3 PO (12:36)
[2021-03-20] MEDS ORDERED: BUDE10.22 INH (12:39)
[2021-03-20] MEDS ORDERED: CARV3.1289 PO (12:39)
[2021-03-20] MEDS ORDERED: POTA10TA19 PO (12:51)
[2021-03-20] MEDS ORDERED: LORA-269 PO (12:51)
[2021-03-20] MEDS ORDERED: NYSPWD TP (12:51)
[2021-03-20] MEDS ORDERED: RISP3TAB63 PO (12:51)
[2021-03-20] MEDS ORDERED: LISI10TA27 PO (12:51)
[2021-03-20] MEDS ORDERED: ZOLP5TAB8 PO ×2 (12:51→13:09)
[2021-03-20] MEDS ORDERED: SERT25TA PO (12:51)
[2021-03-20] MEDS ORDERED: FURO-149 PO (12:51)
[2021-03-20] MEDS ORDERED: CLOP75TA33 PO (13:07)
[2021-03-20] MEDS ORDERED: GABA300C PO (13:07)
[2021-03-20] MEDS ORDERED: HYDROcodone/acetaminophen 5mg/325mg tablet PO PRN (14:20)
[2021-03-20] MEDS ORDERED: LEVO750T46 PO (14:43)
[2021-03-20] MEDS ORDERED: albuterol 2.5 MG/3 ML nebule NEB SCH (15:00)
[2021-03-20] MEDS ORDERED: non-formulary drug (Budesonide/Formoterol Fumarate (Symbicort 80-4.5 Mcg Inhaler) 2 PUFFS) INH SCH (20:00)
[2021-03-20] MEDS ORDERED: potassium chloride 10mEq ER tablet PO SCH (20:00)
[2021-03-20] MEDS ORDERED: amiodarone 200mg tablet PO SCH (20:00)
[2021-03-20] MEDS ORDERED: gabapentin 300mg capsule PO SCH (20:00)
[2021-03-20] MEDS ORDERED: carVEDilol 3.125mg tablet PO SCH (20:00)
[2021-03-20] MEDS ORDERED: nystatin 15 GM powder TP SCH (21:00)
[2021-03-20] MEDS ORDERED: budesonide 0.5mg/2ml UD nebule IH SCH (21:00)
[2021-03-20] MEDS ORDERED: risperiDONE 0.5mg tablet PO SCH (21:00)
[2021-03-20] MEDS ORDERED: sertraline 25mg tablet PO SCH (21:00)
[2021-03-21] MEDS ORDERED: LORazepam 1 MG tablet PO SCH (08:00)
[2021-03-21] MEDS ORDERED: furosemide 40mg tablet PO SCH (08:00)
[2021-03-21] MEDS ORDERED: clopidogrel 75mg tablet PO SCH (08:00)
[2021-03-21] MEDS ORDERED: amLODIPine 2.5mg tablet PO SCH (08:00)
[2021-03-21] MEDS ORDERED: atorvastatin 20mg tablet PO SCH (08:00)
[2021-03-21] MEDS ORDERED: lisinopril 10 MG tablet PO SCH (08:00)
== END 2021-03-20 15:11 | disposition home health service (06) | DRG 205 ==
LOC: ER 01:06 → ED HOLD 04:05 → UNDOADMIN 04:05 → ED HOLD 04:08 → SUR 3N 19:00 → ED HOLD 19:00
PROVIDERS: ADMIT Internal Medicine; ATTEND Internal Medicine
PROC: BW241ZZ Computerized Tomography (CT Scan) of Chest and Abdomen using Low Osmolar Contrast (ICD-10-PCS; principal; 2021-03-19)
DX: S27.321A Contusion of lung, unilateral, initial encounter (principal); J18.9 Pneumonia, unspecified organism; S22.42XA Multiple fractures of ribs, left side, initial encounter for closed fracture; J44.0 Chronic obstructive pulmonary disease with (acute) lower respiratory infection; I48.0 Paroxysmal atrial fibrillation; I11.0 Hypertensive heart disease with heart failure; F32.9 Major depressive disorder, single episode, unspecified; I50.9 Heart failure, unspecified; I25.10 Atherosclerotic heart disease of native coronary artery without angina pectoris; W18.39XA Other fall on same level, initial encounter; I71.4 Abdominal aortic aneurysm, without rupture; Z20.822 Contact with and (suspected) exposure to COVID-19; I25.2 Old myocardial infarction; Z79.01 Long term (current) use of anticoagulants; Z79.82 Long term (current) use of aspirin; Z79.899 Other long term (current) drug therapy; Z95.1 Presence of aortocoronary bypass graft; Z98.61 Coronary angioplasty status; Z56.0 Unemployment, unspecified; Z99.81 Dependence on supplemental oxygen; Y93.89 Activity, other specified; Y92.89 Other specified places as the place of occurrence of the external cause; Y99.8 Other external cause status
CPT/HCPCS: 36415; 71045; 71260; 72125; 72128; 72131; 80048; 80053; 80076; 80305; 80320; 81003; 83605; 83690; 83735; 83880; 84145; 84484; 85025; 87040; 87635; 93005; 94760; 96365; 97110; 97161; 97530; 99285; G0378; J0696; J1644; J2543; Q9967

== ENCOUNTER 2021-03-27 23:06 | Emergency (ER) | payer MEDICARE ==
[~2021-03-27] VITALS: Ht 190.5 cm; Wt 134.0 kg
[~2021-03-27 23:06] MED LIST changes: -ALBU8HFA IH; -AMIO200T61 PO; -AMLO2.5T5 PO; -AMOX-422 PO; -APIX5TAB3 PO; -ATOR40TA72 PO; -BUDE10.22 INH; -CARV3.122 PO; -FURO20TA4 PO; -FURO40TA4 PO; -FURO80TA3 PO; +HYDR-3965 PO; +LEVO750T46 PO; -LISI10TA27 PO; -LORA-269 PO; -NYSPWD TP; -POTA10TA PO; -RISP3TAB63 PO; -SERT-434 PO
[2021-03-27] MEDS ORDERED: ipratropium/albuterol 3ml nebule NEB ONE (23:35)
[2021-03-27] MEDS ORDERED: furosemide 40mg/4ml inj IV ONE (23:35)
[2021-03-28 00:03] LABS: BASOPHILS # (AUTO) 0.1 X10'3 (0-0.2); BASOPHILS % (AUTO) 0.7 % (0-1); EOSINOPHILS % (AUTO) 0.4 % (0-6); HEMATOCRIT 39.3 % (42.0-52.0); HEMOGLOBIN 12.9 g/dl (14.0-17.9); LYMPHOCYTES # (AUTO) 1.2 X10'3 (1.1-4.8); LYMPHOCYTES % (AUTO) 11.7 % (21-51); MEAN CORPUSCULAR HEMOGLOBIN 29.1 PG (27.0-31.0); MEAN CORPUSCULAR HGB CONC 32.8 g/dL (33.0-36.5); MEAN CORPUSCULAR VOLUME 88.6 FL (78-98); MEAN PLATELET VOLUME 7.4 FL (7.4-10.4); MONOCYTES # (AUTO) 0.8 X10'3 (0-0.9); MONOCYTES % (AUTO) 7.8 % (2-12); NEUTROPHILS # (AUTO) 8.3 X10'3 (1.8-7.7); NEUTROPHILS % (AUTO) 79.4 % (42-75); PLATELET COUNT 236 X10'3 (140-440); RED BLOOD COUNT 4.43 X10'6 (4.70-6.10); WHITE BLOOD COUNT 10.4 X10'3 (4.5-11.0)
[2021-03-28 00:09] LABS: ALANINE AMINOTRANSFERASE 23 U/L (12-78); ALBUMIN 2.8 G/DL (3.4-5.0); ALBUMIN/GLOBULIN RATIO 0.7 (1.1-1.5); ALKALINE PHOSPHATASE 177 IU/L (46-116); ANION GAP 8 (8-16); ASPARTATE AMINO TRANSFERASE 8 U/L (10-37); BILIRUBIN,TOTAL 0.3 MG/DL (0.1-1.0); BLOOD UREA NITROGEN 9 MG/DL (7-18); BUN/CREATININE RATIO 11.3 (5.4-32.0); CHLORIDE 106 MMOL/L (99-107); GLUCOSE 139 MG/DL (70-104); POTASSIUM 3.3 MMOL/L (3.5-5.1); SODIUM 145 MMOL/L (135-145); TOTAL PROTEIN 6.6 G/DL (6.4-8.2); eGFR > 90 ML/MIN
[2021-03-28] MEDS ORDERED: potassium Cl 20 mEq SR tablet PO STA (00:29)
[2021-03-28 03:46] VITALS: BP 170/80
== END 2021-03-28 07:01 | disposition home or self-care (01) ==
LOC: ER 23:06
DX: S22.42XA Multiple fractures of ribs, left side, initial encounter for closed fracture (principal); R06.03 Acute respiratory distress; E87.6 Hypokalemia; I50.9 Heart failure, unspecified; I11.0 Hypertensive heart disease with heart failure; J18.9 Pneumonia, unspecified organism; R06.02 Shortness of breath; R07.81 Pleurodynia; R05.9 Cough, unspecified; I48.91 Unspecified atrial fibrillation; I25.10 Atherosclerotic heart disease of native coronary artery without angina pectoris; I25.2 Old myocardial infarction; J44.9 Chronic obstructive pulmonary disease, unspecified; F31.9 Bipolar disorder, unspecified; Z98.890 Other specified postprocedural states; Z56.0 Unemployment, unspecified; Z79.2 Long term (current) use of antibiotics; W19.XXXA Unspecified fall, initial encounter; Y93.89 Activity, other specified; Y92.89 Other specified places as the place of occurrence of the external cause; Y99.8 Other external cause status
CPT/HCPCS: 36415; 71045; 80053; 83880; 84484; 85025; 93005; 94640; 96374; 99285; 99406; J1940; 94760

== ENCOUNTER 2021-04-05 20:26 | Emergency (ER) | payer MEDICARE ==
[~2021-04-05] VITALS: Ht 190.5 cm; Wt 113.0 kg
[2021-04-05] MEDS ORDERED: ketorolac trometh. 30mg/ml inj. IV ONE (20:40)
[2021-04-05 21:01] LABS: BASOPHILS # (AUTO) 0.1 X10'3 (0-0.2); BASOPHILS % (AUTO) 1.8 % (0-1); EOSINOPHILS # (AUTO) 0.3 X10'3 (0-0.9); EOSINOPHILS % (AUTO) 3.9 % (0-6); HEMATOCRIT 41.5 % (42.0-52.0); HEMOGLOBIN 13.7 g/dl (14.0-17.9); LYMPHOCYTES # (AUTO) 1.4 X10'3 (1.1-4.8); MEAN CORPUSCULAR HEMOGLOBIN 28.6 PG (27.0-31.0); MEAN CORPUSCULAR HGB CONC 33.1 g/dL (33.0-36.5); MEAN CORPUSCULAR VOLUME 86.6 FL (78-98); MEAN PLATELET VOLUME 7.9 FL (7.4-10.4); MONOCYTES # (AUTO) 0.9 X10'3 (0-0.9); MONOCYTES % (AUTO) 11.1 % (2-12); NEUTROPHILS # (AUTO) 5.2 X10'3 (1.8-7.7); NEUTROPHILS % (AUTO) 65.2 % (42-75); PLATELET COUNT 213 X10'3 (140-440); RED CELL DISTRIBUTION WIDTH 15.8 % (11.5-14.5)
[2021-04-05 21:16] LABS: ALANINE AMINOTRANSFERASE 18 U/L (12-78); ALBUMIN/GLOBULIN RATIO 0.7 (1.1-1.5); ALKALINE PHOSPHATASE 145 IU/L (46-116); ANION GAP 11 (8-16); ASPARTATE AMINO TRANSFERASE 19 U/L (10-37); BILIRUBIN,TOTAL 0.3 MG/DL (0.1-1.0); BLOOD UREA NITROGEN 5 MG/DL (7-18); BUN/CREATININE RATIO 5.6 (5.4-32.0); CALCIUM 8.3 MG/DL (8.5-10.1); CHLORIDE 104 MMOL/L (99-107); GLUCOSE 140 MG/DL (70-104); POTASSIUM 3.9 MMOL/L (3.5-5.1); SODIUM 141 MMOL/L (135-145); TOTAL CARBON DIOXIDE 26.2 MMOL/L (24-32); TOTAL PROTEIN 7.2 G/DL (6.4-8.2); eGFR 84 ML/MIN
[2021-04-05 21:23] LABS: MAGNESIUM 1.8 MG/DL (1.5-2.4)
[2021-04-05] MEDS ORDERED: HYDR-3965 PO ×2 (21:33→21:34)
[2021-04-05 23:18] VITALS: BP 175/81
== END 2021-04-05 23:22 | disposition home or self-care (01) ==
LOC: ER 20:27
DX: S20.212A Contusion of left front wall of thorax, initial encounter (principal); R06.02 Shortness of breath; R10.84 Generalized abdominal pain; I48.91 Unspecified atrial fibrillation; I25.10 Atherosclerotic heart disease of native coronary artery without angina pectoris; I11.0 Hypertensive heart disease with heart failure; I50.9 Heart failure, unspecified; I25.2 Old myocardial infarction; J44.9 Chronic obstructive pulmonary disease, unspecified; Z95.5 Presence of coronary angioplasty implant and graft; Z72.89 Other problems related to lifestyle; Z56.0 Unemployment, unspecified; Z79.2 Long term (current) use of antibiotics; Z79.899 Other long term (current) drug therapy; X58.XXXA Exposure to other specified factors, initial encounter; Y93.89 Activity, other specified; Y92.89 Other specified places as the place of occurrence of the external cause; Y99.8 Other external cause status
CPT/HCPCS: 36415; 71045; 80053; 83735; 83880; 84145; 84484; 85025; 85610; 93005; 96374; 99285; J1885

== ENCOUNTER 2021-04-08 11:38 | Emergency (ER) | payer MEDICARE ==
[~2021-04-08] VITALS: Ht 190.5 cm; Wt 134.1 kg
[2021-04-08 11:57] VITALS: BP 168/83
[2021-04-08 12:23] LABS: EOSINOPHILS # (AUTO) 0.1 X10'3 (0-0.9); EOSINOPHILS % (AUTO) 2.9 % (0-6); HEMATOCRIT 40.5 % (42.0-52.0); HEMOGLOBIN 12.9 g/dl (14.0-17.9); LYMPHOCYTES # (AUTO) 1.1 X10'3 (1.1-4.8); LYMPHOCYTES % (AUTO) 22.9 % (21-51); MEAN CORPUSCULAR HEMOGLOBIN 28.2 PG (27.0-31.0); MEAN CORPUSCULAR HGB CONC 31.7 g/dL (33.0-36.5); MEAN PLATELET VOLUME 8.3 FL (7.4-10.4); MONOCYTES # (AUTO) 0.6 X10'3 (0-0.9); MONOCYTES % (AUTO) 13.4 % (2-12); NEUTROPHILS # (AUTO) 2.7 X10'3 (1.8-7.7); NEUTROPHILS % (AUTO) 59.8 % (42-75); PLATELET COUNT 181 X10'3 (140-440); RED BLOOD COUNT 4.55 X10'6 (4.70-6.10); WHITE BLOOD COUNT 4.6 X10'3 (4.5-11.0)
--- NOTE | 2021-04-08 12:32 | NUR ---
Pt was supposed to have checked into Short Stay department for his procedure, he will be discharged from the ED and moved to short stay for his scheduled appointment.
[2021-04-08 12:39] LABS: ALANINE AMINOTRANSFERASE 15 U/L (12-78); ALBUMIN/GLOBULIN RATIO 0.8 (1.1-1.5); ALKALINE PHOSPHATASE 135 IU/L (46-116); ANION GAP 8 (8-16); ASPARTATE AMINO TRANSFERASE 15 U/L (10-37); BILIRUBIN,TOTAL 0.4 MG/DL (0.1-1.0); BLOOD UREA NITROGEN 9 MG/DL (7-18); CALCIUM 8.2 MG/DL (8.5-10.1); CHLORIDE 107 MMOL/L (99-107); GLUCOSE 96 MG/DL (70-104); SODIUM 142 MMOL/L (135-145); TOTAL CARBON DIOXIDE 27.5 MMOL/L (24-32); TOTAL PROTEIN 6.9 G/DL (6.4-8.2); eGFR 84 ML/MIN
[2021-04-08] MEDS ORDERED: ALBU8HFA (13:53)
[2021-04-08] MEDS ORDERED: FURO80TA3 PO (13:53)
[2021-04-08] MEDS ORDERED: TIOT18CA3 (14:04)
[2021-04-08] MEDS ORDERED: NITR0.4T51 SL (14:04)
[2021-04-08] MEDS ORDERED: HYDR50TA65 PO (14:04)
[2021-04-08] MEDS ORDERED: LISI-644 PO (14:04)
[2021-04-08] MEDS ORDERED: TIOT4MIS3 (14:04)
[2021-04-08] MEDS ORDERED: ATOR40TA PO (14:04)
[2021-04-08] MEDS ORDERED: APIX5TAB3 PO (14:04)
[2021-04-08] MEDS ORDERED: QUET-1 PO (14:04)
[2021-04-08] MEDS ORDERED: ACET-890 PO (14:04)
[2021-04-08] MEDS ORDERED: ASPI-1265 PO (14:04)
[2021-04-08] MEDS ORDERED: FLUT1AER (14:04)
[2021-04-08] MEDS ORDERED: GABA300C PO (14:04)
== END 2021-04-08 13:02 | disposition home or self-care (01) ==
LOC: ER 11:39
DX: R07.89 Other chest pain (principal); I25.10 Atherosclerotic heart disease of native coronary artery without angina pectoris; R06.02 Shortness of breath; I48.91 Unspecified atrial fibrillation; I50.9 Heart failure, unspecified; I11.0 Hypertensive heart disease with heart failure; I25.2 Old myocardial infarction; J44.9 Chronic obstructive pulmonary disease, unspecified; F31.9 Bipolar disorder, unspecified; Z98.890 Other specified postprocedural states; Z72.89 Other problems related to lifestyle; Z56.0 Unemployment, unspecified; Z79.82 Long term (current) use of aspirin; Z79.899 Other long term (current) drug therapy
CPT/HCPCS: 36415; 71045; 80053; 85025; 93005; 99285

== ENCOUNTER 2021-04-08 12:46 | Day surgery (SDC) | payer MEDICARE ==
[2021-04-03 15:37] LABS: BASOPHILS % (AUTO) 0.6 % (0-1); EOSINOPHILS # (AUTO) 0.2 X10'3 (0-0.9); EOSINOPHILS % (AUTO) 3.6 % (0-6); HEMOGLOBIN 12.6 g/dl (14.0-17.9); LYMPHOCYTES % (AUTO) 15.4 % (21-51); MEAN CORPUSCULAR HEMOGLOBIN 28.3 PG (27.0-31.0); MEAN CORPUSCULAR HGB CONC 31.6 g/dL (33.0-36.5); MEAN CORPUSCULAR VOLUME 89.8 FL (78-98); MEAN PLATELET VOLUME 7.9 FL (7.4-10.4); MONOCYTES # (AUTO) 0.8 X10'3 (0-0.9); NEUTROPHILS # (AUTO) 4.6 X10'3 (1.8-7.7); NEUTROPHILS % (AUTO) 68.4 % (42-75); PLATELET COUNT 186 X10'3 (140-440); RED BLOOD COUNT 4.45 X10'6 (4.70-6.10); RED CELL DISTRIBUTION WIDTH 16.1 % (11.5-14.5); WHITE BLOOD COUNT 6.7 X10'3 (4.5-11.0)
[2021-04-03 15:43] LABS: ALBUMIN 2.8 G/DL (3.4-5.0); ANION GAP 10 (8-16); BLOOD UREA NITROGEN 10 MG/DL (7-18); BUN/CREATININE RATIO 10.4 (5.4-32.0); CALCIUM 8.9 MG/DL (8.5-10.1); CHLORIDE 106 MMOL/L (99-107); CHOL/HDL RATIO 2.8 (0.00-4.99); CHOLESTEROL 154 MG/DL (0-200); CREATININE 0.96 MG/DL (0.60-1.10); GLUCOSE 93 MG/DL (70-104); HDL CHOLESTEROL 55 MG/DL (35-60); LDL CHOLESTEROL 77 MG/DL (50-100); PARTIAL THROMBOPLASTIN TIME 26 SECONDS (22-32); SODIUM 147 MMOL/L (135-145); TOTAL CARBON DIOXIDE 31.3 MMOL/L (24-32); TRIGLYCERIDES 65 MG/DL (20-135); eGFR 78 ML/MIN
[2021-04-08] VITALS (8 sets, daily range): BP systolic 159–245; BP diastolic 79–110
[~2021-04-08] VITALS: Ht 190.5 cm; Wt 145.5 kg
[2021-04-08] MEDS ORDERED: normal saline 1,000 ML IV SCH (13:10)
[2021-04-08] MEDS ORDERED: LORazepam 0.5 MG tablet PO PRN (13:10)
[2021-04-08] MEDS ORDERED: LIDOcaine/PRILOcaine 5gm cream TP ONE (13:10)
[2021-04-08] MEDS ORDERED: diphenhydrAMINE 25mg capsule PO PRN (13:10)
[2021-04-08] MEDS ORDERED: ALBU8HFA IH (13:53)
[2021-04-08] MEDS ORDERED: FURO80TA3 PO (13:53)
--- NOTE | 2021-04-08 14:00 | NUR ---
Patient states he is out of most of his meds.Has not been taking his Eliquis and has not picked up his new prescription for Plavix. Has not been taking lasix
[2021-04-08] MEDS ORDERED: HYDR50TA65 PO (14:04)
[2021-04-08] MEDS ORDERED: ACET-890 PO (14:04)
[2021-04-08] MEDS ORDERED: NITR0.4T51 SL (14:04)
[2021-04-08] MEDS ORDERED: QUET-1 PO (14:04)
[2021-04-08] MEDS ORDERED: APIX5TAB3 PO (14:04)
[2021-04-08] MEDS ORDERED: ATOR40TA PO (14:04)
[2021-04-08] MEDS ORDERED: TIOT4MIS3 (14:04)
[2021-04-08] MEDS ORDERED: ASPI-1265 PO (14:04)
[2021-04-08] MEDS ORDERED: TIOT18CA3 (14:04)
[2021-04-08] MEDS ORDERED: GABA300C PO (14:04)
[2021-04-08] MEDS ORDERED: LISI-644 PO (14:04)
[2021-04-08] MEDS ORDERED: FLUT1AER (14:04)
[2021-04-08] MEDS ORDERED: nitroGLYCERIN-Tridil 50MG/D5W 250 ML IV ONE (14:21)
[2021-04-08] MEDS ORDERED: verapamil 2.5 mg/ml inj IV ONE (14:21)
[2021-04-08] MEDS ORDERED: iohexol 350MG/ML 100ml bottle IV ONE ×2 (14:22→15:46)
[2021-04-08] MEDS ORDERED: heparin 1,000unit/ml 10ml vial 10 ML ONE (14:22)
[2021-04-08] MEDS ORDERED: LIDOcaine 1% (10mg/ml)w/preservative injection 20ml MDV ONE (14:22)
[2021-04-08] MEDS ORDERED: iohexol 350 MG/ML 50ML vial IV ONE (15:46)
[2021-04-08] MEDS ORDERED: proCHLORperazine 10 MG/2 ml inj IV PRN ×2 (16:25→16:45)
[2021-04-08] MEDS ORDERED: ondansetron/PF 4mg/2ml inj IV PRN ×2 (16:25→16:40)
[2021-04-08] MEDS ORDERED: OXAZEpam 15mg capsule PO PRN ×2 (16:25→16:45)
[2021-04-08] MEDS ORDERED: normal saline 1000ml 1,000 ML IV SCH (16:25)
[2021-04-08] MEDS ORDERED: HYDROcodone/acetaminophen 10/325mg tab PO PRN (16:45)
[2021-04-08] MEDS ORDERED: HYDROcodone/acetaminophen 5mg/325mg tablet PO PRN (16:45)
--- NOTE | 2021-04-08 17:00 | NUR ---
Dr Aranda pagefrancis by office staff, bps extremely high 245/79, back from veterinary laboratory diagnostician at 208/110 at 1615 without intervention for bp per veterinary laboratory diagnostician RN. Waiting rtn call. Pt denies pain. Groin cath site normal without bleeding or hematoma.
[2021-04-08] MEDS ORDERED: hydrALAZINE 20mg/ml inj. IV ONE (17:25)
--- NOTE | 2021-04-08 17:25 | NUR ---
Call placed to Dr Aranda via cell for bp orders, rec order for hydralazine.
--- NOTE | 2021-04-08 18:45 | NUR ---
Discussed with patient to orange picking supervisor his Plavix and begin taking it as ordered. Has new Rx from Dr Aranda for Lasix and potassium as he was out of those, pt is aware they are at his pharmacy to be picked up. Pt in agreement that he understands the dc instructions. Right groin site stable without hematoma or bleeding.
[2021-04-13] MEDS ORDERED: POTA-192 PO (21:58)
== END 2021-04-08 18:50 | disposition home or self-care (01) ==
LOC: SSTAY O 12:46
PROVIDERS: ATTEND Internal Medicine Interventional Cardiology
DX: R07.89 Other chest pain (principal); I25.810 Atherosclerosis of coronary artery bypass graft(s) without angina pectoris; J44.9 Chronic obstructive pulmonary disease, unspecified; G47.33 Obstructive sleep apnea (adult) (pediatric); E78.5 Hyperlipidemia, unspecified; E11.9 Type 2 diabetes mellitus without complications; I25.2 Old myocardial infarction; I10 Essential (primary) hypertension; I65.23 Occlusion and stenosis of bilateral carotid arteries; I48.91 Unspecified atrial fibrillation; I45.10 Unspecified right bundle-branch block; F17.210 Nicotine dependence, cigarettes, uncomplicated; Z79.01 Long term (current) use of anticoagulants; Z79.899 Other long term (current) drug therapy; Z79.82 Long term (current) use of aspirin; Z88.8 Allergy status to other drugs, medicaments and biological substances
CPT/HCPCS: 36415; 80048; 80061; 85025; 85610; 85730; 93459; 99152; C1760; C1769; J0360; J1644; J2001; Q0163; Q9967; A6258; J3490

== ENCOUNTER 2021-04-13 18:39 | Inpatient (IN) | payer MEDICARE ==
[~2021-04-13] VITALS: Ht 190.5 cm; Wt 134.0 kg
[~2021-04-13 18:39] MED LIST changes: +ACET-890 PO; +ALBU8HFA IH; +APIX5TAB3 PO; +ASPI-1265 PO; +ATOR40TA PO; +FLUT1AER; +FURO80TA3 PO; +GABA300C PO; -HYDR-3965 PO; +HYDR50TA65 PO; -LEVO750T46 PO; +LISI-644 PO; +NITR0.4T51 SL; +QUET-1 PO; +TIOT18CA3; +TIOT4MIS3; -ZOLP5TAB8 PO
[2021-04-13 20:02] LABS: BASOPHILS # (AUTO) 0.1 X10'3 (0-0.2); BASOPHILS % (AUTO) 0.5 % (0-1); EOSINOPHILS # (AUTO) 0.1 X10'3 (0-0.9); HEMATOCRIT 41.9 % (42.0-52.0); HEMOGLOBIN 13.3 g/dl (14.0-17.9); LYMPHOCYTES # (AUTO) 0.8 X10'3 (1.1-4.8); LYMPHOCYTES % (AUTO) 6.5 % (21-51); MEAN CORPUSCULAR HEMOGLOBIN 27.4 PG (27.0-31.0); MEAN CORPUSCULAR HGB CONC 31.8 g/dL (33.0-36.5); MEAN CORPUSCULAR VOLUME 86.2 FL (78-98); MEAN PLATELET VOLUME 8.1 FL (7.4-10.4); MONOCYTES # (AUTO) 1.1 X10'3 (0-0.9); MONOCYTES % (AUTO) 9.1 % (2-12); NEUTROPHILS # (AUTO) 10.2 X10'3 (1.8-7.7); NEUTROPHILS % (AUTO) 82.9 % (42-75); PLATELET COUNT 274 X10'3 (140-440); RED BLOOD COUNT 4.86 X10'6 (4.70-6.10); RED CELL DISTRIBUTION WIDTH 16.1 % (11.5-14.5); WHITE BLOOD COUNT 12.3 X10'3 (4.5-11.0)
[2021-04-13 20:12] LABS: ALANINE AMINOTRANSFERASE 16 U/L (12-78); ALBUMIN/GLOBULIN RATIO 0.8 (1.1-1.5); ALKALINE PHOSPHATASE 132 IU/L (46-116); ANION GAP 6 (8-16); ASPARTATE AMINO TRANSFERASE 12 U/L (10-37); BILIRUBIN,TOTAL 0.4 MG/DL (0.1-1.0); BLOOD UREA NITROGEN 10 MG/DL (7-18); CALCIUM 8.4 MG/DL (8.5-10.1); CHLORIDE 106 MMOL/L (99-107); CREATININE 0.77 MG/DL (0.60-1.10); GLUCOSE 122 MG/DL (70-104); SODIUM 143 MMOL/L (135-145); TOTAL CARBON DIOXIDE 30.7 MMOL/L (24-32); eGFR > 90 ML/MIN
[2021-04-13] MEDS ORDERED: furosemide 10 MG/1 ML 10ml inj IV ONE (20:40)
[2021-04-13 20:51] LABS: PARTIAL THROMBOPLASTIN TIME 27 SECONDS (22-32)
[2021-04-13] MEDS ORDERED: temazepam 15mg capsule PO PRN (21:00)
[2021-04-13] MEDS ORDERED: predniSONE 20 mg tablet PO ONE (21:20)
[2021-04-13] MEDS ORDERED: ipratropium/albuterol 3ml nebule NEB ONE (21:20)
[2021-04-13] MEDS ORDERED: CLOP75TA34 PO (21:57)
[2021-04-13] MEDS ORDERED: POTA10TA19 PO (21:58)
[2021-04-13] MEDS ORDERED: HYDROcodone/acetaminophen 10/325mg tab PO PRN (22:05)
[2021-04-13] MEDS ORDERED: acetaminophen 325mg tablet PO PRN ×2 (22:05)
[2021-04-13] MEDS ORDERED: bisacodyl 10mg suppository rectal RC PRN (22:05)
[2021-04-13] MEDS ORDERED: diphenhydrAMINE 50 mg/ml inj IV PRN (22:05)
[2021-04-13] MEDS ORDERED: ondansetron/PF 4mg/2ml inj IV PRN (22:05)
[2021-04-13] MEDS ORDERED: acetaminophen 650mg rectal suppository RC PRN (22:05)
[2021-04-13] MEDS ORDERED: mag hydrox/Alum hydrox/simeth 30ml oral suspension PO PRN (22:05)
[2021-04-13] MEDS ORDERED: ondansetron 4mg rapidly disintigrating tab PO PRN (22:05)
[2021-04-13] MEDS ORDERED: HYDROcodone/acetaminophen 5mg/325mg tablet PO PRN (22:05)
[2021-04-13] MEDS ORDERED: magnesium hydroxide 30ml (MOM) UD suspension PO PRN (22:05)
[2021-04-13] MEDS ORDERED: morphine 2 MG/ML inj. syringe IV PRN ×2 (22:05)
[2021-04-13] MEDS ORDERED: diphenhydrAMINE 25mg capsule PO PRN (22:05)
[2021-04-13] MEDS ORDERED: hydrALAZINE 20mg/ml inj. IV PRN (22:10)
[2021-04-13 22:52] LABS: CLARITY,URINE SLIGHTLY CLOUDY (Clear); COLOR,URINE STRAW (Yellow); GLUCOSE, URINE NEGATIVE (Neg); KETONES,URINE NEGATIVE (Neg); LEUKOCYTE ESTERASE ,URINE MODERATE (Neg); NITRITES, URINE NEGATIVE (Neg); OCCULT BLOOD,URINE LARGE (Neg); PROTEIN,URINE NEGATIVE (Neg); UA COLLECTION TYPE CLN CATCH MIDSTREAM; UROBILINOGEN,URINE 0.2 E.U/dL (0.2-1.0)
[2021-04-13] MEDS ORDERED: loperamide 2mg capsule PO PRN (23:10)
[2021-04-13 23:15] LABS: URINE AMPHETAMINE SCREEN NEGATIVE (Neg); URINE BARBITUATE SCREEN NEGATIVE (Neg); URINE BENZODIAZEPINES SCREEN NEGATIVE (Neg); URINE COCAINE SCREEN NEGATIVE (Neg); URINE METHADONE SCREEN NEGATIVE (Neg)
[2021-04-13 23:16] LABS: URINE CANNABINOID SCREEN NEGATIVE (Neg); URINE OPIATE SCREEN NEGATIVE (Neg); URINE PHENCYCLIDINE SCREEN NEGATIVE (Neg)
[2021-04-13 23:19] LABS: BACTERIA,URINE FEW /HPF (Neg); SQUAMOUS EPITHELIAL CELL,UR FEW /LPF (FEW)
[2021-04-13 23:20] LABS: D-DIMER 1.03 MG/L FEU (0-0.50)
[2021-04-13] MEDS: ipratropium/albuterol 3ml nebule NEB SCH (23:50)
[2021-04-14 00:45] LABS: HEMOGLOBIN A1C 7.4 % (4.5-6.2)
[2021-04-14 01:05] LABS: CREATINE KINASE 61 U/L (39-308); LIPASE < 50 U/L (73-393); PHOSPHORUS 3.5 MG/DL (2.3-4.5); TROPONIN I < 0.04 NG/ML (0.0-0.05)
[2021-04-14] MEDS: ipratropium/albuterol 3ml nebule NEB SCH ×6 (04:08→23:43)
[2021-04-14 06:26] LABS: BASOPHILS % (AUTO) 0.2 % (0-1); EOSINOPHILS % (AUTO) 0 % (0-6); HEMATOCRIT 39.4 % (42.0-52.0); HEMOGLOBIN 12.8 g/dl (14.0-17.9); LYMPHOCYTES # (AUTO) 0.4 X10'3 (1.1-4.8); LYMPHOCYTES % (AUTO) 3.3 % (21-51); MEAN CORPUSCULAR HEMOGLOBIN 27.8 PG (27.0-31.0); MEAN CORPUSCULAR HGB CONC 32.6 g/dL (33.0-36.5); MEAN CORPUSCULAR VOLUME 85.4 FL (78-98); MEAN PLATELET VOLUME 7.8 FL (7.4-10.4); MONOCYTES # (AUTO) 0.6 X10'3 (0-0.9); MONOCYTES % (AUTO) 4.6 % (2-12); NEUTROPHILS # (AUTO) 11.4 X10'3 (1.8-7.7); NEUTROPHILS % (AUTO) 91.9 % (42-75); PLATELET COUNT 275 X10'3 (140-440); RED BLOOD COUNT 4.61 X10'6 (4.70-6.10); RED CELL DISTRIBUTION WIDTH 16.5 % (11.5-14.5); WHITE BLOOD COUNT 12.4 X10'3 (4.5-11.0)
[2021-04-14 06:46] LABS: ALANINE AMINOTRANSFERASE 16 U/L (12-78); ALBUMIN 2.9 G/DL (3.4-5.0); ALBUMIN/GLOBULIN RATIO 0.7 (1.1-1.5); ALKALINE PHOSPHATASE 150 IU/L (46-116); ANION GAP 7 (8-16); ASPARTATE AMINO TRANSFERASE 16 U/L (10-37); BILIRUBIN,TOTAL 0.6 MG/DL (0.1-1.0); BLOOD UREA NITROGEN 10 MG/DL (7-18); BUN/CREATININE RATIO 10.9 (5.4-32.0); CALCIUM 8.4 MG/DL (8.5-10.1); CHLORIDE 105 MMOL/L (99-107); CREATININE 0.92 MG/DL (0.60-1.10); GLUCOSE 150 MG/DL (70-104); POTASSIUM 4.2 MMOL/L (3.5-5.1); SODIUM 144 MMOL/L (135-145); TOTAL CARBON DIOXIDE 31.6 MMOL/L (24-32); TOTAL PROTEIN 6.9 G/DL (6.4-8.2); eGFR 82 ML/MIN
[2021-04-14 06:50] LABS: CHOL/HDL RATIO 2.6 (0.00-4.99); CHOLESTEROL 151 MG/DL (0-200); HDL CHOLESTEROL 59 MG/DL (35-60); LDL CHOLESTEROL 79 MG/DL (50-100); TRIGLYCERIDES 34 MG/DL (20-135)
[2021-04-14] MEDS: docusate sod 100mg capsule PO SCH ×2 (08:00→19:23)
[2021-04-14] MEDS: furosemide 10 MG/1 ML 10ml inj IV SCH ×3 (09:13→23:07)
[2021-04-14] MEDS: CefTRIAXone/D5W-Rocephin 1gm 50 ML IV SCH (09:13)
[2021-04-14] MEDS: pantoprazole 40mg Tablet.DR PO SCH (09:13)
[2021-04-14] MEDS: methylPREDNISolone sod succ 125mg/2ml vial IV SCH ×2 (09:14→19:15)
[2021-04-14] MEDS: nicotine 21mg patch - 24 hr TD SCH (09:15)
[2021-04-14] MEDS: normal saline 1000ml 1,000 ML IV SCH (10:24)
[2021-04-14] MEDS: azithromycin/NS 500mg/250ml 250 ML IV SCH (10:24)
[2021-04-14] MEDS ORDERED: ZOLP5TAB8 PO (13:26)
[2021-04-14] MEDS ORDERED: AMLO2.5T5 PO (13:26)
[2021-04-14] MEDS ORDERED: SERT-433 PO (13:26)
[2021-04-14] MEDS ORDERED: nystatin 15 GM powder TP PRN (14:15)
[2021-04-14 15:00] VITALS: BP 115/61
[2021-04-14 18:00] VITALS: BP 119/70
--- NOTE | 2021-04-14 18:13 | NUR ---
Problems reprioritized. Patient report given, questions answered & plan of care reviewed with Bernadette ENGLAND.
--- NOTE | 2021-04-14 19:23 | NUR ---
Made multiple attempts to offer patient nighttime medications of lasix and colace. Patients O2 sat are 93%, lungs sound very course and wet, he is also tachypneic at this time. I educated the patient on the importance of taking his lasix, however he is still refusing. He states "I am not going to take lasix at 7 oclock at night, i want to sleep, lasix will keep me up all night peeing." I offered to apply and condom catheter and the patient still is refusing.
[2021-04-14 22:00] VITALS: BP 162/66
--- NOTE | 2021-04-14 23:14 | NUR ---
patient has now complied with taking the lasix that was ordered for 04/14/21 @ 2592
[2021-04-15] MEDS: ipratropium/albuterol 3ml nebule NEB SCH ×6 (03:56→22:56)
[2021-04-15 05:51] VITALS: BP 152/69
[2021-04-15 06:21] LABS: BASOPHILS % (AUTO) 0 % (0-1); EOSINOPHILS % (AUTO) 0 % (0-6); HEMATOCRIT 39.5 % (42.0-52.0); HEMOGLOBIN 12.6 g/dl (14.0-17.9); LYMPHOCYTES # (AUTO) 0.4 X10'3 (1.1-4.8); LYMPHOCYTES % (AUTO) 3.9 % (21-51); MEAN CORPUSCULAR HEMOGLOBIN 27.3 PG (27.0-31.0); MEAN CORPUSCULAR HGB CONC 31.9 g/dL (33.0-36.5); MEAN CORPUSCULAR VOLUME 85.7 FL (78-98); MEAN PLATELET VOLUME 8.3 FL (7.4-10.4); MONOCYTES # (AUTO) 1.2 X10'3 (0-0.9); MONOCYTES % (AUTO) 10.4 % (2-12); NEUTROPHILS # (AUTO) 9.9 X10'3 (1.8-7.7); NEUTROPHILS % (AUTO) 85.7 % (42-75); PLATELET COUNT 281 X10'3 (140-440); RED BLOOD COUNT 4.61 X10'6 (4.70-6.10); RED CELL DISTRIBUTION WIDTH 16.3 % (11.5-14.5); WHITE BLOOD COUNT 11.5 X10'3 (4.5-11.0)
--- NOTE | 2021-04-15 06:21 | NUR ---
Problems reprioritized. Patient report given, questions answered & plan of care reviewed with SAMANTA Macias.
[2021-04-15 06:36] LABS: ALANINE AMINOTRANSFERASE 18 U/L (12-78); ALBUMIN/GLOBULIN RATIO 0.8 (1.1-1.5); ALKALINE PHOSPHATASE 111 IU/L (46-116); ANION GAP 5 (8-16); ASPARTATE AMINO TRANSFERASE 12 U/L (10-37); BILIRUBIN,TOTAL 0.3 MG/DL (0.1-1.0); BLOOD UREA NITROGEN 19 MG/DL (7-18); BUN/CREATININE RATIO 20.9 (5.4-32.0); CALCIUM 8.6 MG/DL (8.5-10.1); CHLORIDE 104 MMOL/L (99-107); CREATININE 0.91 MG/DL (0.60-1.10); GLUCOSE 130 MG/DL (70-104); POTASSIUM 4.1 MMOL/L (3.5-5.1); SODIUM 141 MMOL/L (135-145); TOTAL CARBON DIOXIDE 32.3 MMOL/L (24-32); eGFR 83 ML/MIN
[2021-04-15] MEDS ORDERED: furosemide 10 MG/1 ML 10ml inj IV ONE (06:50)
--- NOTE | 2021-04-15 06:51 | NUR ---
Ordered one time dose of Lasix 60mg because morning dose was administered early by night RN who non-admined the noc dose
[2021-04-15 07:00] VITALS: BP 158/81
[2021-04-15] MEDS: pantoprazole 40mg Tablet.DR PO SCH (09:33)
[2021-04-15] MEDS: docusate sod 100mg capsule PO SCH ×2 (09:34→21:04)
[2021-04-15] MEDS: nicotine 21mg patch - 24 hr TD SCH (09:34)
[2021-04-15] MEDS: azithromycin/NS 500mg/250ml 250 ML IV SCH (09:35)
[2021-04-15] MEDS: CefTRIAXone/D5W-Rocephin 1gm 50 ML IV SCH (09:35)
[2021-04-15] MEDS: methylPREDNISolone sod succ 125mg/2ml vial IV SCH ×2 (09:36→21:08)
[2021-04-15 11:00] VITALS: BP 168/71
--- NOTE | 2021-04-15 11:31 | NUR ---
DM consult: A1C 7.4 Per RN, pt unaware of new onset diabetes. MD needs to inform pt of new diagnosis prior to RD education. Will continue to monitor and provide DM education when appropriate. Addendum: 04/15/21 at [address] Amended: Links added.
--- NOTE | 2021-04-15 12:58 | NUR ---
Message to Lm Macias [facility] [phone]. Just got call from cooperative education coordinator that Sergey Nur [id number] is new onset diabetes, A1C is 7.4, and will need to be told by you his diagnosis before cooperative education coordinator can come educate him. Also will he need Metformin at discharge?
[2021-04-15 15:00] VITALS: BP 147/76
--- NOTE | 2021-04-15 16:48 | NUR ---
PAGER ID: [phone] MESSAGE: Patient Sergey Nur in [id number] has an tele order. He has a history of a-fib, BBB and chf do you want me to renew the order? No cardiac events in last 24hrs. Thanks Mei ENGLAND PCU ext [phone]
[2021-04-15] MEDS ORDERED: lisinopril 5mg tablet PO SCH (17:25)
[2021-04-15 18:00] VITALS: BP 152/79
--- NOTE | 2021-04-15 18:21 | NUR ---
Problems reprioritized. Patient report given, questions answered & plan of care reviewed with Shannon ENGLAND.
[2021-04-15] MEDS: furosemide 10 MG/1 ML 10ml inj IV SCH (20:00)
--- NOTE | 2021-04-15 21:00 | NUR ---
Pt out of bed to chair is AAOx4 conversing in Green[place]ic with nurse, denied any discomfort. IV to kvo infusing well without any complaints. Plan of care verbalized to pt . Pt refuses his IV Lasix due to increased urination at night. Teaching reinforcement done about edema and the reason why the doctor orders the medication. Pt stated that he never take it at this time.
[2021-04-15] MEDS: carVEDilol 3.125mg tablet PO SCH (21:04)
--- NOTE | 2021-04-16 01:30 | NUR ---
Pt complaining that the cpap is not working well; respiratory paged. Pt denied any respiratory discomfort.
[2021-04-16] MEDS: normal saline 1000ml 1,000 ML IV SCH (02:48)
[2021-04-16 02:49] VITALS: BP 132/61
[2021-04-16] MEDS: ipratropium/albuterol 3ml nebule NEB SCH ×3 (02:55→10:04)
[2021-04-16 06:00] VITALS: BP 132/77
--- NOTE | 2021-04-16 06:34 | NUR ---
Patient in room PCU 3018. I have received report from SAMANTA JANSEN, and had the opportunity to ask questions and assume patient care.
[2021-04-16] MEDS ORDERED: gabapentin 300mg capsule PO SCH (08:05)
[2021-04-16] MEDS ORDERED: lisinopril 20mg tablet PO SCH (08:05)
[2021-04-16] MEDS ORDERED: clopidogrel 75mg tablet PO SCH (08:05)
[2021-04-16] MEDS ORDERED: sertraline 50mg tablet PO SCH (08:05)
[2021-04-16] MEDS ORDERED: zolpidem 5mg tablet PO PRN (08:05)
[2021-04-16] MEDS ORDERED: amLODIPine 2.5mg tablet PO SCH (08:05)
[2021-04-16] MEDS ORDERED: aspirin 81mg tab.chew PO SCH (08:05)
[2021-04-16] MEDS: CefTRIAXone/D5W-Rocephin 1gm 50 ML IV SCH (08:39)
[2021-04-16] MEDS: methylPREDNISolone sod succ 125mg/2ml vial IV SCH (08:40)
[2021-04-16] MEDS: furosemide 10 MG/1 ML 10ml inj IV SCH (08:44)
[2021-04-16] MEDS: docusate sod 100mg capsule PO SCH (08:45)
[2021-04-16] MEDS: pantoprazole 40mg Tablet.DR PO SCH (08:46)
[2021-04-16] MEDS: carVEDilol 3.125mg tablet PO SCH (08:46)
[2021-04-16 09:10] LABS: BASOPHILS % (AUTO) 0 % (0-1); EOSINOPHILS % (AUTO) 0 % (0-6); HEMATOCRIT 39.8 % (42.0-52.0); HEMOGLOBIN 12.6 g/dl (14.0-17.9); LYMPHOCYTES # (AUTO) 0.5 X10'3 (1.1-4.8); LYMPHOCYTES % (AUTO) 3.8 % (21-51); MEAN CORPUSCULAR HEMOGLOBIN 27.4 PG (27.0-31.0); MEAN CORPUSCULAR HGB CONC 31.6 g/dL (33.0-36.5); MEAN CORPUSCULAR VOLUME 86.7 FL (78-98); MEAN PLATELET VOLUME 8.5 FL (7.4-10.4); MONOCYTES # (AUTO) 0.9 X10'3 (0-0.9); MONOCYTES % (AUTO) 6.9 % (2-12); NEUTROPHILS # (AUTO) 11.2 X10'3 (1.8-7.7); NEUTROPHILS % (AUTO) 89.3 % (42-75); PLATELET COUNT 278 X10'3 (140-440); RED BLOOD COUNT 4.59 X10'6 (4.70-6.10); RED CELL DISTRIBUTION WIDTH 16.3 % (11.5-14.5); WHITE BLOOD COUNT 12.6 X10'3 (4.5-11.0)
[2021-04-16 09:17] LABS: ALANINE AMINOTRANSFERASE 35 U/L (12-78); ALBUMIN 2.7 G/DL (3.4-5.0); ALBUMIN/GLOBULIN RATIO 0.7 (1.1-1.5); ALKALINE PHOSPHATASE 102 IU/L (46-116); ANION GAP 5 (8-16); ASPARTATE AMINO TRANSFERASE 25 U/L (10-37); BILIRUBIN,TOTAL 0.3 MG/DL (0.1-1.0); BLOOD UREA NITROGEN 27 MG/DL (7-18); BUN/CREATININE RATIO 31.4 (5.4-32.0); CALCIUM 8.5 MG/DL (8.5-10.1); CHLORIDE 105 MMOL/L (99-107); CREATININE 0.86 MG/DL (0.60-1.10); GLUCOSE 217 MG/DL (70-104); POTASSIUM 4.5 MMOL/L (3.5-5.1); SODIUM 144 MMOL/L (135-145); TOTAL CARBON DIOXIDE 34.3 MMOL/L (24-32); TOTAL PROTEIN 6.5 G/DL (6.4-8.2); eGFR 88 ML/MIN
[2021-04-16] MEDS ORDERED: IPRA3AMP9 NEB (10:12)
[2021-04-16] MEDS ORDERED: PRED10TA23 PO (10:12)
[2021-04-16] MEDS ORDERED: AMOX-419 PO (10:13)
[2021-04-16 11:00] VITALS: BP 126/61
--- NOTE | 2021-04-16 11:11 | NUR ---
F/u 04/15: Pt aware of DM DX per EMR. Pt seen by RD for written/verbal DM ed w/ RD contact information provided. Pt reports large appetite is agreeable to double proteins w/ meals; dietary notified. DAVID d/w RN regarding carb controlled diet as yet to have this admit. DAVID encouraged pt to contact dietitian's office if further questions/concerns. Addendum: 04/16/21 at [address] Amended: Links added.
[2021-04-16] MEDS: azithromycin/NS 500mg/250ml 250 ML IV SCH (11:37)
--- NOTE | 2021-04-16 13:23 | NUR ---
O2 Sat at rest on room air: 87% If below 89%: Recovery O2 Sat at rest on 3LPM at 94% via nasal cannula(mask/nasal cannula, etc..) No further documentation is necessary.
--- NOTE | 2021-04-16 14:45 | NUR ---
CONSIDERABLE TIME WAS SPENT TRYING TO LOCATE PT'S WHEELCHAIR. PT LEFT WITH BELONGINGS AND O2 IN A CANISTER TROLLEY IN TOW. PT STABLE FOR DISCHARGE PER MD. PIV REMOVED WITH TIP INTACT. PT WAS ASSISTED IN DRESSING. CN PROVIDED PT WITH DISCHARGE AND FOLLOW UP INSTRUCTIONS, THIS NURSE WAS AT LUNCH. [facility] WAS CALLED FOR PT. PT PREFERRED TO WAIT OUTSIDE FOR [facility]. PT TRANSFERRED TO LOBBY BY HOSPITAL STAFF. PT GOING TO [facility].
--- NOTE | 2021-04-16 14:45 | NUR ---
Wound care consulted for "pannus and groin". Pannus appears to have multiple scabbed and healed lacerations due to rubbing from patient's belt. No s/s of infection and skin is all intact. Groin appears to have redness and moisture. Patient states he has been receiving nystatin powder. Patient is planned to discharge this afternoon.
[2021-04-16] MEDS ORDERED: apixaban 5mg tablet PO SCH (20:00)
[2021-04-17] MEDS ORDERED: atorvastatin 20mg tablet PO SCH (08:00)
== END 2021-04-16 16:24 | disposition home or self-care (01) | DRG 189 ==
LOC: ER 18:40 → ED HOLD 22:07 → PCU 3S 04-14 13:35
PROVIDERS: ADMIT Family Medicine; ATTEND Internal Medicine
PROC: 5A09357 Assistance with Respiratory Ventilation, Less than 24 Consecutive Hours, Continuous Positive Airway Pressure (ICD-10-PCS; principal; 2021-04-15)
DX: J96.21 Acute and chronic respiratory failure with hypoxia (principal); I50.23 Acute on chronic systolic (congestive) heart failure; I16.1 Hypertensive emergency; N39.0 Urinary tract infection, site not specified; J44.1 Chronic obstructive pulmonary disease with (acute) exacerbation; I11.0 Hypertensive heart disease with heart failure; E11.9 Type 2 diabetes mellitus without complications; E78.5 Hyperlipidemia, unspecified; I48.91 Unspecified atrial fibrillation; R19.7 Diarrhea, unspecified; F31.9 Bipolar disorder, unspecified; F17.210 Nicotine dependence, cigarettes, uncomplicated; Z20.822 Contact with and (suspected) exposure to COVID-19; S30.811A Abrasion of abdominal wall, initial encounter; X58.XXXA Exposure to other specified factors, initial encounter; I25.10 Atherosclerotic heart disease of native coronary artery without angina pectoris; L30.9 Dermatitis, unspecified; Z79.01 Long term (current) use of anticoagulants; Z79.02 Long term (current) use of antithrombotics/antiplatelets; I25.2 Old myocardial infarction; Z79.84 Long term (current) use of oral hypoglycemic drugs; Z95.1 Presence of aortocoronary bypass graft; Z98.61 Coronary angioplasty status; Z56.0 Unemployment, unspecified; Z99.81 Dependence on supplemental oxygen; Z79.899 Other long term (current) drug therapy; Z71.6 Tobacco abuse counseling; Y93.89 Activity, other specified; Y92.89 Other specified places as the place of occurrence of the external cause; Y99.8 Other external cause status; Z79.82 Long term (current) use of aspirin
CPT/HCPCS: 36415; 71045; 80053; 80061; 80305; 81001; 82550; 83036; 83690; 83735; 83880; 84100; 84484; 85025; 85379; 85610; 85730; 87077; 87081; 87088; 87186; 87635; 93005; 94640; 94660; 94760; 96374; 97110; 97161; 97530; 99285; C9803; G0378; J0456; J0696; J1940; J2930; J7030; J7512

== ENCOUNTER 2021-04-17 01:27 | Emergency (ER) | payer MEDICARE ==
[~2021-04-17] VITALS: Ht 190.5 cm; Wt 145.4 kg
[~2021-04-17 01:27] MED LIST changes: -ACET-890 PO; +AMLO2.5T5 PO; +AMOX-419 PO; +CLOP75TA34 PO; -FLUT1AER; -HYDR50TA65 PO; +IPRA3AMP9 NEB; -NITR0.4T51 SL; +POTA-192 PO; +PRED10TA23 PO; -QUET-1 PO; +SERT-433 PO; -TIOT18CA3; -TIOT4MIS3; +ZOLP5TAB8 PO
[2021-04-17 01:44] VITALS: BP 148/69
[2021-04-17] MEDS ORDERED: dexamethasone 4mg tablet PO ONE ×2 (05:55→07:30)
[2021-04-17] MEDS ORDERED: amox tr/potassium clavulanate 875/125mg TAB PO ONE ×2 (05:55→07:30)
--- NOTE | 2021-04-17 07:46 | NUR ---
While waiting for transportation, pt came back to the ER registration window and stated that he had never received the medication that "the doctor" told him he was giving him and also wanted to know why we had not called him a cab. Reviewed pt's chart to find medications were refused by the pt and he was then discharged. I explained to him what I found in his chart, at which time the pt became upset and agitated yelling that what I said was untrue. I further explained that I am only able to see what was previously charted and that was what I found. Pt then yelled at me "This is bullshit. Get me my fucking cab". Pt was placed back on the tracker, and medications were reordered and administered. It was then explained that it was a two hour wait for a cab ride per the [facility]. Pt then became upset again, stating "just give me a damn bus pass".
== END 2021-04-17 07:57 | disposition home or self-care (01) ==
LOC: ER 01:28
DX: J18.9 Pneumonia, unspecified organism (principal); R09.02 Hypoxemia; I48.91 Unspecified atrial fibrillation; I25.10 Atherosclerotic heart disease of native coronary artery without angina pectoris; I11.0 Hypertensive heart disease with heart failure; I50.9 Heart failure, unspecified; I25.2 Old myocardial infarction; J44.9 Chronic obstructive pulmonary disease, unspecified; Z56.0 Unemployment, unspecified; Z72.89 Other problems related to lifestyle; Z95.5 Presence of coronary angioplasty implant and graft; Z79.899 Other long term (current) drug therapy; Z79.2 Long term (current) use of antibiotics; Z91.19 Patient's noncompliance with other medical treatment and regimen; Z99.81 Dependence on supplemental oxygen
CPT/HCPCS: 99283

== ENCOUNTER 2022-02-12 19:57 | Emergency (ER) | payer MEDICARE, MEDICAID ==
[~2022-02-12] VITALS: Ht 190.5 cm; Wt 120.0 kg
[~2022-02-12 19:57] MED LIST changes: -AMOX-419 PO; -PRED10TA23 PO
[2022-02-12 21:29] LABS: BASOPHILS # (AUTO) 0.1 X10'3 (0-0.2); BASOPHILS % (AUTO) 0.6 % (0-1); EOSINOPHILS # (AUTO) 0.2 X10'3 (0-0.9); EOSINOPHILS % (AUTO) 1.8 % (0-6); HEMATOCRIT 40.4 % (42.0-52.0); HEMOGLOBIN 13.3 g/dl (14.0-17.9); LYMPHOCYTES # (AUTO) 1.7 X10'3 (1.1-4.8); LYMPHOCYTES % (AUTO) 19.1 % (21-51); MEAN CORPUSCULAR HEMOGLOBIN 27.2 PG (27.0-31.0); MEAN CORPUSCULAR HGB CONC 32.8 g/dL (33.0-36.5); MEAN PLATELET VOLUME 8.6 FL (7.4-10.4); MONOCYTES # (AUTO) 0.8 X10'3 (0-0.9); NEUTROPHILS # (AUTO) 6.3 X10'3 (1.8-7.7); NEUTROPHILS % (AUTO) 69.5 % (42-75); PLATELET COUNT 181 X10'3 (140-440); RED BLOOD COUNT 4.87 X10'6 (4.70-6.10); RED CELL DISTRIBUTION WIDTH 18.7 % (11.5-14.5); WHITE BLOOD COUNT 9.1 X10'3 (4.5-11.0)
[2022-02-12 21:31] LABS: ALANINE AMINOTRANSFERASE 20 U/L (12-78); ALBUMIN/GLOBULIN RATIO 0.9 (1.1-1.5); ALKALINE PHOSPHATASE 97 IU/L (46-116); ANION GAP 6 (8-16); ASPARTATE AMINO TRANSFERASE 14 U/L (10-37); BILIRUBIN,TOTAL 0.4 MG/DL (0.1-1.0); BLOOD UREA NITROGEN 14 MG/DL (7-18); BUN/CREATININE RATIO 14.3 (5.4-32.0); CALCIUM 8.8 MG/DL (8.5-10.1); CHLORIDE 109 MMOL/L (99-107); CREATININE 0.98 MG/DL (0.60-1.10); GLUCOSE 169 MG/DL (70-104); POTASSIUM 4.2 MMOL/L (3.5-5.1); SODIUM 145 MMOL/L (135-145); TOTAL CARBON DIOXIDE 30.1 MMOL/L (24-32); TOTAL PROTEIN 6.5 G/DL (6.4-8.2); eGFR 76 ML/MIN
[2022-02-12 22:11] LABS: PLATELET ESTIMATE NORMAL
[2022-02-12 22:12] LABS: ANISOCYTOSIS 2+; POLYCHROMASIA FEW; SPHEROCYTES 1+
[2022-02-12 23:42] VITALS: BP 182/85
== END 2022-02-12 23:44 | disposition home or self-care (01) ==
LOC: ER 19:57
DX: R07.89 Other chest pain (principal); I11.0 Hypertensive heart disease with heart failure; I50.9 Heart failure, unspecified; J44.9 Chronic obstructive pulmonary disease, unspecified; F31.9 Bipolar disorder, unspecified; F17.200 Nicotine dependence, unspecified, uncomplicated; Z56.0 Unemployment, unspecified
CPT/HCPCS: 36415; 71045; 80053; 83880; 84484; 85008; 85025; 93005; 99285

== ENCOUNTER 2022-02-16 21:34 | Emergency (ER) | payer MEDICARE, MEDICAID ==
[~2022-02-16] VITALS: Ht 182.9 cm; Wt 150.0 kg
[2022-02-16] MEDS ORDERED: ipratropium/albuterol 3ml nebule NEB ONE (23:05)
[2022-02-16 23:40] VITALS: BP 169/97
== END 2022-02-17 00:03 | disposition home or self-care (01) ==
LOC: ER 21:35
DX: J44.1 Chronic obstructive pulmonary disease with (acute) exacerbation (principal); I11.0 Hypertensive heart disease with heart failure; F31.9 Bipolar disorder, unspecified; F17.200 Nicotine dependence, unspecified, uncomplicated; Z90.49 Acquired absence of other specified parts of digestive tract; Z79.899 Other long term (current) drug therapy
CPT/HCPCS: 71045; 93005; 94640; 94760; 99283

== ENCOUNTER 2022-02-17 21:07 | Emergency (ER) | payer MEDICARE, MEDICAID ==
[~2022-02-17] VITALS: Ht 190.5 cm; Wt 150.0 kg
--- NOTE | 2022-02-17 22:15 | NUR ---
AT 2215 EMS GAVE REPORT ON PT. PT WAS PLACED IN LOBBY. WHEN I CALLED PT TO TRIAGE ROOM PT WAS NOT IN LOBBY.
[2022-02-17] MEDS ORDERED: acetaminophen 325mg tablet PO STA (23:22)
--- NOTE | 2022-02-17 23:30 | NUR ---
PT WAS FOUND SITTING OUTSIDE BY REGISTRATION. PT TRIAGED WITH DR PATEL PRESENT.
[2022-02-17 23:41] VITALS: BP 174/89
--- NOTE | 2022-02-17 23:44 | NUR ---
[facility] CALLED FOR PT. PT WANTS TO GO BACK [facility]. [facility] ETA 5 MINUTES.
== END 2022-02-17 23:44 | disposition home or self-care (01) ==
LOC: ER 21:08
DX: S20.229A Contusion of unspecified back wall of thorax, initial encounter (principal); S09.90XA Unspecified injury of head, initial encounter; I11.0 Hypertensive heart disease with heart failure; J44.9 Chronic obstructive pulmonary disease, unspecified; F31.9 Bipolar disorder, unspecified; Z59.00 Homelessness unspecified; W05.0XXA Fall from non-moving wheelchair, initial encounter; Y93.89 Activity, other specified; Y92.89 Other specified places as the place of occurrence of the external cause; Y99.8 Other external cause status; Z79.899 Other long term (current) drug therapy; Z79.82 Long term (current) use of aspirin; Z79.84 Long term (current) use of oral hypoglycemic drugs
CPT/HCPCS: 99283

== ENCOUNTER 2022-02-20 21:14 | Emergency (ER) | payer MEDICARE, MEDICAID ==
[~2022-02-20] VITALS: Ht 190.5 cm; Wt 109.1 kg
[2022-02-20 22:04] LABS: BASOPHILS % (AUTO) 0.6 % (0-1); EOSINOPHILS # (AUTO) 0.3 X10'3 (0-0.9); EOSINOPHILS % (AUTO) 4.1 % (0-6); HEMATOCRIT 43.3 % (42.0-52.0); HEMOGLOBIN 14.1 g/dl (14.0-17.9); LYMPHOCYTES # (AUTO) 1.4 X10'3 (1.1-4.8); LYMPHOCYTES % (AUTO) 23.5 % (21-51); MEAN CORPUSCULAR HEMOGLOBIN 27.7 PG (27.0-31.0); MEAN CORPUSCULAR HGB CONC 32.5 g/dL (33.0-36.5); MEAN CORPUSCULAR VOLUME 85.3 FL (78-98); MEAN PLATELET VOLUME 8.3 FL (7.4-10.4); MONOCYTES # (AUTO) 0.6 X10'3 (0-0.9); MONOCYTES % (AUTO) 9.2 % (2-12); NEUTROPHILS # (AUTO) 3.8 X10'3 (1.8-7.7); NEUTROPHILS % (AUTO) 62.6 % (42-75); PLATELET COUNT 157 X10'3 (140-440); RED BLOOD COUNT 5.08 X10'6 (4.70-6.10); RED CELL DISTRIBUTION WIDTH 19.1 % (11.5-14.5); WHITE BLOOD COUNT 6.1 X10'3 (4.5-11.0)
[2022-02-20 22:17] LABS: ALANINE AMINOTRANSFERASE 18 U/L (12-78); ALBUMIN 3.1 G/DL (3.4-5.0); ALBUMIN/GLOBULIN RATIO 0.8 (1.1-1.5); ALKALINE PHOSPHATASE 115 IU/L (46-116); ANION GAP 9 (8-16); ASPARTATE AMINO TRANSFERASE 13 U/L (10-37); BILIRUBIN,TOTAL 0.3 MG/DL (0.1-1.0); BLOOD UREA NITROGEN 12 MG/DL (7-18); CALCIUM 8.5 MG/DL (8.5-10.1); CHLORIDE 107 MMOL/L (99-107); CREATININE 0.92 MG/DL (0.60-1.10); GLUCOSE 178 MG/DL (70-104); POTASSIUM 3.9 MMOL/L (3.5-5.1); SODIUM 143 MMOL/L (135-145); TOTAL CARBON DIOXIDE 27.3 MMOL/L (24-32); TOTAL PROTEIN 6.9 G/DL (6.4-8.2); eGFR 81 ML/MIN
[2022-02-21 01:04] LABS: ANISOCYTOSIS 2+; PLATELET ESTIMATE NORMAL
[2022-02-21 01:06] LABS: LARGE PLATELETS FEW
[2022-02-21] MEDS ORDERED: ondansetron 4mg rapidly disintigrating tab PO ONE (01:25)
--- NOTE | 2022-02-21 01:33 | NUR ---
PT BEING DISCHARGED FROM THE LOBBY, BEFORE ALL NURSING ASSESSMENTS DONE
[2022-02-21 01:39] VITALS: BP 161/81
== END 2022-02-21 01:40 | disposition home or self-care (01) ==
LOC: ER 21:14
DX: R07.9 Chest pain, unspecified (principal); R06.02 Shortness of breath; I11.9 Hypertensive heart disease without heart failure; J44.9 Chronic obstructive pulmonary disease, unspecified; F31.9 Bipolar disorder, unspecified; Z79.899 Other long term (current) drug therapy
CPT/HCPCS: 36415; 71045; 80053; 83880; 84484; 85008; 85025; 93005; 99285

== ENCOUNTER 2022-02-22 20:14 | Emergency (ER) | payer MEDICAID, MEDICARE ==
[~2022-02-22] VITALS: Ht 190.5 cm; Wt 159.0 kg
[2022-02-22 22:45] LABS: BASOPHILS % (AUTO) 0.4 % (0-1); EOSINOPHILS # (AUTO) 0.3 X10'3 (0-0.9); EOSINOPHILS % (AUTO) 4.5 % (0-6); HEMOGLOBIN 13.9 g/dl (14.0-17.9); LYMPHOCYTES # (AUTO) 1.2 X10'3 (1.1-4.8); LYMPHOCYTES % (AUTO) 20.5 % (21-51); MEAN CORPUSCULAR HEMOGLOBIN 27.7 PG (27.0-31.0); MEAN CORPUSCULAR HGB CONC 32.4 g/dL (33.0-36.5); MEAN CORPUSCULAR VOLUME 85.4 FL (78-98); MEAN PLATELET VOLUME 8.5 FL (7.4-10.4); MONOCYTES # (AUTO) 0.6 X10'3 (0-0.9); MONOCYTES % (AUTO) 10.7 % (2-12); NEUTROPHILS # (AUTO) 3.7 X10'3 (1.8-7.7); NEUTROPHILS % (AUTO) 63.9 % (42-75); PLATELET COUNT 158 X10'3 (140-440); RED BLOOD COUNT 5.03 X10'6 (4.70-6.10); RED CELL DISTRIBUTION WIDTH 18.7 % (11.5-14.5); WHITE BLOOD COUNT 5.9 X10'3 (4.5-11.0)
[2022-02-22 22:57] LABS: ALANINE AMINOTRANSFERASE 15 U/L (12-78); ALBUMIN 3.1 G/DL (3.4-5.0); ALBUMIN/GLOBULIN RATIO 0.9 (1.1-1.5); ALKALINE PHOSPHATASE 119 IU/L (46-116); ANION GAP 9 (8-16); ASPARTATE AMINO TRANSFERASE 12 U/L (10-37); BILIRUBIN,TOTAL 0.2 MG/DL (0.1-1.0); BLOOD UREA NITROGEN 13 MG/DL (7-18); BUN/CREATININE RATIO 13.4 (5.4-32.0); CALCIUM 8.5 MG/DL (8.5-10.1); CHLORIDE 111 MMOL/L (99-107); CREATININE 0.97 MG/DL (0.60-1.10); GLUCOSE 187 MG/DL (70-104); POTASSIUM 3.8 MMOL/L (3.5-5.1); SODIUM 146 MMOL/L (135-145); TOTAL CARBON DIOXIDE 26.2 MMOL/L (24-32); TOTAL PROTEIN 6.5 G/DL (6.4-8.2); eGFR 77 ML/MIN
[2022-02-23 03:22] VITALS: BP 155/78
== END 2022-02-23 03:23 | disposition home or self-care (01) ==
LOC: ER 20:14
DX: R07.89 Other chest pain (principal); M79.602 Pain in left arm; I48.91 Unspecified atrial fibrillation; I25.10 Atherosclerotic heart disease of native coronary artery without angina pectoris; I11.0 Hypertensive heart disease with heart failure; I50.9 Heart failure, unspecified; I25.2 Old myocardial infarction; J45.909 Unspecified asthma, uncomplicated; F31.9 Bipolar disorder, unspecified; Z98.890 Other specified postprocedural states; Z72.89 Other problems related to lifestyle; Z56.0 Unemployment, unspecified; Z79.82 Long term (current) use of aspirin; Z79.899 Other long term (current) drug therapy
CPT/HCPCS: 71045; 80053; 83880; 84484; 85025; 93005; 99285

== ENCOUNTER 2022-02-25 13:59 | Emergency (ER) | payer MEDICAID, MEDICARE ==
[~2022-02-25] VITALS: Ht 190.5 cm; Wt 156.8 kg
[2022-02-25 15:03] LABS: BASOPHILS % (AUTO) 0.7 % (0-1); EOSINOPHILS # (AUTO) 0.2 X10'3 (0-0.9); EOSINOPHILS % (AUTO) 3.9 % (0-6); HEMATOCRIT 42.4 % (42.0-52.0); HEMOGLOBIN 13.9 g/dl (14.0-17.9); LYMPHOCYTES # (AUTO) 1.7 X10'3 (1.1-4.8); LYMPHOCYTES % (AUTO) 29.9 % (21-51); MEAN CORPUSCULAR HEMOGLOBIN 27.8 PG (27.0-31.0); MEAN CORPUSCULAR HGB CONC 32.8 g/dL (33.0-36.5); MEAN CORPUSCULAR VOLUME 84.7 FL (78-98); MEAN PLATELET VOLUME 8.3 FL (7.4-10.4); MONOCYTES # (AUTO) 0.5 X10'3 (0-0.9); MONOCYTES % (AUTO) 9.7 % (2-12); NEUTROPHILS # (AUTO) 3.1 X10'3 (1.8-7.7); NEUTROPHILS % (AUTO) 55.8 % (42-75); PLATELET COUNT 177 X10'3 (140-440); RED BLOOD COUNT 5.01 X10'6 (4.70-6.10); RED CELL DISTRIBUTION WIDTH 18.4 % (11.5-14.5); WHITE BLOOD COUNT 5.6 X10'3 (4.5-11.0)
[2022-02-25 15:05] LABS: ALANINE AMINOTRANSFERASE 19 U/L (12-78); ALBUMIN 3.1 G/DL (3.4-5.0); ALBUMIN/GLOBULIN RATIO 0.9 (1.1-1.5); ALKALINE PHOSPHATASE 119 IU/L (46-116); ANION GAP 9 (8-16); ASPARTATE AMINO TRANSFERASE 16 U/L (10-37); BILIRUBIN,TOTAL 0.5 MG/DL (0.1-1.0); BLOOD UREA NITROGEN 10 MG/DL (7-18); BUN/CREATININE RATIO 12.3 (5.4-32.0); CALCIUM 8.5 MG/DL (8.5-10.1); CHLORIDE 106 MMOL/L (99-107); CREATININE 0.81 MG/DL (0.60-1.10); GLUCOSE 97 MG/DL (70-104); POTASSIUM 3.5 MMOL/L (3.5-5.1); SODIUM 142 MMOL/L (135-145); TOTAL CARBON DIOXIDE 26.7 MMOL/L (24-32); TOTAL PROTEIN 6.5 G/DL (6.4-8.2); eGFR > 90 ML/MIN
[2022-02-25] MEDS ORDERED: apixaban 5mg tablet PO STA (16:04)
[2022-02-25] MEDS ORDERED: furosemide 10 MG/1 ML 10ml inj IV ONE (16:05)
[2022-02-25] MEDS ORDERED: carvedilol 6.25mg tablet PO ONE (16:05)
[2022-02-25] MEDS ORDERED: carvedilol 6.25mg tablet PO SCH (16:05)
[2022-02-25 16:30] VITALS: BP 146/73
[2022-02-25] MEDS ORDERED: carVEDilol 3.125mg tablet PO ONE (17:12)
[2022-02-28] MEDS ORDERED: BENZ-49 PO (20:27)
[2022-02-28] MEDS ORDERED: FURO40TA4 PO (20:27)
[2022-02-28] MEDS ORDERED: METF-1203 PO (20:27)
[2022-02-28] MEDS ORDERED: HALO5TAB PO (20:27)
[2022-02-28] MEDS ORDERED: METO25TA6 PO (20:27)
[2022-03-02] MEDS ORDERED: PRED10TA PO (10:35)
[2022-03-02] MEDS ORDERED: DOXY-224 PO (10:35)
== END 2022-02-25 17:00 | disposition home or self-care (01) ==
LOC: ER 13:59
DX: I11.0 Hypertensive heart disease with heart failure (principal); I50.9 Heart failure, unspecified; R07.89 Other chest pain; Z91.14 Patient's other noncompliance with medication regimen; I48.91 Unspecified atrial fibrillation; I25.10 Atherosclerotic heart disease of native coronary artery without angina pectoris; I25.2 Old myocardial infarction; J44.9 Chronic obstructive pulmonary disease, unspecified; Z95.5 Presence of coronary angioplasty implant and graft; Z72.89 Other problems related to lifestyle; Z56.0 Unemployment, unspecified; Z79.899 Other long term (current) drug therapy; Z79.82 Long term (current) use of aspirin
CPT/HCPCS: 36415; 71045; 80053; 83880; 84484; 85025; 93005; 99285

== ENCOUNTER 2022-02-25 22:00 | Emergency (ER) | payer MEDICAID, MEDICARE ==
[~2022-02-25] VITALS: Ht 190.5 cm; Wt 147.7 kg
[2022-02-25] MEDS ORDERED: furosemide 40mg tablet PO ONE (22:20)
[2022-02-25] MEDS ORDERED: carvedilol 6.25mg tablet PO ONE (22:20)
[2022-02-25] MEDS ORDERED: lisinopril 10 MG tablet PO ONE (22:20)
[2022-02-26] MEDS ORDERED: furosemide 20MG tablet PO ONE (05:30)
[2022-02-26] MEDS ORDERED: clopidogrel 75mg tablet PO ONE (05:30)
[2022-02-26] MEDS ORDERED: apixaban 5mg tablet PO ONE (05:30)
[2022-02-26 07:07] VITALS: BP 120/88
[2022-02-28] MEDS ORDERED: BENZ-49 PO (20:27)
[2022-02-28] MEDS ORDERED: METF-1203 PO (20:27)
[2022-02-28] MEDS ORDERED: FURO40TA4 PO (20:27)
[2022-02-28] MEDS ORDERED: HALO5TAB PO (20:27)
[2022-02-28] MEDS ORDERED: METO25TA6 PO (20:27)
[2022-03-02] MEDS ORDERED: PRED10TA PO (10:35)
[2022-03-02] MEDS ORDERED: DOXY-224 PO (10:35)
== END 2022-02-26 07:19 | disposition home or self-care (01) ==
LOC: ER 22:01
DX: I50.23 Acute on chronic systolic (congestive) heart failure (principal); F31.9 Bipolar disorder, unspecified; J44.9 Chronic obstructive pulmonary disease, unspecified; Z56.0 Unemployment, unspecified; Z79.899 Other long term (current) drug therapy; Z79.82 Long term (current) use of aspirin; Z79.84 Long term (current) use of oral hypoglycemic drugs
CPT/HCPCS: 93005; 99284; A4615

== ENCOUNTER 2022-02-26 19:01 | Emergency (ER) | payer MEDICARE ==
[~2022-02-26] VITALS: Ht 188 cm; Wt 148.0 kg
[2022-02-26 19:52] VITALS: BP 139/72
[2022-02-28] MEDS ORDERED: HALO5TAB PO (20:27)
[2022-02-28] MEDS ORDERED: METF-1203 PO (20:27)
[2022-02-28] MEDS ORDERED: METO25TA6 PO (20:27)
[2022-02-28] MEDS ORDERED: FURO40TA4 PO (20:27)
[2022-02-28] MEDS ORDERED: BENZ-49 PO (20:27)
[2022-03-02] MEDS ORDERED: PRED10TA PO (10:35)
[2022-03-02] MEDS ORDERED: DOXY-224 PO (10:35)
== END 2022-02-26 21:52 | disposition home or self-care (01) ==
LOC: ER 19:01
DX: I11.0 Hypertensive heart disease with heart failure (principal); I50.9 Heart failure, unspecified; I48.91 Unspecified atrial fibrillation; I25.10 Atherosclerotic heart disease of native coronary artery without angina pectoris; I25.2 Old myocardial infarction; J44.9 Chronic obstructive pulmonary disease, unspecified; F31.9 Bipolar disorder, unspecified; Z59.00 Homelessness unspecified; Z98.890 Other specified postprocedural states; Z72.89 Other problems related to lifestyle; Z56.0 Unemployment, unspecified; Z79.82 Long term (current) use of aspirin; Z79.899 Other long term (current) drug therapy
CPT/HCPCS: 99283

== ENCOUNTER 2022-03-02 18:14 | Emergency (ER) | payer MEDICARE ==
[~2022-03-02] VITALS: Ht 190.5 cm; Wt 156.0 kg
[~2022-03-02 18:14] MED LIST changes: -AMLO2.5T5 PO; +BENZ-49 PO; -CLOP75TA34 PO; +DOXY-224 PO; +FURO40TA4 PO; -FURO80TA3 PO; +HALO5TAB PO; -LISI-644 PO; +METF-1203 PO; +METO25TA6 PO; +PRED10TA PO; -SERT-433 PO; -ZOLP5TAB8 PO
[2022-03-02 18:29] VITALS: BP 184/72
[2022-03-02 20:01] LABS: BASOPHILS # (AUTO) 0.1 X10'3 (0-0.2); BASOPHILS % (AUTO) 0.7 % (0-1); EOSINOPHILS # (AUTO) 0.1 X10'3 (0-0.9); EOSINOPHILS % (AUTO) 1.1 % (0-6); HEMOGLOBIN 14.5 g/dl (14.0-17.9); LYMPHOCYTES # (AUTO) 1.4 X10'3 (1.1-4.8); LYMPHOCYTES % (AUTO) 17.8 % (21-51); MEAN CORPUSCULAR HEMOGLOBIN 27.8 PG (27.0-31.0); MEAN CORPUSCULAR HGB CONC 33.1 g/dL (33.0-36.5); MEAN PLATELET VOLUME 8.5 FL (7.4-10.4); MONOCYTES # (AUTO) 0.9 X10'3 (0-0.9); MONOCYTES % (AUTO) 11.2 % (2-12); NEUTROPHILS # (AUTO) 5.6 X10'3 (1.8-7.7); NEUTROPHILS % (AUTO) 69.2 % (42-75); PLATELET COUNT 198 X10'3 (140-440); RED BLOOD COUNT 5.24 X10'6 (4.70-6.10); RED CELL DISTRIBUTION WIDTH 17.7 % (11.5-14.5)
[2022-03-02 20:12] LABS: ALANINE AMINOTRANSFERASE 22 U/L (12-78); ALBUMIN 3.4 G/DL (3.4-5.0); ALBUMIN/GLOBULIN RATIO 0.9 (1.1-1.5); ALKALINE PHOSPHATASE 122 IU/L (46-116); ANION GAP 6 (8-16); ASPARTATE AMINO TRANSFERASE 15 U/L (10-37); BILIRUBIN,TOTAL 0.4 MG/DL (0.1-1.0); BLOOD UREA NITROGEN 24 MG/DL (7-18); CALCIUM 9.5 MG/DL (8.5-10.1); CHLORIDE 101 MMOL/L (99-107); CREATININE 1.09 MG/DL (0.60-1.10); GLUCOSE 170 MG/DL (70-104); SODIUM 139 MMOL/L (135-145); TOTAL CARBON DIOXIDE 32.4 MMOL/L (24-32); eGFR 67 ML/MIN
== END 2022-03-02 20:47 | disposition home or self-care (01) ==
LOC: ER 18:14
DX: R07.9 Chest pain, unspecified (principal); R06.02 Shortness of breath; I11.0 Hypertensive heart disease with heart failure; J44.9 Chronic obstructive pulmonary disease, unspecified; F31.9 Bipolar disorder, unspecified; Z56.0 Unemployment, unspecified; Z79.899 Other long term (current) drug therapy; Z79.82 Long term (current) use of aspirin; Z79.1 Long term (current) use of non-steroidal anti-inflammatories (NSAID)
CPT/HCPCS: 36415; 80053; 84484; 85025; 93005; 99284

== ENCOUNTER 2022-03-03 01:54 | Emergency (ER) | payer MEDICARE ==
[~2022-03-03] VITALS: Ht 190.5 cm; Wt 150.0 kg
[2022-03-03 03:27] VITALS: BP 120/74
== END 2022-03-03 03:30 | disposition home or self-care (01) ==
LOC: ER 01:55
DX: G89.29 Other chronic pain (principal); R07.9 Chest pain, unspecified; F10.920 Alcohol use, unspecified with intoxication, uncomplicated; I11.9 Hypertensive heart disease without heart failure; F31.9 Bipolar disorder, unspecified; J44.9 Chronic obstructive pulmonary disease, unspecified; Z56.0 Unemployment, unspecified; Z79.899 Other long term (current) drug therapy; Z79.82 Long term (current) use of aspirin
CPT/HCPCS: 93005; 99284

== ENCOUNTER 2022-03-05 17:03 | Emergency (ER) | payer MEDICARE ==
[~2022-03-05 17:03] MED LIST changes: -BENZ-49 PO; +TES100C PO
== END 2022-03-05 18:42 | disposition left against medical advice (07) ==
LOC: ER 17:04
DX: F29 Unspecified psychosis not due to a substance or known physiological condition (principal); Z53.21 Procedure and treatment not carried out due to patient leaving prior to being seen by health care provider